=== PATIENT | male | born 1935 | race Caucasian/White ===

== ENCOUNTER → 2020-03-28 10:33 | Outpatient (BNVA) | payer MEDICARE, SELFPAY | PROVIDERS: PCP Internal Medicine; Visit Provider Orthopaedic Surgery | DX: M65.341 Trigger finger, right ring finger (principal) | CPT/HCPCS: 20550; 99202; J1100 ==

== ENCOUNTER 2020-05-31 18:48 | Emergency (ER) | payer MEDICARE, SELFPAY ==
--- NOTE | ~2020-05-31 | XR_ITS ---
EXAMINATION: XR CHEST CLINICAL INFORMATION: Weakness COMPARISON: Chest x-ray 10/09/2019 TECHNIQUE: Frontal view of the chest was obtained. 11:20 PM FINDINGS: No significant abnormality is noted involving the heart, lungs, mediastinum, bony thorax or soft tissues. XR/XR chest 1V IMPRESSION: Unremarkable examination.
--- NOTE | ~2020-05-31 | XR_ITS ---
EXAMINATION: XR ABDOMEN KUB CLINICAL INDICATION: Weakness COMPARISON: CT scan abdomen pelvis 10/07/2019 TECHNIQUE: AP view of the abdomen. FINDINGS: Large volume of stool throughout the colon. The volume of stool has increased since the exam of 10/07/2019. No abnormally dilated bowel loop however. Nonobstructive bowel pattern. No radiopaque urinary calculus. Multilevel degenerative spondylosis of the spine. XR/XR KUB IMPRESSION: Large volume of stool throughout the colon.
--- NOTE | ~2020-05-31 | CT_ITS ---
EXAMINATION: CT HEAD WITHOUT CONTRAST CLINICAL INFORMATION: Insomnia. Hallucination. COMPARISON: CT head 10/09/2019 TECHNIQUE: Contiguous axial imaging was performed from the skull base to vertex without intravenous administration of contrast. Coronal and sagittal reformatted images are performed at the CT scanner. [This CT examination was performed using dose optimization techniques as appropriate, variously including the following: *Automated exposure control *Adjustment of mA and/or kV according to patient size (this includes techniques or standardized protocols for targeted exams where dose is matched to indication/reason for exam; i.e. extremities or head) *Use of iterative reconstruction technique] DLP: 690 mGy-cm. FINDINGS: There is no evidence of acute intracranial hemorrhage or territorial infarction. No abnormal mass-effect or midline shift is seen. Alatorre to white matter differentiation is well preserved. No extra-axial fluid collections are identified. There is atrophy with prominence of the ventricles and the sulci and hypodensity of the periventricular white matter due to chronic small vessel ischemic disease. There are vascular calcifications of the internal carotid arteries bilaterally. There is no osseous abnormality. The mastoid air cells and visualized portions of the paranasal sinuses are well-aerated. CT/CT head/brain wo con IMPRESSION: No acute intracranial pathology.
[2020-05-31 19:26] VITALS: BP 106/70; PULSE 81; RESP 16; TEMP 36.6; O2SAT 98; BMI 27.4
[2020-05-31 19:52] LABS: MANUAL DIFF FLAG NO
[2020-05-31 20:09] LABS: Glucose Urine UA 250 MG/DL (NEG); Leukocyte Esterase Urine NEG (NEG); Nitrite Urine NEG (NEG); PH 5.5 (5.0-8.0); Specific Gravity - Urine >= 1.030 (1.005-1.025); Urine Blood NEG (NEG); Urine Ketones 5 MG/DL (NEG); Urine Protein TRACE MG/DL (NEG-TRACE)
[2020-05-31 20:11] LABS: Appearance Urine HAZY; Color Urine AMBER
[2020-05-31 20:12] LABS: Basophils Percent Auto 0.3 % (0-2); Eosinophils Absolute Auto 0.1 X10*3/uL (0.0-0.4); Eosinophils Percent Auto 1.4 % (0-4); Hematocrit 44.2 % (42-52); Hemoglobin 14.6 g/dl (14.0-18.0); Imm Gran Abs Auto 0.02 X10*3/uL (0.00-0.03); Imm Gran Pct Auto 0.3 % (0.0-0.4); Lymphocytes Absolute Auto 1.3 X10*3/uL (1.2-4.9); Lymphocytes Percent Auto 19.7 % (20-40); Mean Corpuscular Hemoglobin 30.8 pg (27.0-33.0); Mean Corpuscular Volume 93.2 fL (80-98); Mean Platelet Volume 9.7 fL (9.4-12.4); Monocytes Absolute Auto 0.5 X10*3/uL (0.1-1.2); Monocytes Percent Auto 8.1 % (2-11); Neutrophils Absolute Auto 4.6 X10*3/uL (2.0-8.3); Neutrophils Percent Auto 70.2 % (45-73); Platelet Count 174 X10*3/uL (160-400); Red Blood Count 4.74 X10*6/uL (4.60-5.80); Red Cell Distribution Width 13.7 % (11.0-16.0); White Blood Count 6.5 X10*3/uL (4.8-10.8)
[2020-05-31 20:38] LABS: Alanine Aminotransferase 25 U/L (0-40); Albumin Level 4.2 g/dL (3.5-5.0); Alkaline Phosphatase 77 U/L (39-117); Anion Gap 15 (12-20); Aspartate Amino Transferase 32 U/L (5-37); Bilirubin Total 0.4 mg/dL (0.0-1.0); Blood Urea Nitrogen 28 mg/dL (9-16); Calcium 9.6 mg/dL (8.4-10.2); Carbon Dioxide 26 mmol/L (22-29); Chloride 104 mmol/L (96-108); Creatinine Clr Calc Pharmacy 34.4; Estimated Glomerular Filt Rate 51; Glucose Random 120 mg/dL (60-115); Potassium 4.2 mmol/L (3.3-5.1); Sodium 141 mmol/L (135-145); Total Protein 7.1 g/dL (6.5-8.0)
[2020-05-31 22:00] VITALS: PULSE 84; RESP 18; O2SAT 100
--- NOTE | 2020-05-31 23:01 | ED_ITS ---
HPI - General Adult General Chief complaint: General Medical Stated complaint: not sleeping Time Seen by Provider: 05/31/20 23:00 Source: patient and family Mode of arrival: ambulatory Limitations: altered mental status History of Present Illness HPI narrative: 85 yo male with hx of HTN, dementia comes in with behavior change for 3 days MD complaint: insomnia, hallucinations Onset (ago): day(s) (3) Radiation: non-radiation Severity: moderate Quality: other Pain Consistency: intermittent Relieving factors: none Exacerbating factors: none Associated symptoms: other (not sleeping, walking all night, turning stove on) Treatments prior to arrival: other (PCP unsure if it was UTI so prophylactically Rx macrobid) Related Data Home Medications Medication Instructions Recorded Confirmed acetaminophen 650 mg 650 mg PO Q8H 03/28/20 tablet,extended release amlodipine 5 mg tablet 5 mg PO DAILY 03/28/20 atorvastatin 20 mg tablet 20 mg PO BEDTIME 03/28/20 melatonin 10 mg capsule 10 mg PO BEDTIME PRN 03/28/20 meloxicam 7.5 mg tablet 7.5 mg PO DAILY 03/28/20 memantine 5 mg tablet 5 mg PO QAM 03/28/20 omeprazole 20 mg tablet,delayed 20 mg PO DAILY 03/28/20 release triamterene 37.5 1 cap PO DAILY 03/28/20 mg-hydrochlorothiazide 25 mg capsule Previous Rx's Medication Instructions Recorded docusate sodium [Colace] 100 mg PO BID #60 cap 05/31/20 sennosides [senna] 8.6 mg PO BEDTIME PRN #30 cap 05/31/20 Allergies Allergy/AdvReac Type Severity Reaction Status Date / Time No Known Allergies Allergy Verified 03/28/20 10:57 [No Known Allergies*] Review of Systems Review of Systems: ROS unable to be obtained due to altered mental status [facility] Past Medical History Attestation statement: The following information was validated with the patient. Medical History Alzheimer disease Arthritis High cholesterol Social History Social History Alcohol intake: never Smoking Status: Never smoker Advance Directives: No Advance Directives Information Provided: No Current occupational status: retired Current occupation: right handed Physical Exam Vital Signs: Vital Signs: Last Vital Signs Temp 98 F 05/31/20 19:26 Pulse 81 05/31/20 19:26 Resp 16 05/31/20 19:26 BP 106/70 05/31/20 19:26 Pulse Ox 98 05/31/20 19:26 Body Mass Index 27.4 Appearance: Alert. Confused. No acute distress. Eyes: Pupils equal, round and reactive to light. ENT: Pharynx normal. Neck: Normal inspection. Neck supple. CVS: Normal heart rate and rhythm. Pulses normal. Respiratory: No respiratory distress. Breath sounds normal. Abdomen: Soft and nontender. Skin: Skin warm and dry. Normal skin color. Normal skin turgor. Extremities: No lower extremity edema. No calf ttp Neuro: Confused. No motor deficit. No sensory deficit. Course Course Course Narrative: daughter aware of constipation does not want to wait any longer in ED wants to go home Medical Decision Making MDM Narrative Medical decision making narrative: 85 yo male with insomnia and hallucinations x 3 days - UA negative but on macrobid, labs ordered, CXR/KUB for infection has had a bout of constipation in past triggering this behavior, Head CT for mass/ICH, PO ativan to see if this helps for sedation, daughter declines placement Lab Data Result diagrams: 05/31/20 19:41 05/31/20 19:41 Labs: Lab Results 05/31/20 05/31/20 05/31/20 Range/Units 19:40 19:41 19:41 WBC 6.5 (4.8-10.8) X10*3/uL RBC 4.74 (4.60-5.80) X10*6/uL Hgb 14.6 (14.0-18.0) g/dl Hct 44.2 (42-52) % MCV 93.2 (80-98) fL MCH 30.8 (27.0-33.0) pg MCHC 33.0 (31.0-36.0) g/dl RDW 13.7 (11.0-16.0) % Plt Count 174 (160-400) X10*3/uL MPV 9.7 (9.4-12.4) fL Immature Gran % (Auto) 0.3 (0.0-0.4) % Neut % (Auto) 70.2 (45-73) % Lymph % (Auto) 19.7 L (20-40) % [place] % (Auto) 8.1 (2-11) % Eos % (Auto) 1.4 (0-4) % Baso % (Auto) 0.3 (0-2) % Lymph # (Auto) 1.3 (1.2-4.9) X10*3/uL [place] # (Auto) 0.5 (0.1-1.2) X10*3/uL Eos # (Auto) 0.1 (0.0-0.4) X10*3/uL Baso # (Auto) 0.0 (0.0-0.2) X10*3/uL Abs Immat Gran (auto) 0.02 (0.00-0.03) X10*3/uL Absolute Neuts (auto) 4.6 (2.0-8.3) X10*3/uL Absolute Nucleated RBC 0.000 (0.0-0.012) X10*3/uL Nucleated RBC % (auto) 0.0 (0.0-0.2) /100WBC Sodium 141 (135-145) mmol/L Potassium 4.2 (3.3-5.1) mmol/L Chloride 104 (96-108) mmol/L Carbon Dioxide 26 (22-29) mmol/L Anion Gap 15 (12-20) BUN 28 H (9-16) mg/dL Creatinine 1.33 (0.5-1.4) mg/dL Estim Creat Clear Calc 34.4 Estimated GFR 51 Random Glucose 120 H (60-115) mg/dL Calcium 9.6 (8.4-10.2) mg/dL Total Bilirubin 0.4 (0.0-1.0) mg/dL AST 32 (5-37) U/L ALT 25 (0-40) U/L Alkaline Phosphatase 77 (39-117) U/L Total Protein 7.1 (6.5-8.0) g/dL Albumin 4.2 (3.5-5.0) g/dL Urine Color SANDRA Urine Appearance HAZY Urine pH 5.5 (5.0-8.0) Ur Specific [place] >= 1.030 H (1.005-1.025) Urine Protein TRACE (NEG-TRACE) MG/DL Urine Glucose (UA) 250 H (NEG) MG/DL Urine Ketones 5 (NEG) MG/DL Urine Blood NEG (NEG) Urine Nitrite NEG (NEG) Ur Leukocyte Esterase NEG (NEG) Discharge Plan Discharge Clinical Impression: Alzheimer disease Constipation Qualifiers: Constipation type: other constipation type Qualified Code(s): K59.09 - Other constipation Patient Disposition: Home, Self-Care Instructions: Constipation (ED) Additional Instructions: return to ED for any worsening symptoms or concerns TAKE 1/2 OF MAGNESIUM CITRATE REPEAT EVERY 4 HOURS NEEDED FOR BOWEL MOVEMENT Prescriptions: New senna 8.6 mg capsule 8.6 mg PO BEDTIME PRN (Reason: constipation) Qty: 30 RF: 0 docusate sodium [Colace] 100 mg capsule 100 mg PO BID Qty: 60 RF: 0 Referrals: Douglas Nguyễn MD [Primary Care Provider] - 2 days (IF NOT BETTER)
[2020-05-31] MEDS: LORazepam 1 MG TABLET PO (23:41)
[2020-05-31] MEDS: Magnesium Citrate 300 ML SOLUTION PO (23:57)
== END 2020-05-31 23:58 | disposition home or self-care (01) ==
PROVIDERS: Emergency Provider Emergency Medicine; PCP Internal Medicine
DX: G30.9 Alzheimer's disease, unspecified (principal); F02.81 Dementia in other diseases classified elsewhere, unspecified severity, with behavioral disturbance; Z91.83 Wandering in diseases classified elsewhere; R44.3 Hallucinations, unspecified; K59.09 Other constipation
CPT/HCPCS: 36415; 70450; 71045; 74018; 80053; 81003; 85025; 99284

== ENCOUNTER 2020-09-27 19:21 | Emergency (ER) | payer MEDICARE, SELFPAY ==
--- NOTE | ~2020-09-27 | CT_ITS ---
EXAMINATION: CT HEAD WITHOUT CONTRAST CLINICAL INFORMATION: Increased lethargy COMPARISON: Portions of a previous study 05/31/20 TECHNIQUE: Multidetector CT examination of the head is performed without contrast. This CT examination was performed using dose optimization techniques as appropriate, variously including the following: *Automated exposure control *Adjustment of mA and/or kV according to patient size (this includes techniques or standardized protocols for targeted exams where dose is matched to indication/reason for exam; i.e. extremities or head) *Use of iterative reconstruction technique DLP: 1204 mGy-cm FINDINGS: There is significant motion artifact. This limits the exam. There is no evidence of a recent intracranial hemorrhage or extra-axial collection. The midline structures are nondisplaced. The ventricles, cisterns, and sulci are within normal limits. There is no evidence of an intra-axial mass. There are no suspicious focal areas of abnormal brain attenuation. The paris-white interface is within normal limits. There is no evidence of acute territorial infarct. There is extensive nonspecific white matter disease possibly microangiopathy. The paranasal sinuses and mastoids are within normal limits. CT/CT head/brain wo con IMPRESSION: Limited study. 1. There is no evidence of a recent intracranial hemorrhage. 2. No acute infarct. 3. Extensive white matter disease possibly microangiopathy.
--- NOTE | ~2020-09-27 | XR_ITS ---
EXAMINATION: XR CHEST CLINICAL INFORMATION: Chest pain COMPARISON: 05/31/2020 TECHNIQUE: Frontal view of the chest was obtained. FINDINGS: Mild left basilar atelectasis. Remainder lung [place] are grossly clear. Comparable to previous. No obvious failure or effusion. XR/XR chest 1V IMPRESSION: Mild left basilar atelectasis.
[2020-09-27 19:25] VITALS: BP 135/93; BP 145/81; PULSE 85; RESP 16; TEMP 37.2; O2SAT 97; O2SAT 98; BMI 25.9
--- NOTE | 2020-09-27 19:48 | ECG_ITS ---
Test Reason : CHEST PAIN Blood Pressure : / mmHG Vent. Rate : 080 BPM Atrial Rate : 080 BPM P-R Int : 164 ms QRS Dur : 114 ms QT Int : 384 ms P-R-T Axes : 056 -32 083 degrees QTc Int : 442 ms Normal sinus rhythm with sinus arrhythmia Left axis deviation Abnormal ECG When compared with ECG of 09-OCT-2019 09:31, Premature ventricular complexes are no longer Present Referred By: Mariajose Sterling Electronically Signed By:ERNESTINE ESTRADA MD
[2020-09-27 20:35] LABS: MANUAL DIFF FLAG NO
[2020-09-27 20:36] LABS: Basophils Percent Auto 0.7 % (0-2); Eosinophils Absolute Auto 0.1 X10*3/uL (0.0-0.4); Eosinophils Percent Auto 2.4 % (0-4); Imm Gran Abs Auto 0.01 X10*3/uL (0.00-0.03); Imm Gran Pct Auto 0.2 % (0.0-0.4); Lymphocytes Percent Auto 24.3 % (20-40); Mean Corpuscular HGB Conc 33.3 g/dl (31.0-36.0); Mean Corpuscular Hemoglobin 30.8 pg (27.0-33.0); Mean Corpuscular Volume 92.4 fL (80-98); Monocytes Absolute Auto 0.5 X10*3/uL (0.1-1.2); Monocytes Percent Auto 12.1 % (2-11); Neutrophils Absolute Auto 2.6 X10*3/uL (2.0-8.3); Neutrophils Percent Auto 60.3 % (45-73); Platelet Count 150 X10*3/uL (160-400); Red Blood Count 4.22 X10*6/uL (4.60-5.80); Red Cell Distribution Width 13.8 % (11.0-16.0); White Blood Count 4.2 X10*3/uL (4.8-10.8)
[2020-09-27 20:42] LABS: INTERNATIONAL NORM RATIO 1.1 (0.9-1.1); Prothrombin Time 12.6 SEC (9.9-13.0)
--- NOTE | 2020-09-27 20:56 | ED.CHESTPAIN ---
HPI - Chest Pain General Chief Complaint: Chest Pain Stated Complaint: chest discomfort,acid reflux Time Seen by Provider: 09/27/20 19:48 Source: patient, family and EMS Mode of arrival: EMS History of Present Illness HPI narrative: 85-year-old male with a past medical history of Alzheimer's, arthritis, hyperlipidemia, BIBA from home for chest pain after eating/taking p.o. meds SPECIAL NEEDS NANNY. History obtained from daughter reports patient got little to no sleep last night, was up all night and then slept all day, increasing lethargy today. Denies fever, chills, cough, SOB, diarrhea/vomiting. Daughter denies fall/trauma or injury Related Data Home Medications Medication Instructions Recorded Confirmed acetaminophen 650 mg 650 mg PO Q8H 03/28/20 tablet,extended release (Tylenol Arthritis Pain) amlodipine 5 mg tablet 5 mg PO DAILY 03/28/20 atorvastatin 20 mg tablet (Lipitor) 20 mg PO BEDTIME 03/28/20 melatonin 10 mg capsule 10 mg PO BEDTIME PRN 03/28/20 meloxicam 7.5 mg tablet 7.5 mg PO DAILY 03/28/20 memantine 5 mg tablet 5 mg PO QAM 03/28/20 omeprazole 20 mg tablet,delayed 20 mg PO DAILY 03/28/20 release triamterene 37.5 1 cap PO DAILY 03/28/20 mg-hydrochlorothiazide 25 mg capsule Previous Rx's Medication Instructions Recorded docusate sodium 100 mg capsule 100 mg PO BID #60 cap 05/31/20 (Colace) sennosides 8.6 mg capsule (senna) 8.6 mg PO BEDTIME PRN #30 cap 05/31/20 Allergies Allergy/AdvReac Type Severity Reaction Status Date / Time No Known Allergies Allergy Verified 03/28/20 10:57 [No Known Allergies*] Review of Systems Review of Systems: Constitutional: No Fever, No Chills, +Fatigue, No Malaise Cardiovascular: + Chest Pain, No SOB, No Edema Respiratory: No Cough, No Dyspnea Gastrointestinal: No Nausea, No Vomiting, No Diarrhea, No Abdominal pain Genitourinary: No Dysuria, No Urinary Frequency, No Hematuria Musculoskeletal: No joint pain, No Joint Swelling Skin: No Skin Lesions, No rash Neuro: No Weakness History limited due to patient's baseline Alzheimer's Yes all other systems are reviewed and are negative PMFSH Past Medical History Attestation statement: The following information was validated with the patient. Medical History Alzheimer disease Arthritis High cholesterol Social History Social History Alcohol intake: never Advance Directives: No Advance Directives Information Provided: No Current occupational status: retired Current occupation: right handed Physical Exam Vital Signs: Vital Signs: Last Vital Signs Temp 97.7 F 09/27/20 22:21 Pulse 63 09/27/20 22:21 Resp 15 09/27/20 22:21 BP 117/67 09/27/20 22:21 Pulse Ox 95 09/27/20 22:21 Body Mass Index 25.9 Const: Other: Lethargic, easily arousable General: no acute distress Orientation/consciousness: oriented to person Limitations: other limitations (Baseline Alzheimer's) HENMT: Head: Yes normal to inspection and Yes atraumatic Ears: hearing grossly normal bilaterally General nose exam: Normal external nose present Face and sinus: Yes normal facial exam Eyes: General: appearance normal, both eyes and all related structures Pupils: Equal, round and reactive pupils present EOM: EOMs intact bilaterally Neck: Neck: Yes normal visual inspection and Yes no meningeal signs Resp: Effort & Inspection: normal respiratory effort Auscultation: clear to auscultation bilaterally and no wheezes Cardio: Rate: regular rate Heart sounds: S1 normal heart sound present and S2 normal heart sound present GI: Inspection: Yes normal to inspection Palpation (GI): Soft to palpation, nontender, no guarding and not rigid Skin: Rashes: no rashes Wounds: no wounds Neuro: General: oriented to person, tone normal, moves all extremities, no meningeal signs and no focal motor deficits Cranial nerves: Yes Equal, round and reactive pupils present Extrem: General: Yes normal to inspection Course Course Course Narrative: XR chest 1V IMPRESSION: Mild left basilar atelectasis. -no leukocytosis, H/H stable, initial troponin 38.8 (elevated in the past) > will obtain 3 hour repeat -2200--UA negative -COVID-19/influenza/RSV negative CT head/brain wo con IMPRESSION: Limited study. 1. There is no evidence of a recent intracranial hemorrhage. 2. No acute infarct. 3. Extensive white matter disease possibly microangiopathy. -0001--repeat troponin without 50% rise, IA unlikely >> results discussed with daughter at bedside including worrisome signs and symptoms and strict return precautions. She verbalized understanding feel safe for discharge home to follow-up with PCP MDM - Chest Pain MDM Narrative Medical decision making narrative: 85-year-old male with a past medical history of Alzheimer's, arthritis, hyperlipidemia, BIBA from home for chest pain after eating/taking p.o. meds SPECIAL NEEDS NANNY. History obtained from daughter reports patient got little to no sleep last night, was up all night and then slept all day, increasing lethargy today. On exam VSS, NAD, lethargic/easily arousable, no focal neuro deficits. Rule out ACS vs metabolic and infectious etiology vs lethargy secondary to decreased sleep per daughter. Lower concern for TIA/CVA Plan: EKG, labs, UA, CXR, head CT Medical Records Data Attestation: I reviewed the patient's medical records. Lab Data Attestation: I reviewed the patient's lab results. Result diagrams: 09/27/20 20:26 09/27/20 20:26 Labs: Lab Results 09/27/20 09/27/20 09/27/20 Range/Units 20:26 20:26 20:26 WBC 4.2 L (4.8-10.8) X10*3/uL RBC 4.22 L (4.60-5.80) X10*6/uL Hgb 13.0 L (14.0-18.0) g/dl Hct 39.0 L (42-52) % MCV 92.4 (80-98) fL MCH 30.8 (27.0-33.0) pg MCHC 33.3 (31.0-36.0) g/dl RDW 13.8 (11.0-16.0) % Plt Count 150 L (160-400) X10*3/uL MPV 9.0 L (9.4-12.4) fL Immature Gran % (Auto) 0.2 (0.0-0.4) % Neut % (Auto) 60.3 (45-73) % Lymph % (Auto) 24.3 (20-40) % [place] % (Auto) 12.1 H (2-11) % Eos % (Auto) 2.4 (0-4) % Baso % (Auto) 0.7 (0-2) % Lymph # (Auto) 1.0 L (1.2-4.9) X10*3/uL [place] # (Auto) 0.5 (0.1-1.2) X10*3/uL Eos # (Auto) 0.1 (0.0-0.4) X10*3/uL Baso # (Auto) 0.0 (0.0-0.2) X10*3/uL Abs Immat Gran (auto) 0.01 (0.00-0.03) X10*3/uL Absolute Neuts (auto) 2.6 (2.0-8.3) X10*3/uL Absolute Nucleated RBC 0.000 (0.0-0.012) X10*3/uL Nucleated RBC % (auto) 0.0 (0.0-0.2) /100WBC PT 12.6 (9.9-13.0) SEC INR 1.1 (0.9-1.1) Sodium 138 (135-145) mmol/L Potassium 3.9 (3.3-5.1) mmol/L Chloride 105 (96-108) mmol/L Carbon Dioxide 27 (22-29) mmol/L Anion Gap 10 L (12-20) BUN 14 (9-16) mg/dL Creatinine 0.85 (0.5-1.4) mg/dL Estim Creat Clear Calc 57.3 Estimated GFR > 60 Random Glucose 117 H (60-115) mg/dL Calcium 9.1 (8.4-10.2) mg/dL Magnesium 2.1 (1.6-2.6) mg/dL Total Bilirubin 0.5 (0.0-1.0) mg/dL Direct Bilirubin 0.2 (0.0-0.5) mg/dL AST 19 D (5-37) U/L ALT 18 (0-40) U/L Alkaline Phosphatase 64 (39-117) U/L Troponin I High Sens (<3.5-35.0) ng/L B-Natriuretic Peptide (<100) pg/mL Total Protein 6.0 L (6.5-8.0) g/dL Albumin 3.7 (3.5-5.0) g/dL Urine Color Urine Appearance Urine pH (5.0-8.0) Ur Specific [place] (1.005-1.025) Urine Protein (NEG-TRACE) MG/DL Urine Glucose (UA) (NEG) MG/DL Urine Ketones (NEG) MG/DL Urine Blood (NEG) Urine Nitrite (NEG) Ur Leukocyte Esterase (NEG) Coronavirus (PCR) (Negative) Influenza Type A (PCR) (Negative) Influenza Type B (PCR) (Negative) RSV RNA Qual (PCR) (Negative) 09/27/20 09/27/20 09/27/20 Range/Units 20:26 21:43 21:43 WBC (4.8-10.8) X10*3/uL RBC (4.60-5.80) X10*6/uL Hgb (14.0-18.0) g/dl Hct (42-52) % MCV (80-98) fL MCH (27.0-33.0) pg MCHC (31.0-36.0) g/dl RDW (11.0-16.0) % Plt Count (160-400) X10*3/uL MPV (9.4-12.4) fL Immature Gran % (Auto) (0.0-0.4) % Neut % (Auto) (45-73) % Lymph % (Auto) (20-40) % [place] % (Auto) (2-11) % Eos % (Auto) (0-4) % Baso % (Auto) (0-2) % Lymph # (Auto) (1.2-4.9) X10*3/uL [place] # (Auto) (0.1-1.2) X10*3/uL Eos # (Auto) (0.0-0.4) X10*3/uL Baso # (Auto) (0.0-0.2) X10*3/uL Abs Immat Gran (auto) (0.00-0.03) X10*3/uL Absolute Neuts (auto) (2.0-8.3) X10*3/uL Absolute Nucleated RBC (0.0-0.012) X10*3/uL Nucleated RBC % (auto) (0.0-0.2) /100WBC PT (9.9-13.0) SEC INR (0.9-1.1) Sodium (135-145) mmol/L Potassium (3.3-5.1) mmol/L Chloride (96-108) mmol/L Carbon Dioxide (22-29) mmol/L Anion Gap (12-20) BUN (9-16) mg/dL Creatinine (0.5-1.4) mg/dL Estim Creat Clear Calc Estimated GFR Random Glucose (60-115) mg/dL Calcium (8.4-10.2) mg/dL Magnesium (1.6-2.6) mg/dL Total Bilirubin (0.0-1.0) mg/dL Direct Bilirubin (0.0-0.5) mg/dL AST (5-37) U/L ALT (0-40) U/L Alkaline Phosphatase (39-117) U/L Troponin I High Sens 38.8 H* (<3.5-35.0) ng/L B-Natriuretic Peptide 50 (<100) pg/mL Total Protein (6.5-8.0) g/dL Albumin (3.5-5.0) g/dL Urine Color YELLOW Urine Appearance CLEAR Urine pH 7.5 (5.0-8.0) Ur Specific [place] 1.010 (1.005-1.025) Urine Protein NEG (NEG-TRACE) MG/DL Urine Glucose (UA) NEG (NEG) MG/DL Urine Ketones NEG (NEG) MG/DL Urine Blood NEG (NEG) Urine Nitrite NEG (NEG) Ur Leukocyte Esterase NEG (NEG) Coronavirus (PCR) NEGATIVE (Negative) Influenza Type A (PCR) NEGATIVE (Negative) Influenza Type B (PCR) NEGATIVE (Negative) RSV RNA Qual (PCR) NEGATIVE (Negative) 09/27/20 Range/Units 23:29 WBC (4.8-10.8) X10*3/uL RBC (4.60-5.80) X10*6/uL Hgb (14.0-18.0) g/dl Hct (42-52) % MCV (80-98) fL MCH (27.0-33.0) pg MCHC (31.0-36.0) g/dl RDW (11.0-16.0) % Plt Count (160-400) X10*3/uL MPV (9.4-12.4) fL Immature Gran % (Auto) (0.0-0.4) % Neut % (Auto) (45-73) % Lymph % (Auto) (20-40) % [place] % (Auto) (2-11) % Eos % (Auto) (0-4) % Baso % (Auto) (0-2) % Lymph # (Auto) (1.2-4.9) X10*3/uL [place] # (Auto) (0.1-1.2) X10*3/uL Eos # (Auto) (0.0-0.4) X10*3/uL Baso # (Auto) (0.0-0.2) X10*3/uL Abs Immat Gran (auto) (0.00-0.03) X10*3/uL Absolute Neuts (auto) (2.0-8.3) X10*3/uL Absolute Nucleated RBC (0.0-0.012) X10*3/uL Nucleated RBC % (auto) (0.0-0.2) /100WBC PT (9.9-13.0) SEC INR (0.9-1.1) Sodium (135-145) mmol/L Potassium (3.3-5.1) mmol/L Chloride (96-108) mmol/L Carbon Dioxide (22-29) mmol/L Anion Gap (12-20) BUN (9-16) mg/dL Creatinine (0.5-1.4) mg/dL Estim Creat Clear Calc Estimated GFR Random Glucose (60-115) mg/dL Calcium (8.4-10.2) mg/dL Magnesium (1.6-2.6) mg/dL Total Bilirubin (0.0-1.0) mg/dL Direct Bilirubin (0.0-0.5) mg/dL AST (5-37) U/L ALT (0-40) U/L Alkaline Phosphatase (39-117) U/L Troponin I High Sens 41.8 H* (<3.5-35.0) ng/L B-Natriuretic Peptide (<100) pg/mL Total Protein (6.5-8.0) g/dL Albumin (3.5-5.0) g/dL Urine Color Urine Appearance Urine pH (5.0-8.0) Ur Specific [place] (1.005-1.025) Urine Protein (NEG-TRACE) MG/DL Urine Glucose (UA) (NEG) MG/DL Urine Ketones (NEG) MG/DL Urine Blood (NEG) Urine Nitrite (NEG) Ur Leukocyte Esterase (NEG) Coronavirus (PCR) (Negative) Influenza Type A (PCR) (Negative) Influenza Type B (PCR) (Negative) RSV RNA Qual (PCR) (Negative) Discharge Plan Discharge Clinical Impression: Chest pain Patient Disposition: Home, Self-Care Instructions: Chest Pain (ED) Additional Instructions: Your blood work was reassuring today in the ED Your x-ray and head CT did not show any acute findings It is very important that he follow up with her primary care doctor Continue taking home prescribed medications If symptoms persist or worsen, constant worsening chest pain, shortness breath, fever, cough please return to the ED Prescriptions: No Action senna 8.6 mg capsule 8.6 mg PO BEDTIME PRN (Reason: constipation) Qty: 30 RF: 0 docusate sodium [Colace] 100 mg capsule 100 mg PO BID Qty: 60 RF: 0 Referrals: Catherine Bishop [Emergency Nurse] - 2 days
[2020-09-27 21:02] LABS: Alanine Aminotransferase 18 U/L (0-40); Albumin Level 3.7 g/dL (3.5-5.0); Alkaline Phosphatase 64 U/L (39-117); Anion Gap 10 (12-20); Aspartate Amino Transferase 19 U/L (5-37); Bilirubin Direct 0.2 mg/dL (0.0-0.5); Bilirubin Total 0.5 mg/dL (0.0-1.0); Blood Urea Nitrogen 14 mg/dL (9-16); Calcium 9.1 mg/dL (8.4-10.2); Carbon Dioxide 27 mmol/L (22-29); Chloride 105 mmol/L (96-108); Creatinine Clr Calc Pharmacy 57.3; Estimated Glomerular Filt Rate > 60; Glucose Random 117 mg/dL (60-115); Magnesium 2.1 mg/dL (1.6-2.6); Potassium 3.9 mmol/L (3.3-5.1); Sodium 138 mmol/L (135-145)
[2020-09-27 21:13] LABS: B Type Natriuretic Peptide 50 pg/mL (<100); Troponin-I High Sensitivity 38.8 ng/L (<3.5-35.0)
[2020-09-27 21:28] VITALS: BP 146/73; PULSE 74; RESP 15; TEMP 37.1; O2SAT 95
--- NOTE | 2020-09-27 21:29 | PC.NURSE ---
PATIENT WAS INCONTINENT URINE ,MARTHA CARE WAS DONE AND BEDDING WAS CHANGE BY THIS PCT .
[2020-09-27 21:57] LABS: Glucose Urine UA NEG (NEG); Leukocyte Esterase Urine NEG (NEG); Nitrite Urine NEG (NEG); PH 7.5 (5.0-8.0); Urine Blood NEG (NEG); Urine Ketones NEG (NEG); Urine Protein NEG (NEG-TRACE)
[2020-09-27 21:59] LABS: Appearance Urine CLEAR; Color Urine YELLOW
[2020-09-27 22:21] VITALS: BP 117/67; PULSE 63; RESP 15; TEMP 36.5; O2SAT 95
[2020-09-27 22:39] LABS: Influenza A PCR NEGATIVE (Negative); Influenza B PCR NEGATIVE (Negative); Resp Syncy Virus RNA Qual PCR NEGATIVE (Negative); SARS COV2 PCR INHOUSE NEGATIVE (Negative)
[2020-09-27 23:58] LABS: Troponin-I High Sensitivity 41.8 ng/L (<3.5-35.0)
== END 2020-09-28 00:38 | disposition home or self-care (01) ==
PROVIDERS: Physician Assistant; Emergency Provider Emergency Medicine
DX: R07.9 Chest pain, unspecified (principal); G30.9 Alzheimer's disease, unspecified; F02.80 Dementia in other diseases classified elsewhere, unspecified severity, without behavioral disturbance, psychotic disturbance, mood disturbance, and anxiety; Z20.822 Contact with and (suspected) exposure to COVID-19
CPT/HCPCS: 0241U; 36415; 70450; 71045; 80048; 80076; 81003; 83735; 83880; 84484; 85025; 85610; 93005; 99284

== ENCOUNTER 2021-03-25 19:25 | Emergency (ER) | payer MEDICARE, SELFPAY ==
--- NOTE | ~2021-03-25 | XR_ITS ---
EXAMINATION: XR CHEST CLINICAL INFORMATION: Shortness of breath. COMPARISON: 09/27/2020 TECHNIQUE: Frontal view of the chest was obtained. FINDINGS: Lung volumes are low. Bibasilar atelectasis. No consolidation, pneumothorax, or pleural effusion. Cardiac silhouette is within normal limits in size. Mild tortuosity the thoracic aorta. Calcified lymph nodes are present in the mediastinum. Bones are osteopenic. Degenerative spondylosis is present in the thoracic spine. XR/XR chest 1V IMPRESSION: Mild bibasilar atelectasis. No acute pulmonary findings.
--- NOTE | ~2021-03-25 | CT_ITS ---
EXAMINATION: CT HEAD WITHOUT CONTRAST CLINICAL INFORMATION: Altered mental status. COMPARISON: 09/27/2010 TECHNIQUE: Contiguous axial imaging was performed from the skull base to vertex without intravenous administration of contrast. This CT examination was performed using dose optimization techniques as appropriate, variously including the following: *Automated exposure control *Adjustment of mA and/or kV according to patient size (this includes techniques or standardized protocols for targeted exams where dose is matched to indication/reason for exam; i.e. extremities or head) *Use of iterative reconstruction technique DLP: 702 mGy-cm FINDINGS: There is no evidence of acute intracranial hemorrhage or territorial infarction. No abnormal mass effect or midline shift is seen. Alatorre to white matter differentiation is well preserved. No extra-axial fluid collections are identified. Mild enlargement of the ventricles, sulci, and extra-axial CSF spaces is indicative of parenchymal volume loss. Multiple areas of hypoattenuation in the subcortical and periventricular white matter are most consistent with chronic microangiopathic changes. Calcific atherosclerosis is present within the cavernous segments of the internal carotid arteries. The mastoid air cells and visualized portions of the paranasal sinuses are well aerated. Minimal pneumatization of the frontal bones. CT/CT head/brain wo con IMPRESSION: No acute intracranial pathology. Mild cerebral atrophy with moderate white matter microangiopathy.
[2021-03-25 19:31] VITALS: BP 159/78; PULSE 69; RESP 18; TEMP 36.6; O2SAT 99; BMI 22.8
--- NOTE | 2021-03-25 19:34 | ECG_ITS ---
Test Reason : WEAKNESS Blood Pressure : / mmHG Vent. Rate : 073 BPM Atrial Rate : 073 BPM P-R Int : 188 ms QRS Dur : 100 ms QT Int : 400 ms P-R-T Axes : 055 -36 066 degrees QTc Int : 440 ms Poor data quality, interpretation may be adversely affected Normal sinus rhythm Left axis deviation Minimal voltage criteria for LVH, may be normal variant ( Tab product ) Abnormal ECG When compared with ECG of 27-SEP-2020 19:34, No significant change was found Referred By: Ai Barrett Electronically Signed By:Trenton Berrios
[2021-03-25] MEDS: 0.9 % Sodium Chloride 500 ML 999 ML IV (20:19)
[2021-03-25 20:48] LABS: MANUAL DIFF FLAG NO
[2021-03-25 20:49] LABS: Basophils Percent Auto 0.4 % (0-2); Eosinophils Absolute Auto 0.1 X10*3/uL (0.0-0.4); Eosinophils Percent Auto 1.9 % (0-4); Hematocrit 42.7 % (42.0-52.0); Hemoglobin 14.3 g/dl (14.0-18.0); Imm Gran Abs Auto 0.02 X10*3/uL (0.00-0.03); Imm Gran Pct Auto 0.4 % (0.0-0.4); Lymphocytes Absolute Auto 1.3 X10*3/uL (1.2-4.9); Lymphocytes Percent Auto 24.1 % (20-40); Mean Corpuscular HGB Conc 33.5 g/dl (31.0-36.0); Mean Corpuscular Hemoglobin 31.2 pg (27.0-33.0); Mean Platelet Volume 9.7 fL (9.4-12.4); Monocytes Absolute Auto 0.5 X10*3/uL (0.1-1.2); Monocytes Percent Auto 8.9 % (2-11); Neutrophils Absolute Auto 3.5 x10*3/uL (2.0-8.3); Neutrophils Percent Auto 64.3 % (45-73); Platelet Count 149 X10*3/uL (160-400); Red Blood Count 4.59 X10*6/uL (4.60-5.80); Red Cell Distribution Width 12.9 % (11.0-16.0); White Blood Count 5.4 X10*3/uL (4.8-10.8)
[2021-03-25 20:52] VITALS: BP 136/87; PULSE 70; RESP 18; TEMP 36.4; O2SAT 97
--- NOTE | 2021-03-25 20:53 | PC.NURSE ---
Pt pulled out IV, confused, resistant to linen and clothing change. New IV placed, labs sent, IV fluids infusing. Straight cath performed w/ staff assist x 4. Urine sent. Daughter remains at bedside, encouraged to let staff know if pt attempts to pull IV again so that we can intervene prior to full removal
[2021-03-25 20:56] LABS: Appearance Urine CLEAR; Color Urine YELLOW; Glucose Urine UA NEG (NEG); Leukocyte Esterase Urine NEG (NEG); Nitrite Urine NEG (NEG); Specific Gravity - Urine 1.015 (1.005-1.025); UACC Culture Trigger NO; Urine Blood TRACE (NEG); Urine Ketones NEG (NEG); Urine Protein NEG (NEG-TRACE)
[2021-03-25 21:10] LABS: COVID-19 Test Negative (Negative)
[2021-03-25 21:11] LABS: Alanine Aminotransferase 10 U/L (0-40); Albumin Level 3.7 g/dL (3.5-5.0); Alkaline Phosphatase 69 U/L (39-117); Anion Gap 10 (12-20); Aspartate Amino Transferase 20 U/L (5-37); Bilirubin Direct 0.2 mg/dL (0.0-0.5); Bilirubin Total 0.6 mg/dL (0.0-1.0); Blood Urea Nitrogen 21 mg/dL (9-16); Calcium 9.4 mg/dL (8.4-10.2); Carbon Dioxide 29 mmol/L (22-29); Chloride 104 mmol/L (96-108); Creatinine Clr Calc Pharmacy 42.1; Estimated Glomerular Filt Rate > 60; Glucose Random 82 mg/dL (60-115); Magnesium 1.9 mg/dL (1.6-2.6); Potassium 4.4 mmol/L (3.3-5.1); Sodium 139 mmol/L (135-145); Total Protein 6.4 g/dL (6.5-8.0)
[2021-03-25 21:12] LABS: Amorphous Sediment Urine 3+ /LPF; Hyaline Casts Urine 0-2 /LPF; Mucus Urine TRACE /LPF; WBC Urine 0-2 /HPF (0-4)
--- NOTE | 2021-03-25 21:23 | ED_ITS ---
HPI - Weakness General Chief complaint: Weakness Stated complaint: INCREASED WEAKNESS PER EMS Time Seen by Provider: 03/25/21 19:34 History of Present Illness HPI Narrative: Patient is an 86-year-old male presents today with a history of dementia. Patient more lethargic than usual. More sleepy than usual. He is unable to give detailed history secondary to dementia. Baseline is oriented to self only. Per family this is about the same. He has been sleeping all day. That seems somewhat unusual for patient. No coughing or congestion or upper respiratory symptoms patient is immunized for COVID. No fever no chills no changes in medication no nausea no vomiting Related Data Home Medications Medication Instructions Recorded Confirmed acetaminophen 650 mg 650 mg PO Q8H 03/28/20 tablet,extended release (Tylenol Arthritis Pain) amlodipine 5 mg tablet 5 mg PO DAILY 03/28/20 atorvastatin 20 mg tablet (Lipitor) 20 mg PO BEDTIME 03/28/20 melatonin 10 mg capsule 10 mg PO BEDTIME PRN 03/28/20 meloxicam 7.5 mg tablet 7.5 mg PO DAILY 03/28/20 memantine 5 mg tablet 5 mg PO QAM 03/28/20 omeprazole 20 mg tablet,delayed 20 mg PO DAILY 03/28/20 release triamterene 37.5 1 cap PO DAILY 03/28/20 mg-hydrochlorothiazide 25 mg capsule Previous Rx's Medication Instructions Recorded docusate sodium 100 mg capsule 100 mg PO BID #60 cap 05/31/20 (Colace) sennosides 8.6 mg capsule (senna) 8.6 mg PO BEDTIME PRN #30 cap 05/31/20 Allergies Allergy/AdvReac Type Severity Reaction Status Date / Time No Known Allergies Allergy Verified 03/28/20 10:57 [No Known Allergies*] Review of Systems Verdana 4l Review of Systems: Verdana 4d Unable to obtain review Verdana 4d system secondary patient's condition Verdana 4d Yes Unobtainable due to mental condition [facility] Past Medical History Medical History Alzheimer disease Arthritis High cholesterol Social History Social History Alcohol intake: never Advance Directives: No Advance Directives Information Provided: No Current occupational status: retired Current occupation: right handed Physical Exam Verdana 4l Vital Signs: Verdana 4d Verdana 4d Vital Signs: Verdana 4d Verdana 4Bd Last Vital Signs Verdana 4d [employer]iter New 4d Mela New 4d Temp 97.6 F 03/25/21 20:52 Senior Recruiter New 4d Pulse 70 03/25/21 20:52 Senior Recruiter New 4d Resp 18 03/25/21 20:52 BP 136/87 03/25/21 20:52 Pulse Ox 97 03/25/21 20:52 BMI result Body Mass Index 22.8 Appearance: Alert. Oriented to self only. No acute distress. Eyes: Pupils equal, round and reactive to light. ENT: Pharynx normal. Neck: Normal inspection. Neck supple. No lymph nodes noted. No crepitus CVS: Normal heart rate and rhythm. Pulses normal. Normal S1 and S2 Respiratory: No respiratory distress. Breath sounds normal. No Wheezing. No rales Abdomen: Soft and nontender. No rigidity. No distention. good BS x4 Skin: Skin warm and dry. Normal skin color. Normal skin turgor. Extremities: No lower extremity edema. Neurovascular intact to all extremities. No Lacerations. No Rash Neuro: Oriented x1 No motor deficit. No sensory deficit. Moving all extermities. No slurred speech MDM - Weakness MDM Narrative Medical decision making narrative: Patient's white count is normal. Electrolytes showed an elevated BUN creatinine that is baseline. Patient's CT scan of the head was grossly negative. EKG markos wed a sinus pattern heart rate is 70 VA QRS QT within normal limits there is nonspecific T-wave flattening noted laterally. Patient in no distress. Will discharge patient home. Chest x-ray showed no acute infiltrate. Follow up on an outpatient basis. Medical Records Attestation: I reviewed the patient's medical records. Lab Data Attestation: I reviewed the patient's lab results. Result diagrams: 03/25/21 20:44 03/25/21 20:44 Labs: Lab Results 03/25/21 03/25/21 03/25/21 Range/Units 20:44 20:44 20:44 WBC 5.4 (4.8-10.8) X10*3/uL RBC 4.59 L (4.60-5.80) X10*6/uL Hgb 14.3 (14.0-18.0) g/dl Hct 42.7 (42.0-52.0) % MCV 93.0 (80.0-98.0) fL MCH 31.2 (27.0-33.0) pg MCHC 33.5 (31.0-36.0) g/dl RDW 12.9 (11.0-16.0) % Plt Count 149 L (160-400) X10*3/uL MPV 9.7 (9.4-12.4) fL Immature Gran % (Auto) 0.4 (0.0-0.4) % Neut % (Auto) 64.3 (45-73) % Lymph % (Auto) 24.1 (20-40) % Power % (Auto) 8.9 (2-11) % Eos % (Auto) 1.9 (0-4) % Baso % (Auto) 0.4 (0-2) % Lymph # (Auto) 1.3 (1.2-4.9) X10*3/uL Power # (Auto) 0.5 (0.1-1.2) X10*3/uL Eos # (Auto) 0.1 (0.0-0.4) X10*3/uL Baso # (Auto) 0.0 (0.0-0.2) X10*3/uL Abs Immat Gran (auto) 0.02 (0.00-0.03) X10*3/uL Absolute Neuts (auto) 3.5 (2.0-8.3) x10*3/uL Absolute Nucleated RBC 0.000 (0.0-0.012) X10*3/uL Nucleated RBC % (auto) 0.0 (0.0-0.2) /100WBC Sodium 139 (135-145) mmol/L Potassium 4.4 (3.3-5.1) mmol/L Chloride 104 (96-108) mmol/L Carbon Dioxide 29 (22-29) mmol/L Anion Gap 10 L (12-20) BUN 21 H (9-16) mg/dL Creatinine 0.93 (0.5-1.4) mg/dL Estim Creat Clear Calc 42.1 Estimated GFR > 60 Random Glucose 82 (60-115) mg/dL Calcium 9.4 (8.4-10.2) mg/dL Magnesium 1.9 (1.6-2.6) mg/dL Total Bilirubin 0.6 (0.0-1.0) mg/dL Direct Bilirubin 0.2 (0.0-0.5) mg/dL AST 20 (5-37) U/L ALT 10 (0-40) U/L Alkaline Phosphatase 69 (39-117) U/L Total Protein 6.4 L (6.5-8.0) g/dL Albumin 3.7 (3.5-5.0) g/dL Urine Color Urine Appearance Urine pH (5.0-8.0) Ur Specific [place] (1.005-1.025) Urine Protein (NEG-TRACE) MG/DL Urine Glucose (UA) (NEG) MG/DL Urine Ketones (NEG) MG/DL Urine Blood (NEG) Urine Nitrite (NEG) Ur Leukocyte Esterase (NEG) Urine RBC (0) /HPF Urine WBC (0-4) /HPF Ur Squamous Epith Cells /LPF Amorphous Sediment /LPF Urine Bacteria /LPF Hyaline Casts /LPF Urine Mucus /LPF COVID-19 (JEY) Negative (Negative) COVID-19 Clin Com See Note 03/25/21 Range/Units 20:47 WBC (4.8-10.8) X10*3/uL RBC (4.60-5.80) X10*6/uL Hgb (14.0-18.0) g/dl Hct (42.0-52.0) % MCV (80.0-98.0) fL MCH (27.0-33.0) pg MCHC (31.0-36.0) g/dl RDW (11.0-16.0) % Plt Count (160-400) X10*3/uL MPV (9.4-12.4) fL Immature Gran % (Auto) (0.0-0.4) % Neut % (Auto) (45-73) % Lymph % (Auto) (20-40) % Power % (Auto) (2-11) % Eos % (Auto) (0-4) % Baso % (Auto) (0-2) % Lymph # (Auto) (1.2-4.9) X10*3/uL Power # (Auto) (0.1-1.2) X10*3/uL Eos # (Auto) (0.0-0.4) X10*3/uL Baso # (Auto) (0.0-0.2) X10*3/uL Abs Immat Gran (auto) (0.00-0.03) X10*3/uL Absolute Neuts (auto) (2.0-8.3) x10*3/uL Absolute Nucleated RBC (0.0-0.012) X10*3/uL Nucleated RBC % (auto) (0.0-0.2) /100WBC Sodium (135-145) mmol/L Potassium (3.3-5.1) mmol/L Chloride (96-108) mmol/L Carbon Dioxide (22-29) mmol/L Anion Gap (12-20) BUN (9-16) mg/dL Creatinine (0.5-1.4) mg/dL Estim Creat Clear Calc Estimated GFR Random Glucose (60-115) mg/dL Calcium (8.4-10.2) mg/dL Magnesium (1.6-2.6) mg/dL Total Bilirubin (0.0-1.0) mg/dL Direct Bilirubin (0.0-0.5) mg/dL AST (5-37) U/L ALT (0-40) U/L Alkaline Phosphatase (39-117) U/L Total Protein (6.5-8.0) g/dL Albumin (3.5-5.0) g/dL Urine Color YELLOW Urine Appearance CLEAR Urine pH 7.0 (5.0-8.0) Ur Specific [place] 1.015 (1.005-1.025) Urine Protein NEG (NEG-TRACE) MG/DL Urine Glucose (UA) NEG (NEG) MG/DL Urine Ketones NEG (NEG) MG/DL Urine Blood TRACE (NEG) Urine Nitrite NEG (NEG) Ur Leukocyte Esterase NEG (NEG) Urine RBC 5-9 H (0) /HPF Urine WBC 0-2 (0-4) /HPF Ur Squamous Epith Cells NONE /LPF Amorphous Sediment 3+ /LPF Urine Bacteria NONE /LPF Hyaline Casts 0-2 /LPF Urine Mucus TRACE /LPF COVID-19 (JEY) (Negative) COVID-19 Clin Com Discharge Plan Discharge Clinical Impression: Weakness Patient Disposition: Home, Self-Care Instructions: Weakness (ED) Prescriptions: No Action senna 8.6 mg capsule 8.6 mg PO BEDTIME PRN (Reason: constipation) Qty: 30 0RF docusate sodium [Colace] 100 mg capsule 100 mg PO BID Qty: 60 0RF Referrals: Physician,Unknown J [Primary Care Provider] - 2 days
--- NOTE | 2021-03-25 22:12 | PC.NURSE ---
Previous documentation by this RN erroneous- pt not from SNF, lives at home. Daughter at bedside confirms she is able to transport pt upon dc
== END 2021-03-25 22:25 | disposition home or self-care (01) ==
PROVIDERS: Emergency Provider Emergency Medicine Emergency Medical Services
DX: R53.1 Weakness (principal); F03.90 Unspecified dementia, unspecified severity, without behavioral disturbance, psychotic disturbance, mood disturbance, and anxiety; Z20.822 Contact with and (suspected) exposure to COVID-19; Z79.899 Other long term (current) drug therapy
CPT/HCPCS: 36415; 51702; 70450; 71045; 80048; 80076; 81001; 83735; 85025; 87635; 93005; 99284

== ENCOUNTER 2021-04-08 16:12 | Inpatient (IN) | payer MEDICARE, SELFPAY ==
--- NOTE | ~2021-04-08 | XR_ITS ---
EXAMINATION: XR HIPS WITH AP PELVIS, BILATERAL CLINICAL INFORMATION: Fall with hip pain. COMPARISON: CT scan of the abdomen and pelvis September 2019. TECHNIQUE: AP of the pelvis and AP and lateral views of each hip. FINDINGS: Right Hip: Joint space normal. No fracture or bone lesion. Left Hip: Joint space normal. No fracture or bone lesion. Pelvis: Bones, joints and soft tissues in the pelvis normal. Multilevel spondylosis of the lumbosacral spine partially visualized. XR/XR hips FRANDY min 3V IMPRESSION: 1. No acute abnormality. 2. Incidental note made of spondylosis of the partially visualized lumbosacral spine.
--- NOTE | ~2021-04-08 | XR_ITS ---
EXAMINATION: XR CHEST CLINICAL INFORMATION: Weakness COMPARISON: 03/25/2021 TECHNIQUE: Frontal view of the chest was obtained. FINDINGS: Again seen is mild cardiomegaly without CHF. Lungs are better expanded than the prior study and there is been some improvement in bibasilar atelectasis with only some minimal multilevel abnormality remaining on the left. Degenerative changes are present in the spine. Calcified right paratracheal and subcarinal lymph nodes are present. There is an old healed left humeral fracture. XR/XR chest 1V IMPRESSION: No acute intrathoracic disease.
--- NOTE | ~2021-04-08 | MR_ITS ---
EXAMINATION: MR BRAIN WITHOUT CONTRAST CLINICAL INFORMATION: Disequilibrium. COMPARISON: CT head from 04/08/2021. TECHNIQUE: MRI of the brain was obtained using routine sequences without contrast. FINDINGS: Moderately motion degraded exam. No focal restricted diffusion is demonstrated to suggest acute or subacute cerebral ischemia. No evidence of acute or chronic hemorrhagic products on heme-sensitive imaging. Basal ganglia mineralization. Scattered periventricular, deep white matter, and brainstem T2 FLAIR hyperintensities consistent with moderate underlying microangiopathy. Proportional prominence of the ventricles and sulcal spaces without evidence of obstructive hydrocephalus. No abnormal mass effect. No midline shift. Normal appearance of the pituitary gland. Normal positioning of the cerebellar tonsils. Normal arterial and venous vascular flow voids are present. Normal, homogeneous marrow signal. Mild mucosal thickening of the paranasal sinuses. Moderate left-sided mastoid effusion. No signal abnormalities within the right-sided mastoid. Bilateral lens extractions. MR/MR head/brain wo con IMPRESSION: 1. No acute intracranial abnormalities. 2. Moderate underlying microangiopathy and generalized cerebral volume loss. 3. Left-sided mastoid effusion.
--- NOTE | ~2021-04-08 | CT_ITS ---
CT head/brain wo con CLINICAL INFORMATION: Reason for Exam Dizziness, weakness COMPARISON: No prior CT scan available for comparison. TECHNIQUE: Department standard protocol. This CT examination was performed using dose optimization techniques as appropriate, variously including the following: *Automated exposure control *Adjustment of mA and/or kV according to patient size (this includes techniques or standardized protocols for targeted exams where dose is matched to indication/reason for exam; i.e. extremities or head) *Use of iterative reconstruction technique DLP: 711 mGy-cm FINDINGS: CEREBRAL HEMISPHERES: There is no evidence of intra-axial or extra-axial mass, hemorrhage or acute infarct. 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 SUBDURAL SPACE: No bleed. BASAL GANGLIA AND PINEAL GLAND: Unremarkable VENTRICLES: Symmetric and normal in size. CEREBELLUM AND BRAINSTEM: No space-occupying mass, hemorrhage or acute infarct. CEREBELLOPONTINE ANGLES: No lesion found. ORBITS: No intraorbital mass. VESSELS: Unremarkable SKULL BASE: Unremarkable INCLUDED SINUSES AT SKULL BASE: Clear SKULL AND SKIN: No fracture or bone lesion found. 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 Normal CT scan does not rule out the possibility of hyperacute infarct in the first 12 hours. If patient symptoms persist may consider correlation with MRI, which is more sensitive for early acute infarct.
[2021-04-08 16:20] VITALS: BP 118/82; PULSE 68; O2SAT 98
[2021-04-08 16:22] VITALS: BP 127/68; PULSE 69; RESP 16; TEMP 36.6; O2SAT 99; BMI 18.0
--- NOTE | 2021-04-08 16:57 | ED.WEAKNESS ---
HPI - Weakness General Chief complaint: Weakness Stated complaint: weakness Time Seen by Provider: 04/08/21 16:57 Source: patient, family and EMS Mode of arrival: EMS Limitations: language barrier History of Present Illness MD Complaint: generalized weakness Location: generalized Related Data Home Medications Medication Instructions Recorded Confirmed acetaminophen 650 mg 650 mg PO Q8H 03/28/20 tablet,extended release (Tylenol Arthritis Pain) amlodipine 5 mg tablet 5 mg PO DAILY 03/28/20 atorvastatin 20 mg tablet (Lipitor) 20 mg PO BEDTIME 03/28/20 melatonin 10 mg capsule 10 mg PO BEDTIME PRN 03/28/20 meloxicam 7.5 mg tablet 7.5 mg PO DAILY 03/28/20 memantine 5 mg tablet 5 mg PO QAM 03/28/20 omeprazole 20 mg tablet,delayed 20 mg PO DAILY 03/28/20 release triamterene 37.5 1 cap PO DAILY 03/28/20 mg-hydrochlorothiazide 25 mg capsule Previous Rx's Medication Instructions Recorded docusate sodium 100 mg capsule 100 mg PO BID #60 cap 05/31/20 (Colace) sennosides 8.6 mg capsule (senna) 8.6 mg PO BEDTIME PRN #30 cap 05/31/20 Allergies Allergy/AdvReac Type Severity Reaction Status Date / Time No Known Allergies Allergy Verified 03/28/20 10:57 [No Known Allergies*] [facility] Past Medical History Attestation statement: The following information was validated with the patient. Source: old records reviewed Medical History Alzheimer disease Arthritis High cholesterol Social History Social History Alcohol intake: never Advance Directives: No Advance Directives Information Provided: No Current occupational status: retired Current occupation: right handed Physical Exam Vital Signs: Vital Signs: Last Vital Signs Temp 97.9 F 04/08/21 16: Pulse 69 04/08/21 16:22 Resp 16 04/08/21 16:22 BP 127/68 04/08/21 16:22 Pulse Ox 99 04/08/21 16:22 BMI result Body Mass Index 18.0 Course Course Course Narrative: 17:55 discussion with family regarding need for MRI, family also verbalized concerns about a fall that occurred at 14:30. Plan is to order hip x-ray. Patient is unable to stay still or follow directions based on his dementia, which is his baseline status according to his daughter. Will give trazodone rather than introducing him to omit new medication. Patient has never taken Ativan or any other sedatives or benzo diazepam in the past. Family agrees with this plan. MDM - Weakness Differential Diagnosis Differential diagnosis: Likely UTI, anemia, hypoglycemia, sepsis and dehydration Medical Records Attestation: I reviewed the patient's medical records. Lab Data Attestation: I reviewed the patient's lab results. Imaging Data ct head: Attestation: I personally reviewed and interpreted this imaging study as follows: Radiologist's impression: FINDINGS: ? CEREBRAL HEMISPHERES: There is no evidence of intra-axial or extra-axial mass, hemorrhage or acute infarct. 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 SUBDURAL SPACE: No bleed. BASAL GANGLIA AND PINEAL GLAND: Unremarkable VENTRICLES: Symmetric and normal in size. CEREBELLUM AND BRAINSTEM: No space-occupying mass, hemorrhage or acute infarct. CEREBELLOPONTINE ANGLES: No lesion found. ORBITS: No intraorbital mass. VESSELS: Unremarkable SKULL BASE: Unremarkable INCLUDED SINUSES AT SKULL BASE: Clear SKULL AND SKIN: No fracture or bone lesion found. 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 ? Normal CT scan does not rule out the possibility of hyperacute infarct in the first 12 hours. If patient symptoms persist may consider correlation with MRI, which is more sensitive for early acute infarct. Discharge Plan Discharge Prescriptions: No Action senna 8.6 mg capsule 8.6 mg PO BEDTIME PRN (Reason: constipation) Qty: 30 0RF docusate sodium [Colace] 100 mg capsule 100 mg PO BID Qty: 60 0RF
--- NOTE | 2021-04-08 16:58 | ED.WEAKNESS ---
HPI - Weakness General Chief complaint: Weakness Stated complaint: weakness Time Seen by Provider: 04/08/21 16:57 Source: patient Mode of arrival: EMS Limitations: no limitations History of Present Illness HPI Narrative: Patient 86 years old history of dementia comes in for increased weakness, incontinence of urine Related Data Home Medications Medication Instructions Recorded Confirmed acetaminophen 650 mg 650 mg PO Q8H 03/28/20 tablet,extended release (Tylenol Arthritis Pain) amlodipine 5 mg tablet 5 mg PO DAILY 03/28/20 atorvastatin 20 mg tablet (Lipitor) 20 mg PO BEDTIME 03/28/20 melatonin 10 mg capsule 10 mg PO BEDTIME PRN 03/28/20 meloxicam 7.5 mg tablet 7.5 mg PO DAILY 03/28/20 memantine 5 mg tablet 5 mg PO QAM 03/28/20 omeprazole 20 mg tablet,delayed 20 mg PO DAILY 03/28/20 release triamterene 37.5 1 cap PO DAILY 03/28/20 mg-hydrochlorothiazide 25 mg capsule Previous Rx's Medication Instructions Recorded docusate sodium 100 mg capsule 100 mg PO BID #60 cap 05/31/20 (Colace) sennosides 8.6 mg capsule (senna) 8.6 mg PO BEDTIME PRN #30 cap 05/31/20 Allergies Allergy/AdvReac Type Severity Reaction Status Date / Time No Known Allergies Allergy Verified 03/28/20 10:57 [No Known Allergies*] [facility] Past Medical History Medical History Alzheimer disease Arthritis High cholesterol Social History Social History Alcohol intake: never Advance Directives: No Advance Directives Information Provided: No Current occupational status: retired Current occupation: right handed Physical Exam Vital Signs: Vital Signs: Last Vital Signs Temp 97.9 F 04/08/21 16:22 Pulse 69 04/08/21 16:22 Resp 16 04/08/21 16:22 BP 127/68 04/08/21 16:22 Pulse Ox 99 04/08/21 16:22 BMI result Body Mass Index 18.0 Discharge Plan Discharge Prescriptions: No Action senna 8.6 mg capsule 8.6 mg PO BEDTIME PRN (Reason: constipation) Qty: 30 0RF docusate sodium [Colace] 100 mg capsule 100 mg PO BID Qty: 60 0RF
--- NOTE | 2021-04-08 16:59 | ECG_ITS ---
Test Reason : WEAKNESS Blood Pressure : / mmHG Vent. Rate : 070 BPM Atrial Rate : 070 BPM P-R Int : 182 ms QRS Dur : 100 ms QT Int : 384 ms P-R-T Axes : 000 -29 164 degrees QTc Int : 414 ms Artifact in tracing Normal sinus rhythm with sinus arrhythmia Minimal voltage criteria for LVH, may be normal variant ( R in aVL ) Lateral infarct , age undetermined Abnormal ECG When compared with ECG of 25-MAR-2021 20:35, Lateral infarct is now Present Referred By: Alcira Henao Electronically Signed By:DARELL CHENG
[2021-04-08 18:17] LABS: MANUAL DIFF FLAG NO
[2021-04-08 18:18] LABS: Basophils Percent Auto 0.4 % (0-2); Eosinophils Absolute Auto 0.1 X10*3/uL (0.0-0.4); Eosinophils Percent Auto 1.7 % (0-4); Hematocrit 40.4 % (42.0-52.0); Hemoglobin 13.3 g/dl (14.0-18.0); Imm Gran Abs Auto 0.02 X10*3/uL (0.00-0.03); Imm Gran Pct Auto 0.4 % (0.0-0.4); Lymphocytes Absolute Auto 1.1 X10*3/uL (1.2-4.9); Lymphocytes Percent Auto 20.7 % (20-40); Mean Corpuscular HGB Conc 32.9 g/dl (31.0-36.0); Mean Corpuscular Hemoglobin 31.1 pg (27.0-33.0); Mean Corpuscular Volume 94.6 fL (80.0-98.0); Mean Platelet Volume 9.1 fL (9.4-12.4); Monocytes Absolute Auto 0.5 X10*3/uL (0.1-1.2); Monocytes Percent Auto 10.3 % (2-11); Neutrophils Absolute Auto 3.5 x10*3/uL (2.0-8.3); Neutrophils Percent Auto 66.5 % (45-73); Platelet Count 169 X10*3/uL (160-400); Red Blood Count 4.27 X10*6/uL (4.60-5.80); Red Cell Distribution Width 13.4 % (11.0-16.0); White Blood Count 5.3 X10*3/uL (4.8-10.8)
[2021-04-08 18:27] LABS: Glucose, Whole Blood 72 mg/dL (60-115)
[2021-04-08 18:27] LABS: Partial Thromboplastin Time 30.8 SEC (24.1-38.0)
[2021-04-08 18:34] LABS: COVID-19 Test Negative (Negative)
[2021-04-08 18:37] LABS: Alanine Aminotransferase 12 U/L (0-40); Albumin Level 3.7 g/dL (3.5-5.0); Alkaline Phosphatase 67 U/L (39-117); Anion Gap 8 (12-20); Aspartate Amino Transferase 17 U/L (5-37); Bilirubin Direct 0.2 mg/dL (0.0-0.5); Bilirubin Total 0.4 mg/dL (0.0-1.0); Blood Urea Nitrogen 30 mg/dL (9-16); Calcium 9.7 mg/dL (8.4-10.2); Carbon Dioxide 31 mmol/L (22-29); Chloride 103 mmol/L (96-108); Creatinine Clr Calc Pharmacy 41.1; Estimated Glomerular Filt Rate > 60; Glucose Random 83 mg/dL (60-115); Lipase 20 U/L (8-78); Potassium 4.4 mmol/L (3.3-5.1); Sodium 138 mmol/L (135-145); Total Protein 6.3 g/dL (6.5-8.0)
[2021-04-08 18:42] LABS: Troponin-I High Sensitivity 25.5 ng/L (<3.5-35.0)
[2021-04-08] MEDS: traZODone HCL 100 MG TABLET PO (19:38)
[2021-04-08 20:00] VITALS: BP 129/68; PULSE 82; RESP 16; O2SAT 96
--- NOTE | 2021-04-08 20:59 | ED_ITS ---
HPI - Weakness General Chief complaint: Weakness Stated complaint: weakness Time Seen by Provider: 04/08/21 16:57 Source: patient Mode of arrival: EMS Limitations: no limitations History of Present Illness HPI Narrative: 86-year-old male presents via EMS for weakness, dizziness, and poor ambulation. MD Complaint: generalized weakness and difficulty walking Onset (ago): day(s) (1) Duration: constant Location: generalized Severity: moderate Related Data Home Medications Medication Instructions Recorded Confirmed acetaminophen 650 mg 650 mg PO Q8H 03/28/20 04/08/21 tablet,extended release (Tylenol Arthritis Pain) amlodipine 5 mg tablet 2.5 mg PO DAILY 03/28/20 04/08/21 atorvastatin 20 mg tablet (Lipitor) 20 mg PO BEDTIME 03/28/20 04/08/21 melatonin 10 mg capsule 10 mg PO BEDTIME PRN 03/28/20 04/08/21 memantine 5 mg tablet 10 mg PO QAM 03/28/20 04/08/21 omeprazole 20 mg tablet,delayed 20 mg PO DAILY 03/28/20 04/08/21 release triamterene 37.5 1 cap PO DAILY 03/28/20 04/08/21 mg-hydrochlorothiazide 25 mg capsule aspirin 325 mg tablet,delayed 1 tab PO DAILY 04/08/21 04/08/21 release Previous Rx's Medication Instructions Recorded docusate sodium 100 mg capsule 100 mg PO BID #60 cap 05/31/20 (Colace) sennosides 8.6 mg capsule (senna) 8.6 mg PO BEDTIME PRN #30 cap 05/31/20 Allergies Allergy/AdvReac Type Severity Reaction Status Date / Time No Known Allergies Allergy Verified 03/28/20 10:57 [No Known Allergies*] Review of Systems Review of Systems: Yes Unobtainable due to mental status PMFSH Past Medical History Attestation statement: The following information was validated with the patient. Source: old records reviewed Medical History Alzheimer disease Arthritis High cholesterol Social History Social History Alcohol intake: never Advance Directives: No Advance Directives Information Provided: No Current occupational status: retired Current occupation: right handed Physical Exam Vital Signs: Vital Signs: Last Vital Signs Temp 97.9 F 04/08/21 16:22 Pulse 82 04/08/21 20:00 Resp 16 04/08/21 20:00 BP 129/68 04/08/21 20:00 Pulse Ox 96 04/08/21 20:00 BMI result Body Mass Index 18.0 Appearance: Alert. Responsive. Tremors per baseline. No acute distress. Eyes: Pupils equal, round and reactive to light. Sclera nonicteric. ENT: Pharynx normal. Neck: Normal inspection. Neck supple. CVS: Normal heart rate and rhythm. Pulses normal. Respiratory: No respiratory distress. Breath sounds normal. Abdomen: Soft and nontender. Skin: Skin warm and dry. Normal skin color. Normal skin turgor. Extremities: No lower extremity edema. Moves all extremities. Neuro: No motor deficit. No sensory deficit. Course Course Course Narrative: 86-year-old male presents via EMS for weakness, dizziness, and poor ambulation. Discussion with family, daughter states that she noticed off balance gait at around 10:30. Patient did fall at 14:30 on his right hip. Patient is not able to answer any questions, unable to make his needs known secondary to dementia. Unable to accurately evaluate using NIH stroke scale or evaluate cranial nerves as patient is unable to follow commands. Will rule out CVA, ACS and infection. CT scan of head shows deep white matter and periventricular hypoattenuation nonspecific 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 As we are unable to adequately evaluate for stroke, patient will require MRI. Chest x-ray is negative, hip x-rays are negative. Discussion with hospitalist regarding plan of care to admit for weakness, and need for MRI to rule out question of infarct. seismic interpreter utilized for all correspondence. Consultations Consultation #1: cathy Time: 22:10 [facility] - Weakness Differential Diagnosis Differential diagnosis: Likely UTI, anemia, hypoglycemia, rhabdomyolysis, sepsis and dehydration Medical Records Attestation: I reviewed the patient's medical records. Lab Data Attestation: I reviewed the patient's lab results. Result diagrams: 04/08/21 18:12 04/08/21 18:12 Labs: Lab Results 04/08/21 04/08/21 04/08/21 Range/Units 18:12 18:12 18:12 WBC 5.3 (4.8-10.8) X10*3/uL RBC 4.27 L (4.60-5.80) X10*6/uL Hgb 13.3 L (14.0-18.0) g/dl Hct 40.4 L (42.0-52.0) % MCV 94.6 (80.0-98.0) fL MCH 31.1 (27.0-33.0) pg MCHC 32.9 (31.0-36.0) g/dl RDW 13.4 (11.0-16.0) % Plt Count 169 (160-400) X10*3/uL MPV 9.1 L (9.4-12.4) fL Immature Gran % (Auto) 0.4 (0.0-0.4) % Neut % (Auto) 66.5 (45-73) % Lymph % (Auto) 20.7 (20-40) % [place] % (Auto) 10.3 (2-11) % Eos % (Auto) 1.7 (0-4) % Baso % (Auto) 0.4 (0-2) % Lymph # (Auto) 1.1 L (1.2-4.9) X10*3/uL [place] # (Auto) 0.5 (0.1-1.2) X10*3/uL Eos # (Auto) 0.1 (0.0-0.4) X10*3/uL Baso # (Auto) 0.0 (0.0-0.2) X10*3/uL Abs Immat Gran (auto) 0.02 (0.00-0.03) X10*3/uL Absolute Neuts (auto) 3.5 (2.0-8.3) x10*3/uL Absolute Nucleated RBC 0.000 (0.0-0.012) X10*3/uL Nucleated RBC % (auto) 0.0 (0.0-0.2) /100WBC APTT 30.8 (24.1-38.0) SEC Sodium 138 (135-145) mmol/L Potassium 4.4 (3.3-5.1) mmol/L Chloride 103 (96-108) mmol/L Carbon Dioxide 31 H (22-29) mmol/L Anion Gap 8 L (12-20) BUN 30 H (9-16) mg/dL Creatinine 1.04 (0.5-1.4) mg/dL Estim Creat Clear Calc 41.1 Estimated GFR > 60 POC Glucose (60-115) mg/dL Random Glucose 83 (60-115) mg/dL Calcium 9.7 (8.4-10.2) mg/dL Total Bilirubin 0.4 (0.0-1.0) mg/dL Direct Bilirubin 0.2 (0.0-0.5) mg/dL AST 17 (5-37) U/L ALT 12 (0-40) U/L Alkaline Phosphatase 67 (39-117) U/L Troponin I High Sens (<3.5-35.0) ng/L Total Protein 6.3 L (6.5-8.0) g/dL Albumin 3.7 (3.5-5.0) g/dL Lipase 20 (8-78) U/L COVID-19 (JEY) (Negative) COVID-19 Clin Com 04/08/21 04/08/21 04/08/21 Range/Units 18:12 18:12 18:23 WBC (4.8-10.8) X10*3/uL RBC (4.60-5.80) X10*6/uL Hgb (14.0-18.0) g/dl Hct (42.0-52.0) % MCV (80.0-98.0) fL MCH (27.0-33.0) pg MCHC (31.0-36.0) g/dl RDW (11.0-16.0) % Plt Count (160-400) X10*3/uL MPV (9.4-12.4) fL Immature Gran % (Auto) (0.0-0.4) % Neut % (Auto) (45-73) % Lymph % (Auto) (20-40) % [place] % (Auto) (2-11) % Eos % (Auto) (0-4) % Baso % (Auto) (0-2) % Lymph # (Auto) (1.2-4.9) X10*3/uL [place] # (Auto) (0.1-1.2) X10*3/uL Eos # (Auto) (0.0-0.4) X10*3/uL Baso # (Auto) (0.0-0.2) X10*3/uL Abs Immat Gran (auto) (0.00-0.03) X10*3/uL Absolute Neuts (auto) (2.0-8.3) x10*3/uL Absolute Nucleated RBC (0.0-0.012) X10*3/uL Nucleated RBC % (auto) (0.0-0.2) /100WBC APTT (24.1-38.0) SEC Sodium (135-145) mmol/L Potassium (3.3-5.1) mmol/L Chloride (96-108) mmol/L Carbon Dioxide (22-29) mmol/L Anion Gap (12-20) BUN (9-16) mg/dL Creatinine (0.5-1.4) mg/dL Estim Creat Clear Calc Estimated GFR POC Glucose 72 (60-115) mg/dL Random Glucose (60-115) mg/dL Calcium (8.4-10.2) mg/dL Total Bilirubin (0.0-1.0) mg/dL Direct Bilirubin (0.0-0.5) mg/dL AST (5-37) U/L ALT (0-40) U/L Alkaline Phosphatase (39-117) U/L Troponin I High Sens 25.5 (<3.5-35.0) ng/L Total Protein (6.5-8.0) g/dL Albumin (3.5-5.0) g/dL Lipase (8-78) U/L COVID-19 (JEY) Negative (Negative) COVID-19 Clin Com See Note Imaging Data CT head: Attestation: I personally reviewed and interpreted this imaging study as follows: Radiologist's impression: FINDINGS: ? CEREBRAL HEMISPHERES: There is no evidence of intra-axial or extra-axial mass, hemorrhage or acute infarct. 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 SUBDURAL SPACE: No bleed. BASAL GANGLIA AND PINEAL GLAND: Unremarkable VENTRICLES: Symmetric and normal in size. CEREBELLUM AND BRAINSTEM: No space-occupying mass, hemorrhage or acute infarct. CEREBELLOPONTINE ANGLES: No lesion found. ORBITS: No intraorbital mass. VESSELS: Unremarkable SKULL BASE: Unremarkable INCLUDED SINUSES AT SKULL BASE: Clear SKULL AND SKIN: No fracture or bone lesion found. 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 ? Normal CT scan does not rule out the possibility of hyperacute infarct in the first 12 hours. If patient symptoms persist may consider correlation with MRI, which is more sensitive for early acute infarct. Chest x-ray: Attestation: I personally reviewed and interpreted this imaging study as follows: Radiologist's impression: EXAMINATION: XR CHEST CLINICAL INFORMATION: Weakness COMPARISON: 03/25/2021 TECHNIQUE: Frontal view of the chest was obtained. FINDINGS: Again seen is mild cardiomegaly without CHF. Lungs are better expanded than the prior study and there is been some improvement in bibasilar atelectasis with only some minimal multilevel abnormality remaining on the left. Degenerative changes are present in the spine. Calcified right paratracheal and subcarinal lymph nodes are present. There is an old healed left humeral fracture. XR/XR chest 1V IMPRESSION: No acute intrathoracic disease. ? Hip x-ray: Attestation: I personally reviewed and interpreted this imaging study as follows: Radiologist's impression: EXAMINATION: XR HIPS WITH AP PELVIS, BILATERAL CLINICAL INFORMATION: Fall with hip pain. COMPARISON: CT scan of the abdomen and pelvis September 2019. TECHNIQUE: AP of the pelvis and AP and lateral views of each hip. FINDINGS: Right Hip: Joint space normal. No fracture or bone lesion. Left Hip: Joint space normal. No fracture or bone lesion. Pelvis: Bones, joints and soft tissues in the pelvis normal. Multilevel spondylosis of the lumbosacral spine partially visualized. XR/XR hips FRANDY min 3V IMPRESSION: 1. No acute abnormality. ? 2. Incidental note made of spondylosis of the partially visualized lumbosacral spine. ECG Data Attestation: I personally reviewed and interpreted this ECG as follows: ECG interpretation date: 04/08/21 ECG interpretation time: 17:57 Prior ECG tracings: available for review Interpretation: Vent. rate 70 BPM MI interval 182 ms QRS duration 100 ms QT/QTc 384/414 ms P-R-T axes 0 -29 164 Normal sinus rhythm with sinus arrhythmia Minimal voltage criteria for LVH, may be normal variant ( R in aVL ) Lateral infarct , age undetermined Abnormal ECG When compared with ECG of 25-MAR-2021 20:35, Lateral infarct is now Present Critical Care Time Critical Care Time Critical Care Time: Yes Total Critical Care Time: 45 Attestation: I have personally provided critical care time exclusive of time spent on separately billable procedures. Time includes review of laboratory data, radiology results, discussion with consultants, and monitoring for potential decompensation. Interventions were performed as documented. Discharge Plan Discharge Clinical Impression: Weakness Patient Disposition: Admitted As Inpatient
[2021-04-08 23:11] VITALS: PULSE 88; RESP 20; O2SAT 95
--- NOTE | 2021-04-08 23:14 | P.HPHOSP_ITS ---
History of Present Illness Date of Service: 04/08/21 Chief Complaint: SOB 86-year-old male with a past medical history of hypertension, hyperlipidemia, dementia, lives with a daughter; presented to the hospital today with a chief complaint of fall. Patient is baseline less verbal and does not make comprehendible talk at baseline as per the patient's daughter. Today his mental status status baseline as per the daughter. Patient is currently alert awake and following simple commands. Patient's daughter reports that he was doing fine until yesterday and today he was noted to be unsteady and subsequently had a fall and fell on his hip; denies any head strike or loss of consciousness. Patient also mentioned that patient not able to mention if he has any pain or not. Denies patient having any nausea vomiting diarrhea. Denies any urinary complaints. Denies patient appears to be in pain or distress at home. Review of all other systems is limited. ER course: Per ER team patient's CT head showed no acute findings; hip x-ray showed no acute fractures; patient was able to move the legs. Thorough neurologic exam is limited as patient was not following commands; admitted to the hospital given concerns for uncertain history and question need for MRI/observation. Also reported that last well-known time was 10:30am. Admitted for further management PMFSH Medical History Alzheimer disease Arthritis High cholesterol Pertinent family history: Reviewed Social History Alcohol intake: never Advance Directives: No Advance Directives Information Provided: No Current occupational status: retired Current occupation: right handed Meds Allergies Allergy/AdvReac Type Severity Reaction Status Date / Time No Known Allergies Allergy Verified 03/28/20 10:57 [No Known Allergies*] Active Medications: Current Medications Amlodipine Besylate (Amlodipine Besylate 2.5 Mg Tablet) 2.5 mg PO DAILY [facility]; Protocol Aspirin (Aspirin Enteric Coated 325 Mg Tablet.) 325 mg PO DAILY ABBY Atorvastatin Calcium (Atorvastatin Calcium 20 Mg Tablet) 20 mg PO BEDTIME ABBY Docusate Sodium (Docusate Sodium 100 Mg Capsule) 100 mg PO BID ABBY Memantine (Memantine Hcl 10 Mg Tablet) 10 mg PO QAM ABBY Non-Formulary Medication (Melatonin) 10 mg PO BEDTIME PRN PRN Reason: Sleep Non-Formulary Medication (Sennosides [Senna]) 8.6 mg PO BEDTIME PRN PRN Reason: constipation Omeprazole (Omeprazole 20 Mg Capsule.Dr) 20 mg PO DAILY ABBY Triamterene/Hydrochlorothiazide (Triamterene/Hctz 37.5/25 Tablet) 1 tab PO DAILY ABBY; Protocol Home Medications Medication Instructions Recorded Confirmed Last Taken Type acetaminophen 650 mg 650 mg PO Q8H 03/28/20 04/08/21 Unknown History tablet,extended release (Tylenol Arthritis Pain) amlodipine 5 mg tablet 2.5 mg PO DAILY 03/28/20 04/08/21 Unknown History atorvastatin 20 mg tablet (Lipitor) 20 mg PO BEDTIME 03/28/20 04/08/21 Unknown History melatonin 10 mg capsule 10 mg PO BEDTIME PRN 03/28/20 04/08/21 Unknown History memantine 5 mg tablet 10 mg PO QAM 03/28/20 04/08/21 Unknown History omeprazole 20 mg tablet,delayed 20 mg PO DAILY 03/28/20 04/08/21 Unknown History release triamterene 37.5 1 cap PO DAILY 03/28/20 04/08/21 Unknown History mg-hydrochlorothiazide 25 mg capsule aspirin 325 mg tablet,delayed 1 tab PO DAILY 04/08/21 04/08/21 Unknown History release Physical Exam Vital Signs and Narrative: Vital Signs: Last Vital Signs Temp 97.9 F 04/08/21 16:22 Pulse 82 04/08/21 20:00 Resp 16 04/08/21 20:00 BP 129/68 04/08/21 20:00 Pulse Ox 96 04/08/21 20:00 BMI result Body Mass Index 18.0 Gen: Appears be in no acute distress HEENT: NCAT, Moist mucosa. Pulmonary: Vesicular breath sounds, fair air entry CVS: Normal S1-S2 Abdomen: BS+, Soft, Nontender Extremities: Warm well perfused Neuro: Alert and awake. Strength is equal bilaterally. Unable to assess his gait or cerebellar signs as patient not following commands. Results Labs CBC and Chem 7: 04/08/21 18:12 04/08/21 18:12 Labs: Laboratory Results - last 24 hr 04/08/21 04/08/21 04/08/21 18:12 18:12 18:12 MCV 94.6 MCH 31.1 MCHC 32.9 RDW 13.4 Plt Count 169 MPV 9.1 L Immature Gran % (Auto) 0.4 Neut % (Auto) 66.5 Lymph % (Auto) 20.7 [place] % (Auto) 10.3 Eos % (Auto) 1.7 Baso % (Auto) 0.4 Lymph # (Auto) 1.[address] [place] # (Auto) 0.5 Eos # (Auto) 0.1 Baso # (Auto) 0.0 Abs Immat Gran (auto) 0.02 Absolute Neuts (auto) 3.5 Absolute Nucleated RBC 0.000 Nucleated RBC % (auto) 0.0 APTT 30.8 Anion Gap 8 L Estim Creat Clear Calc 41.1 Estimated GFR > 60 POC Glucose Random Glucose 83 Calcium 9.7 Total Bilirubin 0.4 Direct Bilirubin 0.2 AST 17 ALT 12 Alkaline Phosphatase 67 Total Protein 6.3 L Albumin 3.7 Lipase 20 COVID-19 (JEY) COVID-19 Clin Com 04/08/21 04/08/21 18:12 18:23 MCV MCH MCHC RDW Plt Count MPV Immature Gran % (Auto) Neut % (Auto) Lymph % (Auto) [place] % (Auto) Eos % (Auto) Baso % (Auto) Lymph # (Auto) [place] # (Auto) Eos # (Auto) Baso # (Auto) Abs Immat Gran (auto) Absolute Neuts (auto) Absolute Nucleated RBC Nucleated RBC % (auto) APTT Anion Gap Estim Creat Clear Calc Estimated GFR POC Glucose 72 Random Glucose Calcium Total Bilirubin Direct Bilirubin AST ALT Alkaline Phosphatase Total Protein Albumin Lipase COVID-19 (JEY) Negative COVID-19 Clin Com See Note Imaging Radiologist's Impressions: Impressions Chest X-Ray 04/08/21 17:18 IMPRESSION: No acute intrathoracic disease. 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 Normal CT scan does not rule out the possibility of hyperacute infarct in the first 12 hours. If patient symptoms persist may consider correlation with MRI, which is more sensitive for early acute infarct. Hip X-Ray 04/08/21 18:49 IMPRESSION: 1. No acute abnormality. 2. Incidental note made of spondylosis of the partially visualized lumbosacral spine. Assessment and Plan (1) Weakness: Status: Acute Plan 86-year-old male with a past medical history of hypertension, hyperlipidemia, dementia presented to the hospital with a chief complaint of fall Fall: Mechanical nature. Denies any head strike or loss of conscious. Reports falling on the hip; hip x-ray showed no acute findings. CT head showed chronic microvascular changes. Unsteady gait: Daughter reported the patient was unsteady today. Exam is limited as the patient was not able to follow commands. But able to lift the legs off the bed and has good strength. Unable to assess for cerebral all signs. CT head showed microvascular changes. Fall precautions PT/OT Neurology consult History of hypertension: Continue home medications amlodipine. Hold home triamterene/hydrochlorothiazide for now. History of dementia: Continue home amantadine History of hyperlipidemia: Continue home statin DVT prophylaxis: SCD boots Code status: Full code. Confirmed with the patient's daughter at bedside Quality Stroke Does the patient have a stroke diagnosis?: No VTE Prior VTE?: No VTE Risk Level:: Medical - moderate - high VTE Device Contraindication: Treatment Not Indicated VTE Drug Contraindication: N/A - Med Ordered
[2021-04-08] MEDS: traZODone HCL 100 MG TABLET 150 MG PO (23:22)
[2021-04-09] VITALS (7 sets, daily range): BP systolic 100–141; BP diastolic 63–97; PULSE 66–91; RESP 12–21; TEMP 35.6–36.9; O2SAT 95–99
--- NOTE | 2021-04-09 00:19 | PC.NURSE ---
FAMILY LEAVING BEDSIDE, STATING TO CALL PATIENTS OTHER DAUGHTER IF NEEDED, SHAI SOTO. NUMBER IS [phone]
[2021-04-09 07:10] LABS: Glucose, Whole Blood 81 mg/dL (60-115)
--- NOTE | 2021-04-09 08:18 | PHA.MEDREC ---
Pharmacy Consult ? Medication Reconciliation Pharmacy has completed the medication reconciliation. RN completed med rec, tried calling pts daughter, phone number not in service, pt has been filling trazodone 300 mg qhs consistently, and took 250 mg last night, added to med rec. Debra GrantD
[2021-04-09 08:45] LABS: MANUAL DIFF FLAG NO
[2021-04-09 08:50] LABS: Basophils Percent Auto 0.7 % (0-2); Eosinophils Absolute Auto 0.1 X10*3/uL (0.0-0.4); Eosinophils Percent Auto 2.6 % (0-4); Hematocrit 41.3 % (42.0-52.0); Hemoglobin 13.7 g/dl (14.0-18.0); Imm Gran Abs Auto 0.02 X10*3/uL (0.00-0.03); Imm Gran Pct Auto 0.4 % (0.0-0.4); Lymphocytes Absolute Auto 1.3 X10*3/uL (1.2-4.9); Lymphocytes Percent Auto 23.7 % (20-40); Mean Corpuscular HGB Conc 33.2 g/dl (31.0-36.0); Mean Corpuscular Hemoglobin 30.9 pg (27.0-33.0); Mean Platelet Volume 9.5 fL (9.4-12.4); Monocytes Absolute Auto 0.5 X10*3/uL (0.1-1.2); Neutrophils Absolute Auto 3.4 x10*3/uL (2.0-8.3); Neutrophils Percent Auto 62.6 % (45-73); Platelet Count 169 X10*3/uL (160-400); Red Blood Count 4.44 X10*6/uL (4.60-5.80); Red Cell Distribution Width 13.2 % (11.0-16.0); White Blood Count 5.4 X10*3/uL (4.8-10.8)
[2021-04-09 09:15] LABS: Cholesterol 156 mg/dL; HDL Cholesterol 68 mg/dL; LDL Cholesterol Calculated 78 mg/dl; Triglycerides 51 mg/dL
--- NOTE | 2021-04-09 09:32 | PC.NURSE ---
JULIAN FROM PT HERE TO SEE PT W/LACE CUTTER @ THIS TIME
[2021-04-09 09:57] LABS: Appearance Urine CLEAR; Color Urine YELLOW; Glucose Urine UA NEG (NEG); Leukocyte Esterase Urine NEG (NEG); Nitrite Urine NEG (NEG); Specific Gravity - Urine 1.015 (1.005-1.025); UACC Culture Trigger NO; Urine Blood TRACE (NEG); Urine Ketones NEG (NEG); Urine Protein NEG (NEG-TRACE)
[2021-04-09 10:13] LABS: Amphetamine Screen Urine Not Detected (Not Detect); Barbiturates, Urine Not Detected (Not Detect); Benzodiazepines Screen Urine Not Detected (Not Detect); Cannabinoid Screen Urine Not Detected (Not Detect); Cocaine Screen Urine Not Detected (Not Detect); Fentanyl, urine POSITIVE (Not Detect); Opiate Screen Urine Not Detected (Not Detect); Phencyclidine Screen Urine Not Detected (Not Detect)
[2021-04-09 10:22] LABS: Amorphous Sediment Urine 2+ /LPF; RBC Urine 0-2 /HPF (0); WBC Urine 0 /HPF (0-4)
--- NOTE | 2021-04-09 10:28 | MHC.SL.SWA ---
Speech Pathologist Impression: Risk of Aspiration Risk of Aspiration Due to: Neurological Condition Reduced Cognition Dysphasia Diet Status: Upgrade Liquid Consistency and Strategies for Safe Swallow: Liquid Intake Recommendation: Thin Liquid Intake Strategies: Small Sips No Straws Solid Food Consistency: Dietary Recommendations: Chopped/Advanced (NDD3) Additional Modifications to Solid Foods: Recommend CHOPPED/ADVANCED (NDD3) solids for ease of mastication and THIN liquids (no straws), pills WHOLE in LIQUID or PUREE per tolerance. Recommend 1:1 assistance with meals given baseline dementia, and aspiration precautions. MANAGER DIESEL to f/u 1x time to ensure tolerance. MANAGER DIESEL updated care team (RN, RD, MD) via [employer] message. Oral Medication Intake: Whole with Liquid Compensatory Strategies and Precautions to be Taken for Safe Swallow: Sitting Upright (90 deg) No Straw Small Bites and Sips Alternate Liquids/Solids Rate of Ingestion Change Oral Check Supervision While Eating and Drinking for Safe Swallow: Total Assistance Swallowing Recommended Treatments: Compens. Strategy Educat. Recommendation for Speech: Inpatient Speech Therapy Comment: 1 f/u Building Attendant Clinican/Clinical Fellow: No Supervisory Statement: I have reviewed and agree with the student/clinical fellow's documentation: N/A Speech Language Pathologist: Zuly Brothers M.A., [facility]-MANAGER DIESEL
[2021-04-09] MEDS: Docusate Sodium 100 MG CAPSULE PO ×2 (10:48→20:09)
[2021-04-09] MEDS: Memantine HCl 10 MG TABLET PO (10:48)
[2021-04-09] MEDS: amLODIPine Besylate 2.5 MG TABLET PO (10:48)
[2021-04-09] MEDS: Aspirin Enteric Coated 325 MG TABLET.DR PO (10:48)
[2021-04-09] MEDS: Heparin Sodium,Porcine 5,000 UNIT/ML VIAL 5000 UNIT SUBCUT ×2 (10:48→23:45)
[2021-04-09] MEDS: Omeprazole 20 MG CAPSULE.DR PO (10:49)
[2021-04-09 12:16] LABS: Glucose, Whole Blood 111 mg/dL (60-115)
--- NOTE | 2021-04-09 15:10 | MHC.CM.PN ---
THIS CHALK MACHINE OPERATOR AND LIMITED RADIOLOGY TECHNICIAN MET WITH PATIENT TO DISCUSS IMM AND ASSESSMENT. PATIENT UNABLE TO ANSWER LIMITED RADIOLOGY TECHNICIAN QUESTIONS. WHEN ASKED WHO HE LIVES WITH, HE DOES SAY KRISTI BUT WHEN ASKED WHERE HE IS, PATIENT SHRUGS HIS SHOULDERS TO SAY I DON'T KNOW WHEN ASKED IF PATIENT HAS A CANE OR WALKER, HIS RESPONSE IS INCOHERENT TO THIS CHALK MACHINE OPERATOR AND TO MOTORCYCLE MECHANIC APPRENTICE SERVICES. PATIENT THEN COVERED HIS HEAD WITH HIS SHEET AND STOPPED TALKING OR MAKING SOUNDS IMM 04/09 LEFT BEDSIDE AND CASE MANAGEMENT TO RE-ATTEMPT. IT IS UNCLEAR IF PATIENT HAS ANY SERVICES, IS COVID-19 VACCINATED, OR IF HE HAS A HCP DOCUMENTATION. CALL TO DAUGHTER KRISTI @ [phone]. NO ANSWER OR ABILITY TO LEAVE A MESSAGE SHE MAY BE ON THE PHONE
--- NOTE | 2021-04-09 15:42 | PC.NURSE ---
pt daughter (1st) kirsty - [phone], (2nd) daughter's debby - [phone].
--- NOTE | 2021-04-09 15:44 | P.CNNE_ITS ---
History of Present Illness Data of Consult Service Date: 04/09/21 Primary Care Provider: Unknown Physician HPI Reason for consult: Encephalopathy 86 years old man who probably has underlying dementia was brought to hospital after a fall. Circumstances was on clear. There was no obvious focal weakness after the fall or seizure. There was no obvious physical injury. He was unable to provide any meaningful history Review of Systems Review of Systems: Could not be done with him PMF Past Medical History Medical History Alzheimer disease Arthritis High cholesterol Social History Social History Alcohol intake: never Advance Directives: No Advance Directives Information Provided: No service: No Current occupational status: retired Current occupation: right handed Meds Allergies Allergy/AdvReac Type Severity Reaction Status Date / Time No Known Allergies Allergy Verified 03/28/20 10:57 [No Known Allergies*] Active Medications: Current Medications Amlodipine Besylate (Amlodipine Besylate 2.5 Mg Tablet) 2.5 mg PO DAILY [facility]; Protocol Last Admin: 04/09/21 10:48 Dose: 2.5 mg Documented by: Aspirin (Aspirin Enteric Coated 325 Mg Tablet.) 325 mg PO DAILY [facility] Last Admin: 04/09/21 10:48 Dose: 325 mg Documented by: Atorvastatin Calcium (Atorvastatin Calcium 20 Mg Tablet) 20 mg PO BEDTIME [facility] Docusate Sodium (Docusate Sodium 100 Mg Capsule) 100 mg PO BID [facility] Last Admin: 04/09/21 10:48 Dose: 100 mg Documented by: Heparin Sodium (Porcine) (Heparin Sodium,Porcine 5,000 Unit/Ml Vial) 5,000 unit SUBCUT Q12H [facility] Last Admin: 04/09/21 10:48 Dose: 5,000 unit Documented by: Melatonin (Melatonin 3 Mg Tablet) 9 mg PO BEDTIME PRN PRN Reason: Sleep Memantine (Memantine Hcl 10 Mg Tablet) 10 mg PO DAILY [facility] Last Admin: 04/09/21 10:48 Dose: 10 mg Documented by: Omeprazole (Omeprazole 20 Mg Capsule.) 20 mg PO DAILY [facility] Last Admin: 04/09/21 10:49 Dose: 20 mg Documented by: Senna (Sennosides 8.6 Mg Tablet) 8.6 mg PO BEDTIME PRN PRN Reason: Constipation Sodium Chloride (0.9 % Sodium Chloride Flush 3 Ml Syringe) 3 ml IVFLUSH QSHIFT [facility] Last Admin: 04/09/21 09:19 Dose: Not Given Documented by: Triamterene/Hydrochlorothiazide (Triamterene/Hctz 37.5/25 Tablet) 1 tab PO DAILY [facility]; Protocol Home Medications Medication Instructions Recorded Confirmed Last Taken Type acetaminophen 650 mg 650 mg PO Q8H 03/28/20 04/08/21 Unknown History tablet,extended release (Tylenol Arthritis Pain) amlodipine 5 mg tablet 2.5 mg PO DAILY 03/28/20 04/08/21 Unknown History atorvastatin 20 mg tablet (Lipitor) 20 mg PO BEDTIME 03/28/20 04/08/21 Unknown History melatonin 10 mg capsule 10 mg PO BEDTIME PRN 03/28/20 04/08/21 Unknown History memantine 5 mg tablet 10 mg PO QAM 03/28/20 04/08/21 Unknown History omeprazole 20 mg tablet,delayed 20 mg PO DAILY 03/28/20 04/08/21 Unknown History release triamterene 37.5 1 cap PO DAILY 03/28/20 04/08/21 Unknown History mg-hydrochlorothiazide 25 mg capsule aspirin 325 mg tablet,delayed 1 tab PO DAILY 04/08/21 04/08/21 Unknown History release trazodone 150 mg tablet 2 tab PO BEDTIME 04/09/21 04/09/21 Unknown History Physical Exam Vital Signs: Vital Signs: Last Vital Signs Temp 98.2 F 04/09/21 15:25 Pulse 79 04/09/21 15:25 Resp 16 04/09/21 15:25 BP 100/70 04/09/21 15:25 Pulse Ox 97 04/09/21 15:25 BMI result Body Mass Index 18.0 Neuro: Other: he was drowsy but sleeping. I was able to wake him up. He seemed to follow simple commands but not all of them. There was no sign of distress. There was no obvious focal arm or leg weakness. Face was symmetrical. Plantars were flexors. Exam was limited. Results Labs CBC & Chem 7: 04/09/21 08:18 04/08/21 18:12 Labs: Short CBC 04/08/21 04/09/21 Range/Units 18:12 08:18 WBC 5.3 5.4 (4.8-10.8) X10*3/uL Hgb 13.3 L 13.7 L (14.0-18.0) g/dl Hct 40.4 L 41.3 L (42.0-52.0) % Plt Count 169 169 (160-400) X10*3/uL BMP 04/08/21 18:12 Sodium 138 Potassium 4.4 Chloride 103 Carbon Dioxide 31 H BUN 30 H Creatinine 1.04 Calcium 9.7 Liver Function 04/08/21 Range/Units 18:12 Total Bilirubin 0.4 (0.0-1.0) mg/dL Direct Bilirubin 0.2 (0.0-0.5) mg/dL AST 17 (5-37) U/L ALT 12 (0-40) U/L Alkaline Phosphatase 67 (39-117) U/L Albumin 3.7 (3.5-5.0) g/dL Urine 04/09/21 Range/Units 09:38 Urine Color YELLOW Urine Appearance CLEAR Urine pH 7.0 (5.0-8.0) Ur Specific [place] 1.015 (1.005-1.025) Urine Protein NEG (NEG-TRACE) MG/DL Urine Glucose (UA) NEG (NEG) MG/DL His noncontrast MRI of brain did not reveal any acute abnormality. Mild diffuse cerebral atrophy and moderately severe chronic ischemic changes were noted. 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 He was brought to hospital after a fall. Circumstances around the falls were unclear. At this time there is no evidence of any new stroke or physical injury. This could be a mechanical fall. He was also at risk for seizure disorder but overall history was not consistent with it. Maybe an outpatient EEG can be arranged rule out seizure disorder. Procedures Date of Service Date of Service: 04/09/21
--- NOTE | 2021-04-09 15:52 | HO.PM.IMPN ---
Subjective Subjective Date of Service: 04/09/21 Interval History: No acute events overnight. Patient confused daughter present Review of Systems Unable to obtain Physical Exam Vital Signs: Vital Signs: Last Vital Signs Temp 98.2 F 04/09/21 15:25 Pulse 79 04/09/21 15:25 Resp 16 04/09/21 15:25 BP 100/70 04/09/21 15:25 Pulse Ox 97 04/09/21 15:25 BMI result Body Mass Index 18.0 Const: Other: Awake; moving all extremities with equal power Resp: Other: Clear to auscultation bilaterally no rales rhonchi wheezes Cardio: Other: No S4; positive S1-S2; no S3 murmurs or gallops GI: Other: Soft nontender nondistended positive bowel sounds Neuro: Other: Confused; moves all extremities with equal power Extrem: Other: No edema Objective Data Active Medications Amlodipine Besylate (Amlodipine Besylate 2.5 Mg Tablet) 2.5 mg PO DAILY [facility]; Protocol Last Admin: 04/09/21 10:48 Dose: 2.5 mg Documented by: DAVID Aspirin (Aspirin Enteric Coated 325 Mg Tablet.) 325 mg PO DAILY [facility] Last Admin: 04/09/21 10:48 Dose: 325 mg Documented by: DAVID Atorvastatin Calcium (Atorvastatin Calcium 20 Mg Tablet) 20 mg PO BEDTIME [facility] Docusate Sodium (Docusate Sodium 100 Mg Capsule) 100 mg PO BID [facility] Last Admin: 04/09/21 10:48 Dose: 100 mg Documented by: DAVID Heparin Sodium (Porcine) (Heparin Sodium,Porcine 5,000 Unit/Ml Vial) 5,000 unit SUBCUT Q12H [facility] Last Admin: 04/09/21 10:48 Dose: 5,000 unit Documented by: DAVID Melatonin (Melatonin 3 Mg Tablet) 9 mg PO BEDTIME PRN PRN Reason: Sleep Memantine (Memantine Hcl 10 Mg Tablet) 10 mg PO DAILY [facility] Last Admin: 04/09/21 10:48 Dose: 10 mg Documented by: DAVID Omeprazole (Omeprazole 20 Mg Capsule.) 20 mg PO DAILY [facility] Last Admin: 04/09/21 10:49 Dose: 20 mg Documented by: DAVID Senna (Sennosides 8.6 Mg Tablet) 8.6 mg PO BEDTIME PRN PRN Reason: Constipation Sodium Chloride (0.9 % Sodium Chloride Flush 3 Ml Syringe) 3 ml IVFLUSH QSHIFT [facility] Last Admin: 04/09/21 09:19 Dose: Not Given Documented by: DAVID Non-Admin Reason: no iv Triamterene/Hydrochlorothiazide (Triamterene/Hctz 37.5/25 Tablet) 1 tab PO DAILY [facility]; Protocol Labs CBC & Chem 7: 04/09/21 08:18 04/08/21 18:12 Labs: Laboratory Results - last 24 hr 04/08/21 04/08/21 04/08/21 18:12 18:12 18:12 MCV 94.6 MCH 31.1 MCHC 32.9 RDW 13.4 Plt Count 169 MPV 9.1 L Immature Gran % (Auto) 0.4 Neut % (Auto) 66.5 Lymph % (Auto) 20.7 [place] % (Auto) 10.3 Eos % (Auto) 1.7 Baso % (Auto) 0.4 Lymph # (Auto) 1.1 L [place] # (Auto) 0.5 Eos # (Auto) 0.1 Baso # (Auto) 0.0 Abs Immat Gran (auto) 0.02 Absolute Neuts (auto) 3.5 Absolute Nucleated RBC 0.000 Nucleated RBC % (auto) 0.0 APTT 30.8 Anion Gap 8 L Estim Creat Clear Calc 41.1 Estimated GFR > 60 POC Glucose Random Glucose 83 Calcium 9.7 Total Bilirubin 0.4 Direct Bilirubin 0.2 AST 17 ALT 12 Alkaline Phosphatase 67 Total Protein 6.3 L Albumin 3.7 Triglycerides Cholesterol LDL Cholesterol, Calc HDL Cholesterol Lipase 20 Urine Color Urine Appearance Urine pH Ur Specific [place] Urine Protein Urine Glucose (UA) Urine Ketones Urine Blood Urine Nitrite Ur Leukocyte Esterase Urine RBC Urine WBC Ur Squamous Epith Cells Amorphous Sediment Urine Bacteria Urine Opiates Screen Urine Fentanyl Screen Ur Barbiturates Screen Ur Phencyclidine Scrn Ur Amphetamines Screen U Benzodiazepines Scrn Urine Cocaine Screen U Marijuana (THC) Screen COVID-19 (JEY) COVID-19 Clin Com 04/08/21 04/08/21 04/09/21 18:12 18:23 07:06 MCV MCH MCHC RDW Plt Count MPV Immature Gran % (Auto) Neut % (Auto) Lymph % (Auto) [place] % (Auto) Eos % (Auto) Baso % (Auto) Lymph # (Auto) [place] # (Auto) Eos # (Auto) Baso # (Auto) Abs Immat Gran (auto) Absolute Neuts (auto) Absolute Nucleated RBC Nucleated RBC % (auto) APTT Anion Gap Estim Creat Clear Calc Estimated GFR POC Glucose 72 81 Random Glucose Calcium Total Bilirubin Direct Bilirubin AST ALT Alkaline Phosphatase Total Protein Albumin Triglycerides Cholesterol LDL Cholesterol, Calc HDL Cholesterol Lipase Urine Color Urine Appearance Urine pH Ur Specific [place] Urine Protein Urine Glucose (UA) Urine Ketones Urine Blood Urine Nitrite Ur Leukocyte Esterase Urine RBC Urine WBC Ur Squamous Epith Cells Amorphous Sediment Urine Bacteria Urine Opiates Screen Urine Fentanyl Screen Ur Barbiturates Screen Ur Phencyclidine Scrn Ur Amphetamines Screen U Benzodiazepines Scrn Urine Cocaine Screen U Marijuana (THC) Screen COVID-19 (JEY) Negative [employer] See Note 04/09/21 04/09/21 04/09/21 08:18 08:18 09:38 MCV 93.0 MCH 30.9 MCHC 33.2 RDW 13.2 Plt Count 169 MPV 9.5 Immature Gran % (Auto) 0.4 Neut % (Auto) 62.6 Lymph % (Auto) 23.7 [place] % (Auto) 10.0 Eos % (Auto) 2.6 Baso % (Auto) 0.7 Lymph # (Auto) 1.3 [place] # (Auto) 0.5 Eos # (Auto) 0.1 Baso # (Auto) 0.0 Abs Immat Gran (auto) 0.02 Absolute Neuts (auto) 3.4 Absolute Nucleated RBC 0.000 Nucleated RBC % (auto) 0.0 APTT Anion Gap Estim Creat Clear Calc Estimated GFR POC Glucose Random Glucose Calcium Total Bilirubin Direct Bilirubin AST ALT Alkaline Phosphatase Total Protein Albumin Triglycerides 51 Cholesterol 156 LDL Cholesterol, Calc 78 HDL Cholesterol 68 Lipase Urine Color YELLOW Urine Appearance CLEAR Urine pH 7.0 Ur Specific [place] 1.015 Urine Protein NEG Urine Glucose (UA) NEG Urine Ketones NEG Urine Blood TRACE Urine Nitrite NEG Ur Leukocyte Esterase NEG Urine RBC 0-2 Urine WBC 0 Ur Squamous Epith Cells NONE Amorphous Sediment 2+ Urine Bacteria NONE Urine Opiates Screen Urine Fentanyl Screen Ur Barbiturates Screen Ur Phencyclidine Scrn Ur Amphetamines Screen U Benzodiazepines Scrn Urine Cocaine Screen U Marijuana (THC) Screen COVID-19 (JEY) [employer] 04/09/21 04/09/21 09:38 12:09 MCV MCH MCHC RDW Plt Count MPV Immature Gran % (Auto) Neut % (Auto) Lymph % (Auto) [place] % (Auto) Eos % (Auto) Baso % (Auto) Lymph # (Auto) [place] # (Auto) Eos # (Auto) Baso # (Auto) Abs Immat Gran (auto) Absolute Neuts (auto) Absolute Nucleated RBC Nucleated RBC % (auto) APTT Anion Gap Estim Creat Clear Calc Estimated GFR POC Glucose 111 Random Glucose Calcium Total Bilirubin Direct Bilirubin AST ALT Alkaline Phosphatase Total Protein Albumin Triglycerides Cholesterol LDL Cholesterol, Calc HDL Cholesterol Lipase Urine Color Urine Appearance Urine pH Ur Specific [place] Urine Protein Urine Glucose (UA) Urine Ketones Urine Blood Urine Nitrite Ur Leukocyte Esterase Urine RBC Urine WBC Ur Squamous Epith Cells Amorphous Sediment Urine Bacteria Urine Opiates Screen Not Detected Urine Fentanyl Screen POSITIVE H Ur Barbiturates Screen Not Detected Ur Phencyclidine Scrn Not Detected Ur Amphetamines Screen Not Detected U Benzodiazepines Scrn Not Detected Urine Cocaine Screen Not Detected U Marijuana (THC) Screen Not Detected COVID-19 (JEY) COVID-19 Clin Com Assessment and Plan (1) Ataxia: Status: Acute (2) Hypertension: Status: Acute (3) Dementia: Status: Acute Plan 86-year-old male with a past medical history of hypertension, hyperlipidemia, dementia presented to the hospital with a chief complaint of fall 1.Ataxia -per Neurology, MRI and CT failed to demonstrate acute stroke -refused PT eval x2 remains unsteady on feet; retry in a.m. 2.Hypertension - aceeptable control on outpatient therapies -adjust as indicated -follow renal/divalents 3.Dementia -continue amantadine 4.Hyperlipidemia -continue statin DVT prophylaxis: SCD boots Code status: Full code. Confirmed with the patient's daughter at bedside Quality Stroke Does the patient have a stroke diagnosis?: No VTE Prior VTE?: No VTE Risk Level:: Medical - moderate - high VTE Device Contraindication: Treatment Not Indicated VTE Drug Contraindication: N/A - Med Ordered
[2021-04-09] MEDS: Atorvastatin Calcium 20 MG TABLET PO (20:09)
[2021-04-09] MEDS: Melatonin 3 MG TABLET 9 MG PO (20:09)
[2021-04-09] MEDS: 0.9 % Sodium Chloride Flush 3 ML SYRINGE IVFLUSH (20:10)
[2021-04-10 03:29] VITALS: BP 146/78; PULSE 61; RESP 16; TEMP 36.3; O2SAT 96
[2021-04-10 07:13] VITALS: BP 136/66; PULSE 75; RESP 20; TEMP 36.7; O2SAT 96
[2021-04-10] MEDS: Aspirin Enteric Coated 325 MG TABLET.DR PO (08:23)
[2021-04-10] MEDS: amLODIPine Besylate 2.5 MG TABLET PO (08:23)
[2021-04-10] MEDS: 0.9 % Sodium Chloride Flush 3 ML SYRINGE IVFLUSH (08:23)
[2021-04-10] MEDS: Memantine HCl 10 MG TABLET PO (08:24)
[2021-04-10] MEDS: Omeprazole 20 MG CAPSULE.DR PO (08:24)
[2021-04-10] MEDS: Docusate Sodium 100 MG CAPSULE PO (08:29)
--- NOTE | 2021-04-10 09:26 | MHC.CM.PN ---
met with pt and jahairater ,blayne explains that pt has 26 daytinme apparatus engineering technologist hrs and 14 nightime pt is vax x 3 and will be transported home by family when dcd dc plan home with resumpton of apparatus engineering technologist pt lives with blayne
--- NOTE | 2021-04-10 09:38 | MHC.CM.PN ---
pt dcd home mwhere he lives with his no additional servceis ordered by md family to transport home
--- NOTE | 2021-04-10 09:43 | PM.DS ---
DS: Providers Provider Date of Service: 04/10/21 Date of admission: 04/08/21 23:11 Date of discharge: 04/10/21 Primary care physician: Unknown Physician Consults: 04/08/21 23:13 Consult to Neurology Routine Consulting Provider: Reddy Pérez Reason for consultation: unsteady gait DS: Diagnosis Discharge Diagnosis (1) Ataxia: Status: Acute (2) Hypertension: Status: Acute (3) Dementia: Status: Acute DS: Summary Hospital Course Hospital Course: 86-year-old male with a past medical history of hypertension, hyperlipidemia, dementia, lives with a daughter; presented to the hospital today with a chief complaint of fall.? Patient is baseline less verbal and does not make comprehendible talk at baseline as per the patient's daughter.? Today his mental status status baseline as per the daughter.? Patient is currently alert awake and following simple commands.? Patient's daughter reports that he was doing fine until yesterday and today he was noted to be unsteady and subsequently had a fall and fell on his hip; denies any head strike or loss of consciousness. Hospital course: [place] [facility] [place] workup including head CT followed up by MRI failed to document any acute pathology that would be responsible for the patient's unsteadiness. He was seen in consultation by Neurology who recommended possibly an outpatient EEG but had nothing else to add. The morning of the discharge, daughter is present patient up in the chair; daughter states he is back to baseline and wishes to take him home. He ambulated with daughters cuing without issue. At this time, he will be discharged home to resume previous routine. No changes and med regimen Time Spent with Patient Time attestation: Total time spent providing and/or coordinating discharge services: Discharge coordination time: Greater than 30 minutes Quality: Stroke Does the patient have a stroke diagnosis?: No Physical Exam Vital Signs: Vital Signs: Last Vital Signs Temp 98.0 F 04/10/21 07:13 Pulse 75 04/10/21 07:13 Resp 20 04/10/21 07:13 BP 136/66 04/10/21 07:13 Pulse Ox 96 04/10/21 07:13 BMI result Body Mass Index 18.0 DS: Data Data Completed and Pending Labs on day of discharge: Laboratory Results - last 24 hr 04/09/21 04/09/2104/09/22 09:38 09:38 12:09 POC Glucose 111 Urine Color YELLOW Urine Appearance CLEAR Urine pH 7.0 Ur Specific [place] 1.015 Urine Protein NEG Urine Glucose (UA) NEG Urine Ketones NEG Urine Blood TRACE Urine Nitrite NEG Ur Leukocyte Esterase NEG Urine RBC 0-2 Urine WBC 0 Ur Squamous Epith Cells NONE Amorphous Sediment 2+ Urine Bacteria NONE Urine Opiates Screen Not Detected Urine Fentanyl Screen POSITIVE H Ur Barbiturates Screen Not Detected Ur Phencyclidine Scrn Not Detected Ur Amphetamines Screen Not Detected U Benzodiazepines Scrn Not Detected Urine Cocaine Screen Not Detected U Marijuana (THC) Screen Not Detected Discharge Plan Discharge Patient Disposition: Home Health Service Discharge Diagnosis: Transient Ataxia Referrals: Physician,Unknown J [Primary Care Provider] - 1 Week Discharge Medications: Continued senna 8.6 mg capsule 8.6 mg PO BEDTIME PRN (Reason: constipation) Qty: 30 0RF docusate sodium [Colace] 100 mg capsule 100 mg PO BID Qty: 60 0RF aspirin 325 mg tablet,delayed release (DR/EC) 1 tab PO DAILY 0RF trazodone 150 mg tablet 2 tab PO BEDTIME 0RF memantine 5 mg tablet 10 mg PO QAM 0RF acetaminophen [Tylenol Arthritis Pain] 650 mg tablet extended release 650 mg PO Q8H 0RF omeprazole 20 mg tablet,delayed release (DR/EC) 20 mg PO DAILY 0RF amlodipine 5 mg tablet 2.5 mg PO DAILY 0RF atorvastatin [Lipitor] 20 mg tablet 20 mg PO BEDTIME 0RF triamterene-hydrochlorothiazid 37.5-25 mg capsule 1 cap PO DAILY 0RF melatonin 10 mg capsule 10 mg PO BEDTIME PRN (Reason: Sleep) 0RF Discharge Orders: Discharge Order (Routine); Ordered 04/10/21 Ordered By: Michael Thayer Diet: advance to usual diet Activity on Discharge: As tolerated Stand Alone Forms: Patient Portal Discharge page Care Plan Goals: Maintain highest level of function. Resume all home medication eyes Health Concerns: Follow-up with PCP as scheduled last Plan of Treatment: Resume previous home care plan Assessment: As per discharge summary
== END 2021-04-10 10:34 | disposition home health service (06) | DRG 93 ==
LOC: HO.ED 23:08 → HO.EDOVER 04-09 06:02 → HO.IMC 04-09 14:57
PROVIDERS: Nurse Practitioner Family; Admitting Provider Hospitalist; Emergency Provider Internal Medicine; Visit Provider Hospitalist
DX: R27.0 Ataxia, unspecified (principal); I10 Essential (primary) hypertension; G30.9 Alzheimer's disease, unspecified; F02.80 Dementia in other diseases classified elsewhere, unspecified severity, without behavioral disturbance, psychotic disturbance, mood disturbance, and anxiety; E78.5 Hyperlipidemia, unspecified; Z20.822 Contact with and (suspected) exposure to COVID-19; Z79.82 Long term (current) use of aspirin; Z79.899 Other long term (current) drug therapy
CPT/HCPCS: 36415; 70450; 70551; 71045; 73522; 80048; 80061; 80076; 80307; 81001; 81003; 82947; 83690; 84484; 85025; 85730; 87635; 92610; 93005; 97162; 97166; 99285; 99291

== ENCOUNTER 2021-08-19 14:53 | Emergency (ER) | payer MEDICARE, SELFPAY ==
[2021-08-19] VITALS (10 sets, daily range): BP systolic 120–131; BP diastolic 70–88; PULSE 65–80; RESP 12–17; O2SAT 98; BMI 24.4
--- NOTE | ~2021-08-19 | XR_ITS ---
EXAMINATION: XR CHEST CLINICAL INFORMATION: Weakness, rule out pneumonia. COMPARISON: 04/08/2019 chest radiograph. TECHNIQUE: Frontal view of the chest was obtained. FINDINGS: Low lung volumes limit evaluation. The lungs are clear. The heart is unremarkable. Coarsely calcified nodules overlie the mediastinum. The visualized osseous structures are intact. XR/XR chest 1V IMPRESSION: 1. No acute cardiopulmonary process.
--- NOTE | ~2021-08-19 | CT_ITS ---
EXAMINATION: CT HEAD WITHOUT CONTRAST CLINICAL INFORMATION: Fall with head injury. Rule out bleed or fracture. COMPARISON: Head CT 05/06/2021 TECHNIQUE: Imaging was performed from the skull base to vertex without intravenous administration of contrast. This CT examination was performed using dose optimization techniques as appropriate, variously including the following: *Automated exposure control *Adjustment of mA and/or kV according to patient size (this includes techniques or standardized protocols for targeted exams where dose is matched to indication/reason for exam; i.e. extremities or head) *Use of iterative reconstruction technique Total exam dose length product: 761 mGy-cm FINDINGS: Exam quality is degraded significantly by patient motion artifact during the acquisition. No gross intracranial hemorrhage or mass. No evidence of midline shift or herniation. No territorial encephalomalacia visualized. Mild cerebral volume loss and patchy supratentorial white matter hypoattenuation likely sequela of chronic small vessel ischemia. No gross calvarial fracture. Visualized mastoid air cells and paranasal sinuses are normally aerated. CT/CT head/brain wo con IMPRESSION: 1. Significantly limited exam due to motion artifact. No obvious/gross large intracranial hemorrhage or obvious calvarial fracture.
--- NOTE | 2021-08-19 15:42 | ECG_ITS ---
Test Reason : DIZZINESS Blood Pressure : / mmHG Vent. Rate : 091 BPM Atrial Rate : 091 BPM P-R Int : 176 ms QRS Dur : 100 ms QT Int : 384 ms P-R-T Axes : 017 -56 079 degrees QTc Int : 472 ms Poor data quality, interpretation may be adversely affected Sinus rhythm with Premature supraventricular complexes Left axis deviation Minimal voltage criteria for LVH, may be normal variant ( [place] product ) Abnormal ECG When compared with ECG of 08-APR-2021 17:57, Significant changes have occurred Referred By: Abrahan Ortega Electronically Signed By:
--- NOTE | 2021-08-19 15:43 | PC.NURSE ---
pt drowsy and disoriented, at baseline per daughter, hx dementia. vss. per EMS and family, pt experienced unwitnessed fall today while standing up out of chair, felt dizzy - hit back of head on stove. hx of similar recently - pt recommended to d/c htn medication per pcp. no new orders at this time.
--- NOTE | 2021-08-19 16:39 | ED.FALL ---
HPI - Fall General Chief Complaint: Fall Stated Complaint: fall/weakness Time Seen by Provider: 08/19/21 15:05 Source: family ( daughter, Irena reach by phone at ( [phone]) Mode of arrival: EMS Limitations: altered mental status ( Alzheimer's dementia) History of Present Illness HPI Narrative: 86-year-old male who was brought to the emergency department for evaluation of a fall at home. The patient is Nigerien-speaking only but he has dementia and does not answer questions asked in Nigerien by our woodworking machinist. I was able to talk to the patient's daughter Irena by phone. The daughter does speak Nigerien and [place] in the weight control lecturer was used to get information. 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 The patient stood up, got dizzy, fell backwards and struck his head on a fan. He did not lose consciousness. Given the fall and head injury the family was concerned and called an ambulance and had the patient brought to the emergency department for evaluation. According to the sister, the patient has dementia at and is not comprehensible at times. the patient had a similar fall on 08/10/2021. On 08/14/2019 to had an assistive dizziness, 08/13/2021 he had an episode of dizziness and was given IV fluid by the paramedics and the patient refused transport. He was seen by his PCP on , 08/16/2021 and was found to have a low blood pressure therefore his blood pressure medications were stopped. His PCP also started him on salt tablets 3 times a day for possible orthostatic hypotension. The patient took his 1st dose today. MD complaint: fall Onset (ago): minute(s) (30 Prior to arrival) Fall from: other ( stood up from a chair and fell backwards) Fall witnessed: yes, by family Place fall occurred: home Loss of consciousness: none Symptoms prior to fall: lightheadedness and dizziness Location of injury: head Related Data Home Medications Medication Instructions Recorded Confirmed acetaminophen 650 mg 650 mg PO Q8H 03/28/20 04/08/21 tablet,extended release (Tylenol Arthritis Pain) amlodipine 5 mg tablet 2.5 mg PO DAILY 03/28/20 04/08/21 atorvastatin 20 mg tablet (Lipitor) 20 mg PO BEDTIME 03/28/20 04/08/21 melatonin 10 mg capsule 10 mg PO BEDTIME PRN Sleep 03/28/20 04/08/21 memantine 5 mg tablet 10 mg PO QAM 03/28/20 04/08/21 omeprazole 20 mg tablet,delayed 20 mg PO DAILY 03/28/20 04/08/21 release triamterene 37.5 1 cap PO DAILY 03/28/20 04/08/21 mg-hydrochlorothiazide 25 mg capsule aspirin 325 mg tablet,delayed 1 tab PO DAILY 04/08/21 04/08/21 release trazodone 150 mg tablet 2 tab PO BEDTIME 04/09/21 04/09/21 Previous Rx's Medication Instructions Recorded docusate sodium 100 mg capsule 100 mg PO BID #60 caps 05/31/20 (Colace) sennosides 8.6 mg capsule (senna) 8.6 mg PO BEDTIME PRN constipation 05/31/20 #30 caps Allergies Allergy/AdvReac Type Severity Reaction Status Date / Time No Known Allergies Allergy Verified 08/19/21 15:11 [No Known Allergies*] Review of Systems Review of Systems: Yes all other systems are reviewed and are negative REPLACED BY [facility] Past Medical History Medical History (Updated 08/19/21 @ 17:31 by Abrahan Ortega MD) Alzheimer disease Arthritis GERD (gastroesophageal reflux disease) High cholesterol Osteoarthritis Social History Social History Household Members: Family Housing: House Do you presently have visiting nurse or other home services: No (unknown) Unable to assess alcohol history related to: Unable to respond Alcohol intake: never Patient Tobacco Use Status: Never used Tobacco e-Cigarette/Vaping Use: Never Used Use of substances other than those prescribed or required for medical reasons: No Advance Directives: No Advance Directives Information Provided: Yes service: No Current occupational status: retired Current occupation: right handed Physical Exam Vital Signs: Vital Signs: Last Vital Signs Pulse 72 08/19/21 17:12 Resp 12 08/19/21 17:12 BP 122/88 08/19/21 17:12 Pulse Ox 98 08/19/21 15:37 O2 Del Method 08/19/21 15:37 BMI result Body Mass Index 24.4 Const: Other: elderly male patient, sitting up right in the bed, does not answer questions appropriately that her asked in Nigerien, the woodworking machinist states that he is mumbling words but they do not make sense HEENT: Head: Yes normal to inspection, Yes normocephalic and Yes atraumatic Ears: external ears normal General nose exam: Normal external nose present Face and sinus: Yes normal facial exam Mouth: Normal oral and palatal mucosa present Throat: Yes posterior oropharynx normal Eyes: General: appearance normal, both eyes and all related structures Neck: Neck: Yes normal visual inspection, Yes no lymphadenopathy, Yes trachea midline and Yes supple Chest: Chest palpation & inspection: normal inspection of the chest and normal palpation of entire chest wall Resp: Effort & Inspection: normal respiratory effort and able to speak in complete sentences Auscultation: clear to auscultation bilaterally Cardio: Rate: regular rate Rhythm: regular rhythm Heart sounds: S1 normal heart sound present, S2 normal heart sound present and no murmurs GI: Inspection: Yes normal to inspection Palpation (GI): Soft to palpation, nontender and no guarding Auscultation: normal bowel sounds : General: Yes no CVA tenderness Back/Spine/Pelvis: Back: no CVA tenderness Skin: General skin exam: no rashes or lesions noted Neuro: Other: patient is awake and alert, he has dementia and is not answer questions appropriately, he moves all extremities symmetrically Extrem: General: Yes normal to inspection Psych: Appearance: grossly normal Course Course Course Narrative: 86-year-old male who presents emergency department for evaluation of head injury from a fall. This is the patient's 2nd fall in 2 weeks. The patient has been experiencing dizziness especially with position change, he was found to be hypotensive by his PCP who stopped his blood pressure medications and started him on salt tablets 3 times a day for possible orthostatic hypotension. On presentation the patient's mental status is consistent with his dementia. Vital signs were unremarkable. Examination revealed a nonfocal neurologic exam. Given his head injury and his fall, I did order a CT scan of the head, chest x-ray one view, chest x-ray one view, CBC, comprehensive metabolic panel, drug screen, lipase, troponin, COVID-19, CK, alcohol, PT /INR, PTT and urinalysis. 165: Given the patient's dementia he has not been able to cooperate with lab draw or with the CT scan. I did discuss this with the patient's daughter older who is at the patient's bedside and we both agree that it was important to complete the medical workup given his fall and his age. Therefore the patient was medicated with Haldol 5 mg IM, Ativan 1 mg IM and Benadryl 25 mg IM. At the end of my shift, the patient's evaluation is pending, patient's care was turned over to my colleague, Dr. Yang. Discharge Plan Discharge Clinical Impression: Fall, Head injury, Alzheimer's dementia Patient Disposition: Still a Patient Prescriptions: No Action senna 8.6 mg capsule 8.6 mg PO BEDTIME PRN (Reason: constipation) Qty: 30 0RF docusate sodium [Colace] 100 mg capsule 100 mg PO BID Qty: 60 0RF aspirin 325 mg tablet,delayed release (DR/EC) 1 tab PO DAILY trazodone 150 mg tablet 2 tab PO BEDTIME memantine 5 mg tablet 10 mg PO QAM acetaminophen [Tylenol Arthritis Pain] 650 mg tablet extended release 650 mg PO Q8H omeprazole 20 mg tablet,delayed release (DR/EC) 20 mg PO DAILY amlodipine 5 mg tablet 2.5 mg PO DAILY atorvastatin [Lipitor] 20 mg tablet 20 mg PO BEDTIME triamterene-hydrochlorothiazid 37.5-25 mg capsule 1 cap PO DAILY melatonin 10 mg capsule 10 mg PO BEDTIME PRN (Reason: Sleep)
[2021-08-19] MEDS: Haloperidol Lactate 5 MG/ML VIAL IM (17:10)
[2021-08-19] MEDS: diphenhydrAMINE HCL 50 MG/ML VIAL 25 MG IM (17:11)
[2021-08-19] MEDS: LORazepam 2 MG/ML VIAL 1 MG IM (17:11)
--- NOTE | 2021-08-19 17:18 | PC.NURSE ---
pt disoriented, uncooperative for lab work/CT. medicated per provide order.
[2021-08-19] MEDS: 0.9 % Sodium Chloride 1,000 ML 999 ML IV (18:41)
[2021-08-19 18:42] LABS: MANUAL DIFF FLAG NO
[2021-08-19 18:44] LABS: Basophils Percent Auto 0.4 % (0-2); Eosinophils Absolute Auto 0.1 X10*3/uL (0.0-0.4); Eosinophils Percent Auto 1.1 % (0-4); Hematocrit 47.4 % (42.0-52.0); Hemoglobin 15.8 g/dl (14.0-18.0); Imm Gran Abs Auto 0.01 X10*3/uL (0.00-0.03); Imm Gran Pct Auto 0.2 % (0.0-0.4); Lymphocytes Percent Auto 18.7 % (20-40); Mean Corpuscular HGB Conc 33.3 g/dl (31.0-36.0); Mean Corpuscular Volume 92.9 fL (80.0-98.0); Mean Platelet Volume 9.7 fL (9.4-12.4); Monocytes Absolute Auto 0.4 X10*3/uL (0.1-1.2); Monocytes Percent Auto 7.7 % (2-11); Neutrophils Absolute Auto 3.9 x10*3/uL (2.0-8.3); Neutrophils Percent Auto 71.9 % (45-73); Platelet Count 153 X10*3/uL (160-400); Red Cell Distribution Width 12.8 % (11.0-16.0); White Blood Count 5.4 X10*3/uL (4.8-10.8)
[2021-08-19 18:49] LABS: INTERNATIONAL NORM RATIO 1.1 (0.9-1.1); Prothrombin Time 12.5 SEC (10.0-13.1)
[2021-08-19 18:52] LABS: Partial Thromboplastin Time 31.4 SEC (24.1-38.0)
[2021-08-19 19:11] LABS: COVID-19 Test Negative (Negative); IDNOW Serial# 16C4AD1C
[2021-08-19 20:28] LABS: Alanine Aminotransferase 15 U/L (0-40); Albumin Level 3.9 g/dL (3.5-5.0); Alkaline Phosphatase 88 U/L (39-117); Anion Gap 14 (12-20); Aspartate Amino Transferase 20 U/L (5-37); Bilirubin Total 0.5 mg/dL (0.0-1.0); Blood Urea Nitrogen 19 mg/dL (9-16); Calcium 9.1 mg/dL (8.4-10.2); Carbon Dioxide 25 mmol/L (22-29); Chloride 105 mmol/L (96-108); Creatinine Clr Calc Pharmacy 41.7; Estimated Glomerular Filt Rate > 60; Ethanol < 10 mg/dL; Glucose Random 69 mg/dL (60-115); Lipase 13 U/L (8-78); Potassium 4.1 mmol/L (3.3-5.1); Sodium 140 mmol/L (135-145); Total Protein 6.5 g/dL (6.5-8.0)
== END 2021-08-19 22:06 | disposition home or self-care (01) ==
PROVIDERS: Emergency Provider Emergency Medicine Emergency Medical Services
DX: S09.90XA Unspecified injury of head, initial encounter (principal); G30.9 Alzheimer's disease, unspecified; F02.80 Dementia in other diseases classified elsewhere, unspecified severity, without behavioral disturbance, psychotic disturbance, mood disturbance, and anxiety; W01.0XXA Fall on same level from slipping, tripping and stumbling without subsequent striking against object, initial encounter; Y93.9 Activity, unspecified; Y92.9 Unspecified place or not applicable; Y99.9 Unspecified external cause status; Z20.822 Contact with and (suspected) exposure to COVID-19; Z79.899 Other long term (current) drug therapy
CPT/HCPCS: 70450; 71045; 80053; 82077; 82550; 83690; 84484; 85025; 85610; 85730; 87635; 93005; 96360; 96372; 99285; J1200; J2060

== ENCOUNTER 2021-11-07 18:18 | Inpatient (IN) | payer OTHER, SELFPAY ==
--- NOTE | ~2021-11-07 | XR_ITS ---
EXAMINATION: XR CHEST CLINICAL INFORMATION: MRI screening. COMPARISON: Chest radiograph dated from 08/19/2021. TECHNIQUE: Frontal view of the chest was obtained. FINDINGS: Stable cardiomegaly. Blunting of the left costophrenic angle is likely related with a prominent epicardial fat pad. No focal airspace opacity. No pleural effusion or pneumothorax. No acute osseous abnormalities. Redemonstration of a very tiny 2 mm radiopacity in the mid to left upper abdomen, likely related with a calcification. No radiopaque metallic foreign bodies. XR/XR chest 1V IMPRESSION: No acute cardiopulmonary findings. Redemonstration of cardiomegaly. No unexpected radiopaque metallic foreign bodies.
--- NOTE | ~2021-11-07 | CT_ITS ---
EXAMINATION: CT head/brain wo IV con CLINICAL INFORMATION: Reason for Exam AMS COMPARISON: CT head without contrast 08/19/2021 TECHNIQUE: Contiguous axial imaging was performed from the skull base to vertex without intravenous contrast. Sagittal and coronal reformatted images were obtained. This CT examination was performed using dose optimization techniques as appropriate, variously including the following: * Automated exposure control * Adjustment of mA and/or kV according to patient size (this includes techniques or standardized protocols for targeted exams where dose is matched to indication/reason for exam; i.e. extremities or head) Use of iterative reconstruction technique DLP: 219 mGy-cm FINDINGS: Significantly motion degraded examination which particularly limits evaluation of the brain near the vertex and skull base. No gross intracranial hemorrhage, mass effect, or midline shift. No extra-axial collection is identified. Ventricular caliber appears stable. There is evidence of moderate chronic microangiopathic white matter hypodensity. No evidence of acute territorial edematous infarction. CT/CT head/brain wo IV con IMPRESSION: Within the limitations of significant motion degradation, there is no acute intracranial abnormality
--- NOTE | ~2021-11-07 | XR_ITS ---
EXAMINATION: XR ABDOMEN KUB CLINICAL INDICATION: MRI screening. COMPARISON: Abdominal radiograph 05/31/2020. TECHNIQUE: AP view of the abdomen. FINDINGS: There is a small 2 mm radiopacity projecting over the mid to left upper abdomen, likely related with a calcification. No metallic foreign bodies. Nonobstructive bowel gas pattern. No significant colonic stool burden. No acute osseous or soft tissue abnormalities. Partially imaged cardiomegaly. XR/XR KUB IMPRESSION: Very small 2 mm calcification projecting over the mid to left upper abdomen, indeterminate. No radiopaque metallic foreign bodies. Nonobstructive bowel gas pattern. Cardiomegaly.
--- NOTE | ~2021-11-07 | CT_ITS ---
EXAMINATION: CT ORBIT WITHOUT CONTRAST CLINICAL INFORMATION: MRI screening for foreign body. COMPARISON: Head CT performed earlier the same date TECHNIQUE: Axial images were obtained through the orbits without the administration of intravenous contrast. Coronal and sagittal reformatted images were generated. This CT examination was performed using dose optimization techniques as appropriate, variously including the following: *Automated exposure control *Adjustment of mA and/or kV according to patient size (this includes techniques or standardized protocols for targeted exams where dose is matched to indication/reason for exam; i.e. extremities or head) *Use of iterative reconstruction technique DLP: 78 mGy-cm FINDINGS: Status post bilateral lens extractions. Globes and retro-orbital structures are intact. No retro-orbital mass. No metallic foreign body identified. Generalized cerebral atrophy noted incidentally-limited assessment. Imaged portions of the paranasal sinuses and mastoid air cells normally aerated. CT/CT orbit BI wo IV con IMPRESSION: 1. No evidence of metallic intraorbital foreign body.
[2021-11-07 18:23] VITALS: BP 142/75; PULSE 81; O2SAT 100; BMI 32.8
[2021-11-07 18:29] VITALS: BP 141/80; PULSE 98; RESP 18; TEMP 36.8; O2SAT 95
--- NOTE | 2021-11-07 18:54 | ECG_ITS ---
Test Reason : AMS Blood Pressure : / mmHG Vent. Rate : 091 BPM Atrial Rate : 091 BPM P-R Int : 180 ms QRS Dur : 088 ms QT Int : 354 ms P-R-T Axes : 017 -43 079 degrees QTc Int : 435 ms Sinus rhythm with Premature atrial complexes in a pattern of bigeminy Left axis deviation Minimal voltage criteria for LVH, may be normal variant ( R in aVL ) Septal infarct , age undetermined Abnormal ECG When compared with ECG of 19-AUG-2021 20:09, Premature atrial complexes are now Present Septal infarct is now Present Referred By: Loren De Leon Electronically Signed By:LINO DOMINGUEZ
--- NOTE | 2021-11-07 19:15 | ED_ITS ---
HPI - Altered Mental Status General Chief Complaint: Altered Mental Status Stated Complaint: AMS FROM HOME LKWT 10AM Time Seen by Provider: 11/07/21 18:49 Source: EMS Mode of arrival: EMS Limitations: other (Alzheimer's dementia) History of Present Illness HPI narrative: Patient comes to the emergency room via EMS. EMS was not sure why the family called 911 to bring in the patient. Patient has history of dementia, is mostly nonverbal, occasionally says a few words. Patient is unable to give any significant history. Per EMS, they were under the impression that the 911 call was because the patient had stroke-like symptoms. The family reported that the last time that the patient was well seen was approximately 9 hours ago. When they were asked what is different between now and before 10:00, they were unable to come up with any differences. I was able to get in touch with the patient's healthcare proxy, Irena Gonzalez, seems that the patient since this morning had a bit left-sided eyelid droop, has been clenching his left fist, not eating as well as he should. Related Data Home Medications Medication Instructions Recorded Confirmed atorvastatin 20 mg tablet (Lipitor) 20 mg PO BEDTIME 03/28/20 11/07/21 omeprazole 20 mg tablet,delayed 20 mg PO DAILY 03/28/20 11/07/21 release aspirin 325 mg tablet,delayed 1 tab PO DAILY 04/08/21 11/07/21 release trazodone 150 mg tablet 1 tab PO BEDTIME 04/09/21 11/07/21 cholecalciferol (vitamin D3) 25 1 tab DAILY 11/07/21 11/07/21 mcg (1,000 unit) tablet docusate sodium 50 mg/5 mL oral 10 ml PO BEDTIME PRN Constipation 11/07/21 11/07/21 liquid (Docu) melatonin 5 mg tablet 2 tab PO BEDTIME insomnia 11/07/21 11/07/21 memantine 10 mg tablet 1 tab PO BEDTIME 11/07/21 11/07/21 ropinirole 0.5 mg tablet 1 tab PO BEDTIME 11/07/21 11/07/21 Allergies Allergy/AdvReac Type Severity Reaction Status Date / Time No Known Allergies Allergy Verified 08/19/21 15:11 [No Known Allergies*] FORMERLY [facility], [facility] Past Medical History Medical History (Updated 09/22/22 @ 01:17 by Loren De Leon MD) Alzheimer disease Arthritis GERD (gastroesophageal reflux disease) High cholesterol Osteoarthritis Social History Social History Household Members: Family Housing: House Do you presently have visiting nurse or other home services: No (unknown) Unable to assess alcohol history related to: Unable to respond Alcohol intake: never Patient Tobacco Use Status: Never used Tobacco e-Cigarette/Vaping Use: Never Used Use of substances other than those prescribed or required for medical reasons: No Advance Directives: No Advance Directives Information Provided: No service: No Current occupational status: retired Current occupation: right handed Physical Exam ED Vital Signs: Vital Signs - 24 hr 11/07/21 18:29 11/07/21 19:54 11/07/21 22:11 Temperature 98.2 F 98.8 F Pulse Rate 98 82 100 Respiratory Rate 18 18 18 Blood Pressure 141/80 H 128/94 H 160/74 H Pulse Oximetry 95 98 94 Oxygen Delivery Method Room Air Room Air 11/08/21 00:09 Temperature Pulse Rate 89 Respiratory Rate 21 H Blood Pressure 151/101 H Pulse Oximetry 95 Oxygen Delivery Method Room Air BMI result Body Mass Index 32.8 Course Course Course Narrative: I spoke with the patient's healthcare proxy. Patient is to combative to allows to get blood, urine or head CT. Patient healthcare proxy gives permission to give IM medication to be able to the above-mentioned. Patient received 1 dose of 5 mg IM Haldol and 50 mg of Benadryl. Patient remained calm for blood work and urine. 22:20, patient's urine is positive for a urinary tract infection, patient will be given IV ceftriaxone. And 1 L of normal saline. Patient's blood pressure in the 160s, lactic acid within normal limits, sepsis not suspected Patient was not sedated enough for head CT. Patient receiving additional 2.5 mg of IM Haldol 23:58, patient keeps moving quite a bit, unable to get a CT scan. Patient now receiving 10 mg IM of Geodon We were able to do the CT scan. It does not seem that patient has acute intracranial abnormality, however there was significant motion and artifact. Brain bleed is not suspected. I discussed the patient with Dr. Jones, patient will be admitted for UTI encephalopathy MDM - Altered Mental Status Lab Data Result diagrams: 11/07/21 21:22 11/07/21 21:21 Labs: Lab Results 11/07/21 11/07/21 11/07/21 Range/Units 21:21 21:21 21:22 WBC 19.5 H (4.8-10.8) X10*3/uL RBC 4.47 L (4.60-5.80) X10*6/uL Hgb 13.8 L (14.0-18.0) g/dl Hct 41.6 L (42.0-52.0) % MCV 93.1 (80.0-98.0) fL MCH 30.9 (27.0-33.0) pg MCHC 33.2 (31.0-36.0) g/dl RDW 13.7 (11.0-16.0) % Plt Count 148 L (160-400) X10*3/uL MPV 9.6 (9.4-12.4) fL Immature Gran % (Auto) 0.9 H (0.0-0.4) % Neut % (Auto) 81.7 H (45-73) % Lymph % (Auto) 9.2 L (20-40) % [place] % (Auto) 7.9 (2-11) % Eos % (Auto) 0.1 (0-4) % Baso % (Auto) 0.2 (0-2) % Lymph # (Auto) 1.8 (1.2-4.9) X10*3/uL [place] # (Auto) 1.6 H (0.1-1.2) X10*3/uL Eos # (Auto) 0.0 (0.0-0.4) X10*3/uL Baso # (Auto) 0.0 (0.0-0.2) X10*3/uL Abs Immat Gran (auto) 0.17 H (0.00-0.03) X10*3/uL Absolute Neuts (auto) 15.9 H (2.0-8.3) x10*3/uL Absolute Nucleated RBC 0.000 (0.0-0.012) X10*3/uL Nucleated RBC % (auto) 0.0 (0.0-0.2) /100WBC Smear Tech's Comments VERIFIED PT (10.0-13.1) SEC INR (0.9-1.1) Sodium 139 (135-145) mmol/L Potassium 3.9 (3.3-5.1) mmol/L Chloride 103 (96-108) mmol/L Carbon Dioxide 24 (22-29) mmol/L Anion Gap 16 (12-20) BUN 22 H (9-16) mg/dL Creatinine 0.90 (0.5-1.4) mg/dL Estim Creat Clear Calc 56.4 Estimated GFR > 60 Random Glucose 86 (60-115) mg/dL Lactic Acid 1.6 (0.5-2.0) mmol/L Calcium 9.0 (8.4-10.2) mg/dL Magnesium 1.8 (1.6-2.6) mg/dL Total Bilirubin 1.0 (0.0-1.0) mg/dL Direct Bilirubin 0.4 (0.0-0.5) mg/dL AST 20 (5-37) U/L ALT 11 (0-40) U/L Alkaline Phosphatase 85 (39-117) U/L Troponin I High Sens (<3.5-35.0) ng/L Total Protein 6.6 (6.5-8.0) g/dL Albumin 3.8 (3.5-5.0) g/dL Lipase 5 L (8-78) U/L Urine Color Urine Appearance Urine pH (5.0-9.0) Ur Specific [place] (1.005-1.025) Urine Protein (Neg-Trace) mg/dL Urine Glucose (UA) (Negative) mg/dL Urine Ketones (Negative) mg/dL Urine Blood (Negative) Urine Nitrite (Negative) Ur Leukocyte Esterase (Negative) Urine RBC (0-2) /HPF Urine WBC (0-5) /HPF Ur Squamous Epith Cells (0-2) /HPF Urine Bacteria (None Seen) Hyaline Casts (0-2) /LPF COVID-19 (JEY) (Negative) COVID-19 Clin Com 11/07/21 11/07/21 11/07/21 Range/Units 21:22 21: 21: WBC (4.8-10.8) X10*3/uL RBC (4.60-5.80) X10*6/uL Hgb (14.0-18.0) g/dl Hct (42.0-52.0) % MCV (80.0-98.0) fL MCH (27.0-33.0) pg MCHC (31.0-36.0) g/dl RDW (11.0-16.0) % Plt Count (160-400) X10*3/uL MPV (9.4-12.4) fL Immature Gran % (Auto) (0.0-0.4) % Neut % (Auto) (45-73) % Lymph % (Auto) (20-40) % [place] % (Auto) (2-11) % Eos % (Auto) (0-4) % Baso % (Auto) (0-2) % Lymph # (Auto) (1.2-4.9) X10*3/uL [place] # (Auto) (0.1-1.2) X10*3/uL Eos # (Auto) (0.0-0.4) X10*3/uL Baso # (Auto) (0.0-0.2) X10*3/uL Abs Immat Gran (auto) (0.00-0.03) X10*3/uL Absolute Neuts (auto) (2.0-8.3) x10*3/uL Absolute Nucleated RBC (0.0-0.012) X10*3/uL Nucleated RBC % (auto) (0.0-0.2) /100WBC Smear Tech's Comments PT 16.9 H (10.0-13.1) SEC INR 1.5 H (0.9-1.1) Sodium (135-145) mmol/L Potassium (3.3-5.1) mmol/L Chloride (96-108) mmol/L Carbon Dioxide (22-29) mmol/L Anion Gap (12-20) BUN (9-16) mg/dL Creatinine (0.5-1.4) mg/dL Estim Creat Clear Calc Estimated GFR Random Glucose (60-115) mg/dL Lactic Acid (0.5-2.0) mmol/L Calcium (8.4-10.2) mg/dL Magnesium (1.6-2.6) mg/dL Total Bilirubin (0.0-1.0) mg/dL Direct Bilirubin (0.0-0.5) mg/dL AST (5-37) U/L ALT (0-40) U/L Alkaline Phosphatase (39-117) U/L Troponin I High Sens 67.1 H (<3.5-35.0) ng/L Total Protein (6.5-8.0) g/dL Albumin (3.5-5.0) g/dL Lipase (8-78) U/L Urine Color Urine Appearance Urine pH (5.0-9.0) Ur Specific [place] (1.005-1.025) Urine Protein (Neg-Trace) mg/dL Urine Glucose (UA) (Negative) mg/dL Urine Ketones (Negative) mg/dL Urine Blood (Negative) Urine Nitrite (Negative) Ur Leukocyte Esterase (Negative) Urine RBC (0-2) /HPF Urine WBC (0-5) /HPF Ur Squamous Epith Cells (0-2) /HPF Urine Bacteria (None Seen) Hyaline Casts (0-2) /LPF COVID-19 (JEY) Negative (Negative) COVID-19 Clin Com See Note 11/07/21 Range/Units 21:32 WBC (4.8-10.8) X10*3/uL RBC (4.60-5.80) X10*6/uL Hgb (14.0-18.0) g/dl Hct (42.0-52.0) % MCV (80.0-98.0) fL MCH (27.0-33.0) pg MCHC (31.0-36.0) g/dl RDW (11.0-16.0) % Plt Count (160-400) X10*3/uL MPV (9.4-12.4) fL Immature Gran % (Auto) (0.0-0.4) % Neut % (Auto) (45-73) % Lymph % (Auto) (20-40) % [place] % (Auto) (2-11) % Eos % (Auto) (0-4) % Baso % (Auto) (0-2) % Lymph # (Auto) (1.2-4.9) X10*3/uL [place] # (Auto) (0.1-1.2) X10*3/uL Eos # (Auto) (0.0-0.4) X10*3/uL Baso # (Auto) (0.0-0.2) X10*3/uL Abs Immat Gran (auto) (0.00-0.03) X10*3/uL Absolute Neuts (auto) (2.0-8.3) x10*3/uL Absolute Nucleated RBC (0.0-0.012) X10*3/uL Nucleated RBC % (auto) (0.0-0.2) /100WBC Smear Tech's Comments PT (10.0-13.1) SEC INR (0.9-1.1) Sodium (135-145) mmol/L Potassium (3.3-5.1) mmol/L Chloride (96-108) mmol/L Carbon Dioxide (22-29) mmol/L Anion Gap (12-20) BUN (9-16) mg/dL Creatinine (0.5-1.4) mg/dL Estim Creat Clear Calc Estimated GFR Random Glucose (60-115) mg/dL Lactic Acid (0.5-2.0) mmol/L Calcium (8.4-10.2) mg/dL Magnesium (1.6-2.6) mg/dL Total Bilirubin (0.0-1.0) mg/dL Direct Bilirubin (0.0-0.5) mg/dL AST (5-37) U/L ALT (0-40) U/L Alkaline Phosphatase (39-117) U/L Troponin I High Sens (<3.5-35.0) ng/L Total Protein (6.5-8.0) g/dL Albumin (3.5-5.0) g/dL Lipase (8-78) U/L Urine Color [place] A Urine Appearance Clear Urine pH 6.0 (5.0-9.0) Ur Specific [place] 1.025 (1.005-1.025) Urine Protein 100 (2+) H (Neg-Trace) mg/dL Urine Glucose (UA) Negative (Negative) mg/dL Urine Ketones Negative (Negative) mg/dL Urine Blood Large (3+) H (Negative) Urine Nitrite Negative (Negative) Ur Leukocyte Esterase Moderate (2+) H (Negative) Urine RBC >20 H (0-2) /HPF Urine WBC >50 H (0-5) /HPF Ur Squamous Epith Cells 0-2 (0-2) /HPF Urine Bacteria None Seen (None Seen) Hyaline Casts 0-2 (0-2) /LPF COVID-19 (JEY) (Negative) COVID-19 Clin Com Imaging Data CT scan - head: Radiologist's impression: FINDINGS: Significantly motion degraded examination which particularly limits evaluation of the brain near the vertex and skull base. No gross intracranial hemorrhage, mass effect, or midline shift. No extra-axial collection is identified. Ventricular caliber appears stable. There is evidence of moderate chronic microangiopathic white matter hypodensity. No evidence of acute territorial edematous infarction. ? CT/CT head/brain wo IV con IMPRESSION: ? Within the limitations of significant motion degradation, there is no acute intracranial abnormality Critical Care Time Critical Care Time Critical Care Time: Yes Total Critical Care Time: 60 Attestation: I have personally provided critical care time. Time includes review of lab data, radiology results, discussion with consultants, and monitoring for potential decompensation. Intervention performed as documented. Discharge Plan Discharge Clinical Impression: Acute UTI, Encephalitis Patient Disposition: Admitted As Inpatient Prescriptions: No Action aspirin 325 mg tablet,delayed release (DR/EC) 1 tab PO DAILY trazodone 150 mg tablet 1 tab PO BEDTIME docusate sodium [Docu] 50 mg/5 mL liquid 10 ml PO BEDTIME PRN (Reason: Constipation) ropinirole 0.5 mg tablet 1 tab PO BEDTIME memantine 10 mg tablet 1 tab PO BEDTIME cholecalciferol (vitamin D3) 25 mcg (1,000 unit) tablet 1 tab DAILY melatonin 5 mg tablet 2 tab PO BEDTIME omeprazole 20 mg tablet,delayed release (DR/EC) 20 mg PO DAILY atorvastatin [Lipitor] 20 mg tablet 20 mg PO BEDTIME
[2021-11-07 19:54] VITALS: BP 128/94; PULSE 82; RESP 18; O2SAT 98
[2021-11-07] MEDS: diphenhydrAMINE HCL 50 MG/ML VIAL IM (20:17)
[2021-11-07] MEDS: Haloperidol Lactate 5 MG/ML VIAL IM (20:17)
--- NOTE | 2021-11-07 21:19 | PHA.MEDREC ---
Pharmacy Consult ? Medication Reconciliation Pharmacy has completed the medication reconciliation.
[2021-11-07 21:29] LABS: Basophils Percent Auto 0.2 % (0-2); Eosinophils Percent Auto 0.1 % (0-4); Hematocrit 41.6 % (42.0-52.0); Hemoglobin 13.8 g/dl (14.0-18.0); Imm Gran Abs Auto 0.17 X10*3/uL (0.00-0.03); Imm Gran Pct Auto 0.9 % (0.0-0.4); Lymphocytes Absolute Auto 1.8 X10*3/uL (1.2-4.9); Lymphocytes Percent Auto 9.2 % (20-40); MANUAL DIFF FLAG SCAN; Mean Corpuscular HGB Conc 33.2 g/dl (31.0-36.0); Mean Corpuscular Hemoglobin 30.9 pg (27.0-33.0); Mean Corpuscular Volume 93.1 fL (80.0-98.0); Mean Platelet Volume 9.6 fL (9.4-12.4); Monocytes Absolute Auto 1.6 X10*3/uL (0.1-1.2); Monocytes Percent Auto 7.9 % (2-11); Neutrophils Absolute Auto 15.9 x10*3/uL (2.0-8.3); Neutrophils Percent Auto 81.7 % (45-73); Platelet Count 148 X10*3/uL (160-400); Red Blood Count 4.47 X10*6/uL (4.60-5.80); Red Cell Distribution Width 13.7 % (11.0-16.0); SCAN SMEAR FLAG 1; White Blood Count 19.5 X10*3/uL (4.8-10.8)
[2021-11-07 21:36] LABS: INTERNATIONAL NORM RATIO 1.5 (0.9-1.1); Prothrombin Time 16.9 SEC (10.0-13.1)
[2021-11-07 21:54] LABS: COVID-19 Test Negative (Negative); IDNOW Serial# 55D5AD1C
[2021-11-07 21:55] LABS: Lactic Acid 1.6 mmol/L (0.5-2.0)
[2021-11-07 21:57] LABS: Appearance Urine Clear; Color Urine Orange; Glucose Urine UA Negative (Negative); Leukocyte Esterase Urine Moderate (2+) (Negative); Nitrite Urine Negative (Negative); Specific Gravity - Urine 1.025 (1.005-1.025); UMIC TRIGGER UACC YES; Urine Blood Large (3+) (Negative); Urine Ketones Negative (Negative); Urine Protein 100 (2+) mg/dL (Neg-Trace)
[2021-11-07 21:58] LABS: Bacteria Urine None Seen (None Seen); Hyaline Casts Urine 0-2 /LPF (0-2); RBC Urine >20 /HPF (0-2); Squamous Epithelial Cell Urine 0-2 /HPF (0-2); UACC Culture Trigger YES; WBC Urine >50 /HPF (0-5)
[2021-11-07 22:01] LABS: SLIDE REVIEW VERIFIED
[2021-11-07 22:01] LABS: Alanine Aminotransferase 11 U/L (0-40); Albumin Level 3.8 g/dL (3.5-5.0); Alkaline Phosphatase 85 U/L (39-117); Anion Gap 16 (12-20); Aspartate Amino Transferase 20 U/L (5-37); Bilirubin Direct 0.4 mg/dL (0.0-0.5); Blood Urea Nitrogen 22 mg/dL (9-16); Carbon Dioxide 24 mmol/L (22-29); Chloride 103 mmol/L (96-108); Creatinine Clr Calc Pharmacy 56.4; Estimated Glomerular Filt Rate > 60; Glucose Random 86 mg/dL (60-115); Lipase 5 U/L (8-78); Magnesium 1.8 mg/dL (1.6-2.6); Potassium 3.9 mmol/L (3.3-5.1); Sodium 139 mmol/L (135-145); Total Protein 6.6 g/dL (6.5-8.0)
[2021-11-07 22:07] LABS: Troponin-I High Sensitivity 67.1 ng/L (<3.5-35.0)
[2021-11-07 22:11] VITALS: BP 160/74; PULSE 100; RESP 18; TEMP 37.1; O2SAT 94
[2021-11-07] MEDS: cefTRIAXone sodium 1 GM in 0.9 % Sodium Chloride 50 ML IV (22:54)
[2021-11-07] MEDS: Haloperidol Lactate 5 MG/ML VIAL 2.5 MG IM (22:54)
[2021-11-08 00:09] VITALS: BP 151/101; PULSE 89; RESP 21; O2SAT 95
[2021-11-08] MEDS: Ziprasidone Mesylate 20 MG VIAL 10 MG IM (00:11)
[2021-11-08] MEDS: Acetaminophen Supp 650 MG SUPP.RECT PR (00:12)
[2021-11-08] MEDS: 0.9 % Sodium Chloride 1,000 ML 999 ML IVCONT (00:13)
[2021-11-08 01:25] VITALS: BP 111/77; PULSE 79; RESP 20
--- NOTE | 2021-11-08 01:25 | PM.IMHP ---
History of Present Illness Date of Service: 11/08/21 Chief Complaint: decreased PO intake This is an 86-year-old male with past medical history of very advanced Alzheimer's dementia, GERD, HLD, presents to the hospital with complaints decreased oral intake by his family and concern for changes to his mentation the where sob by family to be a stroke. His daughter reported that she noted a left-sided eyelid droop, and clenching of his left fist. Patient unable to give much history and he is almost nonverbal at baseline. On arrival to the ED patient hemodynamically stable with no significant abnormal vitals Labs are significant for WBC count 19.5, hemoglobin of 13.8, hematocrit 41.6, UA that is positive for leukocyte Estrace and WBC, head CT negative patient started on IV antibiotics of a admitted Review of Systems Review of Systems: Yes all other systems are reviewed and are negative [facility] Medical History Alzheimer disease Arthritis GERD (gastroesophageal reflux disease) High cholesterol Osteoarthritis Pertinent family history: Unable to obtain Social History Household Members: Family Housing: House Do you presently have visiting nurse or other home services: No (unknown) Unable to assess alcohol history related to: Unable to respond Alcohol intake: never Patient Tobacco Use Status: Never used Tobacco e-Cigarette/Vaping Use: Never Used Use of substances other than those prescribed or required for medical reasons: No Advance Directives: No Advance Directives Information Provided: No service: No Current occupational status: retired Current occupation: right handed Meds Allergies Allergy/AdvReac Type Severity Reaction Status Date / Time No Known Allergies Allergy Verified 08/19/21 15:11 [No Known Allergies*] Active Medications: Current Medications Acetaminophen (Acetaminophen 325 Mg Tablet) 650 mg PO Q6H PRN PRN Reason: Pain, Mild (Pain Scale 1-3) Docusate Sodium (Docusate Sodium 100 Mg Capsule) 100 mg PO DAILY PRN PRN Reason: Constipation Heparin Sodium (Porcine) (Heparin Sodium,Porcine 5,000 Unit/Ml Vial) 5,000 unit SUBCUT Q12H ABBY Ceftriaxone Sodium 1 gm/ (Sodium Chloride) 50 mls @ 100 mls/hr IV Q24H ABBY Lactated Ringer's (Lr) 1,000 mls @ 100 mls/hr IVCONT .Q10H ABBY Ondansetron HCl (Ondansetron Hcl 4 Mg/2 Ml Vial) 4 mg IVPUSH Q8H PRN PRN Reason: Nausea and Vomiting Pharmacy Consult (Consult Rx Perform Med Rec) 1 each MISCELLANE ONCE PRN PRN Reason: Consult order Sodium Chloride (0.9 % Sodium Chloride Flush 3 Ml Syringe) 3 ml IVFLUSH QSHIFT [facility] Home Medications Medication Instructions Recorded Confirmed Last Taken Type atorvastatin 20 mg tablet (Lipitor) 20 mg PO BEDTIME 03/28/20 11/07/21 Unknown History omeprazole 20 mg tablet,delayed 20 mg PO DAILY 03/28/20 11/07/21 Unknown History release aspirin 325 mg tablet,delayed 1 tab PO DAILY 04/08/21 11/07/21 Unknown History release trazodone 150 mg tablet 1 tab PO BEDTIME 04/09/21 11/07/21 Unknown History cholecalciferol (vitamin D3) 25 1 tab DAILY 11/07/21 11/07/21 Unknown History mcg (1,000 unit) tablet docusate sodium 50 mg/5 mL oral 10 ml PO BEDTIME PRN Constipation 11/07/21 11/07/21 Unknown History liquid (Docu) melatonin 5 mg tablet 2 tab PO BEDTIME insomnia 11/07/21 11/07/21 Unknown History memantine 10 mg tablet 1 tab PO BEDTIME 11/07/21 11/07/21 Unknown History ropinirole 0.5 mg tablet 1 tab PO BEDTIME 11/07/21 11/07/21 Unknown History Physical Exam Vital Signs and Narrative: Vital Signs: Last Vital Signs Temp 98.8 F 11/07/21 22:11 Pulse 89 11/08/21 00:09 Resp 21 H 11/08/21 00:09 BP 151/101 H 11/08/21 00:09 Pulse Ox 95 11/08/21 00:09 O2 Del Method 11/08/21 00:09 BMI result Body Mass Index 32.8 Const: Other: pt non-verbal, does not communicate at this point General: cooperative and no acute distress Eyes: General: appearance normal, both eyes and all related structures Resp: Effort & Inspection: normal respiratory effort Cardio: Rate: regular rate Rhythm: regular rhythm GI: Palpation (GI): Soft to palpation Auscultation: normal bowel sounds Skin: General skin exam: no rashes or lesions noted Extrem: General: Yes normal to inspection and Yes no pedal edema Results Labs CBC and Chem 7: 11/07/21 21:22 11/07/21 21:21 Labs: Laboratory Results - last 24 hr 11/07/21 11/07/21 11/07/21 21:21 21:21 21:22 MCV 93.1 MCH 30.9 MCHC 33.2 RDW 13.7 Plt Count 148 L MPV 9.6 Immature Gran % (Auto) 0.9 H Neut % (Auto) 81.7 H Lymph % (Auto) 9.2 L [place] % (Auto) 7.9 Eos % (Auto) 0.1 Baso % (Auto) 0.2 Lymph # (Auto) 1.8 [place] # (Auto) 1.6 H Eos # (Auto) 0.0 Baso # (Auto) 0.0 Abs Immat Gran (auto) 0.17 H Absolute Neuts (auto) 15.9 H Absolute Nucleated RBC 0.000 Nucleated RBC % (auto) 0.0 Smear Tech's Comments VERIFIED PT INR Anion Gap 16 Estim Creat Clear Calc 56.4 Estimated GFR > 60 Random Glucose 86 Lactic Acid 1.6 Calcium 9.0 Magnesium 1.8 Total Bilirubin 1.0 Direct Bilirubin 0.4 AST 20 ALT 11 Alkaline Phosphatase 85 Total Protein 6.6 Albumin 3.8 Lipase 5 L Urine Color Urine Appearance Urine pH Ur Specific [place] Urine Protein Urine Glucose (UA) Urine Ketones Urine Blood Urine Nitrite Ur Leukocyte Esterase Urine RBC Urine WBC Ur Squamous Epith Cells Urine Bacteria Hyaline Casts COVID-19 (JEY) COVID-19 Clin Com 11/07/21 11/07/21 11/07/21 21:22 21:22 21:32 MCV MCH MCHC RDW Plt Count MPV Immature Gran % (Auto) Neut % (Auto) Lymph % (Auto) [place] % (Auto) Eos % (Auto) Baso % (Auto) Lymph # (Auto) [place] # (Auto) Eos # (Auto) Baso # (Auto) Abs Immat Gran (auto) Absolute Neuts (auto) Absolute Nucleated RBC Nucleated RBC % (auto) Smear Tech's Comments PT 16.9 H INR 1.5 H Anion Gap Estim Creat Clear Calc Estimated GFR Random Glucose Lactic Acid Calcium Magnesium Total Bilirubin Direct Bilirubin AST ALT Alkaline Phosphatase Total Protein Albumin Lipase Urine Color [place] A Urine Appearance Clear Urine pH 6.0 Ur Specific [place] 1.025 Urine Protein 100 (2+) H Urine Glucose (UA) Negative Urine Ketones Negative Urine Blood Large (3+) H Urine Nitrite Negative Ur Leukocyte Esterase Moderate (2+) H Urine RBC >20 H Urine WBC >50 H Ur Squamous Epith Cells 0-2 Urine Bacteria None Seen Hyaline Casts 0-2 COVID-19 (JEY) Negative COVID-19 Clin Com See Note Imaging Radiologist's Impressions: Impressions Head CT 11/08/21 00:53 IMPRESSION: Within the limitations of significant motion degradation, there is no acute intracranial abnormality Assessment and Plan (1) Encephalopathy: Status: Acute (2) UTI (urinary tract infection): Qualifiers: Hematuria presence: without hematuria Urinary tract infection type: acute cystitis Qualified Code(s): N30.00 - Acute cystitis without hematuria Status: Acute Plan 86-year-old male with past medical history of advanced Alzheimer's dementia brought into the hospital with increased confusion and decreased oral intake found to have acute UTI # encephalopathy - family report decreased oral intake and [place] being changes to his baseline - found to have UTI - will treat UTI - follow mentation - head CT negative # acute UTI - UA positive, likely the cause of his mental changes - will treat with IV antibiotics - follow cultures # Advanced dementia - continue memantine, trazodone # GERD - continue omeprazole will continue his home medications S are no contraindications to any of his home meds DVT prophylaxis: heparin subQ Pt will require a minimum 2 night hospital stay for IV antibiotics Quality Stroke Does the patient have a stroke diagnosis?: No VTE Prior VTE?: No VTE Risk Level:: Medical - moderate - high VTE Device Contraindication: Treatment Not Indicated VTE Drug Contraindication: N/A - Med Ordered
[2021-11-08] MEDS: Lactated Ringers 1,000 ML 100 ML IVCONT ×2 (03:36→14:14)
--- NOTE | 2021-11-08 03:38 | PC.NURSE ---
message sent to hospitalist regarding 0130 ceftriaxone order as pt received the medication earlier this evening. ABX to be held until clarification received from hospitalist
[2021-11-08 07:10] LABS: Basophils Absolute Auto 0.1 X10*3/uL (0.0-0.2); Basophils Percent Auto 0.4 % (0-2); Eosinophils Percent Auto 0.3 % (0-4); Hematocrit 41.9 % (42.0-52.0); Hemoglobin 13.9 g/dl (14.0-18.0); Imm Gran Abs Auto 0.13 X10*3/uL (0.00-0.03); Imm Gran Pct Auto 0.8 % (0.0-0.4); Lymphocytes Absolute Auto 1.5 X10*3/uL (1.2-4.9); Lymphocytes Percent Auto 9.8 % (20-40); MANUAL DIFF FLAG SCAN; Mean Corpuscular HGB Conc 33.2 g/dl (31.0-36.0); Mean Corpuscular Hemoglobin 31.2 pg (27.0-33.0); Mean Corpuscular Volume 93.9 fL (80.0-98.0); Mean Platelet Volume 10.2 fL (9.4-12.4); Monocytes Absolute Auto 1.2 X10*3/uL (0.1-1.2); Monocytes Percent Auto 7.3 % (2-11); Neutrophils Absolute Auto 12.8 x10*3/uL (2.0-8.3); Neutrophils Percent Auto 81.4 % (45-73); PLT CLUMP 1; Red Blood Count 4.46 X10*6/uL (4.60-5.80); Red Cell Distribution Width 13.7 % (11.0-16.0); SCAN SMEAR FLAG 1
[2021-11-08 07:12] LABS: White Blood Count 15.7 X10*3/uL (4.8-10.8)
[2021-11-08 07:14] VITALS: BP 137/95; PULSE 81; RESP 16; O2SAT 98
[2021-11-08 07:36] LABS: Anion Gap 15 (12-20); Blood Urea Nitrogen 19 mg/dL (9-16); Calcium 8.6 mg/dL (8.4-10.2); Carbon Dioxide 24 mmol/L (22-29); Chloride 107 mmol/L (96-108); Creatinine Clr Calc Pharmacy 61.1; Estimated Glomerular Filt Rate > 60; Glucose Random 73 mg/dL (60-115); Potassium 4.2 mmol/L (3.3-5.1); Sodium 142 mmol/L (135-145)
[2021-11-08 08:23] LABS: Platelet Count 134 X10*3/uL (160-400); SLIDE REVIEW VERIFIED
[2021-11-08] MEDS: 0.9 % Sodium Chloride Flush 3 ML SYRINGE IVFLUSH ×2 (09:58→16:44)
[2021-11-08] MEDS: Omeprazole 20 MG CAPSULE.DR PO (09:58)
[2021-11-08] MEDS: Heparin Sodium,Porcine 5,000 UNIT/ML VIAL 5000 UNIT SUBCUT ×2 (09:58→19:52)
[2021-11-08] MEDS: Aspirin Enteric Coated 325 MG TABLET.DR PO (09:58)
[2021-11-08 10:55] VITALS: BP 137/84; PULSE 80; RESP 12; TEMP 36.1; O2SAT 99
--- NOTE | 2021-11-08 11:48 | MHC.CM.PN ---
Attempted to meet with patient in regards to discharge planning. Patient has a history of advanced dementia and is sleeping. Met with patient's daughter, Irena at bedside. Patient lives with his , ambulates independently and a [employer] through [facility]. PCP verified as Dr Nguyễn. Copy of HCP obtained from [facility]. Patient received 3 Moderna vaccines. IMM explained and signed. Irena feels patient will be able to safely return home with family when medically stable. Family will transport patient. Continue to monitor for d/c needs.
--- NOTE | 2021-11-08 14:20 | PC.NURSE ---
Assumed care of patient at this time
--- NOTE | 2021-11-08 15:45 | HO.PM.IMPN ---
Subjective Subjective Date of Service: 11/08/21 Interval History: Toxic metabolic encephalopathy,uti Physical Exam Vital Signs: Vital Signs: Last Vital Signs Temp 97.0 F 11/08/21 10:55 Pulse 80 11/08/21 10:55 Resp 12 11/08/21 10:55 BP 137/84 11/08/21 10:55 Pulse Ox 99 11/08/21 10:55 O2 Del Method 11/08/21 10:55 BMI result Body Mass Index 32.8 Objective Data Active Medications Acetaminophen (Acetaminophen 325 Mg Tablet) 650 mg PO Q6H PRN PRN Reason: Pain, Mild (Pain Scale 1-3) Aspirin (Aspirin Enteric Coated 325 Mg Tablet.) 325 mg PO DAILY [facility] Last Admin: 11/08/21 09:58 Dose: 325 mg Documented By: BARRIE Atorvastatin Calcium (Atorvastatin Calcium 20 Mg Tablet) 20 mg PO BEDTIME [facility] Docusate Sodium (Docusate Sodium 100 Mg Capsule) 100 mg PO DAILY PRN PRN Reason: Constipation Heparin Sodium (Porcine) (Heparin Sodium,Porcine 5,000 Unit/Ml Vial) 5,000 unit SUBCUT Q12H [facility] Last Admin: 11/08/21 09:58 Dose: 5,000 unit Documented By: BARRIE Ceftriaxone Sodium 1 gm/ (Sodium Chloride) 50 mls @ 100 mls/hr IV Q24H [facility] Last Admin: 11/08/21 05:29 Dose: Not Given Documented By: HILDA Non-Admin Reason: Physician Held Med Comments: due to previous admin; medication q24 hours Lactated Ringer's (Lr) 1,000 mls @ 100 mls/hr IVCONT .Q10H [facility] Last Admin: 11/08/21 14:14 Dose: 100 mls/hr Documented By: ERICA Melatonin (Melatonin 3 Mg Tablet) 9 mg PO BEDTIME [facility] Memantine (Memantine Hcl 10 Mg Tablet) 10 mg PO BEDTIME [facility] Omeprazole (Omeprazole 20 Mg Capsule.) 20 mg PO DAILY@0630 [facility] Last Admin: 11/08/21 09:58 Dose: 20 mg Documented By: BARRIE Ondansetron HCl (Ondansetron Hcl 4 Mg/2 Ml Vial) 4 mg IVPUSH Q8H PRN PRN Reason: Nausea and Vomiting Pharmacy Consult (Consult Rx Perform Med Rec) 1 each MISCELLANE ONCE PRN PRN Reason: Consult order Ropinirole HCl (Ropinirole Hcl 0.5 Mg Tablet) 0.5 mg PO BEDTIME [facility] Sodium Chloride (0.9 % Sodium Chloride Flush 3 Ml Syringe) 3 ml IVFLUSH QSHIFT [facility] Last Admin: 11/08/21 09:58 Dose: 3 ml Documented By: BARRIE Trazodone HCl (Trazodone Hcl 50 Mg Tablet) 150 mg PO BEDTIME [facility] Labs CBC & Chem 7: 11/08/21 06:02 11/08/21 06:02 Labs: Laboratory Results - last 24 hr 11/07/21 11/07/21 11/07/21 21:21 21:21 21:22 MCV 93.1 MCH 30.9 MCHC 33.2 RDW 13.7 Plt Count 148 L MPV 9.6 Immature Gran % (Auto) 0.9 H Neut % (Auto) 81.7 H Lymph % (Auto) 9.2 L [place] % (Auto) 7.9 Eos % (Auto) 0.1 Baso % (Auto) 0.2 Lymph # (Auto) 1.8 [place] # (Auto) 1.6 H Eos # (Auto) 0.0 Baso # (Auto) 0.0 Abs Immat Gran (auto) 0.17 H Absolute Neuts (auto) 15.9 H Absolute Nucleated RBC 0.000 Nucleated RBC % (auto) 0.0 Smear Tech's Comments VERIFIED PT INR Anion Gap 16 Estim Creat Clear Calc 56.4 Estimated GFR > 60 Random Glucose 86 Lactic Acid 1.6 Calcium 9.0 Magnesium 1.8 Total Bilirubin 1.0 Direct Bilirubin 0.4 AST 20 ALT 11 Alkaline Phosphatase 85 Total Protein 6.6 Albumin 3.8 Lipase 5 L Urine Color Urine Appearance Urine pH Ur Specific [place] Urine Protein Urine Glucose (UA) Urine Ketones Urine Blood Urine Nitrite Ur Leukocyte Esterase Urine RBC Urine WBC Ur Squamous Epith Cells Urine Bacteria Hyaline Casts COVID-19 (JEY) COVID-19 Clin Com 11/07/21 11/07/21 11/07/21 21:22 21:22 21:32 MCV MCH MCHC RDW Plt Count MPV Immature Gran % (Auto) Neut % (Auto) Lymph % (Auto) [place] % (Auto) Eos % (Auto) Baso % (Auto) Lymph # (Auto) [place] # (Auto) Eos # (Auto) Baso # (Auto) Abs Immat Gran (auto) Absolute Neuts (auto) Absolute Nucleated RBC Nucleated RBC % (auto) Smear Tech's Comments PT 16.9 H INR 1.5 H Anion Gap Estim Creat Clear Calc Estimated GFR Random Glucose Lactic Acid Calcium Magnesium Total Bilirubin Direct Bilirubin AST ALT Alkaline Phosphatase Total Protein Albumin Lipase Urine Color [place] A Urine Appearance Clear Urine pH 6.0 Ur Specific [place] 1.025 Urine Protein 100 (2+) H Urine Glucose (UA) Negative Urine Ketones Negative Urine Blood Large (3+) H Urine Nitrite Negative Ur Leukocyte Esterase Moderate (2+) H Urine RBC >20 H Urine WBC >50 H Ur Squamous Epith Cells 0-2 Urine Bacteria None Seen Hyaline Casts 0-2 COVID-19 (JEY) Negative COVID-19 Clin Com See Note 11/08/21 11/08/21 06:02 06:02 MCV 93.9 MCH 31.2 MCHC 33.2 RDW 13.7 Plt Count 134 L MPV 10.2 Immature Gran % (Auto) 0.8 H Neut % (Auto) 81.4 H Lymph % (Auto) 9.8 L [place] % (Auto) 7.3 Eos % (Auto) 0.3 Baso % (Auto) 0.4 Lymph # (Auto) 1.5 [place] # (Auto) 1.2 Eos # (Auto) 0.0 Baso # (Auto) 0.1 Abs Immat Gran (auto) 0.13 H Absolute Neuts (auto) 12.8 H Absolute Nucleated RBC 0.000 Nucleated RBC % (auto) 0.0 Smear Tech's Comments VERIFIED PT INR Anion Gap 15 Estim Creat Clear Calc 61.1 Estimated GFR > 60 Random Glucose 73 Lactic Acid Calcium 8.6 Magnesium Total Bilirubin Direct Bilirubin AST ALT Alkaline Phosphatase Total Protein Albumin Lipase Urine Color Urine Appearance Urine pH Ur Specific [place] Urine Protein Urine Glucose (UA) Urine Ketones Urine Blood Urine Nitrite Ur Leukocyte Esterase Urine RBC Urine WBC Ur Squamous Epith Cells Urine Bacteria Hyaline Casts COVID-19 (JEY) COVID-19 Clin Com Microbiology Microbiology Results: Microbiology 11/07/21 21:59 Urine Culture - Preliminary Urine clean catch - Clean Catch Midstream Culture too young to evaluate. Quality Stroke Does the patient have a stroke diagnosis?: No VTE Prior VTE?: No VTE Risk Level:: Medical - moderate - high VTE Device Contraindication: Treatment Not Indicated VTE Drug Contraindication: N/A - Med Ordered
--- NOTE | 2021-11-08 15:51 | PM.EVENT ---
Event Note Date of Service: 11/08/21 Event Note: Patient seen and examined earlier [facility] hospitalist teams morning. Patient seen examined again. awake ,but seems near nonverbal Physical exam: Unchanged from today morning. Assessment and plan coordinated in H&P note. Possible toxic metabolic encephalopathy: Possible Secondary to UTI. ct ehad neg,will add mri tocomplete workup Continue IV antibiotics.
[2021-11-08 16:43] VITALS: BP 168/96; PULSE 108; RESP 18; TEMP 36.7; O2SAT 94
[2021-11-08] MEDS: traZODone HCL 50 MG TABLET 150 MG PO (19:49)
[2021-11-08] MEDS: Atorvastatin Calcium 20 MG TABLET PO (19:49)
[2021-11-08] MEDS: Melatonin 3 MG TABLET 9 MG PO (19:49)
[2021-11-08] MEDS: Memantine HCl 10 MG TABLET PO (19:50)
[2021-11-08] MEDS: rOPINIRole HCL 0.5 MG TABLET PO (19:50)
[2021-11-08 23:54] VITALS: BP 151/86; PULSE 97; RESP 18; TEMP 37.4; O2SAT 99
[2021-11-09] MEDS: cefTRIAXone sodium 1 GM in 0.9 % Sodium Chloride 50 ML IV (01:17)
[2021-11-09 03:23] VITALS: BP 138/96; PULSE 78; RESP 18; TEMP 36.8; O2SAT 98
[2021-11-09] MEDS: Omeprazole 20 MG CAPSULE.DR PO (06:35)
--- NOTE | 2021-11-09 07:00 | CA_ITS ---
Transthoracic Echocardiogram Patient (Last, First, Middle): Mayur Gonzalez, Gender: Male Date of : 1935 Age: 86 Procedure Date: 11/09/2021 Procedure Type: Transthoracic Echocardiogram Location: ER Height: 160.02 cm Weight: 83.46 kg BSA: 1.87 m2 Heart Rate: bpm BP: 149 / 90 mmHg Assistant Sales Center Manager: TO Referring MD: Kelly Morrison MD Symptoms: elevated tropnins Study Quality: Adequate ECG Rhythm: Sinus Conclusions: - The left ventricular systolic function is mildly decreased. The calculated ejection fraction is 47% by biplane method. - No obvious valvular pathology seen on this study. Findings Left Ventricle Normal left ventricular cavity size. There is mildly increased left ventricular wall thickness. The left ventricular systolic function is mildly decreased. The calculated ejection fraction is 47% by biplane method. There is mild global hypokinesis. Diastolic function is normal for age. Right Ventricle Normal right ventricular cavity size and systolic function. Aortic Valve There is a normal trileaflet aortic valve. There is no aortic valve stenosis. There is trace (trivial) aortic valve regurgitation. Mitral Valve The mitral valve appears normal. There is mild mitral annular calcification. There is trace mitral valve regurgitation. There is no mitral valve stenosis. Pulmonic Valve There is trace to mild pulmonic valve regurgitation. Tricuspid Valve Normal tricuspid valve structure. There is mild tricuspid valve regurgitation. There is no evidence of pulmonary hypertension. Great Vessels The asc aorta is normal in size. Venous The inferior vena cava is normal in size and collapses greater than 50% with inspiration. Pericardium/Pleural There is a trivial pericardial effusion. Prior Study Comparison Changes noted compared to prior study dated: 07/09/2017. LVEF marginally lower. Recommendations, Care & Conclusions No obvious valvular pathology seen on this study. Measurements 2D Linear Measurements IVSd: 1.10 0.6-0.9/0.6-1.0 cm LVIDd: 4.71 3.9-5.3/4.2-5.9 cm LVIDd Index: 2.52 2.4-3.2/2.2-3.1 cm/m2 LVIDs: 3.07 2.0-3.6 cm LVPWd: 1.13 0.7-1.1 cm LA Diam: 3.50 2.7-3.8/3.0-4.0 cm LAIDs Index: 1.87 1.5-2.3 cm/m2 LV Mass: 238.96 67-162/88-224 g LV Mass Index: 127.79 43-95/49-115 g/m2 LVOT Diam: 2.00 3.0+(-)1.3 cm 2D Systolic Function EF 4C: 46.20 >55% EF 2C: 48.10 >55% EF BiP: 47.40 >55% Mitral Valve MV Pk E: 0.43 MV PK A: 0.86 MV Decel Time: 254.00 E/A: 0.50 E'Lateral: 4.46 E'Medial: 3.48 E/E' Med: 12.30 E/E' Lat: 9.60 PHT: 74.00 MVA PHT: 2.97 Decel [place]: 1.69 Aortic Valve AoV Pk Shashi: 1.31 AoV Mn Shashi: 0.90 AoV VTI: 0.25 AoV Pk Grad: 7.00 Aov Mn Grad: 4.00 YENI Cont.VTI: 2.10 LVOT LVOT Pk Shashi: 0.92 LVOT Mn Shashi: 0.58 LVOT VTI: 0.17 LVOT Pk Grad: 3.00 LVOT Mn Grad: 2.00 LVOT Diam: 2.00 LVOT Area: 3.14 Diastolic Function MV Pk E: 0.43 MV Pk A: 0.86 E/A: 0.50 E'Medial: 3.48 E/E' Med: 12.30 E' Laterial: 4.46 E/E' Lat: 9.60 Right Ventricle TAPSE (mm): 29.30 TVS' Shashi: 15.60 Tricuspid Valve TR Pk Shashi: 2.67 TR Pk Grad: 29.00 RA Press: 3.00 RVSP: 32.00 Great Vessels Aorta Sinus of Valsalva: 3.36 2.0-3.[address] [place]: 2.54 1.7-3.4 cm Ao Asc: 3.80 2.1-3.4 cm Updated in Other Vendor System with Status of Final Abdiel Haines MD electronically signed on 11/09/2021 1:00:28 PM with status of Final
--- NOTE | 2021-11-09 07:00 | PC.NURSE ---
Assumed care of patient at this time. Patient a/ox1, resting quietly in bed, incontinence care provided, and repositioned [id number] to preserve skin integrity so long as patient will allow. [place] cath in place. IVF in place.
[2021-11-09] MEDS: Lactated Ringers 1,000 ML 100 ML IVCONT ×2 (07:07→20:24)
[2021-11-09 07:57] VITALS: BP 148/90; PULSE 92; RESP 16; TEMP 36.7; O2SAT 97
[2021-11-09] MEDS: Aspirin Enteric Coated 325 MG TABLET.DR PO (08:31)
[2021-11-09] MEDS: 0.9 % Sodium Chloride Flush 3 ML SYRINGE IVFLUSH ×2 (08:31→20:24)
[2021-11-09] MEDS: Heparin Sodium,Porcine 5,000 UNIT/ML VIAL 5000 UNIT SUBCUT ×2 (08:31→20:23)
--- NOTE | 2021-11-09 10:34 | PC.NURSE ---
Assumed care of patient at this time. Patient resting quietly in bed, reposition [id number] so long as patient allows, A/OX1. [place] cath in place. Incontinence care provided. IVF in place.
--- NOTE | 2021-11-09 10:37 | PC.NURSE ---
Echo at bedside, patient compliant.
[2021-11-09 14:27] VITALS: BP 148/90; PULSE 92; O2SAT 97
--- NOTE | 2021-11-09 16:35 | HO.PM.IMPN ---
Subjective Subjective Date of Service: 11/09/21 Interval History: toxic metabolic encephalopathy,uti Review of Systems mental status seems improivng denies any abd or chest pain or sob Physical Exam Vital Signs: Vital Signs: Last Vital Signs Temp 98.0 F 11/09/21 07:57 Pulse 92 11/09/21 14:27 Resp 16 11/09/21 07:57 BP 148/90 H 11/09/21 14:27 Pulse Ox 97 11/09/21 14:27 O2 Del Method 11/09/21 07:57 BMI result Body Mass Index 32.8 Appearance: Awake,alertx1-2.? not in distress.? cvs: rrr, [id number] . res: clear to auscultation ,no rhonchii or wheezing abd: no rebound or guarding ,nt, bs present. ext pulses present , no cyanosis . neuro: axo3 , moves upper ext, wiggle toes. Objective Data Active Medications Acetaminophen (Acetaminophen 325 Mg Tablet) 650 mg PO Q6H PRN PRN Reason: Pain, Mild (Pain Scale 1-3) Aspirin (Aspirin Enteric Coated 325 Mg Tablet.) 325 mg PO DAILY [facility] Last Admin: 11/09/21 08:31 Dose: 325 mg Documented By: ERICA Atorvastatin Calcium (Atorvastatin Calcium 20 Mg Tablet) 20 mg PO BEDTIME [facility] Last Admin: 11/08/21 19:49 Dose: 20 mg Documented By: KYLIE Docusate Sodium (Docusate Sodium 100 Mg Capsule) 100 mg PO DAILY PRN PRN Reason: Constipation Heparin Sodium (Porcine) (Heparin Sodium,Porcine 5,000 Unit/Ml Vial) 5,000 unit SUBCUT Q12H [facility] Last Admin: 11/09/21 08:31 Dose: 5,000 unit Documented By: ERICA Ceftriaxone Sodium 1 gm/ (Sodium Chloride) 50 mls @ 100 mls/hr IV Q24H [facility] Last Infusion: 11/09/21 01:49 Dose: 0 mls/hr Documented By: KYLIE Lactated Ringer's (Lr) 1,000 mls @ 100 mls/hr IVCONT .Q10H [facility] Last Admin: 11/09/21 07:07 Dose: 100 mls/hr Documented By: KYLIE Melatonin (Melatonin 3 Mg Tablet) 9 mg PO BEDTIME [facility] Last Admin: 11/08/21 19:49 Dose: 9 mg Documented By: KYLIE Memantine (Memantine Hcl 10 Mg Tablet) 10 mg PO BEDTIME [facility] Last Admin: 11/08/21 19:50 Dose: 10 mg Documented By: KYLIE Omeprazole (Omeprazole 20 Mg Capsule.) 20 mg PO DAILY@0630 [facility] Last Admin: 11/09/21 06:35 Dose: 20 mg Documented By: KYLIE Ondansetron HCl (Ondansetron Hcl 4 Mg/2 Ml Vial) 4 mg IVPUSH Q8H PRN PRN Reason: Nausea and Vomiting Pharmacy Consult (Consult Rx Perform Med Rec) 1 each MISCELLANE ONCE PRN PRN Reason: Consult order Ropinirole HCl (Ropinirole Hcl 0.5 Mg Tablet) 0.5 mg PO BEDTIME [facility] Last Admin: 11/08/21 19:50 Dose: 0.5 mg Documented By: KYLIE Sodium Chloride (0.9 % Sodium Chloride Flush 3 Ml Syringe) 3 ml IVFLUSH QSHIFT [facility] Last Admin: 11/09/21 08:31 Dose: 3 ml Documented By: ERICA Trazodone HCl (Trazodone Hcl 50 Mg Tablet) 150 mg PO BEDTIME [facility] Last Admin: 11/08/21 19:49 Dose: 150 mg Documented By: KYLIE Labs CBC & Chem 7: 11/08/21 06:02 11/08/21 06:02 Microbiology Microbiology Results: Microbiology 11/07/21 21:59 Urine Culture - Final Urine clean catch - Clean Catch Midstream 11/07/21 21:20 Blood Culture - Preliminary Blood - Venous No growth after 24 hours. 11/07/21 21:21 Blood Culture - Preliminary Blood - Venous No growth after 24 hours. Assessment and Plan (1) UTI (urinary tract infection): Status: Acute (2) Encephalopathy: Status: Acute Plan 86-year-old male with past medical history of advanced Alzheimer's dementia brought into the hospital with increased confusion and decreased oral intake found to have acute UTI #toxi metabolic encephalopathy-? family report? decreased oral intake and? Soma being changes to his baseline -? found to have UTI,continue iv antibiotics - ? head CT ,cxr neg,blood cultures pending checked with the family at bedside -patient's mental status improving, willdefer mri for now until clinical status chnages PT eval #? acute UTI -? UA positive, likely the cause of his mental changes -? will treat with IV antibiotics -? follow cultures # ? Advanced dementia -? continue memantine, trazodone #? GERD ?- continue omeprazole inpatient needs:toxic metabolic encephalopathy sec to [place]. Quality Stroke Does the patient have a stroke diagnosis?: No VTE Prior VTE?: No VTE Risk Level:: Medical - moderate - high VTE Device Contraindication: Treatment Not Indicated VTE Drug Contraindication: N/A - Med Ordered
--- NOTE | 2021-11-09 17:09 | PC.NURSE ---
Report given to SILVANO Hadley at this time.
[2021-11-09 18:33] VITALS: BP 179/97; PULSE 80; RESP 19; TEMP 37.3; O2SAT 98
[2021-11-09 19:00] VITALS: BP 160/88
[2021-11-09] MEDS: Melatonin 3 MG TABLET 9 MG PO (20:23)
[2021-11-09] MEDS: traZODone HCL 50 MG TABLET 150 MG PO (20:23)
[2021-11-09] MEDS: rOPINIRole HCL 0.5 MG TABLET PO (20:23)
[2021-11-09] MEDS: Memantine HCl 10 MG TABLET PO (20:23)
[2021-11-09] MEDS: Atorvastatin Calcium 20 MG TABLET PO (20:23)
[2021-11-09] MEDS: Acetaminophen 325 MG TABLET 650 MG PO (20:23)
[2021-11-09 23:27] VITALS: BP 174/96; PULSE 72; RESP 17; TEMP 36.6; O2SAT 97
[2021-11-10] MEDS: cefTRIAXone sodium 1 GM in 0.9 % Sodium Chloride 50 ML IV (02:48)
[2021-11-10 04:00] VITALS: BP 126/93; PULSE 65; RESP 17; TEMP 36.2; O2SAT 98
[2021-11-10 07:03] VITALS: BP 190/90; PULSE 78; RESP 16; TEMP 36.6; O2SAT 96
[2021-11-10] MEDS: Aspirin Enteric Coated 325 MG TABLET.DR PO (08:32)
[2021-11-10] MEDS: Heparin Sodium,Porcine 5,000 UNIT/ML VIAL 5000 UNIT SUBCUT ×2 (08:32→20:45)
[2021-11-10] MEDS: 0.9 % Sodium Chloride Flush 3 ML SYRINGE IVFLUSH ×3 (08:41→20:46)
--- NOTE | 2021-11-10 10:50 | P.PNIM_ITS ---
Subjective Subjective Date of Service: 11/10/21 Interval History: toxic metabolic encephalopathy,uti Review of Systems somewhat drowsy in the morning -improving maritza afternoon no overnight events denies any abd or chest pain or sob Physical Exam Vital Signs: Vital Signs: Last Vital Signs Temp 98 F 11/10/21 07:03 Pulse 78 11/10/21 07:03 Resp 16 11/10/21 07:03 BP 190/90 H 11/10/21 07:03 Pulse Ox 96 11/10/21 07:03 O2 Del Method 11/10/21 07:03 BMI result Body Mass Index 32.8 Appearance: Awake.? not in distress.? cvs: rrr, [id number] . res: clear to auscultation ,no rhonchii or wheezing abd: no rebound or guarding ,nt, bs present. ext pulses present , no cyanosis . neuro: axo3 , moves upper ext, wiggle toes. Objective Data Active Medications Acetaminophen (Acetaminophen 325 Mg Tablet) 650 mg PO Q6H PRN PRN Reason: Pain, Mild (Pain Scale 1-3) Last Admin: 11/09/21 20:23 Dose: 650 mg Documented By: JANINE Aspirin (Aspirin Enteric Coated 325 Mg Tablet.) 325 mg PO DAILY [facility] Last Admin: 11/10/21 08:32 Dose: 325 mg Documented By: JANE Atorvastatin Calcium (Atorvastatin Calcium 20 Mg Tablet) 20 mg PO BEDTIME [facility] Last Admin: 11/09/21 20:23 Dose: 20 mg Documented By: JANINE Docusate Sodium (Docusate Sodium 100 Mg Capsule) 100 mg PO DAILY PRN PRN Reason: Constipation Heparin Sodium (Porcine) (Heparin Sodium,Porcine 5,000 Unit/Ml Vial) 5,000 unit SUBCUT Q12H [facility] Last Admin: 11/10/21 08:32 Dose: 5,000 unit Documented By: JANE Ceftriaxone Sodium 1 gm/ (Sodium Chloride) 50 mls @ 100 mls/hr IV Q24H [facility] Last Infusion: 11/10/21 05:04 Dose: 0 mls/hr Documented By: JANINE Melatonin (Melatonin 3 Mg Tablet) 9 mg PO BEDTIME [facility] Last Admin: 11/09/21 20:23 Dose: 9 mg Documented By: JANINE Memantine (Memantine Hcl 10 Mg Tablet) 10 mg PO BEDTIME [facility] Last Admin: 11/09/21 20:23 Dose: 10 mg Documented By: JANINE Omeprazole (Omeprazole 20 Mg Capsule.) 20 mg PO DAILY@0630 [facility] Last Admin: 11/10/21 06:40 Dose: Not Given Documented By: JANINE Non-Admin Reason: Patient Refused Ondansetron HCl (Ondansetron Hcl 4 Mg/2 Ml Vial) 4 mg IVPUSH Q8H PRN PRN Reason: Nausea and Vomiting Pharmacy Consult (Consult Rx Perform Med Rec) 1 each MISCELLANE ONCE PRN PRN Reason: Consult order Ropinirole HCl (Ropinirole Hcl 0.5 Mg Tablet) 0.5 mg PO BEDTIME [facility] Last Admin: 11/09/21 20:23 Dose: 0.5 mg Documented By: JANINE Sodium Chloride (0.9 % Sodium Chloride Flush 3 Ml Syringe) 3 ml IVFLUSH QSHIFT [facility] Last Admin: 11/10/21 08:41 Dose: 3 ml Documented By: JANE Trazodone HCl (Trazodone Hcl 50 Mg Tablet) 150 mg PO BEDTIME [facility] Last Admin: 11/09/21 20:23 Dose: 150 mg Documented By: JANINE Labs CBC & Chem 7: 11/11/21 07:59 11/11/21 07:59 Microbiology Microbiology Results: Microbiology 11/07/21 21:20 Blood Culture - Preliminary Blood - Venous No growth after 48 hours. 11/07/21 21:21 Blood Culture - Preliminary Blood - Venous No growth after 48 hours. 11/07/21 21:59 Urine Culture - Final Urine clean catch - Clean Catch Midstream Assessment and Plan (1) Cardiomyopathy: Status: Acute (2) Elevated troponin: Status: Acute (3) UTI (urinary tract infection): Status: Acute (4) Encephalopathy: Status: Acute Plan 86-year-old male with past medical history of advanced Alzheimer's dementia brought into the hospital with increased confusion and decreased oral intake found to have acute UTI #toxi metabolic? encephalopathy-? family report? decreased oral intake and? Soma being changes to his baseline -? found to have UTI,continue iv antibiotics - ? head CT ,cxr neg,blood cultures pending awake ,seems drowsy in am but improving in the afternoon PT eval #? acute UTI -? UA positive, likely the cause of his mental changes -? will treat with IV antibiotics -? follow cultures # ? Advanced dementia -? continue memantine, trazodone #? GERD ?- continue omeprazole mild elevation trops ,echo noted : no chest pain d/w daughter -considering adavanced dementia -less likely would get benefit from cardiac workup- not decided yet for further workup . inpatient needs:toxic metabolic? encephalopathy sec to [place]. Quality Stroke Does the patient have a stroke diagnosis?: No VTE Prior VTE?: No VTE Risk Level:: Medical - moderate - high VTE Device Contraindication: Treatment Not Indicated VTE Drug Contraindication: N/A - Med Ordered
[2021-11-10 11:06] VITALS: BP 152/90; PULSE 82; RESP 16; TEMP 36.6; O2SAT 96
[2021-11-10 15:52] VITALS: BP 140/94; PULSE 61; RESP 18; TEMP 36.1; O2SAT 97
[2021-11-10 20:00] VITALS: BP 175/99; PULSE 75; RESP 20; TEMP 36.9; O2SAT 99
[2021-11-10] MEDS: Melatonin 3 MG TABLET 9 MG PO (20:10)
[2021-11-10] MEDS: Memantine HCl 10 MG TABLET PO (20:10)
[2021-11-10] MEDS: Atorvastatin Calcium 20 MG TABLET PO (20:10)
[2021-11-10] MEDS: rOPINIRole HCL 0.5 MG TABLET PO (20:10)
[2021-11-10 23:46] VITALS: BP 167/92; PULSE 84; RESP 18; TEMP 36.7; O2SAT 99
[2021-11-11] MEDS: cefTRIAXone sodium 1 GM in 0.9 % Sodium Chloride 50 ML IV (01:14)
[2021-11-11] MEDS: hydrOXYzine HCL 50 MG/ML VIAL 25 MG IM (01:15)
[2021-11-11 04:00] VITALS: BP 180/88; PULSE 75; RESP 16; TEMP 36; O2SAT 98
[2021-11-11 07:09] VITALS: BP 170/90; PULSE 88; RESP 19; TEMP 36.9; O2SAT 96
[2021-11-11 08:14] LABS: Hematocrit 45.3 % (42.0-52.0); Hemoglobin 14.8 g/dl (14.0-18.0); Mean Corpuscular HGB Conc 32.7 g/dl (31.0-36.0); Mean Corpuscular Hemoglobin 30.5 pg (27.0-33.0); Mean Corpuscular Volume 93.4 fL (80.0-98.0); Mean Platelet Volume 9.5 fL (9.4-12.4); Platelet Count 148 X10*3/uL (160-400); Red Blood Count 4.85 X10*6/uL (4.60-5.80); Red Cell Distribution Width 13.4 % (11.0-16.0); White Blood Count 5.7 X10*3/uL (4.8-10.8)
[2021-11-11] MEDS: 0.9 % Sodium Chloride Flush 3 ML SYRINGE IVFLUSH ×3 (08:18→19:57)
[2021-11-11] MEDS: Aspirin Enteric Coated 325 MG TABLET.DR PO (08:18)
[2021-11-11] MEDS: Heparin Sodium,Porcine 5,000 UNIT/ML VIAL 5000 UNIT SUBCUT ×2 (08:19→19:47)
[2021-11-11 08:44] LABS: Anion Gap 17 (12-20); Blood Urea Nitrogen 15 mg/dL (9-16); Calcium 9.3 mg/dL (8.4-10.2); Carbon Dioxide 24 mmol/L (22-29); Chloride 102 mmol/L (96-108); Creatinine Clr Calc Pharmacy 58.3; Estimated Glomerular Filt Rate > 60; Glucose Random 85 mg/dL (60-115); Potassium 3.8 mmol/L (3.3-5.1); Sodium 139 mmol/L (135-145)
--- NOTE | 2021-11-11 10:11 | P.CONCA_ITS ---
History of Present Illness History of Present Illness Date of Service: 11/11/21 Chief complaint: Encephalopathy, UTI Narrative: This is a cardiology consultation regarding abnormal echocardiogram and elevated troponins. Patient has advanced Alzheimer's dementia and is completely nonverba l. He cannot comprehend anything according to daughter Yeni at the bedside. Hence discussed with her about the patient. Patient was brought to the hospital by the family because of decreased oral intake and concern for changes in mentation. There was apparently left-sided eyelid droop and clenching of left fist, per documented H&P. In this context, it seems that elevated troponins were detected. He also had an echocardiogram that showed mildly diminished LVEF. Hence we have been asked to see him. Patient himself cannot give any history at all. Daughter Yeni states that patient has never had any cardiac issues in the past like coronary disease, myocardial infarction or cardiomyopathy or in fact any other cardiac issues of any type. Also, in the past he had never complained of chest pain or any cardiac symptoms whatsoever. Review of Systems Review of Systems: Unable to obtain review of systems due to dementia. Neurologic: Reports confusion Psychiatric: Psychiatric: Reports confusion [facility] Past Medical History Medical History Alzheimer disease Arthritis GERD (gastroesophageal reflux disease) High cholesterol Osteoarthritis Family History Family History (Updated 11/11/21 @ 10:14 by Abdiel Haines MD) Father Pacemaker Social History Social History Household Members: Significant Other Housing: Apartment Do you presently have visiting nurse or other home services: No Unable to assess alcohol history related to: Unable to respond Alcohol intake: never Patient Tobacco Use Status: Never used Tobacco e-Cigarette/Vaping Use: Never Used Advance Directives Date on File: 11/08/21 service: No Current occupational status: retired Current occupation: right handed Meds Allergies Allergy/AdvReac Type Severity Reaction Status Date / Time No Known Allergies Allergy Verified 08/19/21 15:11 [No Known Allergies*] Active Medications: Current Medications Acetaminophen (Acetaminophen 325 Mg Tablet) 650 mg PO Q6H PRN PRN Reason: Pain, Mild (Pain Scale 1-3) Last Admin: 11/09/21 20:23 Dose: 650 mg Aspirin (Aspirin Enteric Coated 325 Mg Tablet.) 325 mg PO DAILY [facility] Last Admin: 11/11/21 08:18 Dose: 325 mg Atorvastatin Calcium (Atorvastatin Calcium 20 Mg Tablet) 20 mg PO BEDTIME [facility] Last Admin: 11/10/21 20:10 Dose: 20 mg Docusate Sodium (Docusate Sodium 100 Mg Capsule) 100 mg PO DAILY PRN PRN Reason: Constipation Heparin Sodium (Porcine) (Heparin Sodium,Porcine 5,000 Unit/Ml Vial) 5,000 unit SUBCUT Q12H [facility] Last Admin: 11/11/21 08:19 Dose: 5,000 unit Ceftriaxone Sodium 1 gm/ (Sodium Chloride) 50 mls @ 100 mls/hr IV Q24H [facility] Last Infusion: 11/11/21 01:56 Dose: Infused Melatonin (Melatonin 3 Mg Tablet) 9 mg PO BEDTIME [facility] Last Admin: 11/10/21 20:10 Dose: 9 mg Memantine (Memantine Hcl 10 Mg Tablet) 10 mg PO BEDTIME [facility] Last Admin: 11/10/21 20:10 Dose: 10 mg Omeprazole (Omeprazole 20 Mg Capsule.) 20 mg PO DAILY@0630 [facility] Last Admin: 11/11/21 06:03 Dose: Not Given Ondansetron HCl (Ondansetron Hcl 4 Mg/2 Ml Vial) 4 mg IVPUSH Q8H PRN PRN Reason: Nausea and Vomiting Pharmacy Consult (Consult Rx Perform Med Rec) 1 each MISCELLANE ONCE PRN PRN Reason: Consult order Ropinirole HCl (Ropinirole Hcl 0.5 Mg Tablet) 0.5 mg PO BEDTIME [facility] Last Admin: 11/10/21 20:10 Dose: 0.5 mg Sodium Chloride (0.9 % Sodium Chloride Flush 3 Ml Syringe) [facility] Admin: 11/11/21 08:18 Dose: 3 ml Trazodone HCl (Trazodone Hcl 50 Mg Tablet) 150 mg PO BEDTIME [facility] Last Admin: 11/09/21 20:23 Dose: 150 mg Home Medications Medication Instructions Recorded Confirmed Last Taken Type atorvastatin 20 mg tablet (Lipitor) 20 mg PO BEDTIME 03/28/20 11/07/21 Unknown History omeprazole 20 mg tablet,delayed 20 mg PO DAILY 03/28/20 11/07/21 Unknown History release aspirin 325 mg tablet,delayed 1 tab PO DAILY 04/08/21 11/07/21 Unknown History release trazodone 150 mg tablet 1 tab PO BEDTIME 04/09/21 11/07/21 Unknown History cholecalciferol (vitamin D3) 25 1 tab DAILY 11/07/21 11/07/21 Unknown History mcg (1,000 unit) tablet docusate sodium 50 mg/5 mL oral 10 ml PO BEDTIME PRN Constipation 11/07/21 11/07/21 Unknown History liquid (Docu) melatonin 5 mg tablet 2 tab PO BEDTIME insomnia 11/07/21 11/07/21 Unknown Histor y memantine 10 mg tablet 1 tab PO BEDTIME 11/07/21 11/07/21 Unknown History ropinirole 0.5 mg tablet 1 tab PO BEDTIME 11/07/21 11/07/21 Unknown History Physical Exam Vital Signs: Vital Signs: Last Vital Signs Temp 98.5 F 11/11/21 07:09 Pulse 88 11/11/21 07:09 Resp 19 11/11/21 07:09 BP 170/90 H 11/11/21 07:09 Pulse Ox 96 11/11/21 07:09 O2 Del Method 11/11/21 07:09 BMI result Body Mass Index 32.8 Const: General: comfortable, no acute distress and confusion Orientation/consciousness: confusion HEENT: Other: Unremarkable Head: Yes normal to inspection Neck: Neck: Yes normal visual inspection Chest: Chest palpation & inspection: normal inspection of the chest Resp: Auscultation: clear to auscultation bilaterally Cardio: Other: Difficult to examine as the patient was constantly moving as well as moaning Palpation: normal PMI Heart sounds: S1 normal heart sound present, S2 normal heart sound present, no gallops, no murmurs and no rubs GI: Palpation (GI): Soft to palpation Back/Spine/Pelvis: Other: unremarkable Skin: General skin exam: no rashes or lesions noted Neuro: General: confusion Extrem: General: Yes normal to inspection Psych: Mental Status: mental status grossly abnormal Objective Labs and Meds Result diagrams: 11/11/21 07:59 11/11/21 07:59 Lab results: Laboratory Results - last 24 hr 11/11/21 11/11/21 07:59 07:59 WBC 5.7 RBC 4.85 Hgb 14.8 Hct 45.3 MCV 93.4 MCH 30.5 MCHC 32.7 RDW 13.4 Plt Count 148 L MPV 9.5 Absolute Nucleated RBC 0.000 Nucleated RBC % (auto) 0.0 Sodium 139 Potassium 3.8 Chloride 102 Carbon Dioxide 24 Anion Gap 17 BUN 15 Creatinine 0.87 Estim Creat Clear Calc 58.3 Estimated GFR > 60 Random Glucose 85 Calcium 9.3 D ECG Interpretation: EKG with sinus rhythm at 91/Min; premature atrial contractions; minimal voltage criteria for LVH; cannot exclude old septal infarct. Septal infarct finding appears new but could also be from lead placement. Assessment and Plan (1) Elevated troponin: Status: Acute (2) Cardiomyopathy: Status: Acute (3) Hypertension: Status: Acute Plan Borderline troponin elevation at 67. It was also elevated in August. Going back till 2019, it has been elevated at different times. Echocardiogram with LVEF of 47%. Mild global hypokinesis. Otherwise unremarkable. Myocardial perfusion imaging study from 2018 shows normal perfusion. Overall, it is a she could have underlying coronary disease. However, because of advanced dementia and being nonverbal, not a suitable candidate for ischemic evaluation. Explained this in great detail with patient's daughter September. She understands. Also as he has no symptoms workup will not make him feel any better and will not improve his quality of life. Explained about this as well. Blood pressures seem to be on the higher side. Currently 170/90 mm Hg. The could also confer cardiomyopathy and elevated troponins. Hence, that should be appropriately treated. Consider adding carvedilol. If additional medication necessary, then amlodipine or BARTOLO inhibitors. He is already on aspirin and statins. Plan was discussed with Yeni, daughter in great detail and she understands and agrees. Procedures Date of Service Date of Service: 11/11/21
[2021-11-11 11:46] VITALS: BP 133/77; PULSE 72; RESP 18; TEMP 36.4; O2SAT 98
--- NOTE | 2021-11-11 13:03 | HO.PM.IMPN ---
Subjective Subjective Date of Service: 11/11/21 Interval History: toxic metabolic encephalopathy,uti Review of Systems more awake , no fevers or no new events more conversative Physical Exam Vital Signs: Vital Signs: Last Vital Signs Temp 97.6 F 11/11/21 11:46 Pulse 72 11/11/21 11:46 Resp 18 11/11/21 11:46 BP 133/77 11/11/21 11:46 Pulse Ox 98 11/11/21 11:46 O2 Del Method 11/11/21 11:46 BMI result Body Mass Index 32.8 ? Appearance: Awake,knows name /daytime .? cvs: rrr, [id number] . res: clear to auscultation ,no rhonchii or wheezing abd: no rebound or guarding ,nt, bs present. ext pulses present , no cyanosis . neuro: axo3 , moves upper ext, wiggle toes. Objective Data Active Medications Acetaminophen (Acetaminophen 325 Mg Tablet) 650 mg PO Q6H PRN PRN Reason: Pain, Mild (Pain Scale 1-3) Last Admin: 11/09/21 20:23 Dose: 650 mg Documented By: JANINE Aspirin (Aspirin Enteric Coated 325 Mg Tablet.) 325 mg PO DAILY [facility] Last Admin: 11/11/21 08:18 Dose: 325 mg Documented By: JANE Atorvastatin Calcium (Atorvastatin Calcium 20 Mg Tablet) 20 mg PO BEDTIME [facility] Last Admin: 11/10/21 20:10 Dose: 20 mg Documented By: JANINE Docusate Sodium (Docusate Sodium 100 Mg Capsule) 100 mg PO DAILY PRN PRN Reason: Constipation Heparin Sodium (Porcine) (Heparin Sodium,Porcine 5,000 Unit/Ml Vial) 5,000 unit SUBCUT Q12H [facility] Last Admin: 11/11/21 08:19 Dose: 5,000 unit Documented By: JANE Ceftriaxone Sodium 1 gm/ (Sodium Chloride) 50 mls @ 100 mls/hr IV Q24H [facility] Last Infusion: 11/11/21 01:56 Dose: 0 mls/hr Documented By: JANINE Melatonin (Melatonin 3 Mg Tablet) 9 mg PO BEDTIME [facility] Last Admin: 11/10/21 20:10 Dose: 9 mg Documented By: JANINE Memantine (Memantine Hcl 10 Mg Tablet) 10 mg PO BEDTIME [facility] Last Admin: 11/10/21 20:10 Dose: 10 mg Documented By: JANINE Omeprazole (Omeprazole 20 Mg Capsule.) 20 mg PO DAILY@0630 [facility] Last Admin: 11/11/21 06:03 Dose: Not Given Documented By: JANINE Non-Admin Reason: Patient Refused Ondansetron HCl (Ondansetron Hcl 4 Mg/2 Ml Vial) 4 mg IVPUSH Q8H PRN PRN Reason: Nausea and Vomiting Pharmacy Consult (Consult Rx Perform Med Rec) 1 each MISCELLANE ONCE PRN PRN Reason: Consult order Ropinirole HCl (Ropinirole Hcl 0.5 Mg Tablet) 0.5 mg PO BEDTIME [facility] Last Admin: 11/10/21 20:10 Dose: 0.5 mg Documented By: JANINE Sodium Chloride (0.9 % Sodium Chloride Flush 3 Ml Syringe) 3 ml IVFLUSH QSHIFT [facility] Last Admin: 11/11/21 08:18 Dose: 3 ml Documented By: JANE Trazodone HCl (Trazodone Hcl 50 Mg Tablet) 150 mg PO BEDTIME [facility] Last Admin: 11/09/21 20:23 Dose: 150 mg Documented By: JANINE Labs CBC & Chem 7: 11/11/21 07:59 11/11/21 07:59 Labs: Laboratory Results - last 24 hr 11/11/21 11/11/21 07:59 07:59 MCV 93.4 MCH 30.5 MCHC 32.7 RDW 13.4 Plt Count 148 L MPV 9.5 Absolute Nucleated RBC 0.000 Nucleated RBC % (auto) 0.0 Anion Gap 17 Estim Creat Clear Calc 58.3 Estimated GFR > 60 Random Glucose 85 Calcium 9.3 D Assessment and Plan (1) Cardiomyopathy: Status: Acute (2) Elevated troponin: Status: Acute (3) UTI (urinary tract infection): Status: Acute (4) Encephalopathy: Status: Acute Plan 86-year-old male with past medical history of advanced Alzheimer's dementia brought into the hospital with increased confusion and decreased oral intake found to have acute UTI #toxi metabolic? encephalopathy-? family report? decreased oral intake and? Soma being changes to his baseline -? found to have UTI,continue iv antibiotics - ? head CT ,cxr neg,blood cultures pending awake ,seems drowsy in am but improving in the afternoon PT eval #? acute UTI -? UA positive, likely the cause of his mental changes -? will treat with IV antibiotics -? follow cultures # ? Advanced dementia -? continue memantine, trazodone #? GERD ?- continue omeprazole mild elevation trops ,echo noted : no chest pain,possible cardiomyopathy d/w daughter -considering adavanced dementia -less likely would get benefit from cardiac workup/cardio eval appreciated . elevated blood pressure -added coreg inpatient needs:toxic metabolic? encephalopathy sec to [place]. Quality Stroke Does the patient have a stroke diagnosis?: No VTE Prior VTE?: No VTE Risk Level:: Medical - moderate - high VTE Device Contraindication: Treatment Not Indicated VTE Drug Contraindication: N/A - Med Ordered
[2021-11-11] MEDS: carvediloL 3.125 MG TABLET PO ×2 (13:53→19:46)
[2021-11-11 15:42] VITALS: BP 165/84; PULSE 79; RESP 18; O2SAT 98
[2021-11-11 18:58] VITALS: BP 126/80; PULSE 85; RESP 18; TEMP 36.3; O2SAT 98
[2021-11-11] MEDS: rOPINIRole HCL 0.5 MG TABLET PO (19:46)
[2021-11-11] MEDS: Atorvastatin Calcium 20 MG TABLET PO (19:46)
[2021-11-11] MEDS: Melatonin 3 MG TABLET 9 MG PO (19:46)
[2021-11-11] MEDS: Memantine HCl 10 MG TABLET PO (19:46)
[2021-11-11 23:47] VITALS: BP 124/81; PULSE 86; RESP 18; TEMP 36.4; O2SAT 95
[2021-11-12] MEDS: cefTRIAXone sodium 1 GM in 0.9 % Sodium Chloride 50 ML IV (01:39)
[2021-11-12] MEDS: Omeprazole 20 MG CAPSULE.DR PO (05:46)
[2021-11-12 07:27] VITALS: BP 185/101; PULSE 68; RESP 18; TEMP 36.1; O2SAT 93
[2021-11-12] MEDS: carvediloL 3.125 MG TABLET 6.25 MG PO (09:12)
[2021-11-12] MEDS: 0.9 % Sodium Chloride Flush 3 ML SYRINGE IVFLUSH (09:13)
[2021-11-12] MEDS: Heparin Sodium,Porcine 5,000 UNIT/ML VIAL 5000 UNIT SUBCUT ×2 (09:13→21:12)
[2021-11-12] MEDS: Aspirin Enteric Coated 325 MG TABLET.DR PO (09:13)
[2021-11-12 12:00] VITALS: BP 117/78; PULSE 80; RESP 18; TEMP 36.5; O2SAT 100
--- NOTE | 2021-11-12 12:16 | P.PNIM_ITS ---
Subjective Subjective Date of Service: 11/12/21 Interval History: toxic metabolic encephalopathy,uti Review of Systems more awake ,slightly improvin mental status campbell no fevers or no new events more conversative Physical Exam Vital Signs: Vital Signs: Last Vital Signs Temp 97.7 F 11/12/21 12:00 Pulse 80 11/12/21 12:00 Resp 18 11/12/21 12:00 BP 117/78 11/12/21 12:00 Pulse Ox 100 11/12/21 12:00 O2 Del Method 11/12/21 12:00 BMI result Body Mass Index 32.8 Appearance: Awake,knows name /daytime .? cvs: rrr, [id number] . res: clear to auscultation ,no rhonchii or wheezing abd: no rebound or guarding ,nt, bs present. ext pulses present , no cyanosis . neuro: moves upper ext, wiggle toes. Objective Data Active Medications Acetaminophen (Acetaminophen 325 Mg Tablet) 650 mg PO Q6H PRN PRN Reason: Pain, Mild (Pain Scale 1-3) Last Admin: 11/09/21 20:23 Dose: 650 mg Documented By: JANINE Aspirin (Aspirin Enteric Coated 325 Mg Tablet.) 325 mg PO DAILY [facility] Last Admin: 11/12/21 09:13 Dose: 325 mg Documented By: ESTRELLA Atorvastatin Calcium (Atorvastatin Calcium 20 Mg Tablet) 20 mg PO BEDTIME [facility] Last Admin: 11/11/21 19:46 Dose: 20 mg Documented By: ANUPAM Carvedilol (Carvedilol 3.125 Mg Tablet) 6.25 mg PO BID [facility]; Protocol Last Admin: 11/12/21 09:12 Dose: 6.25 mg Documented By: ESTRELLA Docusate Sodium (Docusate Sodium 100 Mg Capsule) 100 mg PO DAILY PRN PRN Reason: Constipation Heparin Sodium (Porcine) (Heparin Sodium,Porcine 5,000 Unit/Ml Vial) 5,000 unit SUBCUT Q12H [facility] Last Admin: 11/12/21 09:13 Dose: 5,000 unit Documented By: ESTRELLA Ceftriaxone Sodium 1 gm/ (Sodium Chloride) 50 mls @ 100 mls/hr IV Q24H [facility] Last Infusion: 11/12/21 02:29 Dose: 100 mls/hr Documented By: JEFFY Melatonin (Melatonin 3 Mg Tablet) 9 mg PO BEDTIME [facility] Last Admin: 11/11/21 19:46 Dose: 9 mg Documented By: ANUPAM Memantine (Memantine Hcl 10 Mg Tablet) 10 mg PO BEDTIME [facility] Last Admin: 11/11/21 19:46 Dose: 10 mg Documented By: ANUPAM Comments: pt is awake and confused will med. now if possible Omeprazole (Omeprazole 20 Mg Capsule.) 20 mg PO DAILY@0630 [facility] Last Admin: 11/12/21 05:46 Dose: 20 mg Documented By: ANUPAM Ondansetron HCl (Ondansetron Hcl 4 Mg/2 Ml Vial) 4 mg IVPUSH Q8H PRN PRN Reason: Nausea and Vomiting Pharmacy Consult (Consult Rx Perform Med Rec) 1 each MISCELLANE ONCE PRN PRN Reason: Consult order Ropinirole HCl (Ropinirole Hcl 0.5 Mg Tablet) 0.5 mg PO BEDTIME [facility] Last Admin: 11/11/21 19:46 Dose: 0.5 mg Documented By: ANUPAM Sodium Chloride (0.9 % Sodium Chloride Flush 3 Ml Syringe) 3 ml IVFLUSH QSHIFT [facility] Last Admin: 11/12/21 09:13 Dose: 3 ml Documented By: ESTRELLA Trazodone HCl (Trazodone Hcl 50 Mg Tablet) 150 mg PO BEDTIME [facility] Last Admin: 11/09/21 20:23 Dose: 150 mg Documented By: JANINE Labs CBC & Chem 7: 11/11/21 07:59 11/11/21 07:59 Assessment and Plan (1) Acute UTI: Status: Acute (2) Toxic metabolic encephalopathy: Status: Acute Plan 86-year-old male with past medical history of advanced Alzheimer's dementia brought into the hospital with increased confusion and decreased oral intake found to have acute UTI #toxi metabolic? encephalopathy-? family report? decreased oral intake and? Soma being changes to his baseline -? found to have UTI,continue iv antibiotics - ? head CT ,cxr neg,blood cultures pending awake ,more conversative PT eval-?ltc #? acute UTI -? UA positive, likely the cause of his mental changes -? will treat with IV antibiotics -? follow cultures # ? Advanced dementia -? continue memantine, trazodone #? GERD ?- continue omeprazole mild elevation trops ,echo noted : no chest pain,possible cardiomyopathy d/w daughter -considering adavanced dementia -less likely would get benefit from cardiac workup/cardio eval appreciated . elevated blood pressure? -added coreg inpatient needs:toxic metabolic? encephalopathy sec to [place]. Quality Stroke Does the patient have a stroke diagnosis?: No VTE Prior VTE?: No VTE Risk Level:: Medical - moderate - high VTE Device Contraindication: Treatment Not Indicated VTE Drug Contraindication: N/A - Med Ordered
--- NOTE | 2021-11-12 14:04 | MHC.CM.PN ---
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
[2021-11-12 15:59] VITALS: BP 159/101; PULSE 93; RESP 19; TEMP 36.9; O2SAT 97
[2021-11-12 20:00] VITALS: BP 152/100; PULSE 87; RESP 18; TEMP 36.6; O2SAT 98
[2021-11-12] MEDS: Atorvastatin Calcium 20 MG TABLET PO (21:11)
[2021-11-12] MEDS: carvediloL 3.125 MG TABLET PO (21:11)
[2021-11-12] MEDS: rOPINIRole HCL 0.5 MG TABLET PO (21:11)
[2021-11-12] MEDS: Memantine HCl 10 MG TABLET PO (21:11)
[2021-11-12] MEDS: Melatonin 3 MG TABLET 9 MG PO (21:11)
[2021-11-13] VITALS (8 sets, daily range): BP systolic 93–170; BP diastolic 64–101; PULSE 60–112; RESP 16–19; TEMP 36–36.4; O2SAT 96–98
[2021-11-13] MEDS: 0.9 % Sodium Chloride Flush 3 ML SYRINGE IVFLUSH ×3 (00:58→15:52)
[2021-11-13] MEDS: cefTRIAXone sodium 1 GM in 0.9 % Sodium Chloride 50 ML IV (00:59)
[2021-11-13] MEDS: Acetaminophen 325 MG TABLET 650 MG PO ×2 (01:22→21:28)
[2021-11-13] MEDS: Omeprazole 20 MG CAPSULE.DR PO (05:49)
[2021-11-13] MEDS: Heparin Sodium,Porcine 5,000 UNIT/ML VIAL 5000 UNIT SUBCUT ×2 (08:52→21:30)
[2021-11-13] MEDS: Aspirin Enteric Coated 325 MG TABLET.DR PO (08:52)
[2021-11-13] MEDS: carvediloL 3.125 MG TABLET PO ×2 (08:52→21:29)
--- NOTE | 2021-11-13 14:52 | HO.PM.IMPN ---
Subjective Subjective Date of Service: 11/13/21 Review of Systems Follow-up encephalopathy, UTI History of dementia, difficult to assess Sitting on the edge of the bed, has a sitter and camera Physical Exam Vital Signs: Vital Signs: Last Vital Signs Temp 97.4 F 11/13/21 11:23 Pulse 60 11/13/21 11:23 Resp 18 11/13/21 11:23 BP 142/80 H 11/13/21 11:23 Pulse Ox 98 11/13/21 11:23 O2 Del Method 11/13/21 11:23 BMI result Body Mass Index 32.8 Appearing in no acute distress lung sounds are clear to auscultation heart regular rate rhythm, clear S1, S2 positive bowel sounds, abdomen is soft, nontender neuro patient is alert x3, no focal deficits Objective Data Active Medications Acetaminophen (Acetaminophen 325 Mg Tablet) 650 mg PO Q6H PRN PRN Reason: Pain, Mild (Pain Scale 1-3) Last Admin: 11/13/21 01:22 Dose: 650 mg Documented By: WHIT Aspirin (Aspirin Enteric Coated 325 Mg Tablet.) 325 mg PO DAILY [facility] Last Admin: 11/13/21 08:52 Dose: 325 mg Documented By: ESTRELLA Atorvastatin Calcium (Atorvastatin Calcium 20 Mg Tablet) 20 mg PO BEDTIME [facility] Last Admin: 11/12/21 21:11 Dose: 20 mg Documented By: WHIT Carvedilol (Carvedilol 3.125 Mg Tablet) 3.125 mg PO BID [facility]; Protocol Last Admin: 11/13/21 08:52 Dose: 3.125 mg Documented By: ESTRELLA Docusate Sodium (Docusate Sodium 100 Mg Capsule) 100 mg PO DAILY PRN PRN Reason: Constipation Heparin Sodium (Porcine) (Heparin Sodium,Porcine 5,000 Unit/Ml Vial) 5,000 unit SUBCUT Q12H [facility] Last Admin: 11/13/21 08:52 Dose: 5,000 unit Documented By: ESTRELLA Ceftriaxone Sodium 1 gm/ (Sodium Chloride) 50 mls @ 100 mls/hr IV Q24H [facility] Last Infusion: 11/13/21 01:33 Dose: 0 mls/hr Documented By: WHIT Melatonin (Melatonin 3 Mg Tablet) 9 mg PO BEDTIME [facility] Last Admin: 11/12/21 21:11 Dose: 9 mg Documented By: WHIT Memantine (Memantine Hcl 10 Mg Tablet) 10 mg PO BEDTIME [facility] Last Admin: 11/12/21 21:11 Dose: 10 mg Documented By: WHIT Omeprazole (Omeprazole 20 Mg Capsule.) 20 mg PO DAILY@0630 [facility] Last Admin: 11/13/21 05:49 Dose: 20 mg Documented By: WHIT Ondansetron HCl (Ondansetron Hcl 4 Mg/2 Ml Vial) 4 mg IVPUSH Q8H PRN PRN Reason: Nausea and Vomiting Pharmacy Consult (Consult Rx Perform Med Rec) 1 each MISCELLANE ONCE PRN PRN Reason: Consult order Ropinirole HCl (Ropinirole Hcl 0.5 Mg Tablet) 0.5 mg PO BEDTIME [facility] Last Admin: 11/12/21 21:11 Dose: 0.5 mg Documented By: WHIT Sodium Chloride (0.9 % Sodium Chloride Flush 3 Ml Syringe) 3 ml IVFLUSH QSHIFT [facility] Last Admin: 11/13/21 08:52 Dose: 3 ml Documented By: ESTRELLA Trazodone HCl (Trazodone Hcl 50 Mg Tablet) 150 mg PO BEDTIME [facility] Last Admin: 11/09/21 20:23 Dose: 150 mg Documented By: JANINE Labs CBC & Chem 7: 11/11/21 07:59 11/11/21 07:59 Microbiology Microbiology Results: Microbiology 11/07/21 21:20 Blood Culture - Final Blood - Venous No growth after 5 days. 11/07/21 21:21 Blood Culture - Final Blood - Venous No growth after 5 days. Assessment and Plan (1) Acute UTI: Status: Acute (2) Toxic metabolic encephalopathy: Status: Acute Plan 86-year-old male with past medical history of advanced Alzheimer's dementia brought into the hospital with increased confusion and decreased oral intake found to have acute UTI Toxic metabolic encephalopathy secondary to urinary tract infection Negative head CT Negative urine/blood cultures Treated with IV Rocephin History of advanced dementia Continue memantine and trazodone GERD Continue PPI DVT prophylaxis with heparin Attending Dr. Zaragoza Full code Disposition lives at home with family and 24 hour care plan for discharge tomorrow Continue hospitalization for treatment of acute toxic metabolic encephalopathy secondary to UTI Quality Stroke Does the patient have a stroke diagnosis?: No VTE Prior VTE?: No VTE Risk Level:: Medical - moderate - high VTE Device Contraindication: Treatment Not Indicated VTE Drug Contraindication: N/A - Med Ordered
[2021-11-13] MEDS: Atorvastatin Calcium 20 MG TABLET PO (21:27)
[2021-11-13] MEDS: Memantine HCl 10 MG TABLET PO (21:27)
[2021-11-13] MEDS: rOPINIRole HCL 0.5 MG TABLET PO (21:28)
[2021-11-13] MEDS: Melatonin 3 MG TABLET 9 MG PO (21:28)
[2021-11-14] MEDS: 0.9 % Sodium Chloride Flush 3 ML SYRINGE IVFLUSH (00:32)
--- NOTE | 2021-11-14 03:31 | PC.NURSE ---
0130; Patient pulled out iv. Currently has no iv access, unable to place another iv at this time, pt uncooperative. Hospitalist notified.
[2021-11-14] MEDS: Aspirin Enteric Coated 325 MG TABLET.DR PO (07:26)
[2021-11-14] MEDS: carvediloL 3.125 MG TABLET PO (07:26)
[2021-11-14] MEDS: Omeprazole 20 MG CAPSULE.DR PO (07:26)
[2021-11-14] MEDS: Acetaminophen 325 MG TABLET 650 MG PO (07:26)
[2021-11-14] MEDS: Heparin Sodium,Porcine 5,000 UNIT/ML VIAL 5000 UNIT SUBCUT (07:27)
--- NOTE | 2021-11-14 09:55 | P.DS_ITS ---
DS: Providers Provider Date of Service: 11/14/21 Date of admission: 11/08/21 01:19 Primary care physician: Douglas Nguyễn MD Consults: 11/10/21 07:29 Consult to Cardiology Routine Consulting Provider: [facility] Cardiovascular Services Reason for consultation: elevated trops /abnormal echo Has provider been notified: No 11/12/21 15:07 Consult to Psychiatry Routine Consulting Provider: Psych Covering Reason for consultation: dementsia with behavioural disturbances Has provider been notified: No Attending physician on discharge: Silverio Zaragoza Discharging clinician: Ada Galeano DS: Diagnosis Discharge Diagnosis (1) Acute UTI: Status: Acute (2) Toxic metabolic encephalopathy: Status: Acute DS: Summary Hospital Course Hospital Course: History and physical as per admitting provider This is an 86-year-old male with past medical history of very advanced Alzheimer's dementia, GERD, HLD, presents to the hospital with complaints decreased oral intake by his family and concern for changes to his mentation the where sob by family to be a stroke.? His daughter reported that she noted a left-sided eyelid droop, and clenching of his left fist.? Patient unable to give much history and he is almost nonverbal at baseline. On arrival to the ED patient hemodynamically stable with no significant abnormal vitals Labs are significant for WBC count 19.5, hemoglobin of 13.8, hematocrit 41.6, UA that is positive for leukocyte Estrace and WBC, head CT negative patient started on IV antibiotics of a admitted Toxic metabolic encephalopathy secondary to urinary tract infection. Seems back to baseline Negative head CT Negative urine/blood cultures Treated with IV Rocephin, 7 days total, completed treatment History of advanced dementia Continue memantine and trazodone GERD Continue PPI Advanced cardiomyopathy and hypertension Started on carvedilol seen evaluated by Cardiology and due to advanced dementia and mostly being nonverbal it was found the patient is not a suitable candidate for ischemic evaluation, this was discussed with the family at length by the floor specialist Time Spent with Patient Time attestation: Total time spent providing and/or coordinating discharge services: Discharge coordination time: Greater than 30 minutes Quality: Safe Use of Opioids Does Pt have an Active Cancer Diagnosis on the Problem List?: No Quality: Stroke Does the patient have a stroke diagnosis?: No Physical Exam Vital Signs: Vital Signs: Last Vital Signs Temp 97.4 F 11/13/21 19:31 Pulse 84 11/13/21 21:25 Resp 17 11/13/21 19:31 BP 158/88 H 11/13/21 21:25 Pulse Ox 96 11/13/21 19:31 O2 Del Method 11/13/21 19:31 BMI result Body Mass Index 32.8 Appearing in no acute distress head is normocephalic atraumatic eyes pupils are PERRLA sclera is anicteric mouth throat mucous membranes are intact and moist neck is supple no lymphadenopathy, no JVD noted lung sounds are clear to auscultation heart regular rate rhythm, clear S1, S2 positive bowel sounds, abdomen is soft, nontender neuro patient baseline confusion dementia Discharge Plan Discharge Anticipated Discharge Date/Time: 11/14/21 09:52 Patient Disposition: Home Health Service Discharge Diagnosis: Toxic metabolic encephalopathy secondary to UTI Referrals: Douglas Nguyễn MD [Primary Care Provider] - 1 Week Discharge Medications: New carvedilol 3.125 mg Tablet 3.125 mg PO BID Qty: 60 0RF Protocol: Hold for SBP/HR < HOLD for SBP < : 90 HOLD for HR < : 60 Continued aspirin 325 mg tablet,delayed release (DR/EC) 1 tab PO DAILY trazodone 150 mg tablet 1 tab PO BEDTIME docusate sodium [Docu] 50 mg/5 mL liquid 10 ml PO BEDTIME PRN (Reason: Constipation) ropinirole 0.5 mg tablet 1 tab PO BEDTIME memantine 10 mg tablet 1 tab PO BEDTIME cholecalciferol (vitamin D3) 25 mcg (1,000 unit) tablet 1 tab DAILY melatonin 5 mg tablet 2 tab PO BEDTIME omeprazole 20 mg tablet,delayed release (DR/EC) 20 mg PO DAILY atorvastatin [Lipitor] 20 mg tablet 20 mg PO BEDTIME Discharge Orders: Discharge Order (Routine); Ordered 11/14/21 Ordered By: Ada Galeano Diet: Advance to usual diet Activity on Discharge: As tolerated Stand Alone Forms: Patient Portal Discharge page Care Plan Goals: No further episodes of encephalopathy Health Concerns: Toxic metabolic encephalopathy secondary to UTI Plan of Treatment: Follow-up with primary care provider as needed You have been treated for urinary tract infection and have completed the treatment Assessment: See discharge summary
--- NOTE | 2021-11-14 11:21 | MHC.CM.PN ---
HOME TODAY WITH RESUMPTION OF SERVICES. DAUGHTER ARRIVED TO TRANSPORT. RENAN OF [facility] ([phone]) AWARE IMM 11/03 IN MEDICAL RECORDS BIN
== END 2021-11-14 11:00 | disposition home health service (06) | DRG 689 ==
LOC: HO.ED 11-08 01:17 → HO.EDOVER 11-08 01:25 → HO.S3 11-09 15:00
PROVIDERS: Internal Medicine; Admitting Provider Internal Medicine; Emergency Provider Emergency Medicine; PCP Internal Medicine; Visit Provider Nurse Practitioner Acute Care
DX: N39.0 Urinary tract infection, site not specified (principal); G92.8 Other toxic encephalopathy; I42.9 Cardiomyopathy, unspecified; G30.9 Alzheimer's disease, unspecified; F02.80 Dementia in other diseases classified elsewhere, unspecified severity, without behavioral disturbance, psychotic disturbance, mood disturbance, and anxiety; M19.90 Unspecified osteoarthritis, unspecified site; E78.00 Pure hypercholesterolemia, unspecified; K21.9 Gastro-esophageal reflux disease without esophagitis; Z20.822 Contact with and (suspected) exposure to COVID-19; Z79.82 Long term (current) use of aspirin; Z79.899 Other long term (current) drug therapy; E78.5 Hyperlipidemia, unspecified
CPT/HCPCS: 36415; 70450; 70480; 71045; 74018; 80048; 80076; 81001; 83605; 83690; 83735; 84484; 85025; 85027; 85610; 87040; 87086; 87635; 93005; 93306; 96361; 96365; 96372; 97162; 99285; J0696; J1200; J3486

== ENCOUNTER 2022-01-09 12:45 | Emergency (ER) | payer OTHER, SELFPAY ==
[2022-01-09 12:50] VITALS: BP 110/70; PULSE 70
[2022-01-09 12:51] VITALS: BP 152/91; PULSE 69; RESP 18; TEMP 36.1; O2SAT 100; BMI 22.6
--- NOTE | 2022-01-09 12:51 | ED_ITS ---
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 Patient has a history of dementia and petite mal seizure. By the time EMS got there the pa tient was awake. The patient is nonverbal, the last time this happened he had a UTI MD complaint: decreased responsiveness Onset (ago): minute(s) Timing confirmed by: caregiver Severity: mild Consistency of symptoms: unknown Context: history of similar presentation Related Data Home Medications Medication Instructions Recorded Confirmed atorvastatin 20 mg tablet (Lipitor) 20 mg PO BEDTIME 03/28/20 11/07/21 omeprazole 20 mg tablet,delayed 20 mg PO DAILY 03/28/20 11/07/21 release aspirin 325 mg tablet,delayed 1 tab PO DAILY 04/08/21 11/07/21 release trazodone 150 mg tablet 1 tab PO BEDTIME 04/09/21 11/07/21 cholecalciferol (vitamin D3) 25 1 tab DAILY 11/07/21 11/07/21 mcg (1,000 unit) tablet docusate sodium 50 mg/5 mL oral 10 ml PO BEDTIME PRN Constipation 11/07/21 11/07/21 liquid (Docu) melatonin 5 mg tablet 2 tab PO BEDTIME insomnia 11/07/21 11/07/21 memantine 10 mg tablet 1 tab PO BEDTIME 11/07/21 11/07/21 ropinirole 0.5 mg tablet 1 tab PO BEDTIME 11/07/21 11/07/21 Previous Rx's Medication Instructions Recorded carvedilol 3.125 mg tablet 3.125 mg PO BID #60 tabs 11/14/21 Allergies Allergy/AdvReac Type Severity Reaction Status Date / Time No Known Allergies Allergy Verified 08/19/21 15:11 [No Known Allergies*] Review of Systems Review of Systems: Yes Unobtainable due to mental status PMFSH Past Medical History Medical History Alzheimer disease Arthritis Cardiomyopathy Encephalitis GERD (gastroesophageal reflux disease) High cholesterol Hypertension Osteoarthritis Family History Family History Father Pacemaker Social History Social History Household Members: Significant Other Housing: Apartment Do you presently have visiting nurse or other home services: No Unable to assess alcohol history related to: Unable to respond Alcohol intake: never Patient Tobacco Use Status: Never used Tobacco e-Cigarette/Vaping Use: Never Used Advance Directives: Yes Advance Directives on File: Yes Advance Directives Date on File: 11/08/21 service: No Current occupational status: retired Current occupation: right handed Physical Exam ED Vital Signs: Vital Signs - 24 hr 01/09/22 12:51 01/09/22 14:58 01/09/22 15:31 Temperature 97 F Pulse Rate 69 74 75 Respiratory Rate 18 20 12 Blood Pressure 152/91 H 136/99 H 124/92 H Pulse Oximetry 100 95 Oxygen Delivery Method Room Air Room Air BMI result Body Mass Index 22.6 Const General: healthy appearing Nutritional Appearance: average body habitus Limitations: altered mental status HENMT Head: Yes normal to inspection Ears: external ears normal General nose exam: Normal external nose present Mouth: Normal oral and palatal mucosa present and oropharynx normal Throat: Yes posterior oropharynx normal Eyes General: appearance normal, both eyes and all related structures Neck Neck: Yes normal visual inspection Chest Chest palpation & inspection: normal inspection of the chest Resp Auscultation: clear to auscultation bilaterally Cardio Jugular venous distension: no JVD Rate: regular rate Rhythm: regular rhythm Heart sounds: S1 normal heart sound present and S2 normal heart sound present GI Inspection: Yes normal to inspection Palpation (GI): Soft to palpation, nontender and No hepatosplenomegaly present Auscultation: normal bowel sounds General: Yes no CVA tenderness Back/Spine/Pelvis Back: no CVA tenderness Skin General skin exam: no rashes or lesions noted Neuro Cranial nerves: Yes CN's II-XII intact bilaterally Motor exam (neuro): 5/5 motor strength present throughout Extrem General: Yes normal to inspection Psych Appearance: grossly normal Course Reevaluation(s) Reevaluation #1: Patient with an episode of unresponsiveness with a history of petite mal activity in the past. no evidence of infection, no cardiac arrythmia, will dc home Time: 16:24 MDM - Altered Mental Status Lab Data Result diagrams: 01/09/22 14:05 01/09/22 14:46 Labs: Lab Results 01/09/22 01/09/22 01/09/22 Range/Units 14:05 14:46 15:35 WBC 7.1 (4.8-10.8) X10*3/uL RBC 5.34 (4.60-5.80) X10*6/uL Hgb 16.4 (14.0-18.0) g/dl Hct 49.4 (42.0-52.0) % MCV 92.5 (80.0-98.0) fL MCH 30.7 (27.0-33.0) pg MCHC 33.2 (31.0-36.0) g/dl RDW 12.8 (11.0-16.0) % Plt Count 159 L (160-400) X10*3/uL MPV 9.6 (9.4-12.4) fL Immature Gran % (Auto) 0.3 (0.0-0.4) % Neut % (Auto) 77.1 H (45-73) % Lymph % (Auto) 14.4 L (20-40) % [place] % (Auto) 6.5 (2-11) % Eos % (Auto) 1.1 (0-4) % Baso % (Auto) 0.6 (0-2) % Lymph # (Auto) 1.0 L (1.2-4.9) X10*3/uL [place] # (Auto) 0.5 (0.1-1.2) X10*3/uL Eos # (Auto) 0.1 (0.0-0.4) X10*3/uL Baso # (Auto) 0.0 (0.0-0.2) X10*3/uL Abs Immat Gran (auto) 0.02 (0.00-0.03) X10*3/uL Absolute Neuts (auto) 5.5 (2.0-8.3) x10*3/uL Absolute Nucleated RBC 0.000 (0.0-0.012) X10*3/uL Nucleated RBC % (auto) 0.0 (0.0-0.2) /100WBC Sodium 141 (135-145) mmol/L Potassium 5.1 D (3.3-5.1) mmol/L Chloride 104 (96-108) mmol/L Carbon Dioxide 27 (22-29) mmol/L Anion Gap 15 (12-20) BUN 23 H D (9-16) mg/dL Creatinine 1.16 (0.5-1.4) mg/dL Estim Creat Clear Calc 38.2 Estimated GFR 60 Random Glucose 130 H D (60-115) mg/dL Calcium 10.2 D (8.4-10.2) mg/dL Urine Color RED Urine Appearance Cloudy Urine pH 6.5 (5.0-9.0) Ur Specific Godwin 1.025 (1.005-1.025) Urine Protein 100 (2+) H (Neg-Trace) mg/dL Urine Glucose (UA) Negative (Negative) mg/dL Urine Ketones Negative (Negative) mg/dL Urine Blood Large (3+) H (Negative) Urine Nitrite Negative (Negative) Ur Leukocyte Esterase Negative (Negative) Urine RBC >20 H (0-2) /HPF Urine WBC 0-5 (0-5) /HPF Ur Squamous Epith Cells 0-2 (0-2) /HPF Urine Bacteria None Seen (None Seen) Hyaline Casts 0-2 (0-2) /LPF ECG Data ECG #1: Attestation: I personally reviewed and interpreted this ECG as follows: Interpretation: sinus 60, no st or twave changes Discharge Plan Discharge Clinical Impression: Episode of unresponsiveness Patient Disposition: Home, Self-Care Instructions: Syncope (ED) Prescriptions: No Action aspirin 325 mg tablet,delayed release (DR/EC) 1 tab PO DAILY trazodone 150 mg tablet 1 tab PO BEDTIME docusate sodium [Docu] 50 mg/5 mL liquid 10 ml PO BEDTIME PRN (Reason: Constipation) ropinirole 0.5 mg tablet 1 tab PO BEDTIME memantine 10 mg tablet 1 tab PO BEDTIME cholecalciferol (vitamin D3) 25 mcg (1,000 unit) tablet 1 tab DAILY melatonin 5 mg tablet 2 tab PO BEDTIME carvedilol 3.125 mg Tablet 3.125 mg PO BID Qty: 60 0RF Protocol: Hold for SBP/HR < HOLD for SBP < : 90 HOLD for HR < : 60 omeprazole 20 mg tablet,delayed release (DR/EC) 20 mg PO DAILY atorvastatin [Lipitor] 20 mg tablet 20 mg PO BEDTIME Referrals: Beauzile,Thevenin C, MD [Primary Care Provider] - 1 week Interventions: ED Discharge Assessment Last Done: 01/09/22 17:25 Discharge Date/Time: 01/09/22 17:26
--- NOTE | 2022-01-09 12:56 | ECG_ITS ---
Test Reason : UNRESPONSIVE Blood Pressure : / mmHG Vent. Rate : 061 BPM Atrial Rate : 061 BPM P-R Int : 192 ms QRS Dur : 090 ms QT Int : 400 ms P-R-T Axes : 026 -59 037 degrees QTc Int : 402 ms Normal sinus rhythm Nonspecific T wave abnormality Left anterior fascicular block Abnormal ECG When compared with ECG of 07-NOV-2021 20:40, Premature atrial complexes are no longer Present Vent. rate has decreased BY 30 BPM Criteria for Septal infarct are no longer Present Nonspecific T wave abnormality now evident in Inferior leads Referred By: Darin Bernard Electronically Signed By:SHERYL MARTIN MD
--- OUTSIDE RECORDS SUMMARY | 2022-01-09 13:14 | XMS_ITS | Continuity of Care Document ---
:1935 Author Organization [facility] Address Unavailable , Care Team Providers Name Role Phone Douglas Nguyễn MD Primary Care Phys[id number] Date(s): 04/11/21 - 05/11/21 [facility] Medications amLODIPine 5 mg oral tablet 5 mg, 1, tablet, By Mouth, Daily, Refills 0, Maintenance, 01/06/20 9:27:00 EST, Partial fill upon patient request Start Date: 01/06/20 Status: Orderedaspirin 325 mg oral tablet 325 mg, 1, tablet, By Mouth, Every 4 hours, Refills 0, Maintenance, 01/06/20 9:27:00 EST, Partial fill upon patient request Start Date: 01/06/20 Status: Orderedhydrochlorothiazide-triamterene 25 mg-37.5 mg oral capsule 1 capsule, By Mouth, Daily, 0 Refills, Maintenance, 01/06/20 9:28:00 EST, Partial fill upon patient request Start Date: 01/06/20 Status: Orderedmelatonin 5 mg oral tablet 1 tablet = 5 mg, By Mouth, Daily at bedtime, PRN for insomnia, # 60 tablet, 0 Refills, Maintenance, 08/11/20 7:58:00 EDT, Tablet, Partial fill upon patient request if the prescription is for a scheduleII opioid drug. Start Date: 08/11/20 Status: Orderedmemantine 10 mg oral tablet 1 tablet = 10 mg, By Mouth, 2 times a day, 0 Refills, Maintenance, 01/06/20 9:27:00 EST, Partial fill upon patient request Start Date: 01/06/20 Status: OrderedNamenda 10 mg oral tablet 1 tablet = 10 mg, By Mouth, Daily, future refills may be obtained from pcp, # 30 tablet, 5 Refills, Maintenance, 03/24/20 11:39:00 EST, Tablet, [facility], future refills may be obtained from pcp Start Date: 03/24/20 Stop Date: 09/20/20 Status: Orderednitrofurantoin macrocrystals 100 mg oral capsule 1 capsule = 100 mg, By Mouth, 4 times a day, 0 Refills, Maintenance, 08/11/20 7:59:00 EDT, Partial fill upon patient request if the prescription is for a schedule II opioid drug. Start Date: 08/11/20 Status: Orderedomeprazole 20 mg oral enteric coated capsule 1 capsule = 20 mg, By Mouth, Daily, 0 Refills, Maintenance, 01/06/20 9:27:00 EST, Partial fill upon patient request Start Date: 01/06/20 Status: OrderedSenna 8.6 mg oral tablet 1 or 2 tablets, By Mouth, Daily at bedtime, PRN, # 60 tablet, Refills 0, Maintenance, Constipation, 08/11/20 7:58:00 EDT, Tablet, Partial fill upon patient request if the prescription is for a scheduleII opioid drug. Start Date: 08/11/20 Status: OrderedtraZODone 150 mg oral tablet 1 tablet = 150 mg, By Mouth, 2 times a day, 0 Refills, Maintenance, 08/11/20 7:58:00 EDT, Partial fill upon patient request if the prescription is for a schedule II opioid drug. Start Date: 08/11/20 Status: Ordered
--- OUTSIDE RECORDS SUMMARY | 2022-01-09 13:14 | XMS_ITS | Continuity of Care Document ---
:1935 Author Organization [facility] Address [address] [facility], 3rd Floor, [address] [place] [id number]- Care Team Providers Name Role Phone Douglas Nguyễn MD Primary [id number] Date(s): 03/24/20 - 04/23/20 [facility] [address] [facility], 3rd Floor, [address] [place] [id number] Medications amLODIPine 5 mg oral tablet 5 [...] upon patient request Start Date: 01/06/20 Status: Orderedmemantine 10 mg oral tablet 1 tablet = 10 mg, By Mouth, 2 times a day, 0 Refills, Maintenance, 01/06/20 9:27:00 EST, Partial fill upon patient request Start Date: 01/06/20 Status: OrderedNamenda 10 mg oral tablet 1 tablet = 10 mg, By Mouth, Daily, future refills may be obtained from pcp, # 30 tablet, 5 Refills, Maintenance, 03/24/20 11:39:00 EST, Tablet, [facility], future refills may be obtained from pcp Start Date: 03/24/20 Stop Date: 09/20/20 Status: Orderedomeprazole 20 mg oral enteric coated capsule 1 capsule = 20 mg, By Mouth, Daily, 0 Refills, Maintenance, 01/06/20 9:27:00 EST, Partial fill upon patient request Start Date: 01/06/20 Status: Ordered
--- OUTSIDE RECORDS SUMMARY | 2022-01-09 13:14 | XMS_ITS | Continuity of Care Document ---
:1935 Author Organization [facility] Address [address] [facility], 3rd Floor, [address] [place] [phone]- Care Team Providers Name Role Phone Douglas Nguyễn MD Primary Care Physician Encounter [facility] [place] Date(s): 04/27/20 - 05/27/20 [facility] [address] [facility], 3rd [facility], [address] [place] [id number] Medications amLODIPine 5 mg oral tablet 5 [...] 5 Refills, Maintenance, 03/24/20 11:39:00 EST, Tablet, [facility], future refills may be obtained from pcp Start Date: 03/24/20 Stop Date: 09/20/20 Status: Orderedomeprazole 20 mg oral enteric coated capsule 1 capsule = 20 mg, By Mouth, Daily, 0 Refills, Maintenance, 01/06/20 9:27:00 EST, Partial fill upon patient request Start Date: 01/06/20 Status: Ordered
--- OUTSIDE RECORDS SUMMARY | 2022-01-09 13:14 | XMS_ITS | Continuity of Care Document ---
:1935 Author Organization [facility] Address [address] [facility], 3rd Floor, [address] [place] [address]- Care Team Providers Name Role Phone Douglas Nguyễn MD Primary Care Phys[id number] Date(s): 01/06/20 - 02/05/20 [facility] [address], [address], [address] [place] [id number] Attending Physician: Chuy Davey Admitting Physician: Chuy Davey Referring Physician: Chuy Davey Medications amLODIPine 5 mg oral tablet 5 [...] upon patient request Start Date: 01/06/20 Status: Orderedomeprazole 20 mg oral enteric coated capsule 1 capsule = 20 mg, By Mouth, Daily, 0 Refills, Maintenance, 01/06/20 9:27:00 EST, Partial fill upon patient request Start Date: 01/06/20 Status: Ordered
--- OUTSIDE RECORDS SUMMARY | 2022-01-09 13:14 | XMS_ITS | Continuity of Care Document ---
:1935 Author Organization [facility] Address Unavailable , Care Team Providers Name Role Phone Douglas Nguyễn MD Primary [id number] Date(s): 08/08/21 - 09/16/21 [facility] Attending Physician: Rosie Conde NP Admitting Physician: Rosie Conde NP Medications amLODIPine 5 mg oral tablet 5 [...] 5 Refills, Maintenance, 03/24/20 11:39:00 EST, Tablet, [facility], future refills may be obtained from [...]
--- OUTSIDE RECORDS SUMMARY | 2022-01-09 13:14 | XMS_ITS | Continuity of Care Document ---
:1935 Author Organization [facility] Address [address] [place] [address]- Care Team Providers Name Role Phone Douglas Nguyễn MD Primary Care Phys[id number] Date(s): 10/11/20 - 11/10/20 [facility] [address] [place] [phone]- Medications amLODIPine 5 mg oral tablet 5 [...] 5 Refills, Maintenance, 03/24/20 11:39:00 EST, Tablet, [facility], future refills may be obtained from [...]
--- OUTSIDE RECORDS SUMMARY | 2022-01-09 13:14 | XMS_ITS | Continuity of Care Document ---
:1935 Author Organization [facility] Address Unavailable , Care Team Providers Name Role Phone Douglas Nguyễn MD Primary Care Phys[id number] Date(s): 04/11/21 - 05/11/21 [facility] Medications amLODIPine 5 mg oral [...] 5 Refills, Maintenance, 03/24/20 11:39:00 EST, Tablet, [facility], future refills may be obtained [...]
--- OUTSIDE RECORDS SUMMARY | 2022-01-09 13:14 | XMS_ITS | Continuity of Care Document ---
:1935 Author Organization [facility] Address Unavailable , Care Team Providers Name Role Phone Douglas Nguyễn MD Primary Care Physician En[place] [facility] [place] Date(s): 08/17/21 - 09/16/21 [facility] Attending Physician: Chuy Davey Admitting Physician: Chuy [...] 5 Refills, Maintenance, 03/24/20 11:39:00 EST, Tablet, [facility], future refills may be obtained from [...]
--- OUTSIDE RECORDS SUMMARY | 2022-01-09 13:14 | XMS_ITS | Continuity of Care Document ---
:1935 Author Organization [facility] Address Unavailable , Care Team Providers Name Role Phone Douglas Nguyễn MD Primary Care Physician Encounter [facility] Date(s): 06/08/21 - 07/08/21 [facility] Attending Physician: Chuy Davey Admitting Physician: [...] 5 Refills, Maintenance, 03/24/20 11:39:00 EST, Tablet, [facility], future refills may be [...]
--- OUTSIDE RECORDS SUMMARY | 2022-01-09 13:14 | XMS_ITS | Continuity of Care Document ---
:1935 Author Organization [facility] Address [address] [facility], 3rd Floor, [address] [place] [id number]- Care Team Providers Name Role Phone Douglas Nguyễn MD Primary Care Physician Encounter [facility] [place] Date(s): 08/11/20 - 09/10/20 [facility] [address] [facility], 3rd [facility], [address] [place] [id number] Attending Physician: Chuy Davey Admitting Physician: Chuy [...]
--- OUTSIDE RECORDS SUMMARY | 2022-01-09 13:14 | XMS_ITS | Continuity of Care Document ---
:1935 Author Organization [facility] Address [address] [facility], 3rd Floor, [address] [place] [address]- Care Team Providers Name Role Phone Douglas Nguyễn MD Primary Care Physician [id number] Date(s): 05/19/20 - 06/18/20 [facility] [address] [facility], 3rd Floor, [address] [place] [id number] Medications amLODIPine 5 mg oral tablet [...]
--- OUTSIDE RECORDS SUMMARY | 2022-01-09 13:14 | XMS_ITS | Continuity of Care Document ---
:1935 Author Organization [facility] Address Unavailable , Care Team Providers Name Role Phone Douglas Nguyễn MD [id number]11[facility] - 07[facility]08/21 [facility] Attending Physician: Kota Farah MD Admitting Physician: Kota Farah MD Medications amLODIPine 5 mg oral tablet 5 [...] 5 Refills, Maintenance, 03/24/20 11:39:00 EST, Tablet, [facility], future refills may be obtained [...]
[2022-01-09 14:08] LABS: MANUAL DIFF FLAG NO
[2022-01-09 14:10] LABS: Basophils Percent Auto 0.6 % (0-2); Eosinophils Absolute Auto 0.1 X10*3/uL (0.0-0.4); Eosinophils Percent Auto 1.1 % (0-4); Hematocrit 49.4 % (42.0-52.0); Hemoglobin 16.4 g/dl (14.0-18.0); Imm Gran Abs Auto 0.02 X10*3/uL (0.00-0.03); Imm Gran Pct Auto 0.3 % (0.0-0.4); Lymphocytes Percent Auto 14.4 % (20-40); Mean Corpuscular HGB Conc 33.2 g/dl (31.0-36.0); Mean Corpuscular Hemoglobin 30.7 pg (27.0-33.0); Mean Corpuscular Volume 92.5 fL (80.0-98.0); Mean Platelet Volume 9.6 fL (9.4-12.4); Monocytes Absolute Auto 0.5 X10*3/uL (0.1-1.2); Monocytes Percent Auto 6.5 % (2-11); Neutrophils Absolute Auto 5.5 x10*3/uL (2.0-8.3); Neutrophils Percent Auto 77.1 % (45-73); Platelet Count 159 X10*3/uL (160-400); Red Blood Count 5.34 X10*6/uL (4.60-5.80); Red Cell Distribution Width 12.8 % (11.0-16.0); White Blood Count 7.1 X10*3/uL (4.8-10.8)
--- NOTE | 2022-01-09 14:12 | PC.NURSE ---
difficulty getting bloodwork as the pt was not cooperative , aware and recommended more people to hold him instead of meds, spoke w family and they agreed with this tactic, pt held and bloodwork obtained, unable to get urine via straight cath, unable to get past the prostate, there was blood in the catheter when removed, informed
--- NOTE | 2022-01-09 14:55 | PC.NURSE ---
condom cath placed and thus far is tolerating well and not pulling at it etc, blood drawn again as it hemolized,
[2022-01-09 14:58] VITALS: BP 136/99; PULSE 74; RESP 20
[2022-01-09 15:06] LABS: Anion Gap 15 (12-20); Blood Urea Nitrogen 23 mg/dL (9-16); Calcium 10.2 mg/dL (8.4-10.2); Carbon Dioxide 27 mmol/L (22-29); Chloride 104 mmol/L (96-108); Creatinine Clr Calc Pharmacy 38.2; Estimated Glomerular Filt Rate 60; Glucose Random 130 mg/dL (60-115); Potassium 5.1 mmol/L (3.3-5.1); Sodium 141 mmol/L (135-145)
[2022-01-09 15:31] VITALS: BP 124/92; PULSE 75; RESP 12; O2SAT 95
[2022-01-09 15:54] LABS: Appearance Urine Cloudy; Color Urine RED; Glucose Urine UA Negative (Negative); Leukocyte Esterase Urine Negative (Negative); Nitrite Urine Negative (Negative); PH 6.5 (5.0-9.0); Specific Gravity - Urine 1.025 (1.005-1.025); UMIC TRIGGER UACC YES; Urine Blood Large (3+) (Negative); Urine Ketones Negative (Negative); Urine Protein 100 (2+) mg/dL (Neg-Trace)
[2022-01-09 15:58] LABS: Bacteria Urine None Seen (None Seen); Hyaline Casts Urine 0-2 /LPF (0-2); RBC Urine >20 /HPF (0-2); Squamous Epithelial Cell Urine 0-2 /HPF (0-2); WBC Urine 0-5 /HPF (0-5)
== END 2022-01-09 17:26 | disposition home or self-care (01) ==
PROVIDERS: Emergency Provider Emergency Medicine; PCP Internal Medicine
DX: R40.4 Transient alteration of awareness (principal); F03.90 Unspecified dementia, unspecified severity, without behavioral disturbance, psychotic disturbance, mood disturbance, and anxiety; Z79.899 Other long term (current) drug therapy
CPT/HCPCS: 36415; 80048; 81001; 85025; 93005; 99283; 99284

== ENCOUNTER 2022-03-06 19:04 | Observation (INO) | payer OTHER, SELFPAY ==
--- NOTE | ~2022-03-06 | CT_ITS ---
EXAMINATION: CT HEAD WITHOUT CONTRAST CLINICAL INFORMATION: AMS. COMPARISON: None TECHNIQUE: Contiguous axial imaging was performed from the skull base to vertex without intravenous administration of contrast. This CT examination was performed using dose optimization techniques as appropriate, variously including the following: *Automated exposure control *Adjustment of mA and/or kV according to patient size (this includes techniques or standardized protocols for targeted exams where dose is matched to indication/reason for exam; i.e. extremities or head) *Use of iterative reconstruction technique DLP: 788 mGy-cm FINDINGS: There is no acute intra-axial, extra-axial bleed, masses or midline shift. There is no acute infarction evolution. There is no edema. There is diffuse periventricular hypodensity in both cerebral hemispheres without mass effect. The lateral ventricles are symmetrical in size and configuration without enlargement. Bone windows reveal no calvarial abnormality. There is no scalp soft tissue abnormality. Bilateral paranasal sinuses and mastoid air cells are well-aerated. CT/CT head/brain wo IV con IMPRESSION: No acute intracranial process seen. Age-related volume loss with chronic small vessel ischemic changes in both cerebral hemispheres.
--- NOTE | ~2022-03-06 | CT_ITS ---
EXAMINATION: CT ANGIOGRAM HEAD CT ANGIOGRAM NECK CLINICAL INFORMATION: Reason for Exam L mouth drooping, AMS COMPARISON: Earlier same day noncontrast head CT TECHNIQUE: Initial noncontrast field scout imaging of the head and neck was performed. Comparison is made with noncontrast head CT from earlier today. Test bolus sequences followed by intravenous administration 70 mL of Omnipaque 350. Helical imaging was performed in the axial plane from the aortic arch to the skull vertex. Delayed postcontrast imaging of the head was also performed. The data was processed at the soil technologist's workstation for generation of MIP sequences. Angled MIPs and volume rendered reformatted images were also generated at an offline 3D workstation. Stenoses are assessed in accordance with NASCET criteria unless otherwise indicated. DLP: 684 mGy-cm This CT examination was performed using dose optimization techniques as appropriate, variously including the following: *Automated exposure control. *Adjustment of mA and/or kV according to patient size (this includes techniques or standardized protocols for targeted exams where dose is matched to indication/reason for exam; i.e. extremities or head). *Use of iterative reconstruction technique. FINDINGS: CT Head: There is no evidence of acute intracranial hemorrhage or edematous territorial infarction. Scattered hypoattenuation in the periventricular and deep white matter are consistent with moderate microangiopathy. Alatorre-white matter differentiation is preserved. Proportional prominence of the ventricles and sulcal spaces. No evidence for obstructive hydrocephalus. No abnormal mass effect or midline shift. No extra-axial fluid collections. No pathologic intra-axial enhancement or regional oligemia. No acute soft tissue or osseous abnormalities. The mastoid air cells and paranasal sinuses are clear. CT Neck: The thyroid gland and remaining cervical soft tissues are within normal limits. Moderate multilevel degenerative changes of the cervical spine. CT Upper Chest: The visualized lung apices and upper mediastinum are within normal limits. Calcified mediastinal and right hilar lymph nodes likely reflect sequela of prior granulomatous infection. There are several small calcified granulomas in the right lung. Neck CTA: Aortic Arch: Normal contour and caliber. Classic 3 vessel branching pattern of the aortic arch. Great Vessel Origins: No significant stenosis of the branch origins. Right Common Carotid Artery: No focal stenosis or occlusion. Cervical Right Internal Carotid Artery: Normal opacification without focal stenosis or occlusion. Left Common Carotid Artery: No focal stenosis or occlusion. Cervical Left Internal Carotid Artery: Normal opacification without focal stenosis or occlusion. Cervical Right Vertebral Artery: No focal stenosis or occlusion. Cervical Left Vertebral Artery: No focal stenosis or occlusion. Brain CTA: Intracranial Internal Carotid Arteries: Calcific atherosclerotic disease of the intracranial internal carotid arteries without occlusion or flow-limiting stenosis. Right Anterior Cerebral Artery: Normal A1 segment. Normal opacification of the distal PILAR segments. Left Anterior Cerebral Artery: Normal A1 segment. Normal opacification of the distal PILAR segments. Anterior Communicating Artery: Normal. Right Middle Cerebral Artery: Normal M1 segment of the MCA without focal stenosis or occlusion. Normal arborization of the distal segments. Left Middle Cerebral Artery: Normal M1 segment of the MCA without focal stenosis or occlusion. Normal arborization of the distal segments. Right Vertebral Artery: Normal V4 segment. Left Vertebral Artery: Normal V4 segment. Basilar Artery: Normal without focal stenosis or occlusion. Normal appearance of the proximal superior cerebellar arteries. Right Posterior Cerebral Artery: Normal P1 segment. Normal opacification of the distal POWDER COATER segments. Left Posterior Cerebral Artery: Normal P1 segment. Normal opacification of the distal POWDER COATER segments. Normal opacification of the superior sagittal, straight, transverse, and sigmoid sinuses. CT/CT angio head neck IMPRESSION: No arterial high grade stenosis or large vessel occlusion in the head or neck.
[2022-03-06 19:07] VITALS: BP 116/77; PULSE 64; O2SAT 95
--- NOTE | 2022-03-06 19:14 | ECG_ITS ---
Test Reason : STROKE Blood Pressure : / mmHG Vent. Rate : 062 BPM Atrial Rate : 062 BPM P-R Int : 182 ms QRS Dur : 100 ms QT Int : 428 ms P-R-T Axes : 036 -47 033 degrees QTc Int : 434 ms Normal sinus rhythm Left anterior fascicular block Moderate voltage criteria for LVH, may be normal variant ( R in aVL , Tab product ) NST Abnormal ECG When compared with ECG of 09-JAN-2022 13:37, No significant change was found Referred By: Loren De Leon Electronically Signed By:ERNESTINE ESTRADA MD
--- NOTE | 2022-03-06 19:16 | ED_ITS ---
HPI - General Adult General Chief complaint: Stroke Stated complaint: Overdose, AMS per EMS Time Seen by Provider: 03/06/22 19:10 Source: EMS Mode of arrival: EMS Limitations: altered mental status and other History of Present Illness HPI narrative: Patient comes to the emergency room via EMS. EMS reports that there was a language barrier between EMS and the patient's family. Patient has history of Alzheimer's and is unable to give any history. According to EMS, the crew was called to the house for altered mental status. EMS reports that they were unable to get any history, they do not know what the patient's baseline mental status is, they do not know if patient is on any narcotics or blood thinners. EMS reports that patient had pinpoint pupils, they gave him Narcan. Patient initially was somnolent and drooling, after Narcan patient woke up but still remains with altered mental status. But again, they do not know what the patient's baseline is. They were unable to get any history from the family. Patient unable to give any history. I called the patient's family, I was able to talk to 1 of the patient's daughters, they states that patient is usually ambulatory, is able to talk but usually he does not make any sense because of the dementia. However, today he is more lethargic than usual. I discussed the medical records with the patient's daughter who is the healthcare take her, seems that patient has history of [place] seizures and they were supposed to follow-up with neurology. Patient's family states that they were not aware of this. Related Data Home Medications Medication Instructions Recorded Confirmed atorvastatin 20 mg tablet (Lipitor) 20 mg PO BEDTIME 03/28/20 11/07/21 omeprazole 20 mg tablet,delayed 20 mg PO DAILY 03/28/20 11/07/21 release aspirin 325 mg tablet,delayed 1 tab PO DAILY 04/08/21 11/07/21 release trazodone 150 mg tablet 1 tab PO BEDTIME 04/09/21 11/07/21 cholecalciferol (vitamin D3) 25 1 tab DAILY 11/07/21 11/07/21 mcg (1,000 unit) tablet docusate sodium 50 mg/5 mL oral 10 ml PO BEDTIME PRN Constipation 11/07/21 11/07/21 liquid (Docu) melatonin 5 mg tablet 2 tab PO BEDTIME insomnia 11/07/21 11/07/21 memantine 10 mg tablet 1 tab PO BEDTIME 11/07/21 11/07/21 ropinirole 0.5 mg tablet 1 tab PO BEDTIME 11/07/21 11/07/21 Previous Rx's Medication Instructions Recorded carvedilol 3.125 mg tablet 3.125 mg PO BID #60 tabs 11/14/21 Allergies Allergy/AdvReac Type Severity Reaction Status Date / Time No Known Allergies Allergy Verified 08/19/21 15:11 [No Known Allergies*] Review of Systems Review of Systems: Yes Unobtainable due to mental condition [facility] Past Medical History Medical History Alzheimer disease Arthritis Cardiomyopathy Encephalitis GERD (gastroesophageal reflux disease) High cholesterol Hypertension Osteoarthritis Family History Family History Father Pacemaker Social History Social History Household Members: Significant Other Housing: Apartment Do you presently have visiting nurse or other home services: No Unable to assess alcohol history related to: Unable to respond Alcohol intake: never Patient Tobacco Use Status: Never used Tobacco e-Cigarette/Vaping Use: Never Used Advance Directives: Yes Advance Directives on File: Yes Advance Directives Date on File: 11/08/21 service: No Current occupational status: retired Current occupation: right handed Physical Exam ED Vital Signs: Vital Signs - 24 hr 03/06/22 19:28 03/06/22 19:50 03/06/22 20:23 Temperature 98.4 F 97.4 F Pulse Rate 66 60 60 Respiratory Rate 12 16 16 Blood Pressure 148/85 H 148/85 H 125/69 Pulse Oximetry 98 98 97 Oxygen Delivery Method Room Air Room Air Room Air 03/07/22 00:00 Temperature 97.9 F Pulse Rate 62 Respiratory Rate 15 Blood Pressure 143/97 H Pulse Oximetry 97 Oxygen Delivery Method Room Air BMI result Body Mass Index 21.4 Const Other: Appearance: Alert. Wakes up to his name, nonverbal Eyes: Pupils equal, round and reactive to light. ENT: Pharynx normal. Neck: Normal inspection. Neck supple. No lymph nodes noted. No crepitus CVS: Normal heart rate and rhythm. Pulses normal. Normal S1 and S2 Respiratory: No respiratory distress. Breath sounds normal. No Wheezing. No rales Abdomen: Soft and nontender. No rigidity. No distention. Skin: Skin warm and dry. Normal skin color. Normal skin turgor. Extremities: No lower extremity edema. No Lacerations. No Rash Neuro: Unable to participate in cranial nerve assessment Psych: calm, cooperative, normal affect Course Course Course Narrative: -will obtain CT scans and blood work. Medications Administered Discontinued Medications Generic Name Dose Route Start Last Admin Trade Name Freradha PRN Reason Stop Dose Admin Sodium Chloride 1,000 mls @ 999 mls/hr 03/06/22 19:14 03/06/22 19:47 Ns IVCONT 03/06/22 20:14 999 mls/hr .Q1H1M ONE Administration Iohexol 100 ml 03/06/22 21:49 03/06/22 21:49 Iohexol 350 Mg/Ml 100 Ml Infus..Btl IV 03/06/22 21:50 70 ml ONCE ONE Administration Medical Decision Making Medical Decision Making [facility] Narrative: -patient's white blood cell count within normal limits, urine is negative for UTI, patient does have blood in the urine from being straight cath. -head CT and CTA negative for any acute pathology -patient occasionally wakes up, then goes back to sleep, patient is nonverbal, not in distress -vitals stable. -unclear why patient is more lethargic than usual. -troponin x2 negative, no EKG changes -EMS reported that patient may have had some facial drooping by the time they picked him up but not present when they arrived emergency room. It is possible the patient may have had a TIA versus seizure and patient is postictal? -I discussed the patient Dr. Martin, patient being admitted Differential Diagnosis Differential Diagnoses: The differential diagnosis associated with the presentation includes (UTI, seizure, CVA, TIA) Admission/Observation Consideration of admission/observation: Escalation of care including admission/observation considered Consult Healthcare Provider Management of the patient was discussed with: Hospitalist Lab Data [facility] Lab Attestation statement: I reviewed the patient's lab results. 03/06/22 19:20 03/06/22 19:20 Labs: Lab Results 03/06/22 03/06/22 03/06/22 Range/Units 19:16 19:20 19:20 WBC 5.0 (4.8-10.8) X10*3/uL RBC 4.79 (4.60-5.80) X10*6/uL Hgb 14.6 (14.0-18.0) g/dl Hct 43.9 (42.0-52.0) % MCV 91.6 (80.0-98.0) fL MCH 30.5 (27.0-33.0) pg MCHC 33.3 (31.0-36.0) g/dl RDW 13.6 (11.0-16.0) % Plt Count 166 (160-400) X10*3/uL MPV 10.2 (9.4-12.4) fL Immature Gran % (Auto) 0.2 (0.0-0.4) % Neut % (Auto) 65.2 (45-73) % Lymph % (Auto) 25.1 (20-40) % Bradley % (Auto) 7.9 (2-11) % Eos % (Auto) 1.2 (0-4) % Baso % (Auto) 0.4 (0-2) % Lymph # (Auto) 1.2 (1.2-4.9) X10*3/uL Bradley # (Auto) 0.4 (0.1-1.2) X10*3/uL Eos # (Auto) 0.1 (0.0-0.4) X10*3/uL Baso # (Auto) 0.0 (0.0-0.2) X10*3/uL Abs Immat Gran (auto) 0.01 (0.00-0.03) X10*3/uL Absolute Neuts (auto) 3.2 (2.0-8.3) x10*3/uL Absolute Nucleated RBC 0.000 (0.0-0.012) X10*3/uL Nucleated RBC % (auto) 0.0 (0.0-0.2) /100WBC PT (10.0-13.1) SEC INR (0.9-1.1) VBG pH (7.32-7.43) VBG pCO2 mmHg VBG pO2 mmHg VBG HCO3 (22-26) mmol/L VBG O2 Saturation % VBG Base Excess mmol/L Sodium 137 (135-145) mmol/L Potassium 4.2 (3.3-5.1) mmol/L Chloride 102 (96-108) mmol/L Carbon Dioxide 25 (22-29) mmol/L Anion Gap 14 (12-20) BUN 25 H (9-16) mg/dL Creatinine 1.37 (0.5-1.4) mg/dL Estim Creat Clear Calc 32.3 Estimated GFR 49 POC Glucose 116 H (60-115) mg/dL Random Glucose 152 H (60-115) mg/dL Lactic Acid (0.5-2.0) mmol/L Calcium 9.6 (8.4-10.2) mg/dL Magnesium 1.7 (1.6-2.6) mg/dL Total Bilirubin 0.6 (0.0-1.0) mg/dL Direct Bilirubin 0.2 (0.0-0.5) mg/dL AST 20 (5-37) U/L ALT 10 (0-40) U/L Alkaline Phosphatase 89 (39-117) U/L Ammonia (13-55) umol/L Troponin I High Sens (<3.5-35.0) ng/L Total Protein 6.6 (6.5-8.0) g/dL Albumin 3.8 (3.5-5.0) g/dL Urine Color Urine Appearance Urine pH (5.0-9.0) Ur Specific Sears (1.005-1.025) Urine Protein (Neg-Trace) mg/dL Urine Glucose (UA) (Negative) mg/dL Urine Ketones (Negative) mg/dL Urine Blood (Negative) Urine Nitrite (Negative) Ur Leukocyte Esterase (Negative) Urine RBC (0-2) /HPF Urine WBC (0-5) /HPF Ur Squamous Epith Cells (0-2) /HPF Urine Bacteria (None Seen) Hyaline Casts (0-2) /LPF Urine Opiates Screen (Not Detect) Urine Fentanyl Screen (Not Detect) Ur Barbiturates Screen (Not Detect) Ur Phencyclidine Scrn (Not Detect) Ur Amphetamines Screen (Not Detect) U Benzodiazepines Scrn (Not Detect) Urine Cocaine Screen (Not Detect) U Marijuana (THC) Screen (Not Detect) Ethyl Alcohol mg/dL COVID-19 (JEY) (Negative) COVID-19 Clin Com 03/06/22 03/06/2223 Range/Units 19:20 19:20 19:20 WBC (4.8-10.8) X10*3/uL RBC (4.60-5.80) X10*6/uL Hgb (14.0-18.0) g/dl Hct (42.0-52.0) % MCV (80.0-98.0) fL MCH (27.0-33.0) pg MCHC (31.0-36.0) g/dl RDW (11.0-16.0) % Plt Count (160-400) X10*3/uL MPV (9.4-12.4) fL Immature Gran % (Auto) (0.0-0.4) % Neut % (Auto) (45-73) % Lymph % (Auto) (20-40) % Bradley % (Auto) (2-11) % Eos % (Auto) (0-4) % Baso % (Auto) (0-2) % Lymph # (Auto) (1.2-4.9) X10*3/uL Bradley # (Auto) (0.1-1.2) X10*3/uL Eos # (Auto) (0.0-0.4) X10*3/uL Baso # (Auto) (0.0-0.2) X10*3/uL Abs Immat Gran (auto) (0.00-0.03) X10*3/uL Absolute Neuts (auto) (2.0-8.3) x10*3/uL Absolute Nucleated RBC (0.0-0.012) X10*3/uL Nucleated RBC % (auto) (0.0-0.2) /100WBC PT 13.9 H (10.0-13.1) SEC INR 1.2 H (0.9-1.1) VBG pH (7.32-7.43) VBG pCO2 mmHg VBG pO2 mmHg VBG HCO3 (22-26) mmol/L VBG O2 Saturation % VBG Base Excess mmol/L Sodium (135-145) mmol/L Potassium (3.3-5.1) mmol/L Chloride (96-108) mmol/L Carbon Dioxide (22-29) mmol/L Anion Gap (12-20) BUN (9-16) mg/dL Creatinine (0.5-1.4) mg/dL Estim Creat Clear Calc Estimated GFR POC Glucose (60-115) mg/dL Random Glucose (60-115) mg/dL Lactic Acid (0.5-2.0) mmol/L Calcium (8.4-10.2) mg/dL Magnesium (1.6-2.6) mg/dL Total Bilirubin (0.0-1.0) mg/dL Direct Bilirubin (0.0-0.5) mg/dL AST (5-37) U/L ALT (0-40) U/L Alkaline Phosphatase (39-117) U/L Ammonia 24 (13-55) umol/L Troponin I High Sens 44.0 H (<3.5-35.0) ng/L Total Protein (6.5-8.0) g/dL Albumin (3.5-5.0) g/dL Urine Color Urine Appearance Urine pH (5.0-9.0) Ur Specific Sears (1.005-1.025) Urine Protein (Neg-Trace) mg/dL Urine Glucose (UA) (Negative) mg/dL Urine Ketones (Negative) mg/dL Urine Blood (Negative) Urine Nitrite (Negative) Ur Leukocyte Esterase (Negative) Urine RBC (0-2) /HPF Urine WBC (0-5) /HPF Ur Squamous Epith Cells (0-2) /HPF Urine Bacteria (None Seen) Hyaline Casts (0-2) /LPF Urine Opiates Screen (Not Detect) Urine Fentanyl Screen (Not Detect) Ur Barbiturates Screen (Not Detect) Ur Phencyclidine Scrn (Not Detect) Ur Amphetamines Screen (Not Detect) U Benzodiazepines Scrn (Not Detect) Urine Cocaine Screen (Not Detect) U Marijuana (THC) Screen (Not Detect) Ethyl Alcohol mg/dL COVID-19 (JEY) (Negative) COVID-19 Clin Com 03/06/22 03/06/22 03/06/22 Range/Units 19:20 19:20 20:16 WBC (4.8-10.8) X10*3/uL RBC (4.60-5.80) X10*6/uL Hgb (14.0-18.0) g/dl Hct (42.0-52.0) % MCV (80.0-98.0) fL MCH (27.0-33.0) pg MCHC (31.0-36.0) g/dl RDW (11.0-16.0) % Plt Count (160-400) X10*3/uL MPV (9.4-12.4) fL Immature Gran % (Auto) (0.0-0.4) % Neut % (Auto) (45-73) % Lymph % (Auto) (20-40) % Bradley % (Auto) (2-11) % Eos % (Auto) (0-4) % Baso % (Auto) (0-2) % Lymph # (Auto) (1.2-4.9) X10*3/uL Bradley # (Auto) (0.1-1.2) X10*3/uL Eos # (Auto) (0.0-0.4) X10*3/uL Baso # (Auto) (0.0-0.2) X10*3/uL Abs Immat Gran (auto) (0.00-0.03) X10*3/uL Absolute Neuts (auto) (2.0-8.3) x10*3/uL Absolute Nucleated RBC (0.0-0.012) X10*3/uL Nucleated RBC % (auto) (0.0-0.2) /100WBC PT (10.0-13.1) SEC INR (0.9-1.1) VBG pH (7.32-7.43) VBG pCO2 mmHg VBG pO2 mmHg VBG HCO3 (22-26) mmol/L VBG O2 Saturation % VBG Base Excess mmol/L Sodium (135-145) mmol/L Potassium (3.3-5.1) mmol/L Chloride (96-108) mmol/L Carbon Dioxide (22-29) mmol/L Anion Gap (12-20) BUN (9-16) mg/dL Creatinine (0.5-1.4) mg/dL Estim Creat Clear Calc Estimated GFR POC Glucose (60-115) mg/dL Random Glucose (60-115) mg/dL Lactic Acid 1.8 (0.5-2.0) mmol/L Calcium (8.4-10.2) mg/dL Magnesium (1.6-2.6) mg/dL Total Bilirubin (0.0-1.0) mg/dL Direct Bilirubin (0.0-0.5) mg/dL AST (5-37) U/L ALT (0-40) U/L Alkaline Phosphatase (39-117) U/L Ammonia (13-55) umol/L Troponin I High Sens (<3.5-35.0) ng/L Total Protein (6.5-8.0) g/dL Albumin (3.5-5.0) g/dL Urine Color Urine Appearance Urine pH (5.0-9.0) Ur Specific Sears (1.005-1.025) Urine Protein (Neg-Trace) mg/dL Urine Glucose (UA) (Negative) mg/dL Urine Ketones (Negative) mg/dL Urine Blood (Negative) Urine Nitrite (Negative) Ur Leukocyte Esterase (Negative) Urine RBC (0-2) /HPF Urine WBC (0-5) /HPF Ur Squamous Epith Cells (0-2) /HPF Urine Bacteria (None Seen) Hyaline Casts (0-2) /LPF Urine Opiates Screen (Not Detect) Urine Fentanyl Screen (Not Detect) Ur Barbiturates Screen (Not Detect) Ur Phencyclidine Scrn (Not Detect) Ur Amphetamines Screen (Not Detect) U Benzodiazepines Scrn (Not Detect) Urine Cocaine Screen (Not Detect) U Marijuana (THC) Screen (Not Detect) Ethyl Alcohol < 10 mg/dL COVID-19 (JEY) Negative (Negative) COVID-19 Clin Com See Note 03/06/22 03/06/22 03/06/22 Range/Units 20:36 22:43 22:43 WBC (4.8-10.8) X10*3/uL RBC (4.60-5.80) X10*6/uL Hgb (14.0-18.0) g/dl Hct (42.0-52.0) % MCV (80.0-98.0) fL MCH (27.0-33.0) pg MCHC (31.0-36.0) g/dl RDW (11.0-16.0) % Plt Count (160-400) X10*3/uL MPV (9.4-12.4) fL Immature Gran % (Auto) (0.0-0.4) % Neut % (Auto) (45-73) % Lymph % (Auto) (20-40) % Bradley % (Auto) (2-11) % Eos % (Auto) (0-4) % Baso % (Auto) (0-2) % Lymph # (Auto) (1.2-4.9) X10*3/uL Bradley # (Auto) (0.1-1.2) X10*3/uL Eos # (Auto) (0.0-0.4) X10*3/uL Baso # (Auto) (0.0-0.2) X10*3/uL Abs Immat Gran (auto) (0.00-0.03) X10*3/uL Absolute Neuts (auto) (2.0-8.3) x10*3/uL Absolute Nucleated RBC (0.0-0.012) X10*3/uL Nucleated RBC % (auto) (0.0-0.2) /100WBC PT (10.0-13.1) SEC INR (0.9-1.1) VBG pH 7.38 (7.32-7.43) VBG pCO2 50 mmHg VBG pO2 52 mmHg VBG HCO3 29 H (22-26) mmol/L VBG O2 Saturation 82.0 % VBG Base Excess 3.7 mmol/L Sodium (135-145) mmol/L Potassium (3.3-5.1) mmol/L Chloride (96-108) mmol/L Carbon Dioxide (22-29) mmol/L Anion Gap (12-20) BUN (9-16) mg/dL Creatinine (0.5-1.4) mg/dL Estim Creat Clear Calc Estimated GFR POC Glucose (60-115) mg/dL Random Glucose (60-115) mg/dL Lactic Acid (0.5-2.0) mmol/L Calcium (8.4-10.2) mg/dL Magnesium (1.6-2.6) mg/dL Total Bilirubin (0.0-1.0) mg/dL Direct Bilirubin (0.0-0.5) mg/dL AST (5-37) U/L ALT (0-40) U/L Alkaline Phosphatase (39-117) U/L Ammonia (13-55) umol/L Troponin I High Sens (<3.5-35.0) ng/L Total Protein (6.5-8.0) g/dL Albumin (3.5-5.0) g/dL Urine Color Yellow Urine Appearance Clear Urine pH 6.5 (5.0-9.0) Ur Specific Sears 1.020 (1.005-1.025) Urine Protein Negative (Neg-Trace) mg/dL Urine Glucose (UA) Negative (Negative) mg/dL Urine Ketones Negative (Negative) mg/dL Urine Blood Moderate (2+) H (Negative) Urine Nitrite Negative (Negative) Ur Leukocyte Esterase Negative (Negative) Urine RBC >20 H (0-2) /HPF Urine WBC 0-5 (0-5) /HPF Ur Squamous Epith Cells 0-2 (0-2) /HPF Urine Bacteria None Seen (None Seen) Hyaline Casts 0-2 (0-2) /LPF Urine Opiates Screen Not Detected (Not Detect) Urine Fentanyl Screen Not Detected (Not Detect) Ur Barbiturates Screen Not Detected (Not Detect) Ur Phencyclidine Scrn Not Detected (Not Detect) Ur Amphetamines Screen Not Detected (Not Detect) U Benzodiazepines Scrn Not Detected (Not Detect) Urine Cocaine Screen Not Detected (Not Detect) U Marijuana (THC) Screen Not Detected (Not Detect) Ethyl Alcohol mg/dL COVID-19 (JEY) (Negative) COVID-19 Clin Com 03/07/22 Range/Units 00:20 WBC (4.8-10.8) X10*3/uL RBC (4.60-5.80) X10*6/uL Hgb (14.0-18.0) g/dl Hct (42.0-52.0) % MCV (80.0-98.0) fL MCH (27.0-33.0) pg MCHC (31.0-36.0) g/dl RDW (11.0-16.0) % Plt Count (160-400) X10*3/uL MPV (9.4-12.4) fL Immature Gran % (Auto) (0.0-0.4) % Neut % (Auto) (45-73) % Lymph % (Auto) (20-40) % Bradley % (Auto) (2-11) % Eos % (Auto) (0-4) % Baso % (Auto) (0-2) % Lymph # (Auto) (1.2-4.9) X10*3/uL Bradley # (Auto) (0.1-1.2) X10*3/uL Eos # (Auto) (0.0-0.4) X10*3/uL Baso # (Auto) (0.0-0.2) X10*3/uL Abs Immat Gran (auto) (0.00-0.03) X10*3/uL Absolute Neuts (auto) (2.0-8.3) x10*3/uL Absolute Nucleated RBC (0.0-0.012) X10*3/uL Nucleated RBC % (auto) (0.0-0.2) /100WBC PT (10.0-13.1) SEC INR (0.9-1.1) VBG pH (7.32-7.43) VBG pCO2 mmHg VBG pO2 mmHg VBG HCO3 (22-26) mmol/L VBG O2 Saturation % VBG Base Excess mmol/L Sodium (135-145) mmol/L Potassium (3.3-5.1) mmol/L Chloride (96-108) mmol/L Carbon Dioxide (22-29) mmol/L Anion Gap (12-20) BUN (9-16) mg/dL Creatinine (0.5-1.4) mg/dL Estim Creat Clear Calc Estimated GFR POC Glucose (60-115) mg/dL Random Glucose (60-115) mg/dL Lactic Acid (0.5-2.0) mmol/L Calcium (8.4-10.2) mg/dL Magnesium (1.6-2.6) mg/dL Total Bilirubin (0.0-1.0) mg/dL Direct Bilirubin (0.0-0.5) mg/dL AST (5-37) U/L ALT (0-40) U/L Alkaline Phosphatase (39-117) U/L Ammonia (13-55) umol/L Troponin I High Sens 45.0 H (<3.5-35.0) ng/L Total Protein (6.5-8.0) g/dL Albumin (3.5-5.0) g/dL Urine Color Urine Appearance Urine pH (5.0-9.0) Ur Specific Sears (1.005-1.025) Urine Protein (Neg-Trace) mg/dL Urine Glucose (UA) (Negative) mg/dL Urine Ketones (Negative) mg/dL Urine Blood (Negative) Urine Nitrite (Negative) Ur Leukocyte Esterase (Negative) Urine RBC (0-2) /HPF Urine WBC (0-5) /HPF Ur Squamous Epith Cells (0-2) /HPF Urine Bacteria (None Seen) Hyaline Casts (0-2) /LPF Urine Opiates Screen (Not Detect) Urine Fentanyl Screen (Not Detect) Ur Barbiturates Screen (Not Detect) Ur Phencyclidine Scrn (Not Detect) Ur Amphetamines Screen (Not Detect) U Benzodiazepines Scrn (Not Detect) Urine Cocaine Screen (Not Detect) U Marijuana (THC) Screen (Not Detect) Ethyl Alcohol mg/dL COVID-19 (JEY) (Negative) COVID-19 Clin Com Independent Interpretation I performed an independent interpretation of an: CT Scan Interpretation: My interpretation: No acute intracranial bleed Radiology Impression Discussion of test interpretation with radiology: I have reviewed the radiologist's reading. Radiologist Impression: FINDINGS: CT Head: There is no evidence of acute intracranial hemorrhage or edematous territorial infarction. Scattered hypoattenuation in the periventricular and deep white matter are consistent with moderate microangiopathy. Alatorre-white matter differentiation is preserved. Proportional prominence of the ventricles and sulcal spaces. No evidence for obstructive hydrocephalus. No abnormal mass effect or midline shift. No extra-axial fluid collections. No pathologic intra-axial enhancement or regional oligemia. No acute soft tissue or osseous abnormalities. The mastoid air cells and paranasal sinuses are clear. CT Neck: The thyroid gland and remaining cervical soft tissues are within normal limits. Moderate multilevel degenerative changes of the cervical spine. CT Upper Chest: The visualized lung apices and upper mediastinum are within normal limits. Calcified mediastinal and right hilar lymph nodes likely reflect sequela of prior granulomatous infection. There are several small calcified granulomas in the right lung. Neck CTA: Aortic Arch: Normal contour and caliber. Classic 3 vessel branching pattern of the aortic arch. Great Vessel Origins: No significant stenosis of the branch origins. Right Common Carotid Artery: No focal stenosis or occlusion. Cervical Right Internal Carotid Artery: Normal opacification without focal stenosis or occlusion. Left Common Carotid Artery: No focal stenosis or occlusion. Cervical Left Internal Carotid Artery: Normal opacification without focal stenosis or occlusion. Cervical Right Vertebral Artery: No focal stenosis or occlusion. Cervical Left Vertebral Artery: No focal stenosis or occlusion. Brain CTA: Intracranial Internal Carotid Arteries: Calcific atherosclerotic disease of the intracranial internal carotid arteries without occlusion or flow-limiting stenosis. Right Anterior Cerebral Artery: Normal A1 segment. Normal opacification of the distal PILAR segments. Left Anterior Cerebral Artery: Normal A1 segment. Normal opacification of the distal PILAR segments. Anterior Communicating Artery: Normal. Right Middle Cerebral Artery: Normal M1 segment of the MCA without focal stenosis or occlusion. Normal arborization of the distal segments. Left Middle Cerebral Artery: Normal M1 segment of the MCA without focal stenosis or occlusion. Normal arborization of the distal segments. Right Vertebral Artery: Normal V4 segment. Left Vertebral Artery: Normal V4 segment. Basilar Artery: Normal without focal stenosis or occlusion. Normal appearance of the proximal superior cerebellar arteries. Right Posterior Cerebral Artery: Normal P1 segment. Normal opacification of the distal IC DESIGN[employer] STAND[employer] CELLS segments. Left Posterior Cerebral Artery: Normal P1 segment. Normal opacification of the distal IC DESIGNER STANDARD CELLS segments. Normal opacification of the superior sagittal, straight, transverse, and sigmoid sinuses. CT/CT angio head neck IMPRESSION: ? No arterial high grade stenosis or large vessel occlusion in the head or neck.? External Record Review External record reviewed: Office record (I reviewed Dr. Manish Zaman neurology notes from 04/09/2021, he recommended an outpatient EEG to rule out seizure disorder) Critical Care Time Critical Care Time Critical Care Time: Yes Total Critical Care Time: 60 Attestation: I have personally provided critical care time. Time includes review of lab data, radiology results, discussion with consultants, and monitoring for potential decompensation. Intervention performed as documented. Discharge Plan Discharge Clinical Impression: Encephalopathy, Dementia Patient Disposition: Admitted As Inpatient Prescriptions: No Action aspirin 325 mg tablet,delayed release (DR/EC) 1 tab PO DAILY trazodone 150 mg tablet 1 tab PO BEDTIME docusate sodium [Docu] 50 mg/5 mL liquid 10 ml PO BEDTIME PRN (Reason: Constipation) ropinirole 0.5 mg tablet 1 tab PO BEDTIME memantine 10 mg tablet 1 tab PO BEDTIME cholecalciferol (vitamin D3) 25 mcg (1,000 unit) tablet 1 tab DAILY melatonin 5 mg tablet 2 tab PO BEDTIME carvedilol 3.125 mg Tablet 3.125 mg PO BID Qty: 60 0RF Protocol: Hold for SBP/HR < HOLD for SBP < : 90 HOLD for HR < : 60 omeprazole 20 mg tablet,delayed release (DR/EC) 20 mg PO DAILY atorvastatin [Lipitor] 20 mg tablet 20 mg PO BEDTIME
[2022-03-06 19:26] LABS: Basophils Percent Auto 0.4 % (0-2); Eosinophils Absolute Auto 0.1 X10*3/uL (0.0-0.4); Eosinophils Percent Auto 1.2 % (0-4); Hematocrit 43.9 % (42.0-52.0); Hemoglobin 14.6 g/dl (14.0-18.0); Imm Gran Abs Auto 0.01 X10*3/uL (0.00-0.03); Imm Gran Pct Auto 0.2 % (0.0-0.4); Lymphocytes Absolute Auto 1.2 X10*3/uL (1.2-4.9); Lymphocytes Percent Auto 25.1 % (20-40); MANUAL DIFF FLAG NO; Mean Corpuscular HGB Conc 33.3 g/dl (31.0-36.0); Mean Corpuscular Hemoglobin 30.5 pg (27.0-33.0); Mean Corpuscular Volume 91.6 fL (80.0-98.0); Mean Platelet Volume 10.2 fL (9.4-12.4); Monocytes Absolute Auto 0.4 X10*3/uL (0.1-1.2); Monocytes Percent Auto 7.9 % (2-11); Neutrophils Absolute Auto 3.2 x10*3/uL (2.0-8.3); Neutrophils Percent Auto 65.2 % (45-73); Platelet Count 166 X10*3/uL (160-400); Red Blood Count 4.79 X10*6/uL (4.60-5.80); Red Cell Distribution Width 13.6 % (11.0-16.0)
[2022-03-06 19:28] VITALS: BP 148/85; PULSE 66; RESP 12; O2SAT 98; BMI 21.4
[2022-03-06 19:28] LABS: Glucose, Whole Blood 116 mg/dL (60-115)
[2022-03-06 19:33] LABS: INTERNATIONAL NORM RATIO 1.2 (0.9-1.1); Prothrombin Time 13.9 SEC (10.0-13.1)
[2022-03-06 19:34] LABS: Ammonia 24 umol/L (13-55)
[2022-03-06 19:38] LABS: COVID-19 Test Negative (Negative); IDNOW Serial# 16C4AD1C
--- NOTE | 2022-03-06 19:39 | PC.NURSE ---
pt arrived at ED non verbal, per EMS pt found unresponsive in recliner by family, pt responsive to sternal rub, given 5mg IN narcan, hx alzheimers, htn. EMS stated left-sided facial droop on arrival, drooling. query stroke/seizure? labs drawn, 20G IV placed R hand, pt to CT scan. pt hypertensive, other vitals WNL.
--- OUTSIDE RECORDS SUMMARY | 2022-03-06 19:39 | XMS_ITS ---
:1935 Author Name Douglas Nguyễn Care Team Providers Name Role Phone Douglas Nguyễn Unavailable Unavailable PROBLEMS Type Condition ICD9-CM Code [id number] Code Onset Condition SNO MED Code Dates Status Problem Parkinson G20 Active 42043487 disease Problem Alzheimer's G30.9 Active 36820152 disease, unspecified ALLERGIES No Known Allergies ENCOUNTERS Encounter Location Date [facility], [place] [address] [facility] [address] [facility] 301 Sep, Tinea malinda uium B35.1 ; [place], [place] Pain in right to e(s) [address] M79.674 ; Pain i n left toe(s) M79.675 ; Ingrowing nail L 60.0 ; Skin disease L98 .9 ; Parkinson diseas e G20 and Alzheimer's disease, unspeci fied G30.9 IMMUNIZATIONS No Known Immunizations SOCIAL HISTORY Qualifiers Date Former Smoker REASON FOR REFERRAL FUNCTIONAL STATUS PLAN OF CARE VITAL SIGNS Height 5ft 2in in 2021-10-05 Weight 130 lbs 2021-10-05 BMI 23.77 kg/m2 2021-10-05 MEDICATIONS Medication Instructions Dosage Frequency Start End Duration Statu s Date Date Aspirin 325 MG Orally Once a 1 tablet 24h 30 day(s) Active day rOPINIRole HCl Orally Once a 1 tablet 1 24h 30 day(s ) Active 0.25 MG day to 3 hours before bedtime traZODone HCl Active Atorvastatin Orally Once a 1 tablet 24h 30 day(s) Ac tive Calcium 20 MG day Memantine HCl 10 Orally Twice a 1 tablet 12h 30 day( s) Active MG day Omeprazole 10 MG Orally Once a 1 capsule 24h 30 day( s) Active day 30 minutes before morning meal Melatonin 5 MG Orally Once a 1 tablet in 24h 30 day( s) Active day the evening Vitamin D3 25 Orally Once a 1 tablet 24h 30 day(s) A ctive MCG (1000 UT) day PROCEDURES Procedure Date Ordered Result Body Site Avulsion Plate Oct 05, 2021 DEBRIDE NAIL, 6 OR MORE Oct 05, 2021 DEBRIDE NAIL, 6 OR MORE Feb 01, 2022 RESULTS No Results REASON FOR VISIT Insurance Providers [facility] Member Patient Patient Patient Patient Patient Subscriber Subscriber Subscriber Group Insurance Plan Plan Plan Plan ID Relationship Address Phone Name Date of ID Name Date of No Type Insurance Insurance Insurance Coverage to Subscriber Address Phone Name Dates [employer] [facility] [phone] [employer]al self Mayur 19 [id number] th Care Claims [address] [place] [address] [facility] [address] MEDICAL (GENERAL) HISTORY Type Description Date Medical History Alzheimers disease Medical History Arthritis Medical History Back,Hip,and Knee pain Medical History Parkinsons disease Surgical History No Surgical history information Hospitalization History dizzy 08/2021
[2022-03-06 19:40] LABS: Ethanol < 10 mg/dL
[2022-03-06 19:41] LABS: Alanine Aminotransferase 10 U/L (0-40); Albumin Level 3.8 g/dL (3.5-5.0); Alkaline Phosphatase 89 U/L (39-117); Anion Gap 14 (12-20); Aspartate Amino Transferase 20 U/L (5-37); Bilirubin Direct 0.2 mg/dL (0.0-0.5); Bilirubin Total 0.6 mg/dL (0.0-1.0); Blood Urea Nitrogen 25 mg/dL (9-16); Calcium 9.6 mg/dL (8.4-10.2); Carbon Dioxide 25 mmol/L (22-29); Chloride 102 mmol/L (96-108); Creatinine Clr Calc Pharmacy 32.3; Estimated Glomerular Filt Rate 49; Glucose Random 152 mg/dL (60-115); Magnesium 1.7 mg/dL (1.6-2.6); Potassium 4.2 mmol/L (3.3-5.1); Sodium 137 mmol/L (135-145); Total Protein 6.6 g/dL (6.5-8.0)
[2022-03-06] MEDS: 0.9 % Sodium Chloride 1,000 ML 999 ML IVCONT (19:47)
[2022-03-06 19:50] VITALS: BP 148/85; PULSE 60; RESP 16; TEMP 36.9; O2SAT 98
--- NOTE | 2022-03-06 19:54 | PC.NURSE ---
Assessment: Pt's V/ S are stable, pt is asleep, pt has IVF running as order. IV 20g was inserted on his right wrist. Pt Neuro [id number]: no new facial droopiness, bilaterally strength upper/lower extremities. Pt is urinary and bowel incontinence. PT has hx of stroke, Alzheimer. pt's family were not aware of when the symptoms started. Pt is on the continuos featheredger and reducer machine and it shows, a second degree block. Pt also has hx of seizures and he has a seizure precautions.
[2022-03-06 20:23] VITALS: BP 125/69; PULSE 60; RESP 16; TEMP 36.3; O2SAT 97
--- NOTE | 2022-03-06 20:23 | MHC.EDTECH ---
this pct assumed care of patient at 1945 ,patient vitals sign taken ekg and blood , culture and lactic acid drawn and send to lab ,patient was change into hospital attire ,patient was incontinent of urine ,care given linen change ,patient was hooked up to film splicer ,seizure pads in place ,call hall within reach ,patient is resting quietly .
[2022-03-06 20:43] LABS: Venous Blood Gas Refer to POC result
[2022-03-06 20:43] LABS: VBG Base Excess 3.7 mmol/L; VBG HCO3 29 mmol/L (22-26); VBG pCO2 50 mmHg; VBG pH 7.38 (7.32-7.43); VBG pO2 52 mmHg
[2022-03-06 20:52] LABS: Lactic Acid 1.8 mmol/L (0.5-2.0)
[2022-03-06] MEDS: iohexoL 350 MG/ML 100 ML INFUS..BTL IV (21:49)
[2022-03-06 22:52] LABS: Appearance Urine Clear; Color Urine Yellow; Glucose Urine UA Negative (Negative); Leukocyte Esterase Urine Negative (Negative); Nitrite Urine Negative (Negative); PH 6.5 (5.0-9.0); UMIC TRIGGER UACC YES; Urine Blood Moderate (2+) (Negative); Urine Ketones Negative (Negative); Urine Protein Negative (Neg-Trace)
[2022-03-06 22:58] LABS: Bacteria Urine None Seen (None Seen); Hyaline Casts Urine 0-2 /LPF (0-2); RBC Urine >20 /HPF (0-2); Squamous Epithelial Cell Urine 0-2 /HPF (0-2); WBC Urine 0-5 /HPF (0-5)
[2022-03-06 23:14] LABS: Amphetamine Screen Urine Not Detected (Not Detect); Barbiturates, Urine Not Detected (Not Detect); Benzodiazepines Screen Urine Not Detected (Not Detect); Cannabinoid Screen Urine Not Detected (Not Detect); Cocaine Screen Urine Not Detected (Not Detect); Fentanyl, urine Not Detected (Not Detect); Opiate Screen Urine Not Detected (Not Detect); Phencyclidine Screen Urine Not Detected (Not Detect)
--- NOTE | 2022-03-06 23:54 | ECG_ITS ---
Test Reason : HIGH TROP Blood Pressure : / mmHG Vent. Rate : 062 BPM Atrial Rate : 062 BPM P-R Int : 192 ms QRS Dur : 096 ms QT Int : 420 ms P-R-T Axes : 016 -47 -04 degrees QTc Int : 426 ms Normal sinus rhythm Left anterior fascicular block Moderate voltage criteria for LVH, may be normal variant ( R in aVL , [place] product ) Nonspecific T wave abnormality Abnormal ECG When compared with ECG of 06-MAR-2022 19:38, Nonspecific T wave abnormality no longer evident in Inferior leads Referred By: Loren De Leon Electronically Signed By:ERNESTINE ESTRADA MD
[2022-03-07] VITALS: BP 143/97; PULSE 62; RESP 15; TEMP 36.6; O2SAT 97
--- NOTE | 2022-03-07 | MHC.EDTECH ---
this pct assumed care of pt at 2300 ,patient repeated ekg and repeated trop done ,vitals sign taken ,patient daughter at bed side ,patient is asleep and is dry ,call hall within reach .
[2022-03-07 01:11] VITALS: BP 147/85; PULSE 56; RESP 16; TEMP 36.9; O2SAT 97
--- OUTSIDE RECORDS SUMMARY | 2022-03-07 01:18 | XMS_ITS ---
:1935 Author Name Douglas Nguyễn Care Team Providers Name Role Phone Douglas Nguyễn Unavailable Unavailable PROBLEMS Type Condition ICD9-CM Code KZW26-[id number] Code Onset Condition SNO MED Code Dates Status Problem Parkinson G20 Active 41691014 disease Problem Alzheimer's G30.9 Active 77888017 disease, unspecified ALLERGIES No Known Allergies ENCOUNTERS [facility]counter [facility], [place] [address] [facility] [address] [facility] 301 Sep, Tinea malinda uium B35.1 ; [place], [place] Pain in right to e(s) [address] M79.674 ; Pain i n left toe(s) [...] No Results REASON FOR VISIT Insurance Providers [facility] Member Patient Patient Patient Patient Patient Subscriber Subscriber Subscriber Group Insurance Plan Plan Plan Plan ID Relationship Address Phone Name Date of ID Name Date of No Type Insurance Insurance Insurance Coverage to Subscriber Address Phone Name Dates [employer] [facility] [phone] Common[employer]al self Mayur 19 [id number] th Care Claims [address] [address] [facility] [address] MEDICAL (GENERAL) HISTORY Type Description Date Medical History Alzheimers disease Medical History Arthritis Medical History Back,Hip,and Knee pain Medical History Parkinsons disease Surgical History No Surgical history information Hospitalization History dizzy 08/2021
--- OUTSIDE RECORDS SUMMARY | 2022-03-07 01:18 | XMS_ITS | Continuity of Care Document ---
:1935 Author Organization [facility] Address [address] [place] [id number]- Care Team Providers Name Role Phone Douglas Nguyễn MD Primary Care Physician Encounter [facility] Date(s): 09/05/21 - 09/05/[address] [address]- Encounter Diagnosis Syncope (Final) - 09/05/21 Alzheimer disease (Final) - 09/05/21 Discharge Disposition: A-D/C Home Attending Physician: Nicole Mccabe MD Admitting Physician: Nicole Mccabe MD Referring Physician: Not on Staff, Referring MD Results Radiology Reports Exam Date Time Procedure Performing Provider Status 09/05/21 12:30 PM Chest Portable Francie Davila ([facility] ed) Notes:(Chest Portable) Reason For Exam: Shortness of BreathRESULT: Chest Portable Chest Portable INDICATION: Syncope COMPARISON: None. FINDINGS: LINES AND TUBES: None. LUNGS AND PLEURA: Clear lungs. Normal pulmonary vascularity. No pleural effusion. No pneumothorax. HEART, MEDIASTINUM AND MARIAJOSE: Heart is normal in size. Normal upper mediastinal and hilar contour. BONES AND SOFT TISSUES: No acute abnormality. IMPRESSION: No acute abnormality. WSN: [id number] Ordering Physician: Nicole Mccabe Dictated By: Chris Boyce MD Dictated Date/Time: 09/05/21 12:48 p Reviewed By: Chris Boyce MD Signed By: Chris Boyce MD Signed Date/Time: 09/05/21 12:48 pm Transcribed By: ANGELICA Transcribed Date/Time: 09/05/21 12:48 pm Vital Signs Most recent to oldest 1 2 3 [Reference Range]: Oxygen Saturation [94-100 %] 99 % 96 % 100 % (09/05/21 2:12 PM) (09/05/21 12:33 PM) (09/05/21 11 :03 AM) Pulse Rate [55-90 bpm] 70 bpm 64 bpm 78 bpm (09/05/21 2:16 PM) (09/05/21 12:33 PM) (09/05/21 11 :03 AM) Blood Pressure [90-138/55-84 154/81 mm Hg 156/101 mm Hg 144 /100 mm Hg mm Hg] *H* *H* *H* (09/05/21 2:12 PM) (09/05/21 12:33 PM) (09/05/21 11 :03 AM) Respiratory Rate [16-30 18 br/min 14 br/min 16 br/mi n br/min] (09/05/21 2:12 PM) *L* (09/05/21 11:03 AM) (09/05/21 12:33 PM) Temperature [96.8-100.4 98.3 DegF 97 DegF DegF] (09/05/21 2:12 PM) (09/05/21 11:03 AM) Mode of Delivery (Oxygen) Room air Room air Room a ir (09/05/21 12:33 PM) (09/05/21 11:03 AM) (09/05/21 1 0:50 AM) Blood pressure sites Arm, left Arm, left Arm, left (09/05/21 2:12 PM) (09/05/21 12:33 PM) (09/05/21 11 :03 AM) Temperature Route Axillary Axillary (09/05/21 2:12 PM) (09/05/21 11:03 AM)
[2022-03-07] MEDS: Enoxaparin Sodium 40 MG/0.4 ML SYRINGE SUBCUT (01:34)
--- NOTE | 2022-03-07 02:41 | P.HPHOSP_ITS ---
History of Present Illness Date of Service: 03/07/22 Chief Complaint: Altered mentation, drooling This is a 87 year old male with pertinent history of Alzheimer's dementia, mixed hyperlipidemia, gastroesophageal reflux disease, essential hypertension who was brought to the emergency department by EMS for concerns of altered mentation/facial droop/drooling from face. Patient unable to provide any history and is only withdrawing to painful stimulus at the time of my evaluation. As per EMS, patient had pinpoint pupils and was somnolent upon their arrival. He was also drooling and he woke up after Narcan. Unknown patient's baseline mental status. As per 1 of the daughters, patient is usually talking although he does not make any sense due to dementia. He was sent as he was more lethargic/somnolent and drooling from the face. Patient may have a history of possible seizures and was supposed to follow up with Neurology as an outpatient. Unable to obtain review of systems Review of Systems Review of Systems: Yes Unobtainable due to mental condition and Unobtainable due to mental status [facility] Medical History Alzheimer disease Arthritis Cardiomyopathy Encephalitis GERD (gastroesophageal reflux disease) High cholesterol Hypertension Osteoarthritis Family History Father Pacemaker Social History Household Members: Significant Other Housing: Apartment Do you presently have visiting nurse or other home services: No Unable to assess alcohol history related to: Unable to respond Alcohol intake: never Patient Tobacco Use Status: Never used Tobacco e-Cigarette/Vaping Use: Never Used Advance Directives: Yes Advance Directives on File: Yes Advance Directives Date on File: 11/08/21 service: No Current occupational status: retired Current occupation: right handed Meds Allergies Allergy/AdvReac Type Severity Reaction Status Date / Time No Known Allergies Allergy Verified 08/19/21 15:11 [No Known Allergies*] Active Medications: Current Medications Acetaminophen (Acetaminophen 325 Mg Tablet) 650 mg PO Q6H PRN PRN Reason: Pain, Mild (Pain Scale 1-3) Enoxaparin Sodium (Enoxaparin Sodium 40 Mg/0.4 Ml Syringe) 40 mg SUBCUT Q24H [facility] Last Admin: 03/07/22 01:34 Dose: 40 mg Melatonin (Melatonin 3 Mg Tablet) 6 mg PO BEDTIME PRN PRN Reason: Insomnia Ondansetron HCl (Ondansetron Hcl 4 Mg/2 Ml Vial) 4 mg IVPUSH Q8H PRN PRN Reason: Nausea and Vomiting Sodium Chloride (0.9 % Sodium Chloride Flush 3 Ml Syringe) 3 ml IVFLUSH QSHIFT [facility] Home Medications Medication Instructions Recorded Confirmed Last Taken Type atorvastatin 20 mg tablet (Lipitor) 20 mg PO BEDTIME 03/28/20 11/07/21 Unknown History omeprazole 20 mg tablet,delayed 20 mg PO DAILY 03/28/20 11/07/21 Unknown History release aspirin 325 mg tablet,delayed 1 tab PO DAILY 04/08/21 11/07/21 Unknown History release trazodone 150 mg tablet 1 tab PO BEDTIME 04/09/21 11/07/21 Unknown History cholecalciferol (vitamin D3) 25 1 tab DAILY 11/07/21 11/07/21 Unknown History mcg (1,000 unit) tablet docusate sodium 50 mg/5 mL oral 10 ml PO BEDTIME PRN Constipation 11/07/21 11/07/21 Unknown History liquid (Docu) melatonin 5 mg tablet 2 tab PO BEDTIME insomnia 11/07/21 11/07/21 Unknown Hi story memantine 10 mg tablet 1 tab PO BEDTIME 11/07/21 11/07/21 Unknown History ropinirole 0.5 mg tablet 1 tab PO BEDTIME 11/07/21 11/07/21 Unknown History Physical Exam Vital Signs and Narrative: Vital Signs: Last Vital Signs Temp 98.4 F 03/07/22 01:11 Pulse 56 03/07/22 01:11 Resp 16 03/07/22 01:11 BP 147/85 H 03/07/22 01:11 Pulse Ox 97 03/07/22 01:11 O2 Del Method 03/07/22 01:11 BMI result Body Mass Index 21.4 Elderly male lying in bed in no distress Neck supple, no JVD Regular rate and rhythm, S1-S2 heard Regular breath sounds bilaterally, no wheezing or crackles appreciated Abdomen soft nontender, no guarding, no rigidity Patient is somnolent and only withdrawing to painful stimulus Psych: Somnolent No pedal edema Results Labs 03/06/22 19:20 03/06/22 19:20 Labs: Laboratory Results - last 24 hr 03/06/22 03/06/22 03/06/22 19:16 19:20 19:20 MCV 91.6 MCH 30.5 MCHC 33.3 RDW 13.6 Plt Count 166 MPV 10.2 Immature Gran % (Auto) 0.2 Neut % (Auto) 65.2 Lymph % (Auto) 25.1 [place] % (Auto) 7.9 Eos % (Auto) 1.2 Baso % (Auto) 0.4 Lymph # (Auto) 1.2 [place] # (Auto) 0.4 Eos # (Auto) 0.1 Baso # (Auto) 0.0 Abs Immat Gran (auto) 0.01 Absolute Neuts (auto) 3.2 Absolute Nucleated RBC 0.000 Nucleated RBC % (auto) 0.0 PT INR VBG pH VBG pCO2 VBG pO2 VBG HCO3 VBG O2 Saturation VBG Base Excess Anion Gap 14 Estim Creat Clear Calc 32.3 Estimated GFR 49 POC Glucose 116 H Random Glucose 152 H Lactic Acid Calcium 9.6 Magnesium 1.7 Total Bilirubin 0.6 Direct Bilirubin 0.2 AST 20 ALT 10 Alkaline Phosphatase 89 Ammonia Troponin I High Sens Total Protein 6.6 Albumin 3.8 Urine Color Urine Appearance Urine pH Ur Specific [place] Urine Protein Urine Glucose (UA) Urine Ketones Urine Blood Urine Nitrite Ur Leukocyte Esterase Urine RBC Urine WBC Ur Squamous Epith Cells Urine Bacteria Hyaline Casts Urine Opiates Screen Urine Fentanyl Screen Ur Barbiturates Screen Ur Phencyclidine Scrn Ur Amphetamines Screen U Benzodiazepines Scrn Urine Cocaine Screen U Marijuana (THC) Screen Ethyl Alcohol COVID-19 ([facility]) COVID-19 Clin Com 03/06/22 03/06/22 03/06/22 19:20 19:20 19:20 MCV MCH MCHC RDW Plt Count MPV Immature Gran % (Auto) Neut % (Auto) Lymph % (Auto) [place] % (Auto) Eos % (Auto) Baso % (Auto) Lymph # (Auto) [place] # (Auto) Eos # (Auto) Baso # (Auto) Abs Immat Gran (auto) Absolute Neuts (auto) Absolute Nucleated RBC Nucleated RBC % (auto) PT 13.9 H INR 1.2 H VBG pH VBG pCO2 VBG pO2 VBG HCO3 VBG O2 Saturation VBG Base Excess Anion Gap Estim Creat Clear Calc Estimated GFR POC Glucose Random Glucose Lactic Acid Calcium Magnesium Total Bilirubin Direct Bilirubin AST ALT Alkaline Phosphatase Ammonia 24 Troponin I High Sens 44.0 H Total Protein Albumin Urine Color Urine Appearance Urine pH Ur Specific [place] Urine Protein Urine Glucose (UA) Urine Ketones Urine Blood Urine Nitrite Ur Leukocyte Esterase Urine RBC Urine WBC Ur Squamous Epith Cells Urine Bacteria Hyaline Casts Urine Opiates Screen Urine Fentanyl Screen Ur Barbiturates Screen Ur Phencyclidine Scrn Ur Amphetamines Screen U Benzodiazepines Scrn Urine Cocaine Screen U Marijuana (THC) Screen Ethyl Alcohol COVID-19 ([facility]) COVID-19 Clin Com 03/06/22 03/06/22 03/06/22 19:20 19:20 20:16 MCV MCH MCHC RDW Plt Count MPV Immature Gran % (Auto) Neut % (Auto) Lymph % (Auto) [place] % (Auto) Eos % (Auto) Baso % (Auto) Lymph # (Auto) [place] # (Auto) Eos # (Auto) Baso # (Auto) Abs Immat Gran (auto) Absolute Neuts (auto) Absolute Nucleated RBC Nucleated RBC % (auto) PT INR VBG pH VBG pCO2 VBG pO2 VBG HCO3 VBG O2 Saturation VBG Base Excess Anion Gap Estim Creat Clear Calc Estimated GFR POC Glucose Random Glucose Lactic Acid 1.8 Calcium Magnesium Total Bilirubin Direct Bilirubin AST ALT Alkaline Phosphatase Ammonia Troponin I High Sens Total Protein Albumin Urine Color Urine Appearance Urine pH Ur Specific [place] Urine Protein Urine Glucose (UA) Urine Ketones Urine Blood Urine Nitrite Ur Leukocyte Esterase Urine RBC Urine WBC Ur Squamous Epith Cells Urine Bacteria Hyaline Casts Urine Opiates Screen Urine Fentanyl Screen Ur Barbiturates Screen Ur Phencyclidine Scrn Ur Amphetamines Screen U Benzodiazepines Scrn Urine Cocaine Screen U Marijuana (THC) Screen Ethyl Alcohol < 10 COVID-19 ([facility]) Negative COVID-19 Clin Com See Note 03/06/22 03/06/22 03/06/22 20:36 22:43 22:43 MCV MCH MCHC RDW Plt Count MPV Immature Gran % (Auto) Neut % (Auto) Lymph % (Auto) [place] % (Auto) Eos % (Auto) Baso % (Auto) Lymph # (Auto) [place] # (Auto) Eos # (Auto) Baso # (Auto) Abs Immat Gran (auto) Absolute Neuts (auto) Absolute Nucleated RBC Nucleated RBC % (auto) PT INR VBG pH 7.38 VBG pCO2 50 VBG pO2 52 VBG HCO3 29 H VBG O2 Saturation 82.0 VBG Base Excess 3.7 Anion Gap Estim Creat Clear Calc Estimated GFR POC Glucose Random Glucose Lactic Acid Calcium Magnesium Total Bilirubin Direct Bilirubin AST ALT Alkaline Phosphatase Ammonia Troponin I High Sens Total Protein Albumin Urine Color Yellow Urine Appearance Clear Urine pH 6.5 Ur Specific [place] 1.020 Urine Protein Negative Urine Glucose (UA) Negative Urine Ketones Negative Urine Blood Moderate (2+) H Urine Nitrite Negative Ur Leukocyte Esterase Negative Urine RBC >20 H Urine WBC 0-5 Ur Squamous Epith Cells 0-2 Urine Bacteria None Seen Hyaline Casts 0-2 Urine Opiates Screen Not Detected Urine Fentanyl Screen Not Detected Ur Barbiturates Screen Not Detected Ur Phencyclidine Scrn Not Detected Ur Amphetamines Screen Not Detected U Benzodiazepines Scrn Not Detected Urine Cocaine Screen Not Detected U Marijuana (THC) Screen Not Detected Ethyl Alcohol COVID-19 ([facility]) COVID-19 [facility] Com 03/07/22 00:20 MCV MCH MCHC RDW Plt Count MPV Immature Gran % (Auto) Neut % (Auto) Lymph % (Auto) [place] % (Auto) Eos % (Auto) Baso % (Auto) Lymph # (Auto) [place] # (Auto) Eos # (Auto) Baso # (Auto) Abs Immat Gran (auto) Absolute Neuts (auto) Absolute Nucleated RBC Nucleated RBC % (auto) PT INR VBG pH VBG pCO2 VBG pO2 VBG HCO3 VBG O2 Saturation VBG Base Excess Anion Gap Estim Creat Clear Calc Estimated GFR POC Glucose Random Glucose Lactic Acid Calcium Magnesium Total Bilirubin Direct Bilirubin AST ALT Alkaline Phosphatase Ammonia Troponin I High Sens 45.0 H Total Protein Albumin Urine Color Urine Appearance Urine pH Ur Specific [place] Urine Protein Urine Glucose (UA) Urine Ketones Urine Blood Urine Nitrite Ur Leukocyte Esterase Urine RBC Urine WBC Ur Squamous Epith Cells Urine Bacteria Hyaline Casts Urine Opiates Screen Urine Fentanyl Screen Ur Barbiturates Screen Ur Phencyclidine Scrn Ur Amphetamines Screen U Benzodiazepines Scrn Urine Cocaine Screen U Marijuana (THC) Screen Ethyl Alcohol COVID-19 ([facility]) COVID-19 Clin Com Imaging Radiologist's Impressions: Impressions Head CT 03/06/22 19:34 IMPRESSION: No acute intracranial process seen. Age-related volume loss with chronic small vessel ischemic changes in both cerebral hemispheres. Head/Neck CTA 03/06/22 21:50 IMPRESSION: No arterial high grade stenosis or large vessel occlusion in the head or neck. Assessment and Plan (1) Encephalopathy: Status: Acute (2) Dementia: Status: Acute Plan This is a 87 year old male with pertinent history of Alzheimer's dementia, mixed hyperlipidemia, gastroesophageal reflux disease, essential hypertension who was brought to the emergency department by EMS for concerns of altered mentation/facial droop/drooling from face. #. Acute encephalopathy: Unclear etiology and unclear baseline mentation. Questionable history of facial droop/drooling from the face. Differentials include seizure versus stroke. Consulting Neurology for assistance. Obtain EEG and MRI of the head #. Advanced Alzheimer's dementia: On memantine. Maintain sleep-wake cycle #. Mood disorder: Continue home mood stabilizers #. Gastroesophageal reflux disease: On PPI #. Elevated troponin: Likely due to increased demand and less likely ACS. Med rec pending DVT prophylaxis: Lovenox 40 mg daily Full Code. Readdress code status with family in a.m. NPO until mentation improves Time Spent With Patient Time: Total time managing care of this patient today ____ minutes. Quality Stroke Does the patient have a stroke diagnosis?: No VTE Prior VTE?: No VTE Risk Level:: Medical - moderate - high VTE Device Contraindication: Treatment Not Indicated VTE Drug Contraindication: N/A - Med Ordered
[2022-03-07 03:32] VITALS: BMI 21.8
[2022-03-07 04:00] VITALS: BP 167/89; PULSE 67; RESP 16; TEMP 36.2; O2SAT 98
[2022-03-07 06:50] LABS: MANUAL DIFF FLAG NO
[2022-03-07 06:56] LABS: Basophils Percent Auto 0.6 % (0-2); Eosinophils Absolute Auto 0.1 X10*3/uL (0.0-0.4); Eosinophils Percent Auto 1.8 % (0-4); Hematocrit 43.6 % (42.0-52.0); Hemoglobin 14.6 g/dl (14.0-18.0); Imm Gran Abs Auto 0.01 X10*3/uL (0.00-0.03); Imm Gran Pct Auto 0.2 % (0.0-0.4); Lymphocytes Absolute Auto 1.7 X10*3/uL (1.2-4.9); Lymphocytes Percent Auto 34.2 % (20-40); Mean Corpuscular HGB Conc 33.5 g/dl (31.0-36.0); Mean Corpuscular Hemoglobin 30.7 pg (27.0-33.0); Mean Corpuscular Volume 91.8 fL (80.0-98.0); Mean Platelet Volume 10.3 fL (9.4-12.4); Monocytes Absolute Auto 0.6 X10*3/uL (0.1-1.2); Monocytes Percent Auto 11.1 % (2-11); Neutrophils Absolute Auto 2.6 x10*3/uL (2.0-8.3); Neutrophils Percent Auto 52.1 % (45-73); Platelet Count 167 X10*3/uL (160-400); Red Blood Count 4.75 X10*6/uL (4.60-5.80); Red Cell Distribution Width 13.5 % (11.0-16.0)
[2022-03-07 07:17] LABS: Anion Gap 14 (12-20); Blood Urea Nitrogen 20 mg/dL (9-16); Calcium 9.4 mg/dL (8.4-10.2); Carbon Dioxide 23 mmol/L (22-29); Chloride 106 mmol/L (96-108); Creatinine Clr Calc Pharmacy 50.2; Estimated Glomerular Filt Rate > 60; Glucose Random 85 mg/dL (60-115); Potassium 3.9 mmol/L (3.3-5.1); Sodium 139 mmol/L (135-145)
[2022-03-07 08:00] VITALS: BP 160/90; PULSE 87; RESP 20; TEMP 36.8; O2SAT 94
[2022-03-07 11:41] VITALS: BP 183/94; PULSE 86; RESP 20; TEMP 37.1; O2SAT 94
--- NOTE | 2022-03-07 12:47 | PHA.MEDREC ---
Pharmacy Consult ? Medication Reconciliation Pharmacy has completed the medication reconciliation. Patient speaks swedish and has altered mental status + dementia. Attempted to reach daughter as she is health care provider but was not able to get a call back after leaving voice mail. Completed medication reconciliation using claim history for this patiient.
--- NOTE | 2022-03-07 12:49 | MHC.CM.PN ---
Patient is here with Alzheimer's Dementia and Encephalopathy; CM spoke with Daughter/HCP/Irena @ [phone] and addressed MORE with her (original to be mailed to Irena and a copy has been placed on the chart). 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 Patient receives [address] hours/week and a VNA approved by [facility] and the goal is home/resume said services (Irena would not allow a SNF search to be started). CM has initiated and will follow for dc planning. Patient has received Moderna/Covid vax x3 and his PCP is Dr. Douglas Nguyễn.
--- NOTE | 2022-03-07 14:45 | PM.NEUROCN ---
History of Present Illness Data of Consult Service Date: 03/07/22 Primary Care Provider: Douglas Nguyễn MD [facility] Reason for consult: Encephalopathy 87 years old man with underlying diagnosis of dementia was brought to hospital with change in mental status or unresponsiveness. This was the 2nd time this has happened. We wanted to have an EEG but he was uncooperative and not able to stand still or stay still. Even MRI could not be done. He had CT scan of brain done that did not reveal any acute abnormality. He could not provide any meaningful history. Review of Systems Review of Systems: Could not be done with him [facility] Past Medical History Medical History Alzheimer disease Arthritis Cardiomyopathy Encephalitis GERD (gastroesophageal reflux disease) High cholesterol Hypertension Osteoarthritis Family History Family History Father Pacemaker Social History Social History Household Members: Unknown / Unable to assess Housing: Apartment Do you presently have visiting nurse or other home services: No Unable to assess alcohol history related to: Unable to respond and Unknown Alcohol intake: never Patient Tobacco Use Status: Never used Tobacco e-Cigarette/Vaping Use: Never Used Use of substances other than those prescribed or required for medical reasons: Unknown Currently Displaying Signs/Symptoms of Drug Intoxication Withdrawal: No Any prior treatment program specific to substance use: No Advance Directives: Yes Advance Directives on File: Yes Advance Directives Date on File: 11/08/21 Do you have thoughts of harming others: None Do you have a plan to hurt others: No Plan Recently lost weight without trying: Unsure How much weight loss: Unsure Poor oral hygiene: No service: No Current occupational status: retired Current occupation: right handed Meds Allergies Allergy/AdvReac Type Severity Reaction Status Date / Time No Known Allergies Allergy Verified 08/19/21 15:11 [No Known Allergies*] Active Medications: Current Medications Acetaminophen (Acetaminophen 325 Mg Tablet) 650 mg PO Q6H PRN PRN Reason: Pain, Mild (Pain Scale 1-3) Enoxaparin Sodium (Enoxaparin Sodium 40 Mg/0.4 Ml Syringe) 40 mg SUBCUT Q24H [facility] Last Admin: 03/07/22 01:34 Dose: 40 mg Melatonin (Melatonin 3 Mg Tablet) 6 mg PO BEDTIME PRN PRN Reason: Insomnia Ondansetron HCl (Ondansetron Hcl 4 Mg/2 Ml Vial) 4 mg IVPUSH Q8H PRN PRN Reason: Nausea and Vomiting Pharmacy Consult (Consult Rx Perform Med Rec) 1 each MISCELLANE ONCE PRN PRN Reason: Consult order Sodium Chloride (0.9 % Sodium Chloride Flush 3 Ml Syringe) 3 ml IVFLUSH [facility] Last Admin: 03/07/22 09:54 Dose: Not Given Home Medications Medication Instructions Recorded Confirmed Last Taken Type omeprazole 20 mg tablet,delayed 20 mg PO DAILY@0630 03/28/20 03/07/22 Unknown History release aspirin 325 mg tablet,delayed 325 mg PO DAILY 04/08/21 03/07/22 Unknown History release cholecalciferol (vitamin D3) 25 1 tab PO DAILY 11/07/21 03/07/22 Unknown History mcg (1,000 unit) tablet melatonin 5 mg tablet 10 mg PO BEDTIME insomnia 11/07/21 03/07/22 Unknown History ropinirole 0.5 mg tablet 0.5 mg PO BEDTIME 11/07/21 03/07/22 Unknown History quetiapine 25 mg tablet 25 mg PO BID 03/07/22 03/07/22 Unknown History trazodone 150 mg tablet 225 mg PO BEDTIME 03/07/22 03/07/22 Unknown History Physical Exam Vital Signs: Vital Signs: Last Vital Signs Temp 98.7 F 03/07/22 11:41 Pulse 86 03/07/22 11:41 Resp 20 03/07/22 11:41 BP 183/94 H 03/07/22 11:41 Pulse Ox 94 03/07/22 11:41 O2 Del Method 03/07/22 11:41 BMI result Body Mass Index 21.8 Neuro: Other: Alert and awake playing with his hands scratching his left hand with right. It was not clear if he was following any commands but he made eye contact and was saying something that he could not make sense of. There was no obvious facial weakness or arm or hand weakness. Plantars were flat. Results Labs 03/07/22 06:04 03/07/22 06:04 Labs: Short CBC 01/18/23 01/19/23 Range/Units 19:20 06:04 WBC 5.0 5.0 (4.8-10.8) X10*3/uL Hgb 14.6 14.6 (14.0-18.0) g/dl Hct 43.9 43.6 (42.0-52.0) % Plt Count 166 167 (160-400) X10*3/uL BMP 03/06/22 03/07/22 19:20 06:04 Sodium 137 139 Potassium 4.2 3.9 Chloride 102 106 Carbon Dioxide 25 23 BUN 25 H 20 H Creatinine 1.37 0.90 Calcium 9.6 9.4 Liver Function 03/06/22 Range/Units 19:20 Total Bilirubin 0.6 (0.0-1.0) mg/dL Direct Bilirubin 0.2 (0.0-0.5) mg/dL AST 20 (5-37) U/L ALT 10 (0-40) U/L Alkaline Phosphatase 89 (39-117) U/L Albumin 3.8 (3.5-5.0) g/dL Urine 03/06/22 Range/Units 22:43 Urine Color Yellow Urine Appearance Clear Urine pH 6.5 (5.0-9.0) Ur Specific [place] 1.020 (1.005-1.025) Urine Protein Negative (Neg-Trace) mg/dL Urine Glucose (UA) Negative (Negative) mg/dL Head CT revealed moderately severe diffuse cerebral atrophy and moderate to severe chronic microvascular ischemic changes. CTA did not reveal any vascular lesion. Assessment and Plan (1) Encephalopathy: Status: Acute 87 years old man with multifactorial dementia from degenerative disease and cerebral microvascular disease presented with change in mental status. This was his 2nd admission. No obvious metabolic abnormality was noted. MRI and EEG could not be done. My recommendation is this time is to tentatively treat him with levetiracetam 250 mg twice a day as he was at high risk for seizure disorder. Time Spent With Patient Time: Total time managing care of this patient today ____ minutes. Procedures Date of Service Date of Service: 03/07/22
[2022-03-07 14:55] VITALS: BP 178/109; PULSE 91; RESP 16; TEMP 36.9; O2SAT 97
--- NOTE | 2022-03-07 15:07 | PM.DS ---
DS: Providers Provider Date of Service: 03/07/22 Date of admission: 03/07/22 01:11 Primary care physician: Douglas Nguyễn MD Consults: 03/07/22 02:48 Consult to Neurology Routine Consulting Provider: [facility] Reason for consultation: encephalopathy DS: Diagnosis Discharge Diagnosis (1) Encephalopathy: Status: Acute DS: Summary Hospital Course Hospital Course: Date of Service: 03/07/22 Chief Complaint: Altered mentation, drooling This is a 87 year old male with pertinent history of Alzheimer's dementia, mixed hyperlipidemia, gastroesophageal reflux disease, essential hypertension who was brought to the emergency department by EMS for concerns of altered mentation/facial droop/drooling from face.? Patient unable to provide any history and is only withdrawing to painful stimulus at the time of my evaluation.? As per EMS, patient had pinpoint pupils and was somnolent upon their arrival.? He was also drooling and he woke up after Narcan.? Unknown patient's baseline mental status.? As per 1 of the daughters, patient is usually talking although he does not make any sense due to dementia.? He was sent as he was more lethargic/somnolent and drooling from the face.? Patient may have a history of possible seizures and was supposed to follow up with Neurology as an outpatient.? Unable to obtain review of systems. Hospital course 87-year-old with history of Alzheimer's dementia, hyperlipidemia, GERD was brought in to [facility] since he was noted to be lethargic, weak was not getting out of bed, therefore daughter called EMS in the emergency room patient was noted to be somnolent only withdrew to painful stimuli, CT head and CTA head and neck showed no acute stroke and no arterial high-grade stenosis or large vessel occlusion in the head or neck, no electrolyte abnormalities were noted, UA was unremarkable, normal CBC and electrolytes, patient was admitted to [facility] an EEG and MRI study was ordered but however patient was unable to stay still therefore both studies were not done however patient became more awake alert case discussed with patient's daughter Irena Mcmullen for visited him in the hospital and feels patient is at his baseline and wishes him to be discharged home, patient seen by Dr. Pérez from Neurology he recommend Keppra 250 mg twice daily for possible seizures, therefore will discharge patient home on Keppra. Time Spent with Patient Time attestation: Total time managing care of this patient today ____ minutes. Discharge coordination time: Greater than 30 minutes Quality: Safe Use of Opioids Does Pt have an Active Cancer Diagnosis on the Problem List?: No Quality: Stroke Does the patient have a stroke diagnosis?: No Physical Exam Vital Signs: Vital Signs: Last Vital Signs Temp 98.5 F 03/07/22 14:55 Pulse 91 03/07/22 14:55 Resp 16 03/07/22 14:55 BP 178/109 H 03/07/22 14:55 Pulse Ox 97 03/07/22 14:55 O2 Del Method 03/07/22 14:55 BMI result Body Mass Index 21.8 Const: Other: General awake aler t in no distress.? cvs: Regular rat e rhythm res: angelica r to auscultation ,no rhonchii or wh eezing abd: no arslan ound or guarding , nontender bowel s ounds audible ext pulses present , n o cyanosis . neuro : Moving all 4 ex tremities speech c lear , face symmet rical. DS: Data Data Completed and Pending Labs on day of discharge: Laboratory Results - last 24 hr 03/06/22 03/06/22 03/06/22 19:16 19:20 19:20 WBC 5.0 RBC 4.79 Hgb 14.6 Hct 43.9 MCV 91.6 MCH 30.5 MCHC 33.3 RDW 13.6 Plt Count 166 MPV 10.2 Immature Gran % (Auto) 0.2 Neut % (Auto) 65.2 Lymph % (Auto) 25.1 [place] % (Auto) 7.9 Eos % (Auto) 1.2 Baso % (Auto) 0.4 Lymph # (Auto) 1.2 [place] # (Auto) 0.4 Eos # (Auto) 0.1 Baso # (Auto) 0.0 Abs Immat Gran (auto) 0.01 Absolute Neuts (auto) 3.2 Absolute Nucleated RBC 0.000 Nucleated RBC % (auto) 0.0 PT INR VBG pH VBG pCO2 VBG pO2 VBG HCO3 VBG O2 Saturation VBG Base Excess Sodium 137 Potassium 4.2 Chloride 102 Carbon Dioxide 25 Anion Gap 14 BUN 25 H Creatinine 1.37 Estim Creat Clear Calc 32.3 Estimated GFR 49 POC Glucose 116 H Random Glucose 152 H Lactic Acid Calcium 9.6 Magnesium 1.7 Total Bilirubin 0.6 Direct Bilirubin 0.2 AST 20 ALT 10 Alkaline Phosphatase 89 Ammonia Troponin I High Sens Total Protein 6.6 Albumin 3.8 Urine Color Urine Appearance Urine pH Ur Specific [place] Urine Protein Urine Glucose (UA) Urine Ketones Urine Blood Urine Nitrite Ur Leukocyte Esterase Urine RBC Urine WBC Ur Squamous Epith Cells Urine Bacteria Hyaline Casts Urine Opiates Screen Urine Fentanyl Screen Ur Barbiturates Screen Ur Phencyclidine Scrn Ur Amphetamines Screen U Benzodiazepines Scrn Urine Cocaine Screen U Marijuana (THC) Screen Ethyl Alcohol COVID-19 (JEY) COVID-19 [place] 03/06/22 03/06/22 03/06/22 19:20 19:20 19:20 WBC RBC Hgb Hct MCV MCH MCHC RDW Plt Count MPV Immature Gran % (Auto) Neut % (Auto) Lymph % (Auto) [place] % (Auto) Eos % (Auto) Baso % (Auto) Lymph # (Auto) [place] # (Auto) Eos # (Auto) Baso # (Auto) Abs Immat Gran (auto) Absolute Neuts (auto) Absolute Nucleated RBC Nucleated RBC % (auto) PT 13.9 H INR 1.2 H VBG pH VBG pCO2 VBG pO2 VBG HCO3 VBG O2 Saturation VBG Base Excess Sodium Potassium Chloride Carbon Dioxide Anion Gap BUN Creatinine Estim Creat Clear Calc Estimated GFR POC Glucose Random Glucose Lactic Acid Calcium Magnesium Total Bilirubin Direct Bilirubin AST ALT Alkaline Phosphatase Ammonia 24 Troponin I High Sens 44.0 H Total Protein Albumin Urine Color Urine Appearance Urine pH Ur Specific [place] Urine Protein Urine Glucose (UA) Urine Ketones Urine Blood Urine Nitrite Ur Leukocyte Esterase Urine RBC Urine WBC Ur Squamous Epith Cells Urine Bacteria Hyaline Casts Urine Opiates Screen Urine Fentanyl Screen Ur Barbiturates Screen Ur Phencyclidine Scrn Ur Amphetamines Screen U Benzodiazepines Scrn Urine Cocaine Screen U Marijuana (THC) Screen Ethyl Alcohol COVID-19 (JEY) COVID-19 [place] 03/06/22 03/06/22 03/06/22 19:20 19:20 20:16 WBC RBC Hgb Hct MCV MCH MCHC RDW Plt Count MPV Immature Gran % (Auto) Neut % (Auto) Lymph % (Auto) [place] % (Auto) Eos % (Auto) Baso % (Auto) Lymph # (Auto) [place] # (Auto) Eos # (Auto) Baso # (Auto) Abs Immat Gran (auto) Absolute Neuts (auto) Absolute Nucleated RBC Nucleated RBC % (auto) PT INR VBG pH VBG pCO2 VBG pO2 VBG HCO3 VBG O2 Saturation VBG Base Excess Sodium Potassium Chloride Carbon Dioxide Anion Gap BUN Creatinine Estim Creat Clear Calc Estimated GFR POC Glucose Random Glucose Lactic Acid 1.8 Calcium Magnesium Total Bilirubin Direct Bilirubin AST ALT Alkaline Phosphatase Ammonia Troponin I High Sens Total Protein Albumin Urine Color Urine Appearance Urine pH Ur Specific [place] Urine Protein Urine Glucose (UA) Urine Ketones Urine Blood Urine Nitrite Ur Leukocyte Esterase Urine RBC Urine WBC Ur Squamous Epith Cells Urine Bacteria Hyaline Casts Urine Opiates Screen Urine Fentanyl Screen Ur Barbiturates Screen Ur Phencyclidine Scrn Ur Amphetamines Screen U Benzodiazepines Scrn Urine Cocaine Screen U Marijuana (THC) Screen Ethyl Alcohol < 10 COVID-19 (JEY) Negative COVID-19 Clin Com See Note 03/06/22 03/06/22 03/06/22 20:36 22:43 22:43 WBC RBC Hgb Hct MCV MCH MCHC RDW Plt Count MPV Immature Gran % (Auto) Neut % (Auto) Lymph % (Auto) [place] % (Auto) Eos % (Auto) Baso % (Auto) Lymph # (Auto) [place] # (Auto) Eos # (Auto) Baso # (Auto) Abs Immat Gran (auto) Absolute Neuts (auto) Absolute Nucleated RBC Nucleated RBC % (auto) PT INR VBG pH 7.38 VBG pCO2 50 VBG pO2 52 VBG HCO3 29 H VBG O2 Saturation 82.0 VBG Base Excess 3.7 Sodium Potassium Chloride Carbon Dioxide Anion Gap BUN Creatinine Estim Creat Clear Calc Estimated GFR POC Glucose Random Glucose Lactic Acid Calcium Magnesium Total Bilirubin Direct Bilirubin AST ALT Alkaline Phosphatase Ammonia Troponin I High Sens Total Protein Albumin Urine Color Yellow Urine Appearance Clear Urine pH 6.5 Ur Specific [place] 1.020 Urine Protein Negative Urine Glucose (UA) Negative Urine Ketones Negative Urine Blood Moderate (2+) H Urine Nitrite Negative Ur Leukocyte Esterase Negative Urine RBC >20 H Urine WBC 0-5 Ur Squamous Epith Cells 0-2 Urine Bacteria None Seen Hyaline Casts 0-2 Urine Opiates Screen Not Detected Urine Fentanyl Screen Not Detected Ur Barbiturates Screen Not Detected Ur Phencyclidine Scrn Not Detected Ur Amphetamines Screen Not Detected U Benzodiazepines Scrn Not Detected Urine Cocaine Screen Not Detected U Marijuana (THC) Screen Not Detected Ethyl Alcohol COVID-19 (JEY) COVID-19 Clin Com 03/07/22 03/07/22 03/07/22 00:20 06:04 06:04 WBC 5.0 RBC 4.75 Hgb 14.6 Hct 43.6 MCV 91.8 MCH 30.7 MCHC 33.5 RDW 13.5 Plt Count 167 MPV 10.3 Immature Gran % (Auto) 0.2 Neut % (Auto) 52.1 Lymph % (Auto) 34.2 [place] % (Auto) 11.1 H Eos % (Auto) 1.8 Baso % (Auto) 0.6 Lymph # (Auto) 1.7 [place] # (Auto) 0.6 Eos # (Auto) 0.1 Baso # (Auto) 0.0 Abs Immat Gran (auto) 0.01 Absolute Neuts (auto) 2.6 Absolute Nucleated RBC 0.000 Nucleated RBC % (auto) 0.0 PT INR VBG pH VBG pCO2 VBG pO2 VBG HCO3 VBG O2 Saturation VBG Base Excess Sodium 139 Potassium 3.9 Chloride 106 Carbon Dioxide 23 Anion Gap 14 BUN 20 H Creatinine 0.90 Estim Creat Clear Calc 50.2 Estimated GFR > 60 POC Glucose Random Glucose 85 Lactic Acid Calcium 9.4 Magnesium Total Bilirubin Direct Bilirubin AST ALT Alkaline Phosphatase Ammonia Troponin I High Sens 45.0 H Total Protein Albumin Urine Color Urine Appearance Urine pH Ur Specific [place] Urine Protein Urine Glucose (UA) Urine Ketones Urine Blood Urine Nitrite Ur Leukocyte Esterase Urine RBC Urine WBC Ur Squamous Epith Cells Urine Bacteria Hyaline Casts Urine Opiates Screen Urine Fentanyl Screen Ur Barbiturates Screen Ur Phencyclidine Scrn Ur Amphetamines Screen U Benzodiazepines Scrn Urine Cocaine Screen U Marijuana (THC) Screen Ethyl Alcohol COVID-19 (JEY) COVID-19 Clin Com Discharge Plan Discharge Patient Disposition: Home, Self-Care Referrals: Douglas Nguyễn MD [Primary Care Provider] - 1 Week Discharge Medications: New levetiracetam [Keppra] 250 mg tablet 250 mg PO BID Qty: 60 0RF Continued aspirin 325 mg tablet,delayed release (DR/EC) 325 mg PO DAILY ropinirole 0.5 mg tablet 0.5 mg PO BEDTIME cholecalciferol (vitamin D3) 25 mcg (1,000 unit) tablet 1 tab PO DAILY melatonin 5 mg tablet 10 mg PO BEDTIME carvedilol 3.125 mg Tablet 3.125 mg PO BID Qty: 60 0RF Protocol: Hold for SBP/HR < HOLD for SBP < : 90 HOLD for HR < : 60 Rx Instructions: TAKE WITH FOOD quetiapine 25 mg tablet 25 mg PO BID trazodone 150 mg tablet 225 mg PO BEDTIME omeprazole 20 mg tablet,delayed release (DR/EC) 20 mg PO DAILY@0630 Discharge Orders: Discharge Order (Routine); Ordered 03/07/22 Ordered By: Gerson Ramires Diet: Advance to usual diet Activity on Discharge: As tolerated Stand Alone Forms: Patient Portal Discharge page Care Plan Goals: Acute encephalopathy resolved question etiology CT head showed no acute abnormality patient's unable to tolerate EEG and MRI seen by Neurology started on Keppra 250 mg 1 tablet twice daily for possible seizure Start Keppra from tomorrow morning Patient on multiple medications that can cause sedation and lethargy please review medications with PCP Health Concerns: Take all home medications as before Plan of Treatment: Outpatient follow-up with primary care physician Assessment: As above
--- NOTE | 2022-03-07 15:09 | MHC.CM.PN ---
Patient has been medically cleared for dc to home today, self care.
[2022-03-07] MEDS: levETIRAcetam 250 MG TABLET PO (15:25)
[2022-03-07] MEDS: 0.9 % Sodium Chloride Flush 3 ML SYRINGE IVFLUSH (15:26)
== END 2022-03-07 16:10 | disposition home or self-care (01) ==
LOC: HO.ED 03-07 01:07 → HO.EDOVER 03-07 01:15 → HO.IMC 03-07 01:32
PROVIDERS: Admitting Provider Student in an Organized Health Care Education/Training Program; Emergency Provider Emergency Medicine; PCP Internal Medicine; Visit Provider Hospitalist
DX: G93.40 Encephalopathy, unspecified (principal); F03.90 Unspecified dementia, unspecified severity, without behavioral disturbance, psychotic disturbance, mood disturbance, and anxiety; R51.9 Headache, unspecified; M54.2 Cervicalgia; Z20.822 Contact with and (suspected) exposure to COVID-19; Z20.828 Contact with and (suspected) exposure to other viral communicable diseases; Z79.899 Other long term (current) drug therapy
CPT/HCPCS: 36415; 70450; 70496; 70498; 80048; 80076; 80307; 81001; 82077; 82140; 82803; 82947; 83605; 83735; 84484; 85025; 85610; 87040; 87205; 87635; 93005; 96361; 96372; 96374; 96375; 99222; 99285; J1650; Q9967

== ENCOUNTER 2022-06-24 10:42 | Inpatient (IN) | payer OTHER, SELFPAY ==
--- NOTE | ~2022-06-24 | XR_ITS ---
EXAMINATION: XR CHEST CLINICAL INFORMATION: Patient unresponsive COMPARISON: October 2021. TECHNIQUE: AP upright portable view of the chest was obtained. 1157 hours. FINDINGS: No new dominant consolidations appreciated. Pulmonary vascularity appears to be stable. Minimal linear atelectatic change toward the left base. Pleural surfaces appear to be clear. Calcific right paratracheal node again seen likely related to old granulomatous disease. Old healed left humeral fracture noted. XR/XR chest 1V IMPRESSION: No appreciable consolidations or effusions. Minimal linear atelectasis toward the left base.
--- NOTE | ~2022-06-24 | MR_ITS ---
EXAMINATION: MR BRAIN WITHOUT CONTRAST CLINICAL INFORMATION: Weakness. COMPARISON: Head CTA 06/24/2022. TECHNIQUE: Multiplanar, multisequence imaging of the brain was performed without intravenous contrast. FINDINGS: There is no acute infarction, hemorrhage, mass, or extra-axial fluid collection. There is severe patchy T2/FLAIR hyperintensity throughout the cerebral white matter most compatible with chronic microangiopathy. There is diffuse brain parenchymal volume loss with prominence of ventricles and sulci. No hydrocephalus is seen. The major arterial flow voids are preserved at the skull base. There is paranasal sinus mucosal thickening. MR/MR head/brain wo con IMPRESSION: No acute infarct, mass lesion, intracranial hemorrhage, or evidence of hydrocephalus. Background changes of severe chronic microangiopathy and brain parenchymal volume loss.
--- NOTE | ~2022-06-24 | CT_ITS ---
EXAMINATION: CT ANGIOGRAM NECK WITH CONTRAST CT ANGIOGRAM BRAIN WITH CONTRAST CLINICAL INFORMATION: Left-sided weakness. COMPARISON: CTA head and neck 03/06/2022. TECHNIQUE: Test bolus sequences followed by intravenous administration 70 mL of Omnipaque 350. Helical imaging was performed in the axial plane from the thoracic inlet to the skull vertex. The data was processed at the tissue technologist workstation for generation of MIP sequences. Angled MIPs and volume rendered reformatted images were also generated at an offline 3D workstation. Stenoses are assessed in accordance with NASCET criteria unless otherwise indicated. This CT examination was performed using dose optimization techniques as appropriate, variously including the following: *Automated exposure control *Adjustment of mA and/or kV according to patient size (this includes techniques or standardized protocols for targeted exams where dose is matched to indication/reason for exam; i.e. extremities or head) *Use of iterative reconstruction technique DLP: 1448 mGy-cm FINDINGS: Neck CTA: The aortic arch and great vessel origins are patent. The bilateral common carotid arteries are patent. Both cervical internal carotid arteries are patent. The bilateral vertebral arteries are normal in course and caliber. Head CTA: No large vessel occlusion is seen. The intradural vertebral arteries and basilar artery are patent. Both metal flow coordinator are patent intracranial ICAs, ACAs, and MCAs are patent with symmetric collaterals. No aneurysm is seen. Non-vascular findings: Mild emphysematous changes are seen within the upper lungs. The cervical soft tissues are within normal limits. Advanced degenerative changes are seen within the spine. Delayed postcontrast imaging was also performed through the brain. There is no intracranial hemorrhage, extra-axial collection, mass effect, or acute large territorial infarction. Moderate chronic microangiopathic changes are seen within the cerebral white matter. The dural venous sinuses appear patent. The extracranial structures are unremarkable. CT/CT angio head neck stroke IMPRESSION: No occlusion or significant stenosis within the major head or neck arteries. No acute intracranial abnormality. Background chronic microangiopathic changes seen in the white matter. This critical result was discussed with Elizabeth Pham on 06/24/2022 1:07 PM, and it was ascertained that the content and urgency of the report was understood at the time of direct communication.
--- NOTE | ~2022-06-24 | CT_ITS ---
CT head for stroke CLINICAL INFORMATION: Reason for Exam left sided weakness COMPARISON: Prior head CT 03/06/2022 TECHNIQUE: Department standard protocol. This CT examination was performed using dose optimization techniques as appropriate, variously including the following: *Automated exposure control *Adjustment of mA and/or kV according to patient size (this includes techniques or standardized protocols for targeted exams where dose is matched to indication/reason for exam; i.e. extremities or head) *Use of iterative reconstruction technique DLP: 661 mGy-cm FINDINGS: CEREBRAL HEMISPHERES: There is no evidence of intra-axial or extra-axial mass, hemorrhage or acute infarct. 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 SUBDURAL SPACE: No bleed. BASAL GANGLIA AND PINEAL GLAND: Unremarkable VENTRICLES: Symmetric and normal in size. CEREBELLUM AND BRAINSTEM: No space-occupying mass, hemorrhage or acute infarct. CEREBELLOPONTINE ANGLES: No lesion found. ORBITS: No intraorbital mass. VESSELS: Unremarkable SKULL BASE: Unremarkable INCLUDED SINUSES AT SKULL BASE: Clear SKULL AND SKIN: No fracture or bone lesion found. 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 * No intracranial bleed. * Note: CT scan could be normal in the first 24 hour. If patient is symptomatic may initiate treatment and/or further investigate with follow-up MRI. This critical result was discussed with Dr. Bernard by telephone at 06/24/2022 12:07 PM and it was ascertained that the content and urgency of the report was understood at the time of direct communication.
--- NOTE | 2022-06-24 10:47 | ECG_ITS ---
Test Reason : STROKE Blood Pressure : / mmHG Vent. Rate : 066 BPM Atrial Rate : 066 BPM P-R Int : 190 ms QRS Dur : 108 ms QT Int : 418 ms P-R-T Axes : 035 -50 062 degrees QTc Int : 438 ms Sinus rhythm with marked sinus arrhythmia Left anterior fascicular block Moderate voltage criteria for LVH, may be normal variant ( R in aVL , [place] product ) Abnormal ECG When compared with ECG of 07-MAR-2022 00:12, No significant change was found Referred By: Darin Bernard Electronically Signed By:DARELL CHENG
--- NOTE | 2022-06-24 10:51 | ED.AMS ---
HPI - Altered Mental Status General Chief Complaint: Stroke Stated Complaint: left swelling question stroke lkwt 13 hrs per ems Time Seen by Provider: 06/24/22 10:47 Source: EMS Mode of arrival: EMS Limitations: altered mental status History of Present Illness HPI narrative: patient with dementia usually non verbal. Not awake for 13 hours not moving his left side, normally walks complaint: altered mental status and weakness Onset (ago): hour(s) (13) Timing confirmed by: other (EMS) Severity: severe Consistency of symptoms: constant Treatments prior to arrival: oxygen Related Data Home Medications Medication Instructions Recorded Confirmed omeprazole 20 mg tablet,delayed 20 mg PO DAILY@0630 03/28/20 06/24/22 release aspirin 325 mg tablet,delayed 325 mg PO DAILY 04/08/21 06/24/22 release cholecalciferol (vitamin D3) 25 1 tab PO DAILY 11/07/21 06/24/22 mcg (1,000 unit) tablet melatonin 5 mg tablet 10 mg PO BEDTIME insomnia 11/07/21 06/24/22 ropinirole 0.5 mg tablet 0.5 mg PO BEDTIME 11/07/21 06/24/22 quetiapine 25 mg tablet 25 mg PO BID 03/07/22 06/24/22 docusate sodium 50 mg/5 mL oral 5 ml PO BEDTIME PRN Constipation 06/24/22 06/24/22 liquid trazodone 50 mg tablet 50 - 100 mg PO BEDTIME 06/24/22 06/24/22 Previous Rx's Medication Instructions Recorded carvedilol 3.125 mg tablet 3.125 mg PO BID #60 tabs 11/14/21 levetiracetam 250 mg tablet 250 mg PO BID #60 tabs 03/07/22 (Keppra) Allergies Allergy/AdvReac Type Severity Reaction Status Date / Time No Known Allergies Allergy Verified 08/19/21 15:11 [No Known Allergies*] Review of Systems Review of Systems: Yes Unobtainable due to mental status PMFSH Past Medical History Medical History Alzheimer disease Arthritis Cardiomyopathy Dementia Encephalitis GERD (gastroesophageal reflux disease) High cholesterol Hypertension Osteoarthritis Family History Family History Father Pacemaker Social History Social History Household Members: Unknown / Unable to assess Housing: Apartment Do you presently have visiting nurse or other home services: No Unable to assess alcohol history related to: Unable to respond and Unknown Alcohol intake: never Patient Tobacco Use Status: Never used Tobacco e-Cigarette/Vaping Use: Never Used Advance Directives: Yes Advance Directives on File: Yes Advance Directives Date on File: 11/08/21 service: No Current occupational status: retired Current occupation: right handed Physical Exam ED Vital Signs: Vital Signs - 24 hr 06/24/22 11:07 06/24/22 13:26 Pulse Rate 68 60 Respiratory Rate 16 14 Blood Pressure 119/72 146/77 H Pulse Oximetry 95 99 Oxygen Delivery Method Room Air Room Air BMI result Body Mass Index 19.8 Const Other: chronically ill appearing unresponsive General: patient obtunded Nutritional Appearance: thin Orientation/consciousness: patient obtunded Limitations: no limitations and altered mental status HENMT Head: Yes normal to inspection Ears: external ears normal General nose exam: Normal external nose present Mouth: Normal oral and palatal mucosa present and oropharynx normal Throat: Yes posterior oropharynx normal Eyes Other: eyes rolled back Neck Neck: Yes normal visual inspection Chest Chest palpation & inspection: normal inspection of the chest Resp Auscultation: clear to auscultation bilaterally Cardio Jugular venous distension: no JVD Rate: regular rate Rhythm: regular rhythm Heart sounds: S1 normal heart sound present and S2 normal heart sound present GI Inspection: Yes normal to inspection Palpation (GI): Soft to palpation, nontender and No hepatosplenomegaly present Auscultation: normal bowel sounds General: Yes no CVA tenderness Back/Spine/Pelvis Back: no CVA tenderness Skin General skin exam: no rashes or lesions noted Neuro General: patient obtunded Extrem Other: left facial, left arm, left leg swelling Psych Appearance: grossly normal NIH Stroke Scale Internal: Initial- Upon Arrival Level of Consciousness: Responds only with reflex motor or autonomic effects, or unresponsive Level of Consciousness Questions: Answers neither question correctly Level of Consciousness Commands: Performs neither task correctly Best Gaze: Forced deviation (upward) Facial Palsy: Complete paralysis Motor Arm (Right): No drift Motor Arm (Left): No movement Motor Leg (Right): No drift Motor Leg (Left): No movement Best Language: Mute, global aphasia Course Reevaluation(s) Reevaluation #1: patient presents with new left sided weakness and decreased responsiveness, CT and CTA negative for LVO or large infarct will admit Time: 14:00 Reevaluation #2: I spent 40 minutes of critical care, with interventions, assessments, speaking to patient, consultants, and family. Time: 14:07 Medications Administered Generic Name Dose Route Start Last Admin Trade Name Freq PRN Reason Stop Dose Admin Sodium Chloride 3 ml 06/24/22 16:00 06/24/22 16:25 0.9 % Sodium Chloride Flush 3 Ml Syringe IVFLUSH Not Given QSHIFT ABBY Discontinued Medications Generic Name Dose Route Start Last Admin Trade Name Freq PRN Reason Stop Dose Admin Iohexol 100 ml 06/24/22 12:41 06/24/22 12:42 Iohexol 350 Mg/Ml 100 Ml Infus..Btl IV 06/24/22 12:42 70 ml ONCE ONE Administration Ketorolac Tromethamine 30 mg 06/24/22 12:43 06/24/22 13:14 Ketorolac Tromethamine 30 Mg/Ml Vial IVPUSH 06/24/22 12:44 30 mg ONCE ONE Administration Naloxone HCl 2 mg 06/24/22 15:09 06/24/22 15:46 Naloxone Hcl 2 Mg/2 Ml Syringe IVPUSH 06/24/22 15:10 2 mg ONCE ONE Administration Ondansetron HCl 4 mg 06/24/22 12:43 06/24/22 13:14 Ondansetron Hcl 4 Mg/2 Ml Vial IVPUSH 06/24/22 12:44 4 mg ONCE ONE Administration Medical Decision Making Differential Diagnosis Differential Diagnoses: The differential diagnosis associated with the presentation includes (CVA, cerebral bleed, tumor) Admission/Observation Consideration of admission/observation: Escalation of care including admission/observation considered (upon arrival this 87 yo with densed hemiparesis was immediately considered for admission) Consult Healthcare Provider Management of the patient was discussed with: Hospitalist Lab Data MDM Lab Attestation statement: I reviewed the patient's lab results. 06/24/22 11:41 06/24/22 11:41 Labs: Lab Results 06/24/22 06/24/22 06/24/22 Range/Units 11:17 11:21 11:41 WBC 6.4 (4.8-10.8) X10*3/uL RBC 4.51 L (4.60-5.80) X10*6/uL Hgb 13.8 L (14.0-18.0) g/dl Hct 42.4 (42.0-52.0) % MCV 94.0 (80.0-98.0) fL MCH 30.6 (27.0-33.0) pg MCHC 32.5 (31.0-36.0) g/dl RDW 13.2 (11.0-16.0) % Plt Count 151 L (160-400) X10*3/uL MPV 9.9 (9.4-12.4) fL Immature Gran % (Auto) 0.3 (0.0-0.4) % Neut % (Auto) 76.7 H (45-73) % Lymph % (Auto) 13.7 L (20-40) % [place] % (Auto) 7.8 (2-11) % Eos % (Auto) 1.2 (0-4) % Baso % (Auto) 0.3 (0-2) % Lymph # (Auto) 0.9 L (1.2-4.9) X10*3/uL [place] # (Auto) 0.5 (0.1-1.2) X10*3/uL Eos # (Auto) 0.1 (0.0-0.4) X10*3/uL Baso # (Auto) 0.0 (0.0-0.2) X10*3/uL Abs Immat Gran (auto) 0.02 (0.00-0.03) X10*3/uL Absolute Neuts (auto) 4.9 (2.0-8.3) x10*3/uL Absolute Nucleated RBC 0.000 (0.0-0.012) X10*3/uL Nucleated RBC % (auto) 0.0 (0.0-0.2) /100WBC PT (10.0-13.1) SEC Whole Blood PT 14.7 H (11.1-13.5) sec INR (0.9-1.1) Whole Blood INR 1.2 H (0.9-1.1) APTT (26.0-36.4) SEC Sodium (135-145) mmol/L Potassium (3.3-5.1) mmol/L Chloride (96-108) mmol/L Carbon Dioxide (22-29) mmol/L Anion Gap (12-20) BUN (9-16) mg/dL Creatinine (0.5-1.4) mg/dL Estim Creat Clear Calc Estimated GFR POC Glucose 124 H (60-115) mg/dL Random Glucose (60-115) mg/dL Calcium (8.4-10.2) mg/dL Troponin I High Sens (<3.5-35.0) ng/L 06/24/22 06/24/22 06/24/22 Range/Units 11:41 11:41 11:41 WBC (4.8-10.8) X10*3/uL RBC (4.60-5.80) X10*6/uL Hgb (14.0-18.0) g/dl Hct (42.0-52.0) % MCV (80.0-98.0) fL MCH (27.0-33.0) pg MCHC (31.0-36.0) g/dl RDW (11.0-16.0) % Plt Count (160-400) X10*3/uL MPV (9.4-12.4) fL Immature Gran % (Auto) (0.0-0.4) % Neut % (Auto) (45-73) % Lymph % (Auto) (20-40) % [place] % (Auto) (2-11) % Eos % (Auto) (0-4) % Baso % (Auto) (0-2) % Lymph # (Auto) (1.2-4.9) X10*3/uL [place] # (Auto) (0.1-1.2) X10*3/uL Eos # (Auto) (0.0-0.4) X10*3/uL Baso # (Auto) (0.0-0.2) X10*3/uL Abs Immat Gran (auto) (0.00-0.03) X10*3/uL Absolute Neuts (auto) (2.0-8.3) x10*3/uL Absolute Nucleated RBC (0.0-0.012) X10*3/uL Nucleated RBC % (auto) (0.0-0.2) /100WBC PT 14.6 H (10.0-13.1) SEC Whole Blood PT (11.1-13.5) sec INR 1.3 H (0.9-1.1) Whole Blood INR (0.9-1.1) APTT 29.7 (26.0-36.4) SEC Sodium 138 (135-145) mmol/L Potassium 4.2 (3.3-5.1) mmol/L Chloride 108 (96-108) mmol/L Carbon Dioxide 26 (22-29) mmol/L Anion Gap 8 L (12-20) BUN 22 H (9-16) mg/dL Creatinine 0.96 (0.5-1.4) mg/dL Estim Creat Clear Calc 45.3 Estimated GFR > 60 POC Glucose (60-115) mg/dL Random Glucose 136 H (60-115) mg/dL Calcium 8.3 L D (8.4-10.2) mg/dL Troponin I High Sens 25.8 (<3.5-35.0) ng/L Independent Interpretation I performed an independent interpretation of an: CT Scan (brain: no acute bleed) Radiology Impression Discussion of test interpretation with radiology: I have reviewed the radiologist's reading. (reviewed both Brain with and without contrast) Independent Historian Clinical information obtained from an independent historian. History obtained from or confirmed by: EMS (discussed at length with EMS) Discharge Plan Discharge Clinical Impression: Cerebrovascular accident Patient Disposition: Admitted As Inpatient
[2022-06-24 11:07] VITALS: BP 110/72; BP 119/72; PULSE 65; PULSE 68; RESP 16; O2SAT 95; BMI 19.8
[2022-06-24 11:24] LABS: Prothrombin Time Whole Bld POC 14.7 sec (11.1-13.5); ~PT, ~INR - Anti Coag Clinic 1.2 (0.9-1.1)
[2022-06-24 11:25] LABS: Glucose, Whole Blood 124 mg/dL (60-115)
[2022-06-24 11:47] LABS: MANUAL DIFF FLAG NO
[2022-06-24 11:51] LABS: Basophils Percent Auto 0.3 % (0-2); Eosinophils Absolute Auto 0.1 X10*3/uL (0.0-0.4); Eosinophils Percent Auto 1.2 % (0-4); Hematocrit 42.4 % (42.0-52.0); Hemoglobin 13.8 g/dl (14.0-18.0); Imm Gran Abs Auto 0.02 X10*3/uL (0.00-0.03); Imm Gran Pct Auto 0.3 % (0.0-0.4); Lymphocytes Absolute Auto 0.9 X10*3/uL (1.2-4.9); Lymphocytes Percent Auto 13.7 % (20-40); Mean Corpuscular HGB Conc 32.5 g/dl (31.0-36.0); Mean Corpuscular Hemoglobin 30.6 pg (27.0-33.0); Mean Platelet Volume 9.9 fL (9.4-12.4); Monocytes Absolute Auto 0.5 X10*3/uL (0.1-1.2); Monocytes Percent Auto 7.8 % (2-11); Neutrophils Absolute Auto 4.9 x10*3/uL (2.0-8.3); Neutrophils Percent Auto 76.7 % (45-73); Platelet Count 151 X10*3/uL (160-400); Red Blood Count 4.51 X10*6/uL (4.60-5.80); Red Cell Distribution Width 13.2 % (11.0-16.0); White Blood Count 6.4 X10*3/uL (4.8-10.8)
[2022-06-24 11:56] LABS: INTERNATIONAL NORM RATIO 1.3 (0.9-1.1); Prothrombin Time 14.6 SEC (10.0-13.1)
[2022-06-24 11:59] LABS: Partial Thromboplastin Time 29.7 SEC (26.0-36.4)
[2022-06-24 12:06] LABS: Anion Gap 8 (12-20); Blood Urea Nitrogen 22 mg/dL (9-16); Calcium 8.3 mg/dL (8.4-10.2); Carbon Dioxide 26 mmol/L (22-29); Chloride 108 mmol/L (96-108); Creatinine Clr Calc Pharmacy 45.3; Estimated Glomerular Filt Rate > 60; Glucose Random 136 mg/dL (60-115); Potassium 4.2 mmol/L (3.3-5.1); Sodium 138 mmol/L (135-145)
[2022-06-24 12:13] LABS: Troponin-I High Sensitivity 25.8 ng/L (<3.5-35.0)
[2022-06-24 12:22] LABS: Stroke Lab Use COMPLETE
[2022-06-24] MEDS: iohexoL 350 MG/ML 100 ML INFUS..BTL IV (12:42)
[2022-06-24] MEDS: ondansetron HCL 4 MG/2 ML VIAL IVPUSH (13:14)
[2022-06-24] MEDS: Ketorolac Tromethamine 30 MG/ML VIAL IVPUSH (13:14)
[2022-06-24 13:26] VITALS: BP 146/77; PULSE 60; RESP 14; O2SAT 99
--- NOTE | 2022-06-24 14:30 | P.HPHOSP_ITS ---
History of Present Illness Date of Service: 06/24/22 Chief Complaint: Weakness 87 year old man presenting with non-responsiveness for apparently 13 hours. No reports of chest pain, seizure like activity, fever, chills, recent illness, sick contacts. Normally ambulated in the home but does not hold conversations re gularly due to dementia. Patient withdraws to painful stimuli, noted pinpoint pupils, somnolent but hemodynamically stable with labs all within acceptable limits. Patient had very similar presentation in February 2022 and was treated for seizure activity and sent home with Nolan. Head and neck CTA negative for occlusion or significant stenosis. Patient was given a dose of narcan in the ED. He will be admitted for further management and treatment of somnolence Review of Systems Review of Systems: Yes Unobtainable due to mental status [facility] Medical History (Updated 06/25/22 @ 12:51 by Romina Rose MD) Alzheimer disease Arthritis Cardiomyopathy Dementia Encephalitis GERD (gastroesophageal reflux disease) High cholesterol Hypertension Osteoarthritis Family History Father Pacemaker Social History Household Members: Spouse Housing: Apartment Do you presently have visiting nurse or other home services: Yes ([employer] every day) Unable to assess alcohol history related to: Unable to respond and Unknown Alcohol intake: never Patient Tobacco Use Status: Never used Tobacco e-Cigarette/Vaping Use: Never Used Use of substances other than those prescribed or required for medical reasons: No Currently Displaying Signs/Symptoms of Drug Intoxication Withdrawal: No Advance Directives: Yes Advance Directives on File: Yes Advance Directives Date on File: 11/08/21 Recently lost weight without trying: No Nutrition Risks: No Nutritional Risk service: No Current occupational status: retired Current occupation: right handed Meds Allergies Allergy/AdvReac Type Severity Reaction Status Date / Time No Known Allergies Allergy Verified 08/19/21 15:11 [No Known Allergies*] Home Medications Medication Instructions Recorded Confirmed Last Taken Type omeprazole 20 mg tablet,delayed 20 mg PO DAILY@0630 03/28/20 06/24/22 Unknown History release aspirin 325 mg tablet,delayed 325 mg PO DAILY 04/08/21 06/24/22 Unknown History release cholecalciferol (vitamin D3) 25 1 tab PO DAILY 11/07/21 06/24/22 Unknown History mcg (1,000 unit) tablet melatonin 5 mg tablet 10 mg PO BEDTIME insomnia 11/07/21 06/24/22 Unknown History ropinirole 0.5 mg tablet 0.5 mg PO BEDTIME 11/07/21 06/24/22 Unknown History quetiapine 25 mg tablet 25 mg PO BID 03/07/22 06/24/22 Unknown History docusate sodium 50 mg/5 mL oral 5 ml PO BEDTIME PRN Constipation 06/24/22 06/24/22 Unknown History liquid Physical Exam Vital Signs and Narrative: Vital Signs: Last Vital Signs Pulse 60 06/24/22 13:26 Resp 14 06/24/22 13:26 BP 146/77 H 06/24/22 13:26 Pulse Ox 99 06/24/22 13:26 O2 Del Method Room Air 06/24/22 13:26 BMI result Body Mass Index 19.8 Appearing in no acute distress head is normocephalic atraumatic eyes pupils are PERRLA sclera is anicteric mouth throat mucous membranes are intact and moist neck is supple no lymphadenopathy, no JVD noted lung sounds are clear to auscultation heart regular rate rhythm, clear S1, S2 positive bowel sounds, abdomen is soft, nontender neuro patient is alert x3, no focal deficits Results Labs 06/24/22 11:41 06/24/22 11:41 Labs: Laboratory Results - last 24 hr 06/24/22 06/24/22 06/24/22 11:17 11:21 11:41 MCV 94.0 MCH 30.6 MCHC 32.5 RDW 13.2 Plt Count 151 L MPV 9.9 Immature Gran % (Auto) 0.3 Neut % (Auto) 76.7 H Lymph % (Auto) 13.7 L [place] % (Auto) 7.8 Eos % (Auto) 1.2 Baso % (Auto) 0.3 Lymph # (Auto) 0.9 L [place] # (Auto) 0.5 Eos # (Auto) 0.1 Baso # (Auto) 0.0 Abs Immat Gran (auto) 0.02 Absolute Neuts (auto) 4.9 Absolute Nucleated RBC 0.000 Nucleated RBC % (auto) 0.0 PT Whole Blood PT 14.7 H INR Whole Blood INR 1.2 H APTT Anion Gap Estim Creat Clear Calc Estimated GFR POC Glucose 124 H Random Glucose Calcium Troponin I High Sens 06/24/22 06/24/22 06/24/22 11:41 11:41 11:41 MCV MCH MCHC RDW Plt Count MPV Immature Gran % (Auto) Neut % (Auto) Lymph % (Auto) [place] % (Auto) Eos % (Auto) Baso % (Auto) Lymph # (Auto) [place] # (Auto) Eos # (Auto) Baso # (Auto) Abs Immat Gran (auto) Absolute Neuts (auto) Absolute Nucleated RBC Nucleated RBC % (auto) PT 14.6 H Whole Blood PT INR 1.3 H Whole Blood INR APTT 29.7 Anion Gap 8 L Estim Creat Clear Calc 45.3 Estimated GFR > 60 POC Glucose Random Glucose 136 H Calcium 8.3 L D Troponin I High Sens 25.8 Imaging Radiologist's Impressions: Impressions Head CT 06/24/22 11:00 IMPRESSION: * Deep white matter and periventricular hypoattenuation, nonspecific; 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 * No intracranial bleed. * Note: CT scan could be normal in the first 24 hour. If patient is symptomatic may initiate treatment and/or further investigate with follow-up MRI. This critical result was discussed with Dr. Bernard by telephone at 06/24/2022 12:07 PM and it was ascertained that the content and urgency of the report was understood at the time of direct communication. Chest X-Ray 06/24/22 11:57 IMPRESSION: No appreciable consolidations or effusions. Minimal linear atelectasis toward the left base. Head/Neck CTA 06/24/22 12:42 IMPRESSION: No occlusion or significant stenosis within the major head or neck arteries. No acute intracranial abnormality. Background chronic microangiopathic changes seen in the white matter. This critical result was discussed with Elizabeth Pham on 06/24/2022 1:07 PM, and it was ascertained that the content and urgency of the report was understood at the time of direct communication. Assessment and Plan (1) Encephalopathy: Status: Acute Plan 87 year old man admitted with somnolence with history of possible seizures. Similar symptoms in 02/2022 and dx with seizures. Somnolence, unspecified possible seizure vs stroke head CTA neg for occusion or stenosis MRI ordered, if positive order all other stroke work up Neuro consult monitor on telemetry get LFT, ammonia, VBG NPO for now until more awake Seizures seizure precautions discuss with neuro re EEG on Keppra, change to IV due to somnolence Mental health/dementia hold all sedating medications in light of somnolence GERD PPI DVT prophylaxis with heparin Attending Dr. Morrison Full code 2 inpatient midnight for somnolence r/t possible seizure vs stroke Time Spent With Patient Time: Total time managing care of this patient today ____ minutes. Quality Stroke Does the patient have a stroke diagnosis?: No VTE Prior VTE?: No VTE Risk Level:: Medical - moderate - high VTE Device Contraindication: Treatment Not Indicated VTE Drug Contraindication: N/A - Med Ordered
--- NOTE | 2022-06-24 14:55 | PHA.MEDREC ---
Pharmacy Consult ? Medication Reconciliation Pharmacy has completed the medication reconciliation. Pt speaks niuean, has altered mental status, and I'm unable to reach family member to confirm medications. Used claim history to complete med rec.
[2022-06-24] MEDS: Naloxone HCl 2 MG/2 ML SYRINGE IVPUSH (15:46)
[2022-06-24 15:47] VITALS: BP 122/71; PULSE 62; RESP 16; O2SAT 96
[2022-06-24 16:48] LABS: Venous Blood Gas Refer to POC result
[2022-06-24 16:49] LABS: VBG Base Excess 3.5 mmol/L; VBG HCO3 30 mmol/L (22-26); VBG pCO2 54 mmHg; VBG pH 7.34 (7.32-7.43); VBG pO2 37 mmHg
[2022-06-24 16:56] LABS: Ammonia 24 umol/L (13-55)
[2022-06-24 17:05] LABS: Alanine Aminotransferase 7 U/L (0-40); Albumin Level 3.1 g/dL (3.5-5.0); Alkaline Phosphatase 74 U/L (39-117); Aspartate Amino Transferase 16 U/L (5-37); Bilirubin Direct 0.2 mg/dL (0.0-0.5); Bilirubin Total 0.5 mg/dL (0.0-1.0); Total Protein 5.6 g/dL (6.5-8.0)
[2022-06-24] MEDS: levETIRAcetam 250 MG in 0.9 % Sodium Chloride 100 ML 410 MG IV (17:52)
[2022-06-24] MEDS: Dextrose 5 % and 0.9 % NaCl 1,000 ML 80 ML IVCONT (17:58)
[2022-06-24] MEDS: Heparin Sodium,Porcine 5,000 UNIT/ML VIAL 5000 UNIT SUBCUT (18:16)
[2022-06-24 19:41] VITALS: BP 190/125; PULSE 63; RESP 18; TEMP 36.6; O2SAT 93
[2022-06-24] MEDS: hydrALAZINE HCl 20 MG/ML VIAL 10 MG IVPUSH (20:07)
[2022-06-25 03:44] VITALS: BP 148/82; PULSE 83; RESP 20; TEMP 36.8; O2SAT 96
[2022-06-25] MEDS: levETIRAcetam 250 MG in 0.9 % Sodium Chloride 100 ML 410 MG IV (05:32)
[2022-06-25] MEDS: Heparin Sodium,Porcine 5,000 UNIT/ML VIAL 5000 UNIT SUBCUT (05:35)
[2022-06-25 07:32] VITALS: BP 130/69; PULSE 63; RESP 20; TEMP 37.3; O2SAT 96
--- NOTE | 2022-06-25 09:15 | MHC.CM.PN ---
Addendum entered by Monika Velázquez 06/25/22 12:07: DP: PT HAS BEEN MEDICALLY CLEARED FOR DC HOME, NO SERVICES. DAUGHTER/HCP SHAI UPDATED. RN AWARE. BLS TRANSPORT BOOKED FOR 2 PM VIA [email or web address] Original Note: IMM DELIVERED SPOKE WITH DAUGHTER/HCP SHAI SOTO ([phone]), IMM EXPLAINED AND SHE REQUESTS WHITE COPY BE SENT VIA MAIL TO HER. YELLOW COPY TO CHART. PT LIVES WITH /SUPPORT FROM FAMILY. 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 AMBULATES INDEP. +HCP ON FILE +COVID VAX X4. PCP DR. Robbin EARL DP: HOME WITH FAMILY, RESUMPTION OF [employer],[facility]. DAUGHTER REQUESTS BLS TRANSPORT HOME. CM WILL CONTINUE TO FOLLOW.
[2022-06-25 11:28] VITALS: BP 147/85; PULSE 85; RESP 20; TEMP 36.8; O2SAT 97
--- NOTE | 2022-06-25 11:51 | P.DS_ITS ---
DS: Providers Provider Date of Service: 06/25/22 Date of admission: 06/24/22 15:22 Primary care physician: Douglas Nguyễn MD Consults: 06/24/22 15:01 Consult to Neurology Routine Consulting Provider: [facility] [place] [facility] Reason for consultation: weakness, ? stroke DS: Summary Hospital Course Hospital Course: HP as per admitting provider 87 year old man presenting with non-responsiveness for apparently 13 hours. No reports of chest pain, seizure like activity, fever, chills, recent illness, sick contacts. Normally ambulated in the home but does not hold conversations regularly due to dementia.? Patient withdraws to painful stimuli, noted pinpoint pupils, somnolent but hemodynamically stable with labs all within acceptable limits. Patient had very similar presentation in February 2022 and was treated for seizure activity and sent home with Keppra. Head and neck CTA negative for occlusion or significant stenosis. Patient was given a dose of narcan in the ED. He will be admitted for further management and treatment of somnolence . ? Somnolence, unspecified. seizure vs medications induced somnolence from extra dose trazodone at home. MRI negative for acute ischemia/infarction. No VBG, ammonia. LFT's. Now awake and at baseline mentation as per daughter. Trazodone adjusted to 50 mg at bedtime. Continue current Keppra dose and all other mental health medications. GERD. PPI Time Spent with Patient Time attestation: Total time managing care of this patient today ____ minutes. Discharge coordination time: Greater than 30 minutes Quality: Safe Use of Opioids Does Pt have an Active Cancer Diagnosis on the Problem List?: No Quality: Stroke Does the patient have a stroke diagnosis?: No Physical Exam Vital Signs: Vital Signs: Last Vital Signs Temp 98.2 F 06/25/22 11:28 Pulse 85 06/25/22 11:28 Resp 20 06/25/22 11:28 BP 147/85 H 06/25/22 11:28 Pulse Ox 97 06/25/22 11:28 O2 Del Method Room Air 06/25/22 11:28 BMI result Body Mass Index 19.8 Appearing in no acute distress head is normocephalic atraumatic eyes pupils are PERRLA sclera is anicteric mouth throat mucous membranes are intact and moist neck is supple no lymphadenopathy, no JVD noted lung sounds are clear to auscultation heart regular rate rhythm, clear S1, S2 positive bowel sounds, abdomen is soft, nontender neuro patient is alert, baseline dementia DS: Data Data Completed and Pending Labs on day of discharge: Laboratory Results - last 24 hr 06/24/22 06/24/22 06/24/22 11:41 11:41 11:41 WBC 6.4 RBC 4.51 L Hgb 13.8 L Hct 42.4 MCV 94.0 MCH 30.6 MCHC 32.5 RDW 13.2 Plt Count 151 L MPV 9.9 Immature Gran % (Auto) 0.3 Neut % (Auto) 76.7 H Lymph % (Auto) 13.7 L [place] % (Auto) 7.8 Eos % (Auto) 1.2 Baso % (Auto) 0.3 Lymph # (Auto) 0.9 L [place] # (Auto) 0.5 Eos # (Auto) 0.1 Baso # (Auto) 0.0 Abs Immat Gran (auto) 0.02 Absolute Neuts (auto) 4.9 Absolute Nucleated RBC 0.000 Nucleated RBC % (auto) 0.0 PT 14.6 H INR 1.3 H APTT 29.7 VBG pH VBG pCO2 VBG pO2 VBG HCO3 VBG O2 Saturation VBG Base Excess Sodium 138 Potassium 4.2 Chloride 108 Carbon Dioxide 26 Anion Gap 8 L BUN 22 H Creatinine 0.96 Estim Creat Clear Calc 45.3 Estimated GFR > 60 Random Glucose 136 H Calcium 8.3 L D Total Bilirubin Direct Bilirubin AST ALT Alkaline Phosphatase Ammonia Troponin I High Sens Total Protein Albumin 06/24/22 06/24/22 06/24/22 11:41 16:39 16:39 WBC RBC Hgb Hct MCV MCH MCHC RDW Plt Count MPV Immature Gran % (Auto) Neut % (Auto) Lymph % (Auto) [place] % (Auto) Eos % (Auto) Baso % (Auto) Lymph # (Auto) [place] # (Auto) Eos # (Auto) Baso # (Auto) Abs Immat Gran (auto) Absolute Neuts (auto) Absolute Nucleated RBC Nucleated RBC % (auto) PT INR APTT VBG pH VBG pCO2 VBG pO2 VBG HCO3 VBG O2 Saturation VBG Base Excess Sodium Potassium Chloride Carbon Dioxide Anion Gap BUN Creatinine Estim Creat Clear Calc Estimated GFR Random Glucose Calcium Total Bilirubin 0.5 Direct Bilirubin 0.2 AST 16 ALT 7 Alkaline Phosphatase 74 Ammonia 24 Troponin I High Sens 25.8 Total Protein 5.6 L Albumin 3.1 L 06/24/22 16:42 WBC RBC Hgb Hct MCV MCH MCHC RDW Plt Count MPV Immature Gran % (Auto) Neut % (Auto) Lymph % (Auto) [place] % (Auto) Eos % (Auto) Baso % (Auto) Lymph # (Auto) [place] # (Auto) Eos # (Auto) Baso # (Auto) Abs Immat Gran (auto) Absolute Neuts (auto) Absolute Nucleated RBC Nucleated RBC % (auto) PT INR APTT VBG pH 7.34 VBG pCO2 54 VBG pO2 37 VBG HCO3 30 H VBG O2 Saturation 56.0 VBG Base Excess 3.5 Sodium Potassium Chloride Carbon Dioxide Anion Gap BUN Creatinine Estim Creat Clear Calc Estimated GFR Random Glucose Calcium Total Bilirubin Direct Bilirubin AST ALT Alkaline Phosphatase Ammonia Troponin I High Sens Total Protein Albumin Discharge Plan Discharge Anticipated Discharge Date/Time: 06/25/22 11:45 Patient Disposition: Home, Self-Care Discharge Diagnosis: Seizure vs medication induced somnolence Referrals: Douglas Nguyễn MD [Primary Care Provider] - 1 Week Discharge Medications: Continued aspirin 325 mg tablet,delayed release (DR/EC) 325 mg PO DAILY ropinirole 0.5 mg tablet 0.5 mg PO BEDTIME cholecalciferol (vitamin D3) 25 mcg (1,000 unit) tablet 1 tab PO DAILY melatonin 5 mg tablet 10 mg PO BEDTIME carvedilol 3.125 mg Tablet 3.125 mg PO BID Qty: 60 0RF Protocol: Hold for SBP/HR < HOLD for SBP < : 90 HOLD for HR < : 60 Rx Instructions: TAKE WITH FOOD quetiapine 25 mg tablet 25 mg PO BID levetiracetam [Keppra] 250 mg tablet 250 mg PO BID Qty: 60 0RF docusate sodium 50 mg/5 mL liquid 5 ml PO BEDTIME PRN (Reason: Constipation) omeprazole 20 mg tablet,delayed release (DR/EC) 20 mg PO DAILY@0630 Changed trazodone 50 mg tablet 50 mg PO BEDTIME Qty: 30 0RF Discharge Orders: Discharge Order (Routine); Ordered 06/25/22 Ordered By: Ada Galeano Diet: Advance to usual diet Activity on Discharge: As tolerated Stand Alone Forms: Patient Portal Discharge page Care Plan Goals: Complete resolution of symptoms Health Concerns: Seizure vs medication induced somnolence Plan of Treatment: Follow up with primary care provider as needed Take all medications as prescribed do not take more than 50 mg of trazodone a day to avoid oversedation Assessment: See discharge summary
--- NOTE | 2022-06-25 12:44 | PM.NEUROCN ---
History of Present Illness Data of Consult Service Date: 06/25/22 Primary Care Provider: Douglas Nguynễ MD [facility] Reason for consult: Decreased responsiveness This is a 87 year old man brought in for being poorly responsiveness for 13 hours. He may hav ebeen given 100mg Trazadone for sleep instaed of 50mg. He is now back to his baseline dementia and alertness. No report of seizure like activity, fever, chills, recent illness. Normally he gets around in the home but does not hold conversations due to dementia.?He was hemodynamically stable with labs all within acceptable limits. MRI showed extensive chronic microvascular disease and atrophy but no acute findings. Patient had a very similar presentation in February 2022 and was treated for seizure activity and sent home with Nolan. Head and neck CTA negative for occlusion or significant stenosis. Patient was given a dose of narcan in the ED. Review of Systems Review of Systems: Yes Unobtainable due to mental status Neurologic: Reports confusion Psychiatric: Psychiatric: Reports confusion PMFSH Past Medical History Medical History (Updated 06/25/22 @ 12:51 by Romina Rose MD) Alzheimer disease Arthritis Cardiomyopathy Dementia Encephalitis GERD (gastroesophageal reflux disease) High cholesterol Hypertension Osteoarthritis Family History Family History Father Pacemaker Social History Social History Household Members: Spouse Housing: Apartment Do you presently have visiting nurse or other home services: Yes ([employer] every day) Unable to assess alcohol history related to: Unable to respond and Unknown Alcohol intake: never Patient Tobacco Use Status: Never used Tobacco e-Cigarette/Vaping Use: Never Used Use of substances other than those prescribed or required for medical reasons: No Currently Displaying Signs/Symptoms of Drug Intoxication Withdrawal: No Advance Directives: Yes Advance Directives on File: Yes Advance Directives Date on File: 11/08/21 Recently lost weight without trying: No Nutrition Risks: No Nutritional Risk service: No Current occupational status: retired Current occupation: right handed Meds Allergies Allergy/AdvReac Type Severity Reaction Status Date / Time No Known Allergies Allergy Verified 08/19/21 15:11 [No Known Allergies*] Active Medications: Current Medications Acetaminophen (Acetaminophen 325 Mg Tablet) 650 mg PO Q6H PRN PRN Reason: Pain, Mild (Pain Scale 1-3) Heparin Sodium (Porcine) (Heparin Sodium,Porcine 5,000 Unit/Ml Vial) 5,000 unit SUBCUT Q12H [facility] Last Admin: 06/25/22 05:35 Dose: 5,000 unit Levetiracetam 250 mg/ Sodium (Chloride) 102.5 mls @ 410 mls/hr IV Q12H [facility] Last Infusion: 06/25/22 05:54 Dose: Infused Dextrose/Sodium Chloride (D5ns) 1,000 mls @ 80 mls/hr IVCONT .[id number] [facility] Last Admin: 06/25/22 05:39 Dose: Not Given Ondansetron HCl (Ondansetron Hcl 4 Mg/2 Ml Vial) 4 mg IVPUSH Q8H PRN PRN Reason: Nausea and Vomiting Pharmacy Consult (Consult Rx Perform Med Rec) 1 each MISCELLANE ONCE PRN PRN Reason: Consult order Sodium Chloride (0.9 % Sodium Chloride Flush 3 Ml Syringe) 3 ml IVFLUSH QSHIFT [facility] Last Admin: 06/25/22 08:03 Dose: Not Given Home Medications Medication Instructions Recorded Confirmed Last Taken Type omeprazole 20 mg tablet,delayed 20 mg PO DAILY@0630 03/28/20 06/24/22 Unknown History release aspirin 325 mg tablet,delayed 325 mg PO DAILY 04/08/21 06/24/22 Unknown History release cholecalciferol (vitamin D3) 25 1 tab PO DAILY 11/07/21 06/24/22 Unknown History mcg (1,000 unit) tablet melatonin 5 mg tablet 10 mg PO BEDTIME insomnia 11/07/21 06/24/22 Unknown History ropinirole 0.5 mg tablet 0.5 mg PO BEDTIME 11/07/21 06/24/22 Unknown History quetiapine 25 mg tablet 25 mg PO BID 03/07/22 06/24/22 Unknown History docusate sodium 50 mg/5 mL oral 5 ml PO BEDTIME PRN Constipation 06/24/22 06/24/22 Unknown History liquid Physical Exam Vital Signs: Vital Signs: Last Vital Signs Temp 98.2 F 06/25/22 11:28 Pulse 85 06/25/22 11:28 Resp 20 06/25/22 11:28 BP 147/85 H 06/25/22 11:28 Pulse Ox 97 06/25/22 11:28 O2 Del Method Room Air 06/25/22 11:28 BMI result Body Mass Index 19.8 Const: Other: chronically ill appearing unresponsive General: healthy appearing and confusion Nutritional Appearance: thin Orientation/consciousness: confusion Limitations: no limitations and altered mental status HEENT: Head: Yes normal to inspection Ears: external ears normal General nose exam: Normal external nose present Mouth: Normal oral and palatal mucosa present and oropharynx normal Throat: Yes posterior oropharynx normal Eyes: Other: eyes rolled back General: appearance normal, both eyes and all related structures Neck: Neck: Yes normal visual inspection Chest: Chest palpation & inspection: normal inspection of the chest Resp: Auscultation: clear to auscultation bilaterally Cardio: Jugular venous distension: no JVD Rate: regular rate Rhythm: regular rhythm Heart sounds: S1 normal heart sound present and S2 normal heart sound present GI: Inspection: Yes normal to inspection Palpation (GI): Soft to palpation, nontender and No hepatosplenomegaly present Auscultation: normal bowel sounds : General: Yes no CVA tenderness Back/Spine/Pelvis: Back: no CVA tenderness Skin: General skin exam: no rashes or lesions noted Neuro: Other: He is alert and will occasionally follow one-step commands. He is mumbling and pickiing at his bedclothes, and sitting up. Her height cannot get any useful information from him, but he appears to be a verry alert and conscious. Cranial nerves are grossly intact. He has a nonfocal examination and moves all 4 extremities and squeezes with both hands. Plantar response is flexor. Neck is supple. General: confusion Extrem: Other: left facial, left arm, left leg swelling Psych: Appearance: grossly normal Results Labs 06/24/22 11:41 06/24/22 11:41 Labs: Liver Function 06/24/22 Range/Units 16:39 Total Bilirubin 0.5 (0.0-1.0) mg/dL Direct Bilirubin 0.2 (0.0-0.5) mg/dL AST 16 (5-37) U/L ALT 7 (0-40) U/L Alkaline Phosphatase 74 (39-117) U/L Albumin 3.1 L (3.5-5.0) g/dL Assessment and Plan (1) Encephalopathy: Status: Acute Probable medication induced hypersomnolence from trazodone. Baseline dementia from Alzheimer's disease. No definite seizures. Recommendation: Continue Keppra at current dose. Reduce trazodone 50 mg at night maximum dose. Patient can be discharged Time Spent With Patient Time: Total time managing care of this patient today ____ minutes. Procedures Date of Service Date of Service: 06/25/22
[2022-06-25 13:03] LABS: Alanine Aminotransferase 9 U/L (0-40); Albumin Level 3.3 g/dL (3.5-5.0); Alkaline Phosphatase 79 U/L (39-117); Anion Gap 13 (12-20); Aspartate Amino Transferase 19 U/L (5-37); Bilirubin Total 0.7 mg/dL (0.0-1.0); Blood Urea Nitrogen 20 mg/dL (9-16); Calcium 8.6 mg/dL (8.4-10.2); Carbon Dioxide 21 mmol/L (22-29); Chloride 110 mmol/L (96-108); Creatinine Clr Calc Pharmacy 51.8; Estimated Glomerular Filt Rate > 60; Glucose Random 90 mg/dL (60-115); Potassium 4.1 mmol/L (3.3-5.1); Sodium 140 mmol/L (135-145); Total Protein 5.8 g/dL (6.5-8.0)
== END 2022-06-25 14:47 | disposition home or self-care (01) | DRG 101 ==
LOC: HO.ED 14:07 → HO.EDOVER 15:33 → HO.IMC 15:53
PROVIDERS: Admitting Provider Nurse Practitioner Acute Care; Emergency Provider Emergency Medicine; PCP Internal Medicine; Visit Provider Nurse Practitioner Acute Care
DX: R56.9 Unspecified convulsions (principal); R40.0 Somnolence; G30.9 Alzheimer's disease, unspecified; F02.80 Dementia in other diseases classified elsewhere, unspecified severity, without behavioral disturbance, psychotic disturbance, mood disturbance, and anxiety; T43.215A Adverse effect of selective serotonin and norepinephrine reuptake inhibitors, initial encounter; K21.9 Gastro-esophageal reflux disease without esophagitis; Z79.82 Long term (current) use of aspirin; Z79.899 Other long term (current) drug therapy
CPT/HCPCS: 36415; 70450; 70496; 70498; 70551; 71045; 80048; 80053; 80076; 82140; 82803; 82947; 84484; 85025; 85610; 85730; 93005; 99285; J1643; J1885; J1953; J2405; Q9967

== ENCOUNTER 2022-11-12 18:42 | Emergency (ER) | payer OTHER, SELFPAY ==
--- NOTE | ~2022-11-12 | CT_ITS ---
EXAMINATION: CT HEAD WITHOUT CONTRAST CLINICAL INFORMATION: Mental status change. COMPARISON: None available. TECHNIQUE: Contiguous axial imaging was performed from the skull base to vertex without intravenous administration of contrast. This CT examination was performed using dose optimization techniques as appropriate, variously including the following: *Automated exposure control *Adjustment of mA and/or kV according to patient size (this includes techniques or standardized protocols for targeted exams where dose is matched to indication/reason for exam; i.e. extremities or head) *Use of iterative reconstruction technique DLP: 707 mGy-cm FINDINGS: There is cerebral volume loss with prominence of the lateral and the third ventricles the cortical sulci are widened appropriately. The fourth ventricle and basal cisterns are normally outlined. There is extensive bilateral periventricular and central white matter image attenuation. There is no territorial defect, hemorrhage or midline shift. The extra-axial spaces are unremarkable. Calvarium: Intact Maxillofacial sinuses and mastoids: Clear as visualized. CT/CT head/brain wo IV con IMPRESSION: Cerebral volume loss and periventricular and central matter diminished attenuation which is nonspecific but likely to represent microvascular disease. No acute intracranial abnormality. No significant change.
--- NOTE | ~2022-11-12 | XR_ITS ---
EXAMINATION: XR CHEST CLINICAL INFORMATION: Mental status change COMPARISON: Previous chest x-ray most june TECHNIQUE: Frontal view of the chest was obtained. FINDINGS: The cardiac silhouette is slightly enlarged but stable. Hilar and mediastinal contours are unremarkable. The lungs are clear. No pleural effusion or pneumothorax. Healed distal left humeral shaft fracture. XR/XR chest 1V IMPRESSION: No evidence for acute disease in chest.
[2022-11-12 19:02] VITALS: BP 127/70; BP 149/88; PULSE 65; PULSE 69; RESP 18; TEMP 37.1; O2SAT 98; BMI 25.8
--- NOTE | 2022-11-12 19:08 | PHA.MEDREC ---
Pharmacy Consult ? Medication Reconciliation Pharmacy has completed the medication reconciliation. Patient brought medbox list of medication. Trazodone is a prn med written on list and docusate is a prn medication recently filled per claim history. Robyn Cheng, JuanitaD
--- NOTE | 2022-11-12 19:23 | ECG_ITS ---
Test Reason : Altered Mentation Blood Pressure : / mmHG Vent. Rate : 068 BPM Atrial Rate : 068 BPM P-R Int : 190 ms QRS Dur : 100 ms QT Int : 402 ms P-R-T Axes : 077 -48 068 degrees QTc Int : 427 ms Normal sinus rhythm Left anterior fascicular block Minimal voltage criteria for LVH, may be normal variant ( [place] product ) Abnormal ECG When compared with ECG of 24-JUN-2022 11:10, Premature atrial complexes are no longer Present Referred By: Chalino Mcmahon Electronically Signed By:LINO DOMINGUEZ
--- NOTE | 2022-11-12 19:25 | ED_ITS ---
HPI - Altered Mental Status General Chief Complaint: Altered Mental Status Stated Complaint: AMS Time Seen by Provider: 11/12/22 19:16 Source: patient, family (Daughter) and EMS Mode of arrival: EMS Limitations: altered mental status History of Present Illness HPI narrative: 87-year-old male came in by ambulance for change mental status and patient becoming nonresponsive, patient is known to have advanced dementia lives home with his daughter mostly dependent with most of the daily functional activity, no reports of CP, coughing, fever, chills, recent illness, a family member diagnosed with COVID patient did not expose to this person, Related Data Home Medications Medication Instructions Recorded Confirmed omeprazole 20 mg tablet,delayed 20 mg PO DAILY@0630 03/28/20 11/12/22 release aspirin 325 mg tablet,delayed 325 mg PO DAILY 04/08/21 11/12/22 release cholecalciferol (vitamin D3) 25 1 tab PO DAILY 11/07/21 11/12/22 mcg (1,000 unit) tablet melatonin 5 mg tablet 10 mg PO BEDTIME insomnia 11/07/21 11/12/22 ropinirole 0.5 mg tablet 0.5 mg PO BEDTIME 11/07/21 11/12/22 quetiapine 25 mg tablet 25 mg PO BID 03/07/22 11/12/22 docusate sodium 50 mg/5 mL oral 5 ml PO BEDTIME PRN Constipation 11/12/22 11/12/22 liquid trazodone 50 mg tablet 50 mg PO BEDTIME PRN Insomnia 11/12/22 11/12/22 Previous Rx's Medication Instructions Recorded carvedilol 3.125 mg tablet 3.125 mg PO BID #60 tabs 11/14/21 levetiracetam 250 mg tablet 250 mg PO BID #60 tabs 03/07/22 (Keppra) Allergies Allergy/AdvReac Type Severity Reaction Status Date / Time No Known Allergies Allergy Verified 08/19/21 15:11 [No Known Allergies*] Review of Systems Review of Systems: All other systems are reviewed and are negative Constitutional: Reports as per HPI and Reports no additional constitutional complaints Eyes: Reports as per HPI and Reports no additional eye complaints Reports system reviewed and no additional complaints, except as documented Cardiovascular: Reports as per HPI and Reports no additional cardiovascular complaints Respiratory: Reports as per HPI and Reports no additional respiratory complaints Gastrointestinal: Reports as per HPI and Reports no additional gastrointestinal complaints Genitourinary: Reports no additional female genitourinary complaints Musculoskeletal: Reports no additional musculoskeletal complaints Skin/Breast: Reports system reviewed and no additional complaints, except as docu Psychiatric: Reports no additional psychiatric complaints Endocrine: Reports no additional endocrine complaints Hematologic/Lymphatic: Reports no additional hematologic/lymphatic complaints Allergic/Immunologic: Reports no additional allergic/immunologic complaints Reports system reviewed and no additional complaints, except as documented and Reports Abnormal speech present [facility] Past Medical History Medical History Cardiomyopathy Encephalitis Osteoarthritis GERD (gastroesophageal reflux disease) Dementia Hypertension High cholesterol Arthritis Alzheimer disease Family History Family History Father Pacemaker Social History Social History Household Members: Spouse Housing: Apartment Do you presently have visiting nurse or other home services: Yes ([employer] every day) Unable to assess alcohol history related to: Unable to respond and Unknown Alcohol intake: never Patient Tobacco Use Status: Never used Tobacco e-Cigarette/Vaping Use: Never Used Advance Directives: Yes Advance Directives on File: Yes Advance Directives Date on File: 11/08/21 service: No Current occupational status: retired Current occupation: right handed Physical Exam ED Vital Signs: Vital Signs - 24 hr 11/12/22 19:02 Temperature 98.7 F Pulse Rate 65 Respiratory Rate 18 Blood Pressure 127/70 Pulse Oximetry 98 Oxygen Delivery Method Room Air BMI result Body Mass Index 25.8 Vital signs have been reviewed and appear to be correct. Blood pressure elevated. Heart rate normal. Respiratory rate normal. Temperature normal. Oxygen saturation normal. Appearance: Somnolent, open his eyes to painful stimuli, No acute distress. Head: Normal external exam. Normocephalic. Atraumatic. No Hernandez signs noted. No raccoon eyes noted Eyes: PERRLA. EOMI. Conjunctiva and sclera normal. Eyelids normal. ENT: TM's Normal. Pharynx normal. Uvula midline. Moist mucous membranes. No trismus noted. No drooling noted. No muffled voice noted. Neck: Normal inspection. Neck supple. FROM. No adenopathy. Thyroid Normal. No meningeal signs. No neck mass noted. CVS: Normal heart rate and rhythm. Heart sound normal. No murmurs noted. Pulses normal throughout. Respiratory: No respiratory distress. Painless inspiration. Breath sounds normal. No wheezes/rales/rhonchi noted. Chest nontender. No accessory muscle usage noted or decreased air movement noted. Abdomen: Soft and nontender. Bowel sounds normal in all 4 quadrants. No distention noted. No organomegaly noted. No visible injury noted. Back: No CVA tenderness. Full range of motion noted. Skin: Skin warm and dry. Normal skin color. Normal skin turgor. No rashes/lesions/lacerations noted. Extremities: No lower extremity edema. Extremities exhibit normal range of motion. Extremities nontender. Neuro: Cranial nerve exam: II-XII are grossly intact No motor deficit. No sensory deficit. Reflexes normal. Course Course Course Narrative: 87-year-old male with acute mental status change and subjective fever, awaiting for labs/chest x-ray/UA, case signed out to Dr. Mullins. Medications Administered Discontinued Medications Generic Name Dose Route Start Last Admin Trade Name Freq PRN Reason Stop Dose Admin Sodium Chloride 1,000 mls @ 999 mls/hr 11/12/22 19:23 11/12/22 20:09 Ns IV 11/12/22 20:23 999 mls/hr .Q1H1M ONE Administration Medical Decision Making Differential Diagnosis Differential Diagnoses: The differential diagnosis associated with the presentation includes (UTI, pneumonia, electrolyte abnormality, severe dehydration and hypovolemia, severe anemia.) Admission/Observation Consideration of admission/observation: Escalation of care including admission/observation considered Independent Interpretation I performed an independent interpretation of an: Plain X-Ray (Chest: No acute intrathoracic pathology.) Radiology Impression Discussion of test interpretation with radiology: I have reviewed the radiologist's reading. Discharge Plan Discharge Clinical Impression: Acute alteration in mental status Patient Disposition: Still a Patient Prescriptions: No Action aspirin 325 mg tablet,delayed release (DR/EC) 325 mg PO DAILY ropinirole 0.5 mg tablet 0.5 mg PO BEDTIME cholecalciferol (vitamin D3) 25 mcg (1,000 unit) tablet 1 tab PO DAILY melatonin 5 mg tablet 10 mg PO BEDTIME carvedilol 3.125 mg Tablet 3.125 mg PO BID Qty: 60 0RF Protocol: Hold for SBP/HR < HOLD for SBP < : 90 HOLD for HR < : 60 Rx Instructions: TAKE WITH FOOD quetiapine 25 mg tablet 25 mg PO BID levetiracetam [Keppra] 250 mg tablet 250 mg PO BID Qty: 60 0RF docusate sodium 50 mg/5 mL liquid 5 ml PO BEDTIME PRN (Reason: Constipation) trazodone 50 mg tablet 50 mg PO BEDTIME PRN (Reason: Insomnia) omeprazole 20 mg tablet,delayed release (DR/EC) 20 mg PO DAILY@0630
[2022-11-12 20:00] VITALS: BP 147/82; PULSE 66; RESP 14; TEMP 36.7; O2SAT 99
[2022-11-12] MEDS: 0.9 % Sodium Chloride 1,000 ML 999 ML IV (20:09)
[2022-11-12 21:22] LABS: PLT CLUMP 1; SCAN SMEAR FLAG 1
[2022-11-12 21:24] LABS: Basophils Percent Auto 0.2 % (0-2); Eosinophils Percent Auto 0.4 % (0-4); Imm Gran Abs Auto 0.02 X10*3/uL (0.00-0.03); Imm Gran Pct Auto 0.4 % (0.0-0.4); Lymphocytes Absolute Auto 0.5 X10*3/uL (1.2-4.9); Lymphocytes Percent Auto 10.4 % (20-40); MANUAL DIFF FLAG SCAN; Mean Corpuscular HGB Conc 33.3 g/dl (31.0-36.0); Mean Corpuscular Hemoglobin 31.1 pg (27.0-33.0); Mean Corpuscular Volume 93.3 fL (80.0-98.0); Mean Platelet Volume 9.8 fL (9.4-12.4); Monocytes Absolute Auto 0.4 X10*3/uL (0.1-1.2); Monocytes Percent Auto 9.6 % (2-11); Neutrophils Absolute Auto 3.6 x10*3/uL (2.0-8.3); Red Cell Distribution Width 13.4 % (11.0-16.0)
[2022-11-12 21:32] LABS: Lactic Acid 1.3 mmol/L (0.5-2.0)
[2022-11-12 21:36] LABS: Platelet Count 127 X10*3/uL (160-400); White Blood Count 4.5 X10*3/uL (4.8-10.8)
[2022-11-12 21:38] LABS: Alanine Aminotransferase 7 U/L (0-40); Albumin Level 3.8 g/dL (3.5-5.0); Alkaline Phosphatase 83 U/L (39-117); Anion Gap 10 (12-20); Aspartate Amino Transferase 15 U/L (5-37); Bilirubin Direct 0.1 mg/dL (0.0-0.5); Bilirubin Total 0.4 mg/dL (0.0-1.0); Blood Urea Nitrogen 23 mg/dL (9-16); Calcium 9.1 mg/dL (8.4-10.2); Carbon Dioxide 22 mmol/L (22-29); Chloride 109 mmol/L (96-108); Creatinine Clr Calc Pharmacy 52.3; Estimated Glomerular Filt Rate > 60; Glucose Random 118 mg/dL (60-115); Lipase 7 U/L (8-78); Potassium 4.1 mmol/L (3.3-5.1); Sodium 137 mmol/L (135-145); Total Protein 6.7 g/dL (6.5-8.0)
[2022-11-12 21:39] LABS: SLIDE REVIEW VERIFIED
[2022-11-12 21:41] LABS: B Type Natriuretic Peptide 182 pg/mL (<100)
[2022-11-12 21:45] LABS: Troponin-I High Sensitivity 32.2 ng/L (<3.5-35.0)
[2022-11-12 22:04] LABS: Influenza A PCR NEGATIVE (Negative); Influenza B PCR NEGATIVE (Negative); Resp Syncy Virus RNA Qual PCR NEGATIVE (Negative); SARS COV2 PCR INHOUSE POSITIVE (Negative)
[2022-11-12 23:04] VITALS: BP 149/84; PULSE 61; RESP 11; O2SAT 97
--- NOTE | 2022-11-12 23:36 | PC.NURSE ---
This RN assumed care upon patient arrival. Patient found to be COVID +. Family at bedside provided with masks, patient to be discharged via ambulance home
== END 2022-11-13 01:01 | disposition home or self-care (01) ==
PROVIDERS: Emergency Provider Emergency Medicine
DX: R41.82 Altered mental status, unspecified (principal); G30.9 Alzheimer's disease, unspecified; F02.80 Dementia in other diseases classified elsewhere, unspecified severity, without behavioral disturbance, psychotic disturbance, mood disturbance, and anxiety; R06.02 Shortness of breath; R94.31 Abnormal electrocardiogram [ECG] [EKG]; K21.9 Gastro-esophageal reflux disease without esophagitis; Z20.822 Contact with and (suspected) exposure to COVID-19; Z20.828 Contact with and (suspected) exposure to other viral communicable diseases; Z79.899 Other long term (current) drug therapy
CPT/HCPCS: 0241U; 36415; 70450; 71045; 80048; 80076; 83605; 83690; 83880; 84484; 85025; 87040; 93005; 99284; 99285

== ENCOUNTER 2024-09-05 20:56 | Inpatient (IN) | payer OTHER, SELFPAY ==
[2024-09-05] VITALS (7 sets, daily range): BP systolic 124–154; BP diastolic 73–84; PULSE 73–88; RESP 19–27; TEMP 38.7–39.8; O2SAT 89–97; BMI 24.9
--- NOTE | 2024-09-05 | ECG_ITS ---
Test Reason : sob, ams Blood Pressure : */* mmHG Vent. Rate : 84 BPM Atrial Rate : 84 BPM P-R Int : 216 ms QRS Dur : 96 ms QT Int : 366 ms P-R-T Axes : 52 -61 89 degrees QTcB Int : 432 ms Sinus rhythm with 1st degree A-V block Left anterior fascicular block Minimal voltage criteria for LVH, may be normal variant ( Tab product ) Abnormal ECG When compared with ECG of 12-Nov-2022 20:40, No significant change was found Referred By: Generic ED Physician Electronically Signed By: Trenton Berrios
--- NOTE | ~2024-09-05 | FL_ITS ---
EXAMINATION: FL GUIDANCE ONLY HISTORY: evacuation of hematoma COMPARISON: Correlation is made with a CT of the pelvis dated 09/06/2024. TECHNIQUE: Fluoroscopy time: 29.4 seconds. Cumulative Dose: 8.20 mGy. Images: 2. FINDINGS: Images demonstrate a Wylie catheter in place. FL/FL guidance in OR IMPRESSION: Fluoroscopy during procedure. Please see procedure report for additional information. Electronically signed by: Kain Arora MD 09/06/2024 02:33 PM EDT
--- NOTE | ~2024-09-05 | CT_ITS ---
CLINICAL HISTORY: aspiration PNA suspected CT chest with contrast Comparison: None provided Findings: Motion limited exam. Enlarged cardiac atria. Enlarged pulmonary trunk measuring 35 mm in width. Query pulmonary arterial hypertension. Calcified mediastinal and right hilar nodes. Small right pleural effusion. Mild right lower lobe peribronchovascular opacities suggestive of pneumonia -/+ aspiration pneumonia. 3 mm right upper lung nodule (series 9, image 53) and 3 mm right juxtapleural nodule. For the upper abdominal findings please refer to same-day abdomen CT report. The bones are intact. IMPRESSION: 1. Small right pleural effusion. Mild right lower lobe peribronchovascular opacities suggestive of pneumonia -/+ aspiration pneumonia. 2. Enlarged pulmonary trunk measuring 35 mm in width. Query pulmonary arterial hypertension. This document has been electronically signed by: Maty España MD on 09/06/2024 06:06:23
--- NOTE | ~2024-09-05 | CT_ITS ---
CLINICAL HISTORY: derrick hematuria CT abdomen and pelvis with contrast Comparison: None provided Findings: For the lower lung findings please refer to same-day chest CT report. Motion limited exam. Distended gallbladder. Correlate clinically for presence or absence of right upper quadrant pain. Too small to characterize left hepatic lobe hypodensity. [id number] early atrophied pancreas. Borderline prominent pancreatic duct measuring up to 3 mm in width. No bowel obstruction, pneumoperitoneum, or pneumatosis. Significant stool in the rectum and relatively moderate stool in the colon. Atherosclerotic calcifications. Incompletely evaluated appendix. Evaluated portion unremarkable. Enlarged prostate. At least mild soft tissue emphysema at level of the incompletely evaluated penis. Incompletely evaluated penile catheter (questionably malpositioned Wylie catheter) cannot be excluded. Correlate clinically. No hydronephrosis or renal stone. Small dense layer in the left posterolateral aspect of the urinary bladder due to mild hemorrhagic/dense urinary bladder contents (UA correlation recommended) versus less likely nonobstructive urinary bladder stone/stones. Small amount of nondependent gas in the urinary bladder likely due to recent catheterization. Correlate clinically. Tiny amount of right groin gas seems to be located within veins and may be due to prior venous access. No acute fracture. Spinal degenerative changes. IMPRESSION: 1. At least mild soft tissue emphysema at level of the incompletely evaluated penis. Incompletely evaluated penile catheter (questionably malpositioned Wylie catheter) cannot be excluded. Correlate clinically. 2. Distended gallbladder. Correlate clinically for presence or absence of right upper quadrant pain. 3. No hydronephrosis or renal stone. Small dense layer in the left posterolateral aspect of the urinary bladder due to mild hemorrhagic/dense urinary bladder contents (UA correlation recommended) versus less likely nonobstructive urinary bladder stone/stones. 4. Significant stool in the rectum and relatively moderate stool in the colon. This document has been electronically signed by: Maty España MD on 09/06/2024 06:18:20
--- NOTE | ~2024-09-05 | XR_ITS ---
CLINICAL HISTORY: cough short of breath 1 view chest x-ray Comparison: CR/SR - XR CHEST 2 VIEWS - 11/12/22 19:32 EDT Findings: Opacity of the right lung base which may be due to atelectasis or pneumonia however recommend follow-up imaging to exclude underlying pulmonary finding. Mild cardiomegaly, unchanged No acute fracture. IMPRESSION: Opacity of the right lung base which may be due to atelectasis or pneumonia however recommend follow-up imaging to exclude underlying pulmonary finding. This document has been electronically signed by: Osman Dixon DO on 09/05/2024 21:42:52
--- NOTE | 2024-09-05 21:05 | PC.NURSE ---
pt arrived by EMS with not much information other than pt has a wet cough and was 80% on room air. Pt was placed on 2L NC with spo2 99%. Pt woke up this am and had breakfast, then after a nap was not verbay responding, per nurse discharge pt was shaking and had a fever. Per daughter pt has advanced dementia and is minimally responsive, has been having increased difficulty with talking, walking and swallowing but does still do these things with maximum assistance. made aware, obtaining labs at this time and will obtain straight cath.
[2024-09-05 21:06] LABS: Glucose, Whole Blood 103 mg/dL (60-115)
--- OUTSIDE RECORDS SUMMARY | 2024-09-05 21:12 | XMS_ITS | Data Portability ---
Author Organization [email or web address], [facility] [employer] [facility] Address [address] [place] [address] Care Team Providers Care Metal Or Wood Blocker Name Role Phone HIM CCA OTHER SILVIO EARL Primary Care Provider Assessment Encounter Date Assessment Date Assessment LastModified by Organization Details LastModified Time 10/28/2023 10/28/2023 I have reviewed and agree with the assessment and plan as daocumented by the trans router. I provided real-time medical direction for this encounter and was immediately available to provide additional phone-based assistance as needed. History as noted in EMR and by trans router. I would add / emphasize: Patient seen for nonproductive cough for 2 weeks. AVSS, well-appearing, afebrile, no labored respirations, clear lungs per report, saturating well on room air, speaking in full sentences. Differential diagnosis includes possible silent aspiration in the setting of advanced dementia versus viral/postviral cough. Given benign appearance, clear lungs, no fevers, low suspicion for acute bacterial pneumonia. Advised on usage of prescribed cough suppressants (prescribed by previous clinician) and red flag symptoms for seeking ED evaluation. Patient voices understanding. [id number] COVID and flu tests are negative. Patient would benefit from close follow-up with primary care for further evaluation and monitoring. [email or web address] Not available 10/29/2023 16:15:39 12/09/2023 12/09/2023 I provided real -time medical direction via phone for this encounter and was available for additional phone-based assistance as needed. I have reviewed and agree with the Assessment and Plan as documented by the Bank Representative. Patient given the opportunity to ask questions. Our service contacted for an assessment of: cough As per above, patient with + cough. Taking OTCs with + trajectory. Unable to give history. Per trans router on the scene, VSS< non-toxic, NAD Impression: improving URI symptoms, cough Plan: Fortunately COVID and flu are negative. Stay current course. Red flags discussed Allergies: Reviewed PCP f/u: We discussed the diagnostic uncertainty of home visits and the risk associated with this. In this case, the patient and I felt this to be an acceptable and reasonable amount of risk given the benefit of avoiding an ED visit. We discussed the need to seek care urgently/emergen tly in the setting of any new or worsening serious symptoms, particularly fever chills [email or web address] Not available 12/09/2023 13:45:25 06/01/2024 06/01/2024 I provided real -time medical direction via phone for this encounter, and was available for additional phone based assistance as needed. I have reviewed and agree with the Assessment and Plan as documented by the Bank Representative. We discussed the diagnostic uncertainty of home visits and the risk associated with this. In this case the patient's daughters and I felt this to be an acceptable and reasonable amount of risk given the benefit of avoiding an ED visit at this time- will try more medication-advis ed if not improving within 1-2 days will need to go in for disimpaction/ may need labs and if requires ivf if refuses to eat/drink will need support/ assistance of several medical manager which we do not have at home to accomplish this due to the agitated dementia- they verbalized understanding to the medic. The patient's family (daughters) given the opportunity to ask questions. Advised if develops CP/severe SOB/turning blue/ v/d or black/bloody emesis or stool/ increased AMS/ syncope/ fever to call 911- they verbalized understanding of instructions 06/02/2024 requested CRC call and check on patient -if not improving to have family consider bringing to the ED, given issues with agitation secondary to dementia and inability to get labs/IV at home/we do not provide enemas or disimpaction. [email or web address] Not available 06/02/2024 15:47:34 06/21/2024 06/21/2024 I provided real -time medical direction via phone for this encounter, and was available for additional phone based assistance as needed. I have reviewed and agree with the Assessment and Plan as documented by the Bank Representative. We discussed the diagnostic uncertainty of home visits and the risk associated with this. In this case the wrapping checker/ medic and I felt this to be an acceptable and reasonable amount of risk given the benefit of avoiding an ED visit. The patient's wrapping checker given the opportunity to ask questions due to patient w/ dementia. Allergies verified w/ daughter over the phone by the medic and pharmacy verified with CHART CLERK Advised if develops CP/severe SOB/turning blue/uncontrolle d n/v/d / severe AMS/ syncope/ hi fever to call 911- verbalized understanding of instruction [email or web address] Not available 06/21/2024 13:37:49 Plan of Treatment Reminders Order Date Submit Date Provider Last Modified By Organization Details Last Modified Time Details Appointments None recorded. Lab rapid SARS CoV 2 Ag, QL [place], respiratory specimen [address], [id number] 4 13:43:15 rapid flu (A+B) [address], [id number] 4 13:43:17 rapid SARS CoV 2 Ag, QL IA, respiratory specimen 2023 024 [facility], [address] [place] [address], [id number] 4 13:22:25 rapid flu (A+B) [address], [id number] 4 13:22:44 Referral None recorded. Procedures None recorded. Surgeries None recorded. Imaging None recorded. Medication Orders bacitracin 500 unit/gram topical ointment 2024 025 [email or web address] [facility], [address] [place] [address], [id number], 5 13:32:15 bacitracin 500 unit/gram topical ointment 2024 025 [facility], [address] [place] [address], [id number], 5 10:34:07 Miralax 17 gram/dose oral powder 2024 025 [facility], [address], [place], [id number], 5 16:16:54 docusate sodium 50 mg/5 mL oral liquid 2024 025 [facility], [address], [place], [id number], 5 12:59:12 senna 8.8 mg/5 mL oral syrup 2024 025 [facility], [address], [place], [id number], 5 16:16:52 Dulcolax (bisacodyl) 10 mg rectal suppository 2024 025 [facility], [address], [place], [id number], 5 16:16:56 Patient TargetsNo targets recorded. Patient Instructions Encounter Date Encounter Id Patient Instructions Last Modified By Organization Details Last Modified Time 06/21/2024 [id number] application of wound dressing* Not available 06/21/2024 13:32:15 Reason for Referral None Reported. Results Created Date Observation Date Name Description Value Unit Range Abnormal Flag Note LastModifiedBy Organization Detail LastModifiedTime 12/09/1912/09/2023 rapid flu (A+B) Flu negati ve Not Available Main - [facility] ed [address] [place] [address], [id number] 12/09/2023 13:43:05 12/09/19 24 12/09/2023 rapid SARS CoV 2 Ag, QL IA, respi rator y speci men rapid SARS CoV 2 Ag, QL IA, respiratory specimen negati ve Not Available Main - [facility] ed [address] [place] [address], [id number] 12/09/2023 13:43:03 Result Notes None recorded. Medical Equipment None Reported. Allergies No known drug allergies Medications Name Sig Start Date Stop Date Status Note LastModified by Organization Details LastModified Time Prescription - Renewal active Not Available Not Available No t Available quetiapine 25 mg tablet TAKE ONE TABLET TWICE DAILY IN THE MORNING AND AT BEDTIME active Not Available Not Available N ot Available docusate sodium 50 mg/5 mL oral liquid Take 10 mL twice a day by oral route for 7 days. 2024 active Not Available Not Available Not Avai lable atorvastatin 20 mg tablet TAKE ONE TABLET AT BEDTIME (FOR CHOLESTEROL ) active Not Available Not Available No t Available trazodone 50 mg tablet TAKE ONE TABLET EVERY NIGHT AT BEDTIME active Not Available Not Available N ot Available polyethylene glycol 3350 17 gram oral powder packet MIX 1 PACKET IN 8 OUNCES OF WATER, JUICE,SODA, COFFEE, OR TEA DAILY NEEDED FOR CONSTIPATIO N FOR THREE DAYS active Not Available Not Available No t Available benzonatate 200 mg capsule TAKE ONE CAPSULE BY MOUTH THREE TIMES DAILY NEEDED FOR COUGH active Not Available Not Available No t Available senna 8.6 mg tablet TAKE ONE TABLET DAILY active Not Available Not Available No t Available sodium chloride 1 gram tablet TAKE ONE TABLET BY MOUTH THREE TIMES DAILY IN THE MORNING, EVENING AND BEDTIME active Not Available Not Available No t Available Milk of Magnesia 400 mg/5 mL oral suspension TAKE 30 ml's BY MOUTH AT BEDTIME FOR 10 DAYS active Not Available Not Available No t Available bacitracin 500 unit/gram topical ointment APPLY TO THE AFFECTED AREA(S) DAILY FOR 10 DAYS active Not Available Not Available No t Available senna 8.8 mg/5 mL oral syrup TAKE FIVE ML BY MOUTH TWICE DAILY FOR SEVEN DAYS STOP IF diarrea active Not Available Not Available N ot Available amlodipine 2.5 mg tablet TAKE ONE TABLET EVERY MORNING FOR BLOOD PRESSURE active Not Available Not Available No t Available amlodipine 5 mg tablet TAKE ONE TABLET EVERY MORNING FOR BLOOD PRESSURE active Not Available Not Available No t Available sulfamethoxa zole 800 mg-trimethop rim 160 mg tablet TAKE ONE TABLET TWICE DAILY UNTIL FINISHED active Not Available Not Available No t Available triamterene 37.5 mg-hydrochlo rothiazide 25 mg capsule TAKE ONE CAPSULE EVERY OTHER DAY IN THE MORNING active Not Available Not Available No t Available carvedilol 3.125 mg tablet TAKE ONE TABLET IN THE MORNING AND EVENING FOR BLOOD PRESSURE active Not Available Not Available No t Available lorazepam 0.5 mg tablet TAKE 1 TABLET BY MOUTH EVERY 4 HOURS NEEDED FOR ANXIETY/DYS PNEA active Not Available Not Available No t Available aspirin 325 mg tablet,delay ed release TAKE ONE TABLET EVERY NIGHT AT BEDTIME (HEART) active Not Available Not Available No t Available levetiraceta m 250 mg tablet TAKE ONE TABLET TWICE DAILY IN THE MORNING AND AT BEDTIME active Not Available Not Available N ot Available ropinirole 0.25 mg tablet TAKE ONE TABLET AT BEDTIME active Not Available Not Available No t Available bisacodyl 10 mg rectal suppository INSERT ONE SUPPOSITORY RECTALLY today AND THEN EVERY DAY IF no BOWEL MOVEMENT FOR 24 HOURS active Not Available Not Available No t Available trazodone 150 mg tablet TAKE 1&1/2 TABLETS AT BEDTIME active Not Available Not Available No t Available ropinirole 0.5 mg tablet TAKE ONE TABLET EVERY NIGHT AT BEDTIME active Not Available Not Available N ot Available docusate sodium 100 mg capsule TAKE ONE CAPSULE BY MOUTH AT BEDTIME NEEDED active Not Available Not Available No t Available omeprazole 20 mg capsule,karyn yed release TAKE ONE CAPSULE EVERY MORNING FOR GERD active Not Available Not Available No t Available codeine 10 mg-guaifenes in 100 mg/5 mL oral liquid TAKE 10 ML BY MOUTH EVERY 6 HOURS NEEDED FOR COUGH active Not Available Not Available No t Available sodium chloride 0.9 % intravenous solution Inject 1000 mL by intravenous route. 2021 active Not Available Not Available Not Avai lable polyethylene glycol 3350 17 gram/dose oral powder STIR 17GM INTO 8 OUNCES OF WATER, OR JUICE, AND DRINK DAILY NEEDED / DIRECTED, STOP IF diarrea active Not Available Not Available No t Available amoxicillin 875 mg-potassium clavulanate 125 mg tablet TAKE ONE TABLET TWICE DAILY UNTIL FINISHED active Not Available Not Available No t Available Ventolin HFA 90 mcg/actuatio n aerosol inhaler INHALE TWO PUFFS EVERY 4 HOURS NEEDED FOR WHEEZING active Not Available Not Available No t Available memantine 10 mg tablet TAKE ONE TABLET BY MOUTH EVERY EVENING FOR memory active Not Available Not Available No t Available cholecalcife rol (vitamin D3) 25 mcg (1,000 unit) tablet TAKE ONE TABLET EVERY MORNING (VITAMIN) active Not Available Not Available No t Available Mucinex DM 60 mg-1,200 mg tablet,exten ded release 12 hr Take 1 tablet twice a day by oral route as needed. 2021 active Not Available Not Available Not Avai lable diclofenac 1 % topical gel APPLY TWO grams TO THE AFFECTED AREA(s) TWICE DAILY. active Not Available Not Available No t Available melatonin 5 mg tablet TAKE ONE TABLET EVERY NIGHT AT BEDTIME active Not Available Not Available N ot Available Double Antibiotic (bacitrcn zn) 500 unit-10,000 unit/gram top ointment APPLY TO THE AFFECTED AREA(S) TWICE DAILY active Not Available Not Available Not Available Stimulant Laxative Plus 8.6 mg-50 mg tablet TAKE 1 TABLET BY MOUTH ONCE DAILY active Not Available Not Available No t Available Compact Space Chamber USE WITH INHALER EVERY 6 HOURS active Not Available Not Available No t Available Vitals Date Recorded Body height Heart rate Body weight Respiratory rate Body temperature Provider Name and Address Organization Details Last Updated DateTime 5 152.4 cm 68 /min 00058.8 g 18 /min 98.4 [degF] Not Available [employer] 5 15:08:29 Date Recorded Body temperature Heart rate Oxygen saturation Oxygen saturation in Arterial blood by Pulse oximetry Body weight Body height Respiratory rate Systolic And Diastolic Provider Name and Address Organization Details Last Updated DateTime 5 98.4 [degF] 70 /min 95 % 95 % 36161.7 2 g 167.64 cm 19 /min 103/54 mm[Hg] Not Available [employer] 5 13:30:07 Date Recorded Heart rate Oxygen saturation Oxygen saturation in Arterial blood by Pulse oximetry Respiratory rate Body temperature Systolic And Diastolic Provider Name and Address Organization Details Last Updated DateTime 5 68 /min 98 % 98 % 16 /min 98.2 [degF] 134/80 mm[Hg] Not Available [employer] [facility] 5 09:33:03 Date Recorded Body temperature Oxygen saturation Oxygen saturation in Arterial blood by Pulse oximetry Respiratory rate Heart rate Systolic And Diastolic Provider Name and Address Organization Details Last Updated DateTime 4 97.1 [degF] 95 % 95 % 14 /min 71 /min 136/78 mm[Hg] Not Available [employer] [facility] 4 10:12:21 Date Recorded Oxygen saturation Oxygen saturation in Arterial blood by Pulse oximetry Respiratory rate Body temperature Heart rate Provider Name and Address Organization Details Last Updated DateTime 4 95 % 95 % 16 /min 98 [degF] 84 /min Not Available [facility] - production 13:06:07 Social History None recorded. Functional Status None recorded. Mental Status None recorded. Family History Nothing Reported. Medical History No medical history recorded. Past Encounters Encounter ID Performer Location Encounter Start Date Encounter Closed Date Diagnosis/Indication Diagnosis SNOMED-CT Code Diagnosis ICD10 Code Diagnosis Note [id number] Edward Dozier MD Main - [address] [phone] 08/13/2021 13:46:15 11/20/2021 10:49:57 Low blood pressure 70608501 I95.9 [id number] Agatha Watson MD [facility] - [address] [id number] 01/28/2022 18:58:53 01/30/2022 10:49:56 Viral upper respiratory tract infection 291528697 J06.9 requesting RX cough/ congestion meds aware insurance may not cover. Advised to keep well hydrated/h umidifier by bedside- f/u pcp 2-3 days/ Advised if develops high fever/ severe SOB/turnin g blue/ CP to call 911- the family verbalized understand ing to medic. [id number] Joao Mantilla MD Main - [address] [address] 02/27/2022 21:02:21 03/01/2022 10:15:05 Lethargy 327637585 R53.83 Elderly patient with underlying dementia was evaluated for lethargy following nightly trazodone. He was sleeping restfully. Vital signs were reassuring . Patient aroused to voice with mental status at baseline. NO focal neurologic al signs. Given that patient was close to baseline objectivel y, no interventi on was made. [id number] Roxy Figueroa MD Main - [address] [phone] 11/12/2022 18:02:20 12/30/2022 14:55:43 Excessive somnolence 772988419 R40.0 I provided real -time medical direction via phone for this encounter, and was available for additional phone based assistance as needed. I have reviewed and agree with the Assessment and Plan as documented by the Bank Representative. Patient given the opportunit y to ask questions. 87 yo p/w increased somnolence and decreased responsive ness all day, which is unusual for him. On arrival trans router (who has treated this pt many times in the past) found him obtunded and mildly febrile. Agreed with trans router that he should present emergently to the ED imaging and additional eval for sepsis (amongst other possible dx on differenti al). Family agreeable, trans router assissted in calling ambulance. [id number] Anette Godfrey MD Main - [facility] [address] [place] [phone] 11/20/2022 19:01:22 11/21/2022 00:26:17 Swelling of hand 622722772 R22.32 [id number] [facility] [address] [place] [id number] 09/03/2023 12:29:25 09/03/2023 22:06:42 Swelling around eyes 674662820 R22.0 As noted, we were called to see this patient regarding concerns of swelling. Evaluation in the field was performed by my trans router colleague, as noted above, I provided real-time direction and supervisio n for this visit. The evaluation revealed:[age] y/o man with dementia, unable to provide much history, with film sound engineer/ guardian present. Awoke with red area on his cheekbone below his L eye. No changes to vision are noted, able to move eyeball. No changes to oral intake/audrey n with eating/new nasal discharge. Impression :erythemat ous area below eye without signs or symptoms of extension. Concerning for scratch or bug bite. Plan:monit or clinically , especially for changes to vision or oral pain/drain age. consider cool compresses Dispositio n: We discussed the diagnostic uncertaint y of home visits and the risk associated with this. In this case, the patient and I felt this to be an acceptable and reasonable amount of risk given the benefit of avoiding an ED visit. We discussed the need to seek care urgently/e mergently in the setting of any new or worsening serious symptoms, particular ly changes to consciousn ess, chest pain, difficulty breathing. [id number] Cristobal Geiger MD Main - [facility] [address] [place] [phone] 10/28/2023 10:04:05 10/29/2023 21:44:53 Cough [id number] R05.9 [id number] Anette Godfrey MD Main - [facility] [address] [place] [phone] 12/09/2023 13:03:26 12/09/2023 16:17:23 Cough [id number] R05.9 [id number] Agatha Watson MD Main - [facility] [address] [place] [phone] 06/01/2024 15:08:25 06/01/2024 18:59:34 Acute constipation 209527625 K59.00 advised to push po hydration and fiber- medic reviewed new medication protocol w/ daughters [id number] [facility] [address] [place] [phone] 06/21/2024 13:30:01 06/22/2024 10:33:23 Abrasion [id number] T14.8XXA to RLE w/out s/s of cellulitis -will cover with topical antibiotic . MEDIC REVIEWED S/S INFECTION W/ CHART CLERK- WOULD REQUIRE RECHECK AT ONCE/ try elevating the leg/ per wrapping checker has 24 hr care- to change dressing daily and prn if wet or soiled [id number] Brea Lyman MD Main - [facility] [address] [place] [phone] 06/29/2024 09:32:54 06/29/2024 10:49:59 Ingrowing toenail 940448555 L60.0 Evaluation in the field was performed by my trans router colleague, as noted above, I provided real-time direction and supervisio n for this visit.This is a 89yo M with advanced dementia who was seen 1 week ago by [facility] for abrasion to R great toe (iso nail clipping) who is p/w failure of lesion to heal. Have been applying topical antibiotic cream as recommende dDarshan Deny redness, pus, fevers, not endorsing pain. VS: unremarkab leParamedi c exam: R great toe with ingrown toenail, area of clipping injury with white boarders not healing but no signs of active infectionP OC testing: none Impression : (1) ingrown toenail; (2) cut 2/2 nail clipping, no sig healing but no signs of infectionP anibal: recommend podiatry evaluation and ongoing topical antibiotic ointment without covering to prevent maceration Red flags reviewed, pt expressed understand ing For PCP: please consider podiatry referral We discussed the diagnostic uncertaint y of home visits and the risk associated with this. In this case, the patient and I felt this to be an acceptable and reasonable amount of risk given the benefit of avoiding an ED visit. We discussed the need to seek care urgently/e mergently in the setting of any new or worsening serious symptoms, shortness of breath, cough, chest pain, fever. Health Concerns Section Related Observation LastModified by Organization Detai ls LastModified Time None Recorded Concern Status LastModified by Organization Details LastModified Time None Recorded Advance Directives Directive None Recorded Payers Insurance Date Sequence Insurance Name Policy Number Policy [employer] Covered Member ID [employer] Member ID Guarantor Name 06/01/2024 1 [facility] - DOS PRIOR TO 2022 - DUAL ELIGIBLE (MEDICARE REPLACEMENT/ADV ANTAGE - HMO) Mayur Bones [id number] Mayur Bones 06/29/2024 1 [facility] - DOS ON OR AFTER 2022 - DUAL ELIGIBLE - CUSTODIAL OPTIONS AND ONE CARE (MEDICARE REPLACEMENT/ADV ANTAGE - HMO) Mayur Bones [id number] Mayur Bones Notes Date Note Type Note Provider Name and Address Organization Details Recorded Time 10/28/2023 text/html HPI: [facility] reporting 2 weeks of cough, congestion, denying feversMember has not been taking anything OTC . PT has not had any sob PMH HTN , seizure takes keppra Allergies > NKDA ...................... ...................... ...................... ...................... ...................... ...................... ......... CRC Nurse Triage Notes (Nayla Aguilar): Chief Complaints: URI PMH: Hypertension Comments: Pt is safe and stable to wait till 10/27.Visit after 10am Bank Representative Organization Information for Jose Enrique Lanza Business Legal Name: [facility] Address: [address] [place] [address], [place] [address], [employer] Teacher: [place] KHAN No.: [id number] Bank Representative POC Test Results from [facility] En[facility] Rapid COVID antigen (10:12:29) COVID: - Rapid influenza antigen (10:12:30) Flu: - ...................... ...................... ...................... ...................... ...................... ...................... ......... Bank Representative Note From Jose Enrique Lanza: Pt s family reporting dry cough for two weeks. Family has OTC robitussin and guaifenesin with codeine and are seeking guidance on which to use and when. Pt has advanced dementia. Family denies the pt having any CP, SOB, ALVARADO, f/n/v/d. Pt is alert to baseline, NAD. VSS. Afebrile. Non focal neuro exam. Lungs CTA. Benign ABD exam. No LE edema. Rapid covid and flu negative. Family instructed to use the robitussin during the daytime and the guaifenesin with codeine at night as it may cause drowsiness/increased fall risk. Red flags reviewed. ...................... ...................... ...................... ...................... ...................... ...................... ......... Disposition: Fulfilled Cristobal Geiger MD [address] [facility],[address], [place], [address], PIERCE OLIVAREZ 10/29/2023 16:15:47 12/09/2023 text/html HPI: Elderly male patient with severe dementia with several days of loose congestion and cough. No fever no acute shortness of breath. ...................... ...................... ...................... ...................... ...................... ...................... ......... CRC Nurse Triage Notes (Elizabeth Mitchell): Chief Complaints: Cough PMH: Severe Dementia, Hypertension Comments: CRC RN did not require any additional information to process this visit. Bank Representative Organization Information for [employer]entes [facility] Business Legal Name: [employer]. Address: [address] [place] [address], [employer] Teacher: Peewee Tolentino MD [place] No.: [id number] Bank Representative POC Test Results from [facility] Rapid COVID antigen (13:08:04) COVID: - Attachments uploaded as part of this test result can be found under Documents section. Rapid influenza antigen (13:08:05) Flu: - Attachments uploaded as part of this test result can be found under Documents section. ...................... ...................... ...................... ...................... ...................... ...................... ......... Bank Representative Note From Fuentes Romero: 88 yo m with a hx of severe dementia COAx0 (not oriented to self, place, date, or events) this is baseline for pt. Pt according to grandson and film sound engineer is acting at baseline. Visit was initiated by pt's daughter who is not at the home. Pt's grandson and CHART CLERK are home with pt. They report the daughter comes once a week, and when she saw him yesterday, he had been coughing a lot and called to make the visit. Grandson reports the pt has had a cough for about 1 week but has shown great improvement and has not been coughing as often as he was. Pt is being treated with OTC Tussin - Cough & congestion relief medication. Pt is noted to be resting comfortably, no coughing noted during visit. Pt is breathing non-labored, (non-speaking) but does not appear in any distress. Lungs clear, no wheezing or rhonchi noted. No BLE edema noted. According to PVA pt has not had any complaints, no CP or made himself seem like he has been in distress. Grandson and CHART CLERK report there has been a positive improvement in that he hadn't been eating last week, and since Friday has been eating at baseline, and even walking around more. POC Covid and Flu both NEG.Allergies:Grandson unsure of Allergies, both CHART CLERK and Grandson report NKDA. Grandson is a poor historian of the pt reporting he just moved in and is unable to provide a lot of information. Unable to obtained height or weight, and BP was also UTO due to combativeness of the pt. Pharmacy:[facility] [address] [place], [place] [id number] Consult:Pt appears to be on an upward positive trend. No need for med change. Discussed red flags with CHART CLERK and Grandson. ...................... ...................... ...................... ...................... ...................... ...................... ......... Disposition: Letty Anette Godfrey MD [address] [facility],[address], [place], [address], [email or web address] 12/09/2023 13:45:52 06/01/2024 text/html CRC Nurse Triage Notes (Eber Oh): Reason For Request: Patient has not had a bowel movement in 8 days Patient Reports: ConstipationDenies: Sharp focal or diffuse abdominal pain Vomiting blood/coffee ground material Bloating, jaundice new onset with pain Nausea and vomiting greater than 2 hours with abdominal pain Tearing pain that radiates to back Food Impaction Chief Complaints: Abdominal PainPMH: Hypertension, HyperlipidemiaPMH Reviewed at 06/01/2024 - 12:28Allergies Reviewed at 06/01/2024 - :28Comments: 89 y.o male complains of Abdominal Pain/constipation x8 days Daughter looking for patient to receive an enema for constipation. No BM x8 days. He is taking oral senna daily, MOM, and suppository on day 5. Denies abdominal pain, distension, or N/V. Offered visit to recommend other therapies to try. Daughter declined visit and will attempt enema at home. Reviewed RED flags. Recommended ER if no relief with enema. CG called back and reports the pt received an Enema and having bowel movements - CG is requesting a wellness check I think he needs IV Fluids. Decreased PO intake. Denies fever. I provided information on the mobile health provider response time and advised the patient and/or caregiver to monitor reported signs and symptoms. I discussed the warning signs of when to seek emergency care. Daughter looking for patient to receive an enema for constipation. No BM x8 days. He is taking oral senna daily, MOM, and suppository on day 5. Denies abdominal pain, distension, or N/V. Offered visit to recommend other therapies to try. Daughter declined visit and will attempt enema at home. Reviewed RED flags. Recommended ER if no relief with enema. ...................... ...................... ...................... ...................... ...................... ...................... ......... Bank Representative Note From Davi Blake: Patient alert to verbal, shuffling inassisted GAIT ambulating about apartment. Caregiver reports current mental state is baseline, nonverbal non-cooperative with procedures. Caregiver reports patient unable to move his bowels for the last eight days, tried enema at noon today with some feces. Patient has been in the hospital in the past for impaction more than a year ago. Patient pink warm, dry secondary exam unremarkable good skin TURGOR, no speech, negative increased work of breathing negative use of accessory muscles to breathe, abdomen firm, no grimacing. No edema noted. Unable to obtain blood pressure, blood sample, or gain IV access, patient uncooperative with procedures. Patient appears agitated, standing and walking in circles around room. Patient swats at caregiver on redirection attempt. [facility] will prescribe medication to patient s local pharmacy, red flags, patient education, supportive care discussed with caregiver and daughter on phone. Caregiver demonstrates understanding of care and plan and that if no change in 24 to 48 hours patient should be evaluated at emergency department. ...................... ...................... ...................... ...................... ...................... ...................... ......... [facility] Consulted: Agatha Watson ...................... ...................... ...................... ...................... ...................... ...................... ......... Disposition: FulfilledSEGMD: as above- decreased po- no n/v no fever- no bloody stool today- sl more restless after enema. Has only been using colace 50 mg on and off/ Senna 1 per day and MOM almost daily Agatha Watson MD [address] [place] [address],[address], [place], [address], [employer] 06/02/2024 15:47:42 06/21/2024 text/html CRC Nurse Triage Notes (Bret Morales): Reason For Request: Patient has cuts on his legs, possibly infected, unknown how, -Wants the wounds checked out and cared for. Been there for a few days, not healing well.Denies: Roman Flash, circumferential roman Roman reported with black tissue to the area Open skin area after a fall with uncontrolled bleeding Abscess/infection with streaking noted, presence of fever or without Chief Complaints: Wound CarePMH: Hypertension, HyperlipidemiaPMH Reviewed at 06/21/2024:45Allergies Reviewed at 06/21/2024 - :45Comments: Additional PMH: [id number] y.o male complains of Wound CarePt and patient's daughter are Portuguese speaking primarily, marketing business analyst# [id number] used for triage assessment. Daughter reporting pt has wounds on his legs since Friday of last week, unclear how patient got the wounds on his legs. Daughter reports red color around the wounds, she is concerned they could be infected. Daughter denies pt having fever or chills. I provided information on the mobile health provider response time and advised the patient and/or caregiver to monitor reported signs and symptoms. I discussed the warning signs of when to seek emergency care -SILVANO Crawford: Patient has 24-hour care per his CHART CLERK at home. The CHART CLERK who was there during our visit last saw this patient last Friday and he did not have the wounds. Due to dementia patient is unable to relate how he got the wounds ...................... ...................... ...................... ...................... ...................... ...................... ......... Bank Representative Note From Alicia Hoffmann: Pt chief complaint today of a wound acquired on his right layne approx 5 days prior to [facility] arrival on scene today. Pt is experiencing advanced Alzheimer s and is not able to communicate with [facility] provider. [facility] is on scene for relaying of information. To the knowledge of the entry specialists 5 days prior was her last patient contact, [facility] states that when she last saw the pt there were no wounds present. [facility] is unsure of when the wounds were generated. Daughter of pt notes that approx 1 day prior to today she noted her father s wounds and had begun to place neosporin on the area. Pt is noted to be wandering more frequently and it is thought that he may have struck a low table or tub in His home. Pt is monitored 24/ per [facility]. Today [facility] provider is asked to perform an assessment on the extremity as well as perform wound care and treatment if needed. No signs of cp, sob, NVD, dizziness or pain noted. Pt allergies listed as NVD with confirmation from daughter. Non neural focal exam, afebrile, vitals appear to be WNL for the baseline of the pt. Pt lungs present as clear bilaterally on auscultation. Benign abdominal assessment, upon inspection of the effected lower extremity the wounds in question are approx the size of a dime each. No bleeding or discharge noted. The area around said wounds is not red or hot to touch. Non tender upon moderate palpation. Pt has positive csm in the all extremity. Pt gait is not effected.pt mentation at his baseline with a GCS of 15. [facility] Agatha Watson consulted. Director Security Risk Management is informed that a hospital visit is not necessary at this point. Pt wound is cared for by [facility] provider using a clean technique, as well as the use of bacitracin and bandages. Prescription for bacitracin sent to local pharmacy. Director Security Risk Management is educated on the proper cleaning and wound care needed for the pt by [facility] provider. Director Security Risk Management is also educated on red flag S&S and told to contact emergency services if any begin to present. [facility] Medication Orders: bacitracin 500 unit/gram topical ointment: Administered ...................... ...................... ...................... ...................... ...................... ...................... ......... [facility] Consulted: Agatha Watson ...................... ...................... ...................... ...................... ...................... ...................... ......... Disposition: Fulfilled Agatha Watson MD [address] [facility],[address], [place], [address], [employer] 06/21/2024 22:28:21 06/29/2024 text/html CRC Nurse Triage Notes (Nayla Aguilar): Reason For Request: wound care on toe Denies: Roman Flash, circumferential roman Roman reported with black tissue to the area Open skin area after a fall with uncontrolled bleeding Abscess/infection with streaking noted, presence of fever or without History of cellulitis, isolated redness noted Fever and chills noted in setting of wound Rash Bites -bugs, spider Abscess Chief Complaints: Wound Care PMH: Hypertension, Hyperlipidemia, Dementia (e.g., Alzheimer's Disease) PMH Reviewed at 06/29/2024: Allergies Reviewed at 06/29/2024:54 Comments: 89 y.o male complains of Wound Care He has a wound on his left foot , big toe. The wound has been there since june 21. He denies any falls or injuries. She was cutting the nail and she cut his skin. She has been cleaning it and putting antibiotic ointment. The area is not open, but swollen area where the wound is. He denies any fever/ chills/ nausea/ vomiting He has alzheimers and unable to verbalize complaints . they are agreeable to a visit at anytime but if it is after 1, please call the other sister kirsty, number is noted as there is a change of care I provided information on the mobile health provider response time and advised the patient and/or caregiver to monitor reported signs and symptoms. I discussed the warning signs of when to seek emergency care. ...................... ...................... ...................... ...................... ...................... ...................... ......... Bank Representative Note From Michael Ross: Dispatched to the call address for the male with wound care request. Family advises they were cutting his toe nails and cut a little bit of his skin. They advise he has Alzheimer's and it is difficult to get him to appointments. They deny fevers, n/v/d, diff breathing/sob or any other complaints. They have been keeping it clean and putting triple antibiotic ointment on it. Pt was found sitting on edge of bed, CAOx1 (baseline), airway open and patent, breathing non labored, able to speak in full sentences, -JVD, -HEENT, skin pink/warm/dry with good turgor, abd soft non tender/distended, pupils PERRL, mucous membranes pink and moist, +CMSx4, -edema/swelling. Left great toenail with curling into the toe on the lateral side, opening in skin noted however area appears clean and without erythema or drainage. Ingrown toenail Pt was assessed with full set of vitals. C consulted. Family advised Pt needs to be seen by a pediatrist. Red flags discussed. ALL times are approx. ...................... ...................... ...................... ...................... ...................... ...................... ......... [facility] Consulted: Brea Lyman ...................... ...................... ...................... ...................... ...................... ...................... ......... Disposition: Fulfilled Brea Lyman MD [address] [place] [address],[address], [place], [address], [employer]ARE[employer] 06/29/2024 10:22:53
--- NOTE | 2024-09-05 21:19 | ED.GENADULT ---
HPI - General Adult General Chief complaint: Altered Mental Status Stated complaint: Sob, weakness, decreased responsiveness Time Seen by Provider: 09/05/24 21:04 Source: family and EMS Mode of arrival: EMS Limitations: altered mental status (Baseline Alzheimer's dementia, information obtained through his daughter) and other History of Present Illness ED Provider: HPI narrative: This is 89-year-old male with history of advanced Alzheimer's dementia, lives at home with daughter, presenting with fevers, cough from home, he has mostly bed-bound, has had also change in his mentation from baseline as well he is more lethargic. No reports of sick contacts no rashes no trauma, daughter states that it seems that he is trying to cough up something from his lungs. No reports of aspirations in the past. He does ambulate sometimes with assistance. Related Data Home Medications ?Medication ?Instructions ?Recorded ?Confirmed omeprazole 20 mg tablet,delayed 20 mg PO DAILY@0630 03/28/20 11/12/22 release aspirin 325 mg tablet,delayed 325 mg PO DAILY 04/08/21 11/12/22 release cholecalciferol (vitamin D3) 25 1 tab PO DAILY 11/07/21 11/12/22 mcg (1,000 unit) tablet melatonin 5 mg tablet 10 mg PO BEDTIME insomnia 11/07/21 11/12/22 ropinirole 0.5 mg tablet 0.5 mg PO BEDTIME 11/07/21 11/12/22 quetiapine 25 mg tablet 25 mg PO BID 03/07/22 11/12/22 docusate sodium 50 mg/5 mL oral 5 ml PO BEDTIME PRN Constipation 11/12/22 11/12/22 liquid trazodone 50 mg tablet 50 mg PO BEDTIME PRN Insomnia 11/12/22 11/12/22 Previous Rx's ?Medication ?Instructions ?Recorded carvedilol 3.125 mg tablet 3.125 mg PO BID #60 tabs 11/14/21 levetiracetam 250 mg tablet 250 mg PO BID #60 tabs 03/07/22 (Keppra) Allergies Allergy/AdvReac Type Severity Reaction Status Date / Time No Known Allergies (No Known Allergy Verified 09/05/24 20:58 Allergies*) Review of Systems Constitutional: Constitutional: Reports as per HPI [facility] Past Medical History Medical History Cardiomyopathy Encephalitis Osteoarthritis GERD (gastroesophageal reflux disease) Dementia Hypertension High cholesterol Arthritis Alzheimer disease Family History Family History Father Pacemaker Social History Social History Household Members: Spouse Housing: Apartment Do you presently have visiting nurse or other home services: Yes ([employer] every day) Unable to assess alcohol history related to: Unable to respond and Unknown Alcohol intake: unknown Comment: 1:1 sitter Patient Tobacco Use Status: Never used Tobacco e-Cigarette/Vaping Use: Never Used Advance Directives: Yes Advance Directives on File: Yes Advance Directives Date on File: 11/08/21 service: No Current occupational status: retired Current occupation: right handed Physical Exam ED Vital Signs: Vital Signs - 24 hr 09/05/24 20:56 09/05/24 22:11 09/05/24 22:41 Temperature 103.7 F H 101.6 F H 101.6 F H Pulse Rate 88 79 Respiratory Rate 27 H 21 H Blood Pressure 154/84 H 125/73 Pulse Oximetry 94 95 Oxygen Delivery Method Room Air Room Air 09/05/24 22:43 Temperature Pulse Rate 75 Respiratory Rate 20 Blood Pressure 124/79 Pulse Oximetry 94 Oxygen Delivery Method Room Air BMI result Body Mass Index 24.9 Const Other: Gen: ?Chronically ill-appearing HEENT: Dry oral mucosa, no scleral icterus Neck: Supple, no LAD CV: S1-S2 Resp: ?Some rhonchorous breath sounds at the bases, no stridor no obvious wheezing Abd: ?Bowel sounds are present, did not elicit wincing on physica examination, exam unremarkable MSK: FROM, strength 5/5 all extremities Skin: Warm, dry, intact, did not note any ulcerations or bruising Neuro: Eyes open spontaneously, responsive to physical stimulus Medications Administered Discontinued Medications Generic Name Dose Route Start Last Admin Trade Name Freq PRN Reason Stop Dose Admin Acetaminophen 975 mg 09/05/24 21:03 09/05/24 21:34 Acetaminophen 325 Mg Tablet PO 09/05/24 21:04 Not Given ONCE ONE Ceftriaxone Sodium 2 gm 09/05/24 21:20 09/05/24 21:28 Ceftriaxone Sodium 2 Gm Vial IVPUSH 09/05/24 21:21 2 gm ONCE ONE Administration Sodium Chloride 1,000 mls @ 999 mls/hr 09/05/24 21:15 09/05/24 22:20 Ns IV 09/05/24 22:15 Infused .Q1H1M ABBY Infusion Acetaminophen 1,000 mg in 100 mls @ 400 mls/hr 09/05/24 21:21 09/05/24 21:58 Ofirmev IV 09/05/24 21:35 Infused ONCE ONE Infusion Piperacillin Sod/Tazobactam 100 mls @ 200 mls/hr 09/05/24 23:45 09/06/24 00:06 Sod 4.5 gm/ Sodium Chloride IV 200 mls/hr Q6H ABBY Administration Medical Decision Making Medical Decision Making MDM Narrative: 21:25 code sepsis activated 89-year-old patient with multiple chronic diseases, dementia, limited historian, presenting with a high fever from home, possibly respiratory, EMS reported that he was hypoxic at baseline without being on oxygen his oxygen was 92%, considerations as below, we will initiate septic workup we will cover with empiric antibiotics and we will anticipate admission, he has no hypotension at this time. Differential Diagnosis Differential Diagnoses: The differential diagnosis associated with the presentation includes Pneumonia, UTI, viral infection, abdominal and was also infection, ulcers, cellulitis Admission/Observation Consideration of admission/observation: Escalation of care including admission/observation considered 2022 Emergency Medicine Coding Guide from Duriana on 09/05/2024 All calculations should be rechecked by clinician prior to use RESULT SUMMARY: 5 Estimated Level of Service Problems: High (5) Risk: High (5) Data: Extensive (5) NARRATIVE MDM: This patient's problem complexity is High as patient: may have an acute or chronic illness/injury posing a threat to life or body function. This patient's risk is High due to: overall presentation requiring evaluation for a potentially High-risk process. This patient's data complexity is Extensive due to: -multiple tests ordered/reviewed -independent historian used to support history -independent interpretation of imaging or EKG INPUTS: Number and Complexity ?> 2 = 5: illness/injury w/life or body threat (b) Risk level ?> 4 = High Tests ordered ?> 3 = =3 Tests results reviewed (excluding labs) ?> 2 = 2 Prior external notes reviewed ?> 0 = 0 Assessment requiring and independent historian ?> 1 = Yes Independent interpretation of tests ?> 1 = Yes Discussed management/test interpretation w/external professional ?> 0 = No Lab Data MDM Lab Attestation statement: I reviewed the patient's lab results. 09/05/24 21:15 09/05/24 21:14 Labs: Lab Results 09/05/24 09/05/24 09/05/24 Range/Units 21:02 21:14 21:15 WBC 7.0 (4.8-10.8) X10*3/uL RBC 4.54 L (4.60-5.80) X10*6/uL Hgb 14.2 (14.0-18.0) g/dl Hct 42.8 (42.0-52.0) % MCV 94.3 (80.0-98.0) fL MCH 31.3 (27.0-33.0) pg MCHC 33.2 (31.0-36.0) g/dl RDW 13.8 (11.0-16.0) % Plt Count 134 L (160-400) X10*3/uL MPV 10.1 (9.4-12.4) fL Absolute Nucleated RBC 0.000 (0.0-0.012) X10*3/uL Nucleated RBC % (auto) 0.0 (0.0-0.2) /100WBC Sodium 139 (135-145) mmol/L Potassium 4.8 (3.3-5.1) mmol/L Chloride 113 H (96-108) mmol/L Carbon Dioxide 18 L (22-29) mmol/L Anion Gap 13 (12-20) BUN 21 H (9-16) mg/dL Creatinine 0.90 (0.5-1.4) mg/dL Estim Creat Clear Calc 37.5 Estimated GFR > 60 POC Glucose 103 (60-115) mg/dL Random Glucose 121 H (60-115) mg/dL Lactic Acid 1.7 (0.5-2.0) mmol/L Calcium 8.4 D (8.4-10.2) mg/dL Magnesium 1.9 (1.6-2.6) mg/dL Total Bilirubin 0.6 (0.0-1.0) mg/dL AST 25 (5-37) U/L ALT 8 (0-40) U/L Alkaline Phosphatase 85 (39-117) U/L Troponin I High Sens 35.9 H (<3.5-35.0) ng/L B-Natriuretic Peptide 292 H (<100) pg/mL Total Protein 7.0 (6.5-8.0) g/dL Albumin 3.5 (3.5-5.0) g/dL Influenza Type A (PCR) (Negative) Influenza Type B (PCR) (Negative) RSV RNA Qual (PCR) (Negative) SARS-CoV-2 RNA (RT-PCR) (Negative) 09/05/24 Range/Units 21:32 WBC (4.8-10.8) X10*3/uL RBC (4.60-5.80) X10*6/uL Hgb (14.0-18.0) g/dl Hct (42.0-52.0) % MCV (80.0-98.0) fL MCH (27.0-33.0) pg MCHC (31.0-36.0) g/dl RDW (11.0-16.0) % Plt Count (160-400) X10*3/uL MPV (9.4-12.4) fL Absolute Nucleated RBC (0.0-0.012) X10*3/uL Nucleated RBC % (auto) (0.0-0.2) /100WBC Sodium (135-145) mmol/L Potassium (3.3-5.1) mmol/L Chloride (96-108) mmol/L Carbon Dioxide (22-29) mmol/L Anion Gap (12-20) BUN (9-16) mg/dL Creatinine (0.5-1.4) mg/dL Estim Creat Clear Calc Estimated GFR POC Glucose (60-115) mg/dL Random Glucose (60-115) mg/dL Lactic Acid (0.5-2.0) mmol/L Calcium (8.4-10.2) mg/dL Magnesium (1.6-2.6) mg/dL Total Bilirubin (0.0-1.0) mg/dL AST (5-37) U/L ALT (0-40) U/L Alkaline Phosphatase (39-117) U/L Troponin I High Sens (<3.5-35.0) ng/L B-Natriuretic Peptide (<100) pg/mL Total Protein (6.5-8.0) g/dL Albumin (3.5-5.0) g/dL Influenza Type A (PCR) NEGATIVE (Negative) Influenza Type B (PCR) NEGATIVE (Negative) RSV RNA Qual (PCR) NEGATIVE (Negative) SARS-CoV-2 RNA (RT-PCR) NEGATIVE (Negative) Independent Interpretation I performed an independent interpretation of an: EKG (84 beats per minute otherwise normal ECG without dysrhythmia, AV migdalia blocks or ST-T changes to suspect underlying ACS, my independent interpretation) and Plain X-Ray (Right lower lobe opacity new from prior) Radiology Impression Discussion of test interpretation with radiology: I have reviewed the radiologist's reading. (MPRESSION: Opacity of the right lung base which may be due to atelectasis or pneumonia however recommend follow-up imaging to exclude underlying pulmonary finding.) Discharge Plan Discharge Clinical Impression: Dementia Pneumonia Qualifiers: Pneumonia type: due to unspecified organism Laterality: right Lung location: lower lobe of lung Qualified Code(s): J18.9 - Pneumonia, unspecified organism
[2024-09-05 21:37] LABS: NRBC Abs Auto 0.000 X10*3/uL (0.0-0.012); NRBC Pct Auto 0.0 /100WBC (0.0-0.2); PLT CLUMP 1
[2024-09-05 21:39] LABS: Hematocrit 42.8 % (42.0-52.0); Hemoglobin 14.2 g/dl (14.0-18.0); Mean Corpuscular HGB Conc 33.2 g/dl (31.0-36.0); Mean Corpuscular Hemoglobin 31.3 pg (27.0-33.0); Mean Corpuscular Volume 94.3 fL (80.0-98.0); Red Blood Count 4.54 X10*6/uL (4.60-5.80)
[2024-09-05 21:40] LABS: Alanine Aminotransferase 8 U/L (0-40); Albumin Level 3.5 g/dL (3.5-5.0); Alkaline Phosphatase 85 U/L (39-117); Anion Gap 13 (12-20); Aspartate Amino Transferase 25 U/L (5-37); Blood Urea Nitrogen 21 mg/dL (9-16); Calcium 8.4 mg/dL (8.4-10.2); Carbon Dioxide 18 mmol/L (22-29); Chloride 113 mmol/L (96-108); Creatinine Clr Calc Pharmacy 37.5; Estimated Glomerular Filt Rate > 60; Magnesium 1.9 mg/dL (1.6-2.6); Potassium 4.8 mmol/L (3.3-5.1); Sodium 139 mmol/L (135-145); Total Protein 7.0 g/dL (6.5-8.0)
[2024-09-05 21:43] LABS: Platelet Count 134 X10*3/uL (160-400); White Blood Count 7.0 X10*3/uL (4.8-10.8)
[2024-09-05 21:44] LABS: Troponin-I High Sensitivity 35.9 ng/L (<3.5-35.0)
[2024-09-05 21:52] LABS: B Type Natriuretic Peptide 292 pg/mL (<100)
[2024-09-05 22:13] LABS: Resp Syncy Virus RNA Qual PCR NEGATIVE (Negative); SARS COV2 PCR INHOUSE NEGATIVE (Negative)
--- NOTE | 2024-09-05 22:36 | PC.NURSE ---
This RN was asked to attempt a straight cath on PT, Primary nurse had attempted x1, blood noted to be coming out of the penis tip at that time. Bladder scan prior to this RN attempt showed approx 90cc of urine in bladder. This RN attempted straight cath, blood noted to be rushing out around straight cath, bright red in color, moderate amounts noted. Straight cath went in smoothly, no coiling noted at this time, small amount of blood noted in straight cath tubing, otherwise all blood noted to be coming from around straight cath tubing. Straight cath removed, followed by more bleeding. This RN approached MD to alert him of situation, at this time he stated he is not retaining, so he is not concerned. [place] cath applied at this time by staff, hygiene care provided. Primary nurse aware of MD response.
--- NOTE | 2024-09-05 22:39 | PC.NURSE ---
t/w attempted to put in straiht cath to obtain urine. Attempt was unsuccessfull, pt had bloody output. At time of insertion there was no resistance or coiling. no urine output. MD made aware. bladder scan was for 91ml. 2nd nurse attempted with the same bloody output. aware. no new orders.
--- NOTE | 2024-09-05 22:57 | PM.IMHP ---
History of Present Illness Date of Service: 09/05/24 Attending physician on admission: Delvis Brasher Chief Complaint: fever Patient is an 89-year-old black male with known history of advancing dementia requiring direct care for all ADLs and IADLs, GERD, seizures, HFrEF, HLD, HTN presents to ED with report of fever that started today with diminished response to family. Pt's daughter present and helped with HPI as pt is not able to provide. Patient has Alzheimer worsened for years prior and then later patient developed seizure activity that led to his current status of being bed-bound independent for all aspects of care. Daughter states that they have been trying to feed patient his food and meds by crushing and adjusting food consistency orally.. Patient had been in hospice prior but hospice released him from the program because patient was not progressing further. This was some time ago. Pt does not use oxygen at home currently. CXR done in ED notes opacity of right lung base due to PNA vs aterlectasis. Clinical exam reveals B rhonchi throughout with suspicion of aspiration as pt is not able to protect airway noting severe stiffness in neck and throat and pt is not able to swallow on command. Pt was started on Ceftriaxone in the ED. BNP 292, troponin 35.9. Incidentally, on arrival to examine pt, noted hematuria from urethra and nursing had notified ED provider but this information was not provided when admission was accepted. Pt is on ASA 325 mgs daily. Daughter denies any issues at home with hematuria, blood in urine or noticeable pain with urination. Nursing had attempted to straight cath initially to get urine and culture. Bleeding started soon after and continued to the point that the paper underneath was saturated. This health science writer did update ED provider regarding pt's presentation. This health science writer also asked Dr. Mejia to call and was later updated. This health science writer left message with Dr. Sharma regarding pt's condition. Assisted with 3 way catheter placement and initially derrick blood was noted draining. Nursing flushed catheter further and clots were noted. Irrigation was then started. No urine noted in tube. Repeat CBC, T/S and LA ordered for 1AM. No new skin issues found on exam for admission. 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[employer] every day) Unable to assess alcohol history related to: Unable to respond and Unknown Alcohol intake: never Comment: 1:1 sitter Patient Tobacco Use Status: Never used Tobacco Smoked in Last 30 Days: No e-Cigarette/Vaping Use: Never Used Use of substances other than those prescribed or required for medical reasons: No Advance Directives: Yes Advance Directives on File: Yes Advance Directives Date on File: 11/08/21 Nutrition Risks: Difficulty swallowing and On aspiration precautions service: No Current occupational status: retired Current occupation: right handed Ebola Risk: Travel/Contact With Anyone From Affected Area/s: No Has Patient Experienced Ebola Symptoms: No Meds Allergies Allergy/AdvReac Type Severity Reaction Status Date / Time No Known Allergies (No Known Allergy Verified 09/05/24 20:58 Allergies*) Home Medications ?Medication ?Instructions ?Recorded ?Confirmed ?Last Taken ?Type omeprazole 20 mg tablet,delayed 20 mg PO DAILY@0630 03/28/20 11/12/22 Unknown History release aspirin 325 mg tablet,delayed 325 mg PO DAILY 04/08/21 11/12/22 Unknown History release cholecalciferol (vitamin D3) 25 1 tab PO DAILY 11/07/21 11/12/22 Unknown History mcg (1,000 unit) tablet melatonin 5 mg tablet 10 mg PO BEDTIME insomnia 11/07/21 11/12/22 Unknown History ropinirole 0.5 mg tablet 0.5 mg PO BEDTIME 11/07/21 11/12/22 Unknown History quetiapine 25 mg tablet 25 mg PO BID 03/07/22 11/12/22 Unknown History docusate sodium 50 mg/5 mL oral 5 ml PO BEDTIME PRN Constipation 11/12/22 11/12/22 Unknown History liquid trazodone 50 mg tablet 50 mg PO BEDTIME PRN Insomnia 11/12/22 11/12/22 Unknown History Physical Exam Vital Signs and Narrative: Vital Signs: Last Vital Signs Temp 101.6 F H 09/05/24 22:41 Pulse 75 09/05/24 22:43 Resp 20 09/05/24 22:43 BP 124/79 09/05/24 22:43 Pulse Ox 94 09/05/24 22:43 O2 Del Method Room Air 09/05/24 22:43 BMI result Body Mass Index 24.9 CUrrently nonverbal. Pt unable to follow commands. Pt can move lower limbs independently. Neuro: unable to assess, pt cannot protect airway, mouth and neck stiff EYES: PERRLA. sclera nonicteric ENT: no epistaxis, oral mucosa moist, no thrush seen Cardiac: S1 S2 RRR, no murmur, no JVD, no edema in Lower ext Pulmonary: lungs B rhonchi throughout Abdominal: BS active in all 4 quadrants, no guarding, tenderness, rebounding MSK: unable to assess strength, Left hand contracted : derrick blood seen draining from urethra, three catheter placed by nursing, derrick blood with clots continued, irrigation started, BS initially 91 cc , renal fx stable Extremities: no edema in lower extremities, PT and DP pulses palpable +2 Psych: unable to assess Skin: no wounds seen on exam, unable to examine backside Results Labs 09/06/24 01:10 09/05/24 21:14 Labs: Laboratory Results - last 24 hr 09/05/24 09/05/24 09/05/24 21:02 21:14 21:15 MCV 94.3 MCH 31.3 MCHC 33.2 RDW 13.8 Plt Count 134 L MPV 10.1 Absolute Nucleated RBC 0.000 Nucleated RBC % (auto) 0.0 Anion Gap 13 Estim Creat Clear Calc 37.5 Estimated GFR > 60 POC Glucose 103 Random Glucose 121 H Lactic Acid 1.7 Calcium 8.4 D Magnesium 1.9 Total Bilirubin 0.6 AST 25 ALT 8 Alkaline Phosphatase 85 B-Natriuretic Peptide 292 H Total Protein 7.0 Albumin 3.5 Influenza Type A (PCR) Influenza Type B (PCR) RSV RNA Qual (PCR) SARS-CoV-2 RNA (RT-PCR) 09/05/24 21:32 MCV MCH MCHC RDW Plt Count MPV Absolute Nucleated RBC Nucleated RBC % (auto) Anion Gap Estim Creat Clear Calc Estimated GFR POC Glucose Random Glucose Lactic Acid Calcium Magnesium Total Bilirubin AST ALT Alkaline Phosphatase B-Natriuretic Peptide Total Protein Albumin Influenza Type A (PCR) NEGATIVE Influenza Type B (PCR) NEGATIVE RSV RNA Qual (PCR) NEGATIVE SARS-CoV-2 RNA (RT-PCR) NEGATIVE ECG Attestation: I personally reviewed and interpreted this ECG as follows: (NSR no ischemic changes ) Assessment and Plan (1) Aspiration pneumonia: Qualifiers: Aspiration pneumonia type: unspecified Laterality: right Lung location: lower lobe of lung Qualified Code(s): J69.0 - Pneumonitis due to inhalation of food and vomit Status: Acute Plan Patient is an 89-year-old black male with known history of advancing dementia requiring direct care for all ADLs and IADLs, GERD, seizures, HFrEF, HLD, HTN presents with fever and decreased responsiveness diagnosed with aspiration PNA and incidentally derrick hematuria after straight catheterization for urine sample. Pt is on ASA [address] scan chest pending Continue Ceftriaxone and adding doxycycline (no azithromycin due to current meds that prolong Qtc) DUO NEBS prn Oxygen prn, currently on RA, does not use oxygen at home Pt is not able to protect airway due to advancing dementia and physical decline - family feeds pt and gives medications orally with revisions Aspiration precautions ordered Telemetry and continuous pulse ox Tylenol for fever, ice packs as needed Pt does not meet criteria for Sepsis - no leukocytosis, no tachycardia, no hypoxia ST eval ordered NPO for now Family agreed with hospice consult as it is suspected pt is declining and pt was once with hospice Severe hematuria (no prostate hx known) Incidental occurrence after straight catheterization (possible prostate involvement) Derrick hematuria persisted, 3 way catheter was placed successfully Urology notified, reviewed case with Dr. Sharma and agreed with current plan CT ABD PELVIS ordered, to be reviewed by urology Repeat CBC, LA at 0100, type and screen added in case Pt is on Ceftriaxone for asp PNA Ua with reflex pending ASA held No lovenox Thrombocytopenia PLTS 116K Noted hematuria Repesat CBC in AM Seizure HX Continue Kepra Will check level noting decreased responsiveness HFrEF NPO for now but if able, Continue Coreg once med rec is completed, BP remains stable BNP mildly elevated 292 GERD IV protonix for now Dementia, Advanced Pt is dependent for 24.7 care at home (professional care with family) Family requested hospice consultation this admission, pt has been with same hospice in the past FUll Code status remains in place HCP is pt's daughter Case management consulted for support, family lost their mother less than a year prior DVT prophylaxis: contraindicated due to hematuria MED REC PENDING FULL CODE Quality Stroke Does the patient have a stroke diagnosis?: No Reason for No Anti-thrombotic by Day Two: Contraindicated (derrick hematuria ) VTE Prior VTE?: No VTE Risk Level:: Medical - moderate - high VTE Device Contraindication: N/A - Device Ordered VTE Drug Contraindication: N/A - Med Ordered
[2024-09-06] VITALS (20 sets, daily range): BP systolic 99–172; BP diastolic 56–99; PULSE 56–94; RESP 14–23; TEMP 35.7–37.7; O2SAT 92–99; BMI 24.7
[2024-09-06 01:14] LABS: MANUAL DIFF FLAG NO
[2024-09-06 01:17] LABS: Hematocrit 35.6 % (42.0-52.0); Hemoglobin 11.6 g/dl (14.0-18.0); Imm Gran Abs Auto 0.03 X10*3/uL (0.00-0.03); Imm Gran Pct Auto 0.3 % (0.0-0.4); Lymphocytes Absolute Auto 0.7 X10*3/uL (1.2-4.9); Mean Corpuscular HGB Conc 32.6 g/dl (31.0-36.0); Mean Corpuscular Hemoglobin 30.9 pg (27.0-33.0); Mean Corpuscular Volume 94.7 fL (80.0-98.0); NRBC Abs Auto 0.000 X10*3/uL (0.0-0.012); NRBC Pct Auto 0.0 /100WBC (0.0-0.2); Platelet Count 116 X10*3/uL (160-400); Red Blood Count 3.76 X10*6/uL (4.60-5.80); White Blood Count 8.6 X10*3/uL (4.8-10.8)
[2024-09-06] MEDS: diazePAM 10 MG/2 ML CARTRIDGE 5 MG IVPUSH (04:15)
[2024-09-06] MEDS: iohexoL 350 MG/ML 100 ML INFUS..BTL 85 ML IV (04:30)
[2024-09-06 05:25] LABS: Hematocrit 32.3 % (42.0-52.0); Hemoglobin 10.7 g/dl (14.0-18.0); Mean Corpuscular HGB Conc 33.1 g/dl (31.0-36.0); Mean Corpuscular Hemoglobin 31.8 pg (27.0-33.0); Mean Corpuscular Volume 95.8 fL (80.0-98.0); NRBC Abs Auto 0.000 X10*3/uL (0.0-0.012); NRBC Pct Auto 0.0 /100WBC (0.0-0.2); Platelet Count 111 X10*3/uL (160-400); Red Blood Count 3.37 X10*6/uL (4.60-5.80); White Blood Count 10.2 X10*3/uL (4.8-10.8)
[2024-09-06 05:28] LABS: INTERNATIONAL NORM RATIO 1.5 (0.9-1.1); Prothrombin Time 16.8 SEC (10.9-12.4)
[2024-09-06 05:30] LABS: Partial Thromboplastin Time 32.5 SEC (26.0-36.8)
[2024-09-06 05:40] LABS: Anion Gap 12 (12-20); Blood Urea Nitrogen 18 mg/dL (9-16); Calcium 7.2 mg/dL (8.4-10.2); Carbon Dioxide 16 mmol/L (22-29); Chloride 117 mmol/L (96-108); Creatinine Clr Calc Pharmacy 43.3; Estimated Glomerular Filt Rate > 60; Potassium 5.2 mmol/L (3.3-5.1); Sodium 140 mmol/L (135-145)
[2024-09-06 05:41] LABS: Band Neutrophils Percent 13 % (3-5); Basophils Abs Manual 0.1 X10*3/uL (0.0-0.2); Basophils Percent Manual 1 % (0-2); Lymphocytes Absolute Manual 0.6 X10*3/uL (1.2-4.9); Lymphocytes Percent Manual 6 % (20-40); Monocytes Absolute Manual 0.4 X10*3/uL (0.1-1.2); Monocytes Percent Manual 4 % (2-11); Neutrophils Absolute Manual 9.1 X10*3/uL (2.0-8.3); Neutrophils Percent Manual 76 % (45-73)
[2024-09-06 05:43] LABS: Acanthocytes 3+ (>5) /OIF; Burr Cells 1+ (0-2) /OIF; RBC Morphology NOTED; Schistocytes 1+ (0-2) /OIF
--- NOTE | 2024-09-06 06:00 | PC.NURSE ---
2250 t/w at bedside with hospitalist LARA Cummins. discussed steven blood at time of straght cath insertion. MD and GROUNDS/MAINTENANCE SPECIALIST aware, GROUNDS/MAINTENANCE SPECIALIST at bedside for 3 way catheter insertion, steven red blood saturated pad, clots present as well. Saline irrigation connected. Steven red blood and clots with continuous bladder irrigation running. GROUNDS/MAINTENANCE SPECIALIST aware, pt brought to CT but having lots of movement and unable to stay still for scan. Contacted [facility] and 5mg IV vaium ordered and administered. Pt tolerate well, able to complete CT scans and pt resting in bed, vitals remain stable at this time. Daughter at bedside.
--- NOTE | 2024-09-06 06:30 | PC.NURSE ---
Maria G BERMUDEZ made aware of critical findings on C. Per Maria G leave CBI as is and let urology assess.
--- NOTE | 2024-09-06 07:26 | PC.NURSE ---
Pt appears to be sleeping, woke a bit with movement. Pt not speaking was aubile grunting when repositioning. Pt had some audible wheezing and snoring, rhochi/wheezes more in right lungs. RR even and unlabored. No visible s/s of distress or pain at this time. Continuous irrigation bag changed d/t full with bright red blood and had a clot that wouldn't allow drainage. New bag draining well.
--- NOTE | 2024-09-06 08:00 | PC.NURSE ---
dr logan at bedside, removed the original three way cath and she attempted to insert a new three way cath, felt some resistance, new plan to to to OR inert under cystoscopy, attempted to put on a [place] condom cath do to the gross hematuria the cath continuos to slip right off, applied a male perwick instead, the penis also appears swollen
[2024-09-06 08:01] LABS: HBS Num1 303.33 mIU/mL (0-7.99); HBc Num1 11.17 S/CO (0.00-0.79); HBsAGNum1 0.33 S/CO (0.00-0.99); Hepatitis A Antibody IgM 0.39 Index (0-0.79); Hepatitis B Surface Antigen Negative (Negative); ~HepC Num1 0.13 S/CO (0.00-0.79); ~Hepatitis A Antibody IgM Nonreactive (Nonreactive); ~Hepatitis B Surface Antibody REACTIVE (Nonreactive); ~Hepatitis C Antibody Nonreactive (Nonreactive)
--- NOTE | 2024-09-06 08:08 | PHA.MEDREC ---
Addendum entered by Otoniel Mcallister PharmD 09/06/24 08:10: reviewed Original Note: Pharmacy Consult ? Medication Reconciliation Pharmacy has completed the medication reconciliation. Spoke to patient daughter at bedside to confirm med list. daughter had a medbox list of patients medication with her. utilized claims and list from daughter to confirm med list. Patient last had his medications yesterday.
[2024-09-06] MEDS: 0.9 % Sodium Chloride Flush 3 ML SYRINGE IVFLUSH ×3 (08:38→20:17)
--- NOTE | 2024-09-06 09:02 | P.CNUR_ITS ---
History of Present Illness Consult details Consult date: 09/06/24 Narrative: 89-year-old male with history of advanced Alzheimer's dementia, lives at home with daughter, presenting with fevers, cough from home, he has mostly bed-bound, has had also change in his mentation from baseline as well he is more lethargic. No reports of sick contacts no rashes no trauma. Reportedly he does ambulate sometimes with assistance. Reportedly catheter was placed to obtain urine for evaluation. Per daughter the patient was repeatedly catheterized, family does not report prior episodes of blood in the urine or problems with urination. Hematuria was noted after catheterization. CT imaging indicated enlarged prostate catheter balloon not in the bladder. At bedside the catheter was removed attempts to place a different catheter met with resistance transurethrally and procedure was discontinued. CTAP- dense layer in the left posterolateral aspect of the urinary bladder may be due to hemorrhagic blood cots urinary bladder. Review of Systems 2 Review of Systems: Per [facility] Past Medical History Medical History Cardiomyopathy Encephalitis Osteoarthritis GERD (gastroesophageal reflux disease) Dementia Hypertension High cholesterol Arthritis Alzheimer disease Family History Family History Father Pacemaker Social History Social History Household Members: Spouse Housing: Apartment Do you presently have visiting nurse or other home services: Yes ([employer] every day) Unable to assess alcohol history related to: Unable to respond and Unknown Alcohol intake: never Comment: 1:1 sitter Patient Tobacco Use Status: Former Tobacco user Tobacco use type: Cigarette Smoked in Last 30 Days: No e-Cigarette/Vaping Use: Never Used Use of substances other than those prescribed or required for medical reasons: No Are you DNR?: No Advance Directives: Yes Advance Directives on File: Yes Advance Directives Date on File: 11/08/21 Nutrition Risks: Difficulty swallowing and On aspiration precautions service: No Current occupational status: retired Current occupation: right handed Travel History Ebola Risk: Travel/Contact With Anyone From Affected Area/s: No Has Patient Experienced Ebola Symptoms: No Meds Allergies Allergy/AdvReac Type Severity Reaction Status Date / Time No Known Allergies (No Known Allergy Verified 09/06/24 12:11 Allergies*) Active Medications: Current Medications Acetaminophen (Acetaminophen 325 Mg Tablet) 650 mg PO Q6H PRN PRN Reason: Pain, Mild 1-3,fever,headache Acetaminophen (Acetaminophen 325 Mg Tablet) 650 mg PO Q6H PRN PRN Reason: Pain, Mild 1-3,fever,headache Albuterol/Ipratropium (Albuterol/Iprat 2.5/0.5mg 3 Ml Ampul.Neb) 3 ml INHALE Q4H PRN PRN Reason: Shortness of Breath/Wheezing Calcium Carbonate (Calcium Carbonate 750 Mg Tab.Chew) 750 mg PO Q4H PRN PRN Reason: Heartburn Calcium Carbonate (Calcium Carbonate 750 Mg Tab.Chew) 750 mg PO Q4H PRN PRN Reason: Heartburn Ceftriaxone Sodium (Ceftriaxone Sodium 2 Gm Vial) 2 gm IVPUSH Q24H [facility] Doxycycline Hyclate 100 mg/ (Sodium Chloride) 250 mls @ 166.67 mls/hr IV Q12H [facility] Last Infusion: 09/06/24 04:49 Dose: Infused Magnesium Hydroxide (Milk Of Magnesia 30 Ml Oral.Susp) 30 ml PO DAILY PRN PRN Reason: Constipation Magnesium Hydroxide (Milk Of Magnesia 30 Ml Oral.Susp) 30 ml PO DAILY PRN PRN Reason: Constipation Melatonin (Melatonin 3 Mg Tablet) 6 mg PO BEDTIME PRN PRN Reason: Insomnia Melatonin (Melatonin 3 Mg Tablet) 6 mg PO BEDTIME PRN PRN Reason: Insomnia Morphine Sulfate (Morphine Sulfate 2 Mg/Ml Cartridge) 2 mg IVPUSH Q3H PRN; Protocol PRN Reason: Pain, Moderate(Pain Scale 4-6) Ondansetron HCl (Ondansetron Hcl 4 Mg/2 Ml Vial) 4 mg IVPUSH Q8H PRN PRN Reason: Nausea and Vomiting Pantoprazole Sodium (Pantoprazole Sodium 40 Mg/10 Ml Vial) 40 mg IVPUSH DAILY@0630 [facility] Last Admin: 09/06/24 06:41 Dose: 40 mg Polyethylene Glycol (Polyethylene Glycol 3350 17 Gm Powd.Pack) 17 gm PO DAILY PRN PRN Reason: Constipation Senna (Sennosides 8.6 Mg Tablet) 17.2 mg PO BEDTIME [facility] Sodium Chloride (0.9 % Sodium Chloride Flush 3 Ml Syringe) 3 ml IVFLUSH QSHIFT [facility] Last Admin: 09/06/24 08:38 Dose: 3 ml Sodium Chloride (0.9 % Sodium Chloride Flush 3 Ml Syringe) 3 ml IVFLUSH [facility] Last Admin: 09/06/24 08:38 Dose: Not Given Home Medications ?Medication ?Instructions ?Recorded ?Confirmed ?Last Taken ?Type omeprazole 20 mg tablet,delayed 20 mg PO DAILY@0630 09/06/24 09/05/24 History release aspirin 325 mg tablet,delayed 325 mg PO DAILY 04/08/21 09/06/24 09/05/24 History release cholecalciferol (vitamin D3) 25 1 tab PO DAILY 2 09/06/24 09/05/24 History mcg (1,000 unit) tablet ropinirole 0.5 mg tablet 0.5 mg PO BEDTIME 11/07/21 0 09/06/24 09/05/24 History quetiapine 25 mg tablet 25 mg PO BID 03/07/2209/05/24 History docusate sodium 50 mg/5 mL oral 5 ml PO BEDTIME PRN Co nstipation 11/12/22 09/06/24 Unknown History liquid trazodone 50 mg tablet 50 mg PO BEDTIME PRN Insomni a 11/12/22 09/06/24 Unknown History melatonin 5 mg tablet 5 mg PO BEDTIME 09/06/2409/05/24 History sennosides 8.6 mg tablet (senna) 8.6 mg PO DAILY 09/0609/06/24 09/05/24 History Physical Exam 2 Vital Signs: Vital Signs: Last Vital Signs Temp 96.6 F L 09/06/24 06:48 Pulse 67 09/06/24 06:48 Resp 23 H 09/06/24 06:48 BP 126/70 09/06/24 06:48 Pulse Ox 99 09/06/24 06:48 O2 Del Method Room Air 09/06/24 06:48 BMI result Body Mass Index 24.9 Results Labs 09/06/24 10:48 09/06/24 10:49 Labs: Abnormal lab results 09/05/24 09/05/24 09/06/24 Range/Units 21:14 21:15 01:10 RBC 4.54 L 3.76 L (4.60-5.80) X10*6/uL Hgb 11.6 L (14.0-18.0) g/dl Hct 35.6 L (42.0-52.0) % Plt Count 134 L 116 L (160-400) X10*3/uL Neut % (Auto) 84.7 H (45-73) % Lymph % (Auto) 8.5 L (20-40) % Lymph # (Auto) 0.7 L (1.2-4.9) X10*3/uL Neutrophils % (Manual) (45-73) % Band Neutrophils % (3-5) % Lymphocytes % (Manual) (20-40) % Abs Neuts (Manual) (2.0-8.3) X10*3/uL Lymphocytes # (Manual) (1.2-4.9) X10*3/uL PT (10.9-12.4) SEC INR (0.9-1.1) Potassium (3.3-5.1) mmol/L Chloride 113 H (96-108) mmol/L Carbon Dioxide 18 L (22-29) mmol/L BUN 21 H (9-16) mg/dL Random Glucose 121 H (60-115) mg/dL Calcium (8.4-10.2) mg/dL Troponin I High Sens 35.9 H (<3.5-35.0) ng/L B-Natriuretic Peptide 292 H (<100) pg/mL 09/06/24 Range/Units 05:01 RBC 3.37 L (4.60-5.80) X10*6/uL Hgb 10.7 L (14.0-18.0) g/dl Hct 32.3 L (42.0-52.0) % Plt Count 111 L (160-400) X10*3/uL Neut % (Auto) (45-73) % Lymph % (Auto) (20-40) % Lymph # (Auto) (1.2-4.9) X10*3/uL Neutrophils % (Manual) 76 H (45-73) % Band Neutrophils % 13 H (3-5) % Lymphocytes % (Manual) 6 L (20-40) % Abs Neuts (Manual) 9.1 H (2.0-8.3) X10*3/uL Lymphocytes # (Manual) 0.6 L (1.2-4.9) X10*3/uL PT 16.8 H (10.9-12.4) SEC INR 1.5 H (0.9-1.1) Potassium 5.2 H (3.3-5.1) mmol/L Chloride 117 H (96-108) mmol/L Carbon Dioxide 16 L (22-29) mmol/L BUN 18 H (9-16) mg/dL Random Glucose (60-115) mg/dL Calcium 7.2 L D (8.4-10.2) mg/dL Troponin I High Sens (<3.5-35.0) ng/L B-Natriuretic Peptide (<100) pg/mL Short CBC 09/05/24 09/06/24 09/06/24 Range/Units 21:15 01:10 05:01 WBC 7.0 8.6 10.2 (4.8-10.8) X10*3/uL Hgb 14.2 11.6 L 10.7 L (14.0-18.0) g/dl Hct 42.8 35.6 L 32.3 L (42.0-52.0) % Plt Count 134 L 116 L 111 L (160-400) X10*3/uL BMP 09/05/24 09/06/24 21:14 05:01 Sodium 139 140 Potassium 4.8 5.2 H Chloride 113 H 117 H Carbon Dioxide 18 L 16 L BUN 21 H 18 H Creatinine 0.90 0.78 Calcium 8.4 D 7.2 L D Liver Function 09/05/24 Range/Units 21:14 Total Bilirubin 0.6 (0.0-1.0) mg/dL AST 25 (5-37) U/L ALT 8 (0-40) U/L Alkaline Phosphatase 85 (39-117) U/L Albumin 3.5 (3.5-5.0) g/dL All other labs normal. Imaging Additional studies: Date of Service: 09/06/24 CLINICAL HISTORY: derrick hematuria CT abdomen and pelvis with contrast Comparison: None provided Findings: For the lower lung findings please refer to same-day chest CT report. Motion limited exam. Distended gallbladder. Correlate clinically for presence or absence of right upper quadrant pain. Too small to characterize left hepatic lobe hypodensity. Itruvdez-[id number] early atrophied pancreas. Borderline prominent pancreatic duct measuring up to 3 mm in width. No bowel obstruction, pneumoperitoneum, or pneumatosis. Significant stool in the rectum and relatively moderate stool in the colon. Atherosclerotic calcifications. Incompletely evaluated appendix. Evaluated portion unremarkable. Enlarged prostate. At least mild soft tissue emphysema at level of the incompletely evaluated penis. Incompletely evaluated penile catheter (questionably malpositioned Clark catheter) cannot be excluded. Correlate clinically. No hydronephrosis or renal stone. Small dense layer in the left posterolateral aspect of the urinary bladder due to mild hemorrhagic/dense urinary bladder contents (UA correlation recommended) versus less likely nonobstructive urinary bladder stone/stones. Small amount of nondependent gas in the urinary bladder likely due to recent catheterization. Correlate clinically. Tiny amount of right groin gas seems to be located within veins and may be due to prior venous access. No acute fracture. Spinal degenerative changes. IMPRESSION: 1. At least mild soft tissue emphysema at level of the incompletely evaluated penis. Incompletely evaluated penile catheter (questionably malpositioned Clark catheter) cannot be excluded. Correlate clinically. 2. Distended gallbladder. Correlate clinically for presence or absence of right upper quadrant pain. 3. No hydronephrosis or renal stone. Small dense layer in the left posterolateral aspect of the urinary bladder due to mild hemorrhagic/dense urinary bladder contents (UA correlation recommended) versus less likely nonobstructive urinary bladder stone/stones. 4. Significant stool in the rectum and relatively moderate stool in the colon. Assessment and Plan (1) Gross hematuria: Status: Acute (2) Enlarged prostate: Status: Acute Plan Large prostate, on CT catheter not in the bladder Hematuria secondary to traumatic catheter placement Unable to place clark at beside, catheter met with resistance tranurethrally Discussed with the daughter cystoscopy under anesthesia clot evacuation Procedures Date of Service Date of Service: 09/06/24
--- NOTE | 2024-09-06 09:09 | PC.NURSE ---
pt medicated with morphine for pain, pt is restless, unable to get comfortable keeps moving around in the bed, visible tears in the eyes, and daughter also reports that the pt is in pain
--- NOTE | 2024-09-06 09:37 | PC.NURSE ---
pt had a medium soft bowel movement, pt cleaned up and repositioned
--- NOTE | 2024-09-06 09:54 | HO.ANESPROP2 ---
Documented by User: Mariajose Meeks NP 09/06/24 10:14 HPI - Anesthesia Eval Consult details Narrative: 89 yr old male for cystoscopy evacuation of hematoma. Aspiration PNA, O2 sat 94% No known CP/SOB Alzheimer's disease: hx obtained from family member at bedside On keppra ?h/o seizure in 2021 or 2022. HFrEF: BNP mildly elevated 292 PMFSH Active Problems Active Problems: All Active Problems Aspiration pneumonia (Acute) Dementia (Acute) Pneumonia (Acute) COVID-19 (Acute) Trigger finger, right ring finger (Acute) Past Medical History Medical History Cardiomyopathy Encephalitis Osteoarthritis GERD (gastroesophageal reflux disease) Dementia Hypertension High cholesterol Arthritis Alzheimer disease Functional capacity: bed bound (09/09 care needed ) Family History Family History Father Pacemaker Family history of problems with anesthesia: No Surgical History History of Problems with Anesthesia: No Social History Social History Household Members: Spouse Housing: Apartment Do you presently have visiting nurse or other home services: Yes ([employer] every day) Unable to assess alcohol history related to: Unable to respond and Unknown Alcohol intake: never Comment: 1:1 sitter Patient Tobacco Use Status: Former Tobacco user Tobacco use type: Cigarette Smoked in Last 30 Days: No e-Cigarette/Vaping Use: Never Used Use of substances other than those prescribed or required for medical reasons: No Are you DNR?: No Advance Directives: Yes Advance Directives on File: Yes Advance Directives Date on File: 11/08/21 Nutrition Risks: Difficulty swallowing and On aspiration precautions service: No Current occupational status: retired Current occupation: right handed Meds Allergies Allergy/AdvReac Type Severity Reaction Status Date / Time No Known Allergies (No Known Allergy Verified 09/06/24 12:11 Allergies*) Active Medications: Current Medications Acetaminophen (Acetaminophen 325 Mg Tablet) 650 mg PO Q6H PRN PRN Reason: Pain, Mild 1-3,fever,headache Albuterol/Ipratropium (Albuterol/Iprat 2.5/0.5mg 3 Ml Ampul.Neb) 3 ml INHALE Q4H PRN PRN Reason: Shortness of Breath/Wheezing Calcium Carbonate (Calcium Carbonate 750 Mg Tab.Chew) 750 mg PO Q4H PRN PRN Reason: Heartburn Ceftriaxone Sodium (Ceftriaxone Sodium 2 Gm Vial) 2 gm IVPUSH Q24H [facility] Doxycycline Hyclate 100 mg/ (Sodium Chloride) 250 mls @ 166.67 mls/hr IV Q12H [facility] Last Infusion: 09/06/24 04:49 Dose: Infused Magnesium Hydroxide (Milk Of Magnesia 30 Ml Oral.Susp) 30 ml PO DAILY PRN PRN Reason: Constipation Melatonin (Melatonin 3 Mg Tablet) 6 mg PO BEDTIME PRN PRN Reason: Insomnia Morphine Sulfate (Morphine Sulfate 2 Mg/Ml Cartridge) 2 mg IVPUSH Q3H PRN; Protocol PRN Reason: Pain, Moderate(Pain Scale 4-6) Last Admin: 09/06/24 09:08 Dose: 2 mg Ondansetron HCl (Ondansetron Hcl 4 Mg/2 Ml Vial) 4 mg IVPUSH Q8H PRN PRN Reason: Nausea and Vomiting Pantoprazole Sodium (Pantoprazole Sodium 40 Mg/10 Ml Vial) 40 mg IVPUSH DAILY@0630 [facility] Last Admin: 09/06/24 06:41 Dose: 40 mg Polyethylene Glycol (Polyethylene Glycol 3350 17 Gm Powd.Pack) 17 gm PO DAILY PRN PRN Reason: Constipation Senna (Sennosides 8.6 Mg Tablet) 17.2 mg PO BEDTIME [facility] Sodium Chloride (0.9 % Sodium Chloride Flush 3 Ml Syringe) 3 ml IVFLUSH QSHIFT [facility] Last Admin: 09/06/24 08:38 Dose: 3 ml Home Medications ?Medication ?Instructions ?Recorded ?Confirmed ?Last Taken ?Type omeprazole 20 mg tablet,delayed 20 mg PO DAILY@0630 03/28/20 09/06/24 09/05/24 History release aspirin 325 mg tablet,delayed 325 mg PO DAILY 04/08/21 09/06/24 09/05/24 History release cholecalciferol (vitamin D3) 25 1 tab PO DAILY 11/07/21 09/06/24 09/05/24 History mcg (1,000 unit) tablet ropinirole 0.5 mg tablet 0.5 mg PO BEDTIME 11/07/21 09/06/24 09/05/24 History quetiapine 25 mg tablet 25 mg PO BID 03/07/22 09/06/24 09/05/24 History docusate sodium 50 mg/5 mL oral 5 ml PO BEDTIME PRN Constipation 11/12/22 09/06/24 Unknown History liquid trazodone 50 mg tablet 50 mg PO BEDTIME PRN Insomnia 11/12/22 09/06/24 Unknown History melatonin 5 mg tablet 5 mg PO BEDTIME 09/06/24 09/06/24 09/05/24 History sennosides 8.6 mg tablet (senna) 8.6 mg PO DAILY 09/06/24 09/06/24 09/05/24 History Exam Height,Weight and Vital Signs: Height 4 ft 11 in Weight 55.9 kg Last Vital Signs Temp 99.8 F 09/06/24 09:08 Pulse 94 09/06/24 09:08 Resp 22 H 09/06/24 09:08 BP 136/81 09/06/24 09:08 Pulse Ox 96 09/06/24 09:08 O2 Del Method Room Air 09/06/24 09:08 Pertinent Lab Results Pertinent Lab Results: Laboratory Tests 09/05/24 09/05/24 09/05/24 21:02 21:14 21:15 WBC 7.0 RBC 4.54 L Hgb 14.2 Hct 42.8 MCV 94.3 MCH 31.3 MCHC 33.2 RDW 13.8 Plt Count 134 L MPV 10.1 Immature Gran % (Auto) Neut % (Auto) Lymph % (Auto) [place] % (Auto) Eos % (Auto) Baso % (Auto) Lymph # (Auto) [place] # (Auto) Eos # (Auto) Baso # (Auto) Abs Immat Gran (auto) Absolute Neuts (auto) Absolute Nucleated RBC 0.000 Nucleated RBC % (auto) 0.0 Neutrophils % (Manual) Band Neutrophils % Lymphocytes % (Manual) Monocytes % (Manual) Basophils % (Manual) Abs Neuts (Manual) Lymphocytes # (Manual) Monocytes # (Manual) Basophils # (Manual) Platelet Estimate Plt Morphology Comment RBC Morphology [place] Cells Acanthocytes (Spur) Schistocytes PT INR APTT Sodium 139 Potassium 4.8 Chloride 113 H Carbon Dioxide 18 L Anion Gap 13 BUN 21 H Creatinine 0.90 Estim Creat Clear Calc 37.5 Estimated GFR > 60 POC Glucose 103 Random Glucose 121 H Lactic Acid 1.7 Calcium 8.4 D Magnesium 1.9 Total Bilirubin 0.6 AST 25 ALT 8 Alkaline Phosphatase 85 Troponin I High Sens 35.9 H B-Natriuretic Peptide 292 H Total Protein 7.0 Albumin 3.5 Hepatitis A IgM Ab Hep Bs Antigen Hep Bs Antibody Hepatitis C Ab (EIA) Influenza Type A (PCR) Influenza Type B (PCR) RSV RNA Qual (PCR) SARS-CoV-2 RNA (RT-PCR) 09/05/24 09/06/24 09/06/24 21:32 01:10 05:01 WBC 8.6 10.2 RBC 3.76 L 3.37 L Hgb 11.6 L 10.7 L Hct 35.6 L 32.3 L MCV 94.7 95.8 MCH 30.9 31.8 MCHC 32.6 33.1 RDW 13.7 13.9 Plt Count 116 L 111 L MPV 9.9 10.0 Immature Gran % (Auto) 0.3 Cancelled Neut % (Auto) 84.7 H Cancelled Lymph % (Auto) 8.5 L Cancelled [place] % (Auto) 6.4 Cancelled Eos % (Auto) 0.0 Cancelled Baso % (Auto) 0.1 Cancelled Lymph # (Auto) 0.7 L Cancelled [place] # (Auto) 0.6 Cancelled Eos # (Auto) 0.0 Cancelled Baso # (Auto) 0.0 Cancelled Abs Immat Gran (auto) 0.03 Cancelled Absolute Neuts (auto) 7.3 Cancelled Absolute Nucleated RBC 0.000 0.000 Nucleated RBC % (auto) 0.0 0.0 Neutrophils % (Manual) 76 H Band Neutrophils % 13 H Lymphocytes % (Manual) 6 L Monocytes % (Manual) 4 Basophils % (Manual) 1 Abs Neuts (Manual) 9.1 H Lymphocytes # (Manual) 0.6 L Monocytes # (Manual) 0.4 Basophils # (Manual) 0.1 Platelet Estimate DECREASED Plt Morphology Comment NORMAL RBC Morphology NOTED [place] Cells 1+ (0-2) Acanthocytes (Spur) 3+ (>5) Schistocytes 1+ (0-2) PT 16.8 H INR 1.5 H APTT 32.5 Sodium 140 Potassium 5.2 H Chloride 117 H Carbon Dioxide 16 L Anion Gap 12 BUN 18 H Creatinine 0.78 Estim Creat Clear Calc 43.3 Estimated GFR > 60 POC Glucose Random Glucose 103 Lactic Acid 1.3 Calcium 7.2 L D Magnesium Total Bilirubin AST ALT Alkaline Phosphatase Troponin I High Sens B-Natriuretic Peptide Total Protein Albumin Hepatitis A IgM Ab Nonreactive Hep Bs Antigen Negative Hep Bs Antibody REACTIVE Hepatitis C Ab (EIA) Nonreactive Influenza Type A (PCR) NEGATIVE Influenza Type B (PCR) NEGATIVE RSV RNA Qual (PCR) NEGATIVE SARS-CoV-2 RNA (RT-PCR) NEGATIVE Narrative Narrative: EKG 09/05/24 Vent. Rate : 84 BPM Atrial Rate : 84 BPM P-R Int : 216 ms QRS Dur : 96 ms QT Int : 366 ms P-R-T Axes : 52 -61 89 degrees QTcB Int : 432 ms Sinus rhythm with 1st degree A-V block Left anterior fascicular block Minimal voltage criteria for LVH, may be normal variant ( Tab product ) Abnormal ECG When compared with ECG of 12-Nov-2022 20:40, No significant change was found Airway Mallampati Class: Patient Non-Cooperative TM Dist: >3cm Neck ROM: Full Loose/Missing/Broken Teeth: Yes and Upper Heart: RRR Lungs: rhonchi at bases b/l Assessment and Plan Final Anesthetic Review Family History of Problems with Anesthesia: No History of Problems with Anesthesia: No Documented by User: Kylie Brown MD 09/06/24 12:14 [facility] Past Medical History Medical History Cardiomyopathy Encephalitis Osteoarthritis GERD (gastroesophageal reflux disease) Dementia Hypertension High cholesterol Arthritis Alzheimer disease Family History Family History Father Pacemaker Social History Social History Household Members: Spouse Housing: Apartment Do you presently have visiting nurse or other home services: Yes ([employer] every day) Unable to assess alcohol history related to: Unable to respond and Unknown Alcohol intake: never Comment: 1:1 sitter Patient Tobacco Use Status: Former Tobacco user Tobacco use type: Cigarette Smoked in Last 30 Days: No e-Cigarette/Vaping Use: Never Used Use of substances other than those prescribed or required for medical reasons: No Are you DNR?: No Advance Directives: Yes Advance Directives on File: Yes Advance Directives Date on File: 11/08/21 Nutrition Risks: Difficulty swallowing and On aspiration precautions service: No Current occupational status: retired Current occupation: right handed Meds Allergies Allergy/AdvReac Type Severity Reaction Status Date / Time No Known Allergies (No Known Allergy Verified 09/06/24 12:11 Allergies*) Home Medications ?Medication ?Instructions ?Recorded ?Confirmed ?Last Taken ?Type omeprazole 20 mg tablet,delayed 20 mg PO DAILY@0630 03/28/20 09/06/24 09/05/24 History release aspirin 325 mg tablet,delayed 325 mg PO DAILY 04/08/21 09/06/24 09/05/24 History release cholecalciferol (vitamin D3) 25 1 tab PO DAILY 11/07/21 09/06/24 09/05/24 History mcg (1,000 unit) tablet ropinirole 0.5 mg tablet 0.5 mg PO BEDTIME 11/07/21 09/06/24 09/05/24 History quetiapine 25 mg tablet 25 mg PO BID 03/07/22 09/06/24 09/05/24 History docusate sodium 50 mg/5 mL oral 5 ml PO BEDTIME PRN Constipation 11/12/22 09/06/24 Unknown History liquid trazodone 50 mg tablet 50 mg PO BEDTIME PRN Insomnia 11/12/22 09/06/24 Unknown History melatonin 5 mg tablet 5 mg PO BEDTIME 09/06/24 09/06/24 09/05/24 History sennosides 8.6 mg tablet (senna) 8.6 mg PO DAILY 09/06/24 09/06/24 09/05/24 History Assessment and Plan Assessment Anesthesia Assessment: Anesthesia Plan Discussed and Chart Reviewed Final Anesthetic Review NPO: Yes ASA Class: III (vit k given) Final Preanesthetic Review: No Changes in Pt Med Stat, Meds/Allgs Chart Reviewed, Consent Obtained/Reviewed and Anes Risks/Benef Reviewed Patient Risk: Intermediate Procedure Risk: Low Anesthetic Plan Anesthetic Plan: GA (post op delirium chances are high, explained to KRISTI , his daughter and HCP) Disposition: Standard PACU
--- NOTE | 2024-09-06 10:11 | PC.NURSE ---
report given to suzanna rn
[2024-09-06] MEDS: Lidocaine HCl 2 % Urojet 10 ML JEL.PF.APP TOPICAL (10:32)
[2024-09-06 10:55] LABS: NRBC Abs Auto 0.000 X10*3/uL (0.0-0.012); NRBC Pct Auto 0.0 /100WBC (0.0-0.2); PLT CLUMP 1
[2024-09-06 10:57] LABS: Hematocrit 27.9 % (42.0-52.0); Hemoglobin 9.5 g/dl (14.0-18.0); Mean Corpuscular HGB Conc 34.1 g/dl (31.0-36.0); Mean Corpuscular Hemoglobin 32.5 pg (27.0-33.0); Mean Corpuscular Volume 95.5 fL (80.0-98.0); Red Blood Count 2.92 X10*6/uL (4.60-5.80)
[2024-09-06 11:12] LABS: Anion Gap 7 (12-20); Blood Urea Nitrogen 20 mg/dL (9-16); Calcium 7.0 mg/dL (8.4-10.2); Carbon Dioxide 20 mmol/L (22-29); Chloride 118 mmol/L (96-108); Creatinine Clr Calc Pharmacy 41.2; Estimated Glomerular Filt Rate > 60; Potassium 4.1 mmol/L (3.3-5.1); Sodium 141 mmol/L (135-145)
[2024-09-06 11:14] LABS: INTERNATIONAL NORM RATIO 1.6 (0.9-1.1); Prothrombin Time 18.7 SEC (10.9-12.4)
[2024-09-06 11:15] LABS: Partial Thromboplastin Time 32.4 SEC (26.0-36.8)
[2024-09-06 11:40] LABS: HBc Num2 11.09 S/CO; HBc Num3 11.00 S/CO
[2024-09-06 11:57] LABS: Band Neutrophils Percent 13 % (3-5); Eosinophils Percent Manual 1 % (0-4); Lymphocytes Percent Manual 7 % (20-40); Neutrophils Percent Manual 79 % (45-73)
[2024-09-06 12:00] LABS: RBC Morphology NOTED; Schistocytes 1+ (0-2) /OIF; Sickle Cells 1+ (0-2) /OIF
[2024-09-06 12:02] LABS: Eosinophils Absolute Manual 0.1 X10*3/uL (0.0-0.4); Lymphocytes Absolute Manual 0.6 X10*3/uL (1.2-4.9); Neutrophils Absolute Manual 8.4 X10*3/uL (2.0-8.3); Platelet Count 105 X10*3/uL (160-400); White Blood Count 9.1 X10*3/uL (4.8-10.8)
[2024-09-06] MEDS: Albuterol Sulfate (0.083%) 2.5 MG/3 ML VIAL.NEB INHALE (12:33)
--- NOTE | 2024-09-06 13:03 | MHC.SHP ---
Pre-Procedural Eval Section A - 24 Hr Update-Section A only Date of Service: 09/06/24 The patient is an INPATIENT: Yes The patient has been examined within 24 hours of the surgical procedure. The History & Physical has been completed within 30 days and I have reviewed it.: Yes Section B - Complete if H&P > 30 days Chief Complaint: hematuria Allergies: Allergies Allergy/AdvReac Type Severity Reaction Status Date / Time No Known Allergies (No Known Allergy Verified 09/06/24 12:11 Allergies*) Plan Diagnosis/Plan: Unchanged I have reviewed the history and physical and performed a pertinent physical examination on my patient. No changes have occurred unless specified. Cystoscopy, evacuation bladder clots, possible suprapubic tube. Pt has dementia. consent obtained from daughter. Time Spent With Patient Time: Total time managing care of this patient today ____ minutes.
--- NOTE | 2024-09-06 13:04 | W.PM.OPN ---
Operative Note Operative Note Date of Service: 09/06/24 Narrative: PREOP DIAGNOSIS: Gross hematuria, traumatic catheterization, enlarged prostate POSTOP DIAGNOSIS: Gross hematuria, traumatic catheterization, enlarged prostate, urethral stricture PROCEDURE: Cystoscopy, urethral dilation, retrograde, 8 [place]ib[place]ian to 20 [place], [place] tip catheter size 18 [place]ian, Rectal fecal disimpaction. SURGEON: Mary Otto MD ANESTHESIA: General Indications: Gross hematuria Details of procedure: The patient was brought into the operating room placed on the OR table in supine position. Levaquin 500 mg IV.. General anesthesia was administered. The patient was repositioned into lithotomy position, prepped and draped in the usual sterile fashion. Time-out was done per protocol. A 22 fr cystoscope was placed transurethrally which visualized a false passage in the mid bulbous urethra. Attempts to place a guidewire through the normal-appearing urethra was not successful in getting the guidewire into the bladder. A short Olympus ureteroscope was then passed transurethrally which was able to be manipulated into the prostatic urethra to the bladder neck there was scarring noted and the guidewire was able to be manipulated into the bladder. A 5 [place]ian ureteral catheter was passed over the guidewire and a retrograde was done noting contrast in the bladder. The Amplaz stiff guidewire was then passed through the 5 fr so they wanted him to go to I am not sure he is on medicine but if they were going to go to tele I can just send him there change in I will put transfer catheter. Urethral dilation was then done starting with an 8 [place]ian and gradually dilated up to a 20 [place]ian. The 22 [place]ian cystoscope was then passed over the Amplatz guidewire into the bladder. There were no significant clots noted. The entire bladder was visualized. There were no suspicious bladder lesions seen. The cystoscope was removed. An 18 [place]ian [place] tip catheter was then passed over the guidewire into the bladder. Rectal fecal disimpaction was done. The patient was brought out of anesthesia and taken to recovery in stable condition. Wylie catheter needs to stay in for 10- 14 days. Complications: None EBL: minimal (<5 mL) Drains: 18 [place]ian [place] tip Wylie catheter, 10 cc in the balloon contrast mixed with water was placed into the balloon.
--- NOTE | 2024-09-06 15:30 | MHC.SLORD ---
Speech Language Pathology Order Status: Pt to OR today, POWER PLANT TECHNICIAN to assess 09/07.
--- NOTE | 2024-09-06 16:15 | HO.PM.IMPN ---
Subjective Subjective Date of Service: 09/06/24 Interval History: Events of initial presentation and ER stay reviewed. Gross hematuria; unable to advance Wylie in ER. Seen in consultation by Urology and taken to OR; urethral stricture noted. See OR notes for details Review of Systems Unable to obtain secondary to dementia Constitutional Constitutional: Reports as per HPI Physical Exam Vital Signs: Vital Signs: Last Vital Signs Temp 97 F 09/06/24 14:37 Pulse 60 09/06/24 16:00 Resp 14 09/06/24 16:00 BP 147/83 H 09/06/24 16:00 Pulse Ox 92 09/06/24 16:00 O2 Del Method Room Air 09/06/24 16:00 BMI result Body Mass Index 24.9 Const: Other: Awake confused. Interacting with daughters Resp: Other: Clear to auscultation bilaterally no rales rhonchi or wheezes Cardio: Other: No S4; positive S1-S2; no S3 murmurs rubs or gallops GI: Other: Soft nontender nondistended normoactive bowel sounds Extrem: Other: No edema bilaterally Objective Data Active Medications Acetaminophen (Acetaminophen 325 Mg Tablet) 650 mg PO Q6H PRN PRN Reason: Pain, Mild 1-3,fever,headache Albuterol/Ipratropium (Albuterol/Iprat 2.5/0.5mg 3 Ml Ampul.Neb) 3 ml INHALE Q4H PRN PRN Reason: Shortness of Breath/Wheezing Calcium Carbonate (Calcium Carbonate 750 Mg Tab.Chew) 750 mg PO Q4H PRN PRN Reason: Heartburn Ceftriaxone Sodium (Ceftriaxone Sodium 2 Gm Vial) 2 gm IVPUSH Q24H [facility] Doxycycline Hyclate 100 mg/ (Sodium Chloride) 250 mls @ 166.67 mls/hr IV Q12H [facility] Last Infusion: 09/06/24 04:49 Dose: Infused Documented By: CESAR Magnesium Hydroxide (Milk Of Magnesia 30 Ml Oral.Susp) 30 ml PO DAILY PRN PRN Reason: Constipation Melatonin (Melatonin 3 Mg Tablet) 6 mg PO BEDTIME PRN PRN Reason: Insomnia Morphine Sulfate (Morphine Sulfate 2 Mg/Ml Cartridge) 2 mg IVPUSH Q3H PRN; Protocol PRN Reason: Pain, Moderate(Pain Scale 4-6) Last Admin: 09/06/24 09:08 Dose: 2 mg Documented By: ESAU Naloxone HCl (Naloxone Hcl 0.4 Mg/Ml Vial) 0.04 mg IVPUSH Q5M PRN PRN Reason: Excessive sedation or RR < 8 Ondansetron HCl (Ondansetron Hcl 4 Mg/2 Ml Vial) 4 mg IVPUSH Q8H PRN PRN Reason: Nausea and Vomiting Ondansetron HCl (Ondansetron Hcl 4 Mg/2 Ml Vial) 4 mg IVPUSH ONCE PRN PRN Reason: Nausea and Vomiting Stop: 09/06/24 18:14 Pantoprazole Sodium (Pantoprazole Sodium 40 Mg/10 Ml Vial) 40 mg IVPUSH DAILY@0630 [facility] Last Admin: 09/06/24 06:41 Dose: 40 mg Documented By: CESAR Polyethylene Glycol (Polyethylene Glycol 3350 17 Gm Powd.Pack) 17 gm PO DAILY PRN PRN Reason: Constipation Senna (Sennosides 8.6 Mg Tablet) 17.2 mg PO BEDTIME [facility] Sodium Chloride (0.9 % Sodium Chloride Flush 3 Ml Syringe) 3 ml IVFLUSH QSHIFT [facility] Last Admin: 09/06/24 08:38 Dose: 3 ml Documented By: ESAU Labs 09/06/24 10:48 09/06/24 10:49 Labs: Laboratory Results - last 24 hr 09/05/24 09/05/24 09/05/24 21:02 21:14 21:15 MCV 94.3 MCH 31.3 MCHC 33.2 RDW 13.8 Plt Count 134 L MPV 10.1 Immature Gran % (Auto) Neut % (Auto) Lymph % (Auto) Ness % (Auto) Eos % (Auto) Baso % (Auto) Lymph # (Auto) Ness # (Auto) Eos # (Auto) Baso # (Auto) Abs Immat Gran (auto) Absolute Neuts (auto) Absolute Nucleated RBC 0.000 Nucleated RBC % (auto) 0.0 Neutrophils % (Manual) Band Neutrophils % Lymphocytes % (Manual) Monocytes % (Manual) Eosinophils % (Manual) Basophils % (Manual) Abs Neuts (Manual) Lymphocytes # (Manual) Monocytes # (Manual) Eosinophils # (Manual) Basophils # (Manual) Platelet Estimate Plt Morphology Comment RBC Morphology Sickle Cells [place] Cells Acanthocytes (Spur) Schistocytes PT INR APTT Serum Potassium Anion Gap 13 Estim Creat Clear Calc 37.5 Estimated GFR > 60 POC Glucose 103 Random Glucose 121 H Lactic Acid 1.7 Calcium 8.4 D Magnesium 1.9 Total Bilirubin 0.6 AST 25 ALT 8 Alkaline Phosphatase 85 B-Natriuretic Peptide 292 H Total Protein 7.0 Albumin 3.5 Hepatitis A IgM Ab Hep Bs Antigen Hep Bs Antibody Hep B Core Total Ab Hep B Core IgM Ab Hepatitis C Ab (EIA) Influenza Type A (PCR) Influenza Type B (PCR) RSV RNA Qual (PCR) SARS-CoV-2 RNA (RT-PCR) Blood Type Antibody Screen 09/05/24 09/06/24 09/06/24 21:32 01:10 05:01 MCV 94.7 95.8 MCH 30.9 31.8 MCHC 32.6 33.1 RDW 13.7 13.9 Plt Count 116 L 111 L MPV 9.9 10.0 Immature Gran % (Auto) 0.3 Cancelled Neut % (Auto) 84.7 H Cancelled Lymph % (Auto) 8.5 L Cancelled Ness % (Auto) 6.4 Cancelled Eos % (Auto) 0.0 Cancelled Baso % (Auto) 0.1 Cancelled Lymph # (Auto) 0.7 L Cancelled Ness # (Auto) 0.6 Cancelled Eos # (Auto) 0.0 Cancelled Baso # (Auto) 0.0 Cancelled Abs Immat Gran (auto) 0.03 Cancelled Absolute Neuts (auto) 7.3 Cancelled Absolute Nucleated RBC 0.000 0.000 Nucleated RBC % (auto) 0.0 0.0 Neutrophils % (Manual) 76 H Band Neutrophils % 13 H Lymphocytes % (Manual) 6 L Monocytes % (Manual) 4 Eosinophils % (Manual) Basophils % (Manual) 1 Abs Neuts (Manual) 9.1 H Lymphocytes # (Manual) 0.6 L Monocytes # (Manual) 0.4 Eosinophils # (Manual) Basophils # (Manual) 0.1 Platelet Estimate DECREASED Plt Morphology Comment NORMAL RBC Morphology NOTED Sickle Cells [place] Cells 1+ (0-2) Acanthocytes (Spur) 3+ (>5) Schistocytes 1+ (0-2) PT 16.8 H INR 1.5 H APTT 32.5 Serum Potassium Anion Gap 12 Estim Creat Clear Calc 43.3 Estimated GFR > 60 POC Glucose Random Glucose 103 Lactic Acid 1.3 Calcium 7.2 L D Magnesium Total Bilirubin AST ALT Alkaline Phosphatase B-Natriuretic Peptide Total Protein Albumin Hepatitis A IgM Ab Nonreactive Hep Bs Antigen Negative Hep Bs Antibody REACTIVE Hep B Core Total Ab Reactive Hep B Core IgM Ab Cancelled Hepatitis C Ab (EIA) Nonreactive Influenza Type A (PCR) NEGATIVE Influenza Type B (PCR) NEGATIVE RSV RNA Qual (PCR) NEGATIVE SARS-CoV-2 RNA (RT-PCR) NEGATIVE Blood Type Antibody Screen 09/06/24 09/06/24 09/06/24 09:56 10:48 10:49 MCV 95.5 MCH 32.5 MCHC 34.1 RDW 14.0 Plt Count 105 L MPV 10.1 Immature Gran % (Auto) Cancelled Neut % (Auto) Cancelled Lymph % (Auto) Cancelled Ness % (Auto) Cancelled Eos % (Auto) Cancelled Baso % (Auto) Cancelled Lymph # (Auto) Cancelled Ness # (Auto) Cancelled Eos # (Auto) Cancelled Baso # (Auto) Cancelled Abs Immat Gran (auto) Cancelled Absolute Neuts (auto) Cancelled Absolute Nucleated RBC 0.000 Nucleated RBC % (auto) 0.0 Neutrophils % (Manual) 79 H Band Neutrophils % 13 H Lymphocytes % (Manual) 7 L Monocytes % (Manual) Eosinophils % (Manual) 1 Basophils % (Manual) Abs Neuts (Manual) 8.4 H Lymphocytes # (Manual) 0.6 L Monocytes # (Manual) Eosinophils # (Manual) 0.1 Basophils # (Manual) Platelet Estimate DECREASED Plt Morphology Comment NORMAL RBC Morphology NOTED Sickle Cells 1+ (0-2) [place] Cells Acanthocytes (Spur) Schistocytes 1+ (0-2) PT 18.7 H INR 1.6 H APTT 32.4 Serum Potassium 4.2 Anion Gap 7 L Estim Creat Clear Calc 41.2 Estimated GFR > 60 POC Glucose Random Glucose 117 H Lactic Acid Calcium 7.0 L Magnesium Total Bilirubin AST ALT Alkaline Phosphatase B-Natriuretic Peptide Total Protein Albumin Hepatitis A IgM Ab Hep Bs Antigen Hep Bs Antibody Hep B Core Total Ab Hep B Core IgM Ab Hepatitis C Ab (EIA) Influenza Type A (PCR) Influenza Type B (PCR) RSV RNA Qual (PCR) SARS-CoV-2 RNA (RT-PCR) Blood Type A Positive Antibody Screen NEGATIVE Assessment and Plan (1) Gross hematuria: Status: Acute (2) Dementia: Status: Acute (3) Aspiration pneumonia: Status: Acute Plan 89-year-old male with known history of advancing dementia requiring direct care for all ADLs and IADLs, GERD, seizures, HFrEF, HLD, HTN presents with fever and decreased responsiveness diagnosed with aspiration PNA and incidentally derrick hematuria after straight catheterization for urine sample. Pt is on ASA 325 daily. 1. Aspiration pneumonia -CT scan chest... Mild right lower lobe peribronchovascular opacities suggestive of pneumonia plus-minus aspiration -Ceftriaxone/doxycycline (1) -DUO NEBS prn -titrate O2 to maintain sats greater than or equal to 92% -discussed advance directives with family. Patient was on hospice however was DC secondary to lack of progression of disease. -we will continue full code at present; family to discuss at home tonight 2. Hematuria -CTA abdomen pelvis without acute abnormalities -OR notes. . . Urethral stricture noted -continue ceftriaxone/doxycycline as above -UA with culture pending -no anticoagulation at this time 3. Seizure disorder -family notes compliance with therapies -follow clinically 4. HFpEF -stable and well compensated at this time -await speech eval and resume therapies as appropriate 5. Advanced dementia -continue outpatient therapies -full code at this time; patient family to discuss code status and questionable hospice Full code Patient requires ongoing hospitalization for IV antibiotics to treat aspiration pneumonia. Also requiring specialty consultation Quality Stroke Does the patient have a stroke diagnosis?: No Reason for No Anti-thrombotic by Day Two: Contraindicated (derrick hematuria ) VTE Prior VTE?: No VTE Risk Level:: Medical - moderate - high VTE Device Contraindication: N/A - Device Ordered VTE Drug Contraindication: N/A - Med Ordered
--- NOTE | 2024-09-06 16:18 | MHC.CM.PN ---
CM SPOKE TO PTS HCP/DAUGHTER, SHAI [phone] SHE REPORTS THE PT LIVES ALONE BUT HAS [employer] SERVICES DURING THE DAY AND HER BROTHER STAYS WITH HIM AT NIGHT HCP ON FILE PCP: SILVIO JONES AT [facility] ANIBAL CABAN DCP: HOME RESUME [facility] TRANSPORT
--- NOTE | 2024-09-06 19:46 | PC.NURSE ---
Pt arrived to unit approximately 1745. Drowsy, nonverbal. Makes groaning sounds on occasion when repositioning. Clark draining sheila urine with soem blood noted in clark bag. Meatal staining as well. Dr Otto and Dr Thayer contacted regarding clarification of post op orders. CBI not needed, to place orders for prn hand irrigation. Hospitalist to address diet and possible need for speech and hearing eval.
[2024-09-07] VITALS (9 sets, daily range): BP systolic 110–150; BP diastolic 70–96; PULSE 69–95; RESP 16–20; TEMP 36.3–38.7; O2SAT 96–98
[2024-09-07] MEDS: 0.9 % Sodium Chloride Flush 3 ML SYRINGE IVFLUSH ×2 (08:01→21:08)
--- NOTE | 2024-09-07 08:38 | HO.POSTANES ---
Post Anesthesia Evaluation Post Anesthesia Evaluation Date of Service: 09/07/24 Vital Signs: Vital Signs Temp Pulse Resp BP Pulse Ox O2 Del Method 09/07/24 07:49 98.8 F 92 18 98 Room Air 09/06/24 23:55 98.0 F 91 20 136/81 94 Room Air Anesthesia: General Mental Status: Awake Pain Control: Satisfactory Nausea/Vomiting: None Hydration: Adequate Anesthesia-Related Issues: No Anes. Related Issues
[2024-09-07 08:41] LABS: MANUAL DIFF FLAG NO
[2024-09-07 08:45] LABS: Hematocrit 27.0 % (42.0-52.0); Hemoglobin 9.3 g/dl (14.0-18.0); Imm Gran Abs Auto 0.04 X10*3/uL (0.00-0.03); Imm Gran Pct Auto 0.5 % (0.0-0.4); Lymphocytes Absolute Auto 1.2 X10*3/uL (1.2-4.9); Mean Corpuscular HGB Conc 34.4 g/dl (31.0-36.0); Mean Corpuscular Hemoglobin 32.0 pg (27.0-33.0); Mean Corpuscular Volume 92.8 fL (80.0-98.0); NRBC Abs Auto 0.000 X10*3/uL (0.0-0.012); NRBC Pct Auto 0.0 /100WBC (0.0-0.2); Platelet Count 106 X10*3/uL (160-400); Red Blood Count 2.91 X10*6/uL (4.60-5.80); White Blood Count 8.2 X10*3/uL (4.8-10.8)
[2024-09-07 09:04] LABS: Alanine Aminotransferase 7 U/L (0-40); Albumin Level 3.1 g/dL (3.5-5.0); Alkaline Phosphatase 62 U/L (39-117); Anion Gap 10 (12-20); Aspartate Amino Transferase 42 U/L (5-37); Blood Urea Nitrogen 18 mg/dL (9-16); Calcium 7.8 mg/dL (8.4-10.2); Carbon Dioxide 20 mmol/L (22-29); Chloride 114 mmol/L (96-108); Creatinine Clr Calc Pharmacy 44.4; Estimated Glomerular Filt Rate > 60; Potassium 3.9 mmol/L (3.3-5.1); Sodium 140 mmol/L (135-145); Total Protein 5.9 g/dL (6.5-8.0)
--- NOTE | 2024-09-07 12:50 | MHC.SL.SWA ---
Speech Pathologist Impression: Risk of Aspiration, Oropharyngeal Dysphagia Risk of Aspiration Due to: Reduced Cognition Dysphasia Diet Status: Start on NDD2/THIN Liquid Consistency and Strategies for Safe Swallow: Liquid Intake Recommendation: Thin Solid Food Consistency: Dietary Recommendations: Grnd/Mech Altered (NDD2) Additional Modifications to Solid Foods: Patient presents with moderate oropharyngeal dysphagia in the setting of advanced dementia, admitted w/ PNA, concern for aspiration. Patient w/ slow, maladaptive oral phase characterized by prolonged chewing/munching pattern on all solids, including purees, delayed AP transport, and pocketing in cheeks and anterior mouth. Patient is able to clear residue with liquid wash. No overt s/s of aspiration on trials of solids and liquids. Recommend start on GROUND/MECH ALTERED (NDD2) solids and THIN liquids, per daughter, patient takes all his pills CRUSHED in PUREE. Patient will need 1:1 feeding- slow pacing, check oral cavity for any pocketing, moisten foods w/ sauces/gravies, alternate bites of food with sips of liquid for clearance. Oral Medication Intake: Crushed with Puree Please contact the pharmacy regarding appropriate crushable or liquid drug formulations that are available whenever modified delivery is recommended. Supervision While Eating and Drinking for Safe Swallow: Total Assistance (1:1) Recommendation for Speech: Inpatient Speech Therapy Speech Therapy through [facility] Comment: BANK GUARD to follow during inpatient stay to monitor tolerance of PO and re-assess feeding needs. Patient is recommended continued speech therapy for dysphagia through the [facility] post-discharge. Frequency/Duration: Date Range for Service Req: Timeline to reassess: Jet Handler Clinican/Clinical Fellow: No Supervisory Statement: I have reviewed and agree with the student/clinical fellow's documentation: N/A Speech Language Pathologist: Zuly Brothers M.A., CCC-BANK GUARD
--- NOTE | 2024-09-07 14:39 | HO.PM.IMPN ---
Subjective Subjective Date of Service: 09/07/24 Interval History: Back to baseline per daughter. No acute issues overnight related to surgery or otherwise. Wylie draining clear yellow urine Review of Systems Unable to obtain secondary to dementia Constitutional Constitutional: Reports as per HPI Physical Exam Vital Signs: Vital Signs: Last Vital Signs Temp 99.0 F 09/07/24 13:53 Pulse 95 09/07/24 13:53 Resp 16 09/07/24 13:53 BP 110/70 09/07/24 13:53 Pulse Ox 98 09/07/24 13:53 O2 Del Method Room Air 09/07/24 13:53 O2 Flow Rate 2 09/06/24 16:45 BMI result Body Mass Index 24.7 Const: Other: Awake confused. Interacting with daughters Resp: Other: Clear to auscultation bilaterally no rales rhonchi or wheezes Cardio: Other: No S4; positive S1-S2; no S3 murmurs rubs or gallops GI: Other: Soft nontender nondistended normoactive bowel sounds Extrem: Other: No edema bilaterally Objective Data Active Medications Acetaminophen (Acetaminophen 325 Mg Tablet) 650 mg PO Q6H PRN PRN Reason: Pain, Mild 1-3,fever,headache Albuterol/Ipratropium (Albuterol/Iprat 2.5/0.5mg 3 Ml Ampul.Neb) 3 ml INHALE Q4H PRN PRN Reason: Shortness of Breath/Wheezing Calcium Carbonate (Calcium Carbonate 750 Mg Tab.Chew) 750 mg PO Q4H PRN PRN Reason: Heartburn Ceftriaxone Sodium (Ceftriaxone Sodium 2 Gm Vial) 2 gm IVPUSH Q24H [facility] Last Admin: 09/06/24 20:17 Dose: 2 gm Documented By: FER Doxycycline Hyclate 100 mg/ (Sodium Chloride) 250 mls @ 166.67 mls/hr IV Q12H [facility] Last Admin: 09/07/24 13:19 Dose: 166.67 mls/hr Documented By: JOSEPH Magnesium Hydroxide (Milk Of Magnesia 30 Ml Oral.Susp) 30 ml PO DAILY PRN PRN Reason: Constipation Melatonin (Melatonin 3 Mg Tablet) 6 mg PO BEDTIME PRN PRN Reason: Insomnia Morphine Sulfate (Morphine Sulfate 2 Mg/Ml Cartridge) 2 mg IVPUSH Q3H PRN; Protocol PRN Reason: Pain, Moderate(Pain Scale 4-6) Last Admin: 09/06/24 20:11 Dose: 2 mg Documented By: FER Ondansetron HCl (Ondansetron Hcl 4 Mg/2 Ml Vial) 4 mg IVPUSH Q8H PRN PRN Reason: Nausea and Vomiting Pantoprazole Sodium (Pantoprazole Sodium 40 Mg/10 Ml Vial) 40 mg IVPUSH DAILY@0630 [facility] Last Admin: 09/07/24 05:56 Dose: 40 mg Documented By: FER Polyethylene Glycol (Polyethylene Glycol 3350 17 Gm Powd.Pack) 17 gm PO DAILY PRN PRN Reason: Constipation Senna (Sennosides 8.6 Mg Tablet) 17.2 mg PO BEDTIME [facility] Last Admin: 09/06/24 20:23 Dose: 17.2 mg Documented By: FER Sodium Chloride (0.9 % Sodium Chloride Flush 3 Ml Syringe) 3 ml IVFLUSH QSHIFT [facility] Last Admin: 09/07/24 08:01 Dose: 3 ml Documented By: JOSEPH Labs 09/07/24 08:29 09/07/24 08:29 Labs: Laboratory Results - last 24 hr 09/07/24 08:29 MCV 92.8 MCH 32.0 MCHC 34.4 RDW 13.9 Plt Count 106 L MPV 10.6 Immature Gran % (Auto) 0.5 H Neut % (Auto) 76.5 H Lymph % (Auto) 15.0 L [place] % (Auto) 6.9 Eos % (Auto) 0.7 Baso % (Auto) 0.4 Lymph # (Auto) 1.2 [place] # (Auto) 0.6 Eos # (Auto) 0.1 Baso # (Auto) 0.0 Abs Immat Gran (auto) 0.04 H Absolute Neuts (auto) 6.3 Absolute Nucleated RBC 0.000 Nucleated RBC % (auto) 0.0 Anion Gap 10 L Estim Creat Clear Calc 44.4 Estimated GFR > 60 Fasting Glucose 77 Calcium 7.8 L D Total Bilirubin 0.6 AST 42 H ALT 7 Alkaline Phosphatase 62 Total Protein 5.9 L Albumin 3.1 L Microbiology Microbiology Results: Microbiology 09/05/24 21:20 Blood Culture - Preliminary Blood - Venous No growth after 24 hours. 09/05/24 21:15 Blood Culture - Preliminary Blood - Venous No growth after 24 hours. Assessment and Plan (1) Aspiration pneumonia: Status: Acute (2) Gross hematuria: Status: Acute Plan 89-year-old male with known history of advancing dementia requiring direct care for all ADLs and IADLs, GERD, seizures, HFrEF, HLD, HTN presents with fever and decreased responsiveness diagnosed with aspiration PNA and incidentally derrick hematuria after straight catheterization for urine sample. Pt is on ASA 325 daily. 1. Aspiration pneumonia -CT scan chest... Mild right lower lobe peribronchovascular opacities suggestive of pneumonia plus-minus aspiration -Ceftriaxone/doxycycline (2) -DUO NEBS prn -titrate O2 to maintain sats greater than or equal to 92% -speech eval noted 2. Hematuria S/P ureteral dilatation -CTA abdomen pelvis without acute abnormalities -OR notes. . . Urethral stricture noted.. No hematuria noted -continue ceftriaxone/doxycycline as above -UA with culture pending -no anticoagulation at this time 3. Seizure disorder -family notes compliance with therapies -follow clinically 4. HFpEF -stable and well compensated at this time - 5. Advanced dementia -continue outpatient therapies -full code at this time; patient family to discuss code status and questionable hospice Full code Patient requires ongoing hospitalization for IV antibiotics to treat aspiration pneumonia. Also requiring specialty consultation Quality Stroke Does the patient have a stroke diagnosis?: No Reason for No Anti-thrombotic by Day Two: Contraindicated (derrick hematuria ) VTE Prior VTE?: No VTE Risk Level:: Medical - moderate - high VTE Device Contraindication: N/A - Device Ordered VTE Drug Contraindication: N/A - Med Ordered
[2024-09-08 04:00] VITALS: BP 142/79; PULSE 70; RESP 20; TEMP 36.7; O2SAT 96
[2024-09-08 05:50] LABS: MANUAL DIFF FLAG NO
[2024-09-08 05:59] LABS: Hematocrit 25.7 % (42.0-52.0); Hemoglobin 8.7 g/dl (14.0-18.0); Imm Gran Abs Auto 0.02 X10*3/uL (0.00-0.03); Imm Gran Pct Auto 0.4 % (0.0-0.4); Lymphocytes Absolute Auto 1.2 X10*3/uL (1.2-4.9); Mean Corpuscular HGB Conc 33.9 g/dl (31.0-36.0); Mean Corpuscular Hemoglobin 31.5 pg (27.0-33.0); Mean Corpuscular Volume 93.1 fL (80.0-98.0); NRBC Abs Auto 0.000 X10*3/uL (0.0-0.012); NRBC Pct Auto 0.0 /100WBC (0.0-0.2); Platelet Count 102 X10*3/uL (160-400); Red Blood Count 2.76 X10*6/uL (4.60-5.80); White Blood Count 5.7 X10*3/uL (4.8-10.8)
[2024-09-08 07:23] VITALS: BP 144/86; PULSE 67; RESP 12; TEMP 36.2; O2SAT 94
--- NOTE | 2024-09-08 07:24 | HE.PHANOTE ---
IV TO PO Doxycycline converted from IV to PO per P&T
[2024-09-08] MEDS: Omeprazole/Na Bicarb Oral Susp 20 MG/10 ML UD Cup PO (09:52)
[2024-09-08] MEDS: levETIRAcetam Oral Soln 500 MG/5 ML 250 MG PO (09:52)
--- NOTE | 2024-09-08 10:50 | MHC.CM.PN ---
[pt to be dcd today home w/hvns by amb at 12 family aware
--- NOTE | 2024-09-08 11:07 | MHC.CM.PN ---
auth from [facility] is [id number]
[2024-09-08 11:39] VITALS: BP 139/73; PULSE 69; RESP 16; TEMP 37.1; O2SAT 92
--- NOTE | 2024-09-08 12:01 | PM.DS ---
DS: Providers Provider Date of Service: 09/08/24 Date of admission: 09/05/24 22:55 Date of discharge: 09/08/24 Primary care physician: Douglas Nguyễn MD Consults: 09/05/24 23:38 Consult to Urology Routine Consulting Provider: [facility] Reason for consultation: severe hematuria Has provider been notified: Yes 09/05/24 23:53 Consult to Hospice Routine Comment: prev in hospice, showing signs of overall decline 09/06/24 01:13 Consult to Case Management Routine Comment: pt is declining overall, family struggling DS: Diagnosis Discharge Diagnosis (1) Aspiration pneumonia: Status: Acute (2) Gross hematuria: Status: Acute DS: Summary Hospital Course Hospital Course: 89-year-old black male with known history of advancing dementia requiring direct care for all ADLs and IADLs, GERD, seizures, HFrEF, HLD, HTN presents to ED with report of fever that started today with diminished response to family. Pt's daughter present and helped with HPI as pt is not able to provide. Patient has Alzheimer worsened for years prior and then later patient developed seizure activity that led to his current status of being bed-bound independent for all aspects of care. Daughter states that they have been trying to feed patient his food and meds by crushing and adjusting food consistency orally.. Patient had been in hospice prior but hospice released him from the program because patient was not progressing further. This was some time ago. Pt does not use oxygen at home currently. CXR done in ED notes opacity of right lung base due to PNA vs aterlectasis. Attempted ER 2 catheterization patient for urine unsuccessful and patient developed hematuria. Ultimately urology was consulted. After urology failed attempt at catheterization, patient was taken to the OR. 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 See Urology notes for detail. Ultimately dilated and Wylie placed. Patient returned to floor with catheter and had no further hematuria. At the time of discharge blood cultures times 48 hours were negative. At this point in time he is medically acceptable to be discharged back home with his family and VNA and we will keep his Wylie in until seen by Urology as outpatient. Time Attestation Discharge Coordination Time (in mins): 35 Quality: Safe Use of Opioids Does Pt have an Active Cancer Diagnosis on the Problem List?: No Quality: Stroke Does the patient have a stroke diagnosis?: No Physical Exam Vital Signs: Vital Signs: Last Vital Signs Temp 98.7 F 09/08/24 11:39 Pulse 69 09/08/24 11:39 Resp 16 09/08/24 11:39 BP 139/73 09/08/24 11:39 Pulse Ox 92 09/08/24 11:39 O2 Del Method Room Air 09/08/24 11:39 O2 Flow Rate 2 09/06/24 16:45 BMI result Body Mass Index 24.7 Const: Other: Awake confused. Interacting with daughters Resp: Other: Clear to auscultation bilaterally no rales rhonchi or wheezes Cardio: Other: No S4; positive S1-S2; no S3 murmurs rubs or gallops GI: Other: Soft nontender nondistended normoactive bowel sounds Extrem: Other: No edema bilaterally DS: Data Data Completed and Pending Labs on day of discharge: Laboratory Results - last 24 hr 09/08/24 05:25 WBC 5.7 RBC 2.76 L Hgb 8.7 L Hct 25.7 L MCV 93.1 MCH 31.5 MCHC 33.9 RDW 13.8 Plt Count 102 L MPV 10.5 Immature Gran % (Auto) 0.4 Neut % (Auto) 66.3 Lymph % (Auto) 21.6 [place] % (Auto) 9.4 Eos % (Auto) 1.8 Baso % (Auto) 0.5 Lymph # (Auto) 1.2 [place] # (Auto) 0.5 Eos # (Auto) 0.1 Baso # (Auto) 0.0 Abs Immat Gran (auto) 0.02 Absolute Neuts (auto) 3.8 Absolute Nucleated RBC 0.000 Nucleated RBC % (auto) 0.0 Preliminary micro results at discharge 09/05/24 21:20 Blood Culture - Preliminary Blood - Venous No growth after 48 hours. 09/05/24 21:15 Blood Culture - Preliminary Blood - Venous No growth after 48 hours. Discharge Plan Discharge Anticipated Discharge Date/Time: 09/08/24 11:56 Patient Disposition: Home Health Service Discharge Diagnosis: Aspiration pneumonia Referrals: [facility] [Other] - 1 Week Douglas Nguyễn MD [Primary Care Provider, Medical] - 1 Week Discharge Medications: New doxycycline monohydrate 100 mg Capsule 100 mg PO Q12H Qty: 14 0RF cefuroxime axetil 250 mg tablet 250 mg PO BID 7 Days Qty: 14 0RF Continued aspirin 325 mg tablet,delayed release (DR/EC) 325 mg PO DAILY ropinirole 0.5 mg tablet 0.5 mg PO BEDTIME cholecalciferol (vitamin D3) 25 mcg (1,000 unit) tablet 1 tab PO DAILY carvedilol 3.125 mg Tablet 3.125 mg PO BID Qty: 60 0RF Protocol: Hold for SBP/HR < HOLD for SBP < : 90 HOLD for HR < : 60 Rx Instructions: TAKE WITH FOOD quetiapine 25 mg tablet 25 mg PO BID levetiracetam [Keppra] 250 mg tablet 250 mg PO BID Qty: 60 0RF docusate sodium 50 mg/5 mL liquid 5 ml PO BEDTIME PRN (Reason: Constipation) trazodone 50 mg tablet 50 mg PO BEDTIME PRN (Reason: Insomnia) sennosides [senna] 8.6 mg tablet 8.6 mg PO DAILY melatonin 5 mg tablet 5 mg PO BEDTIME omeprazole 20 mg tablet,delayed release (DR/EC) 20 mg PO DAILY@0630 Discharge Orders: Discharge Order (Routine); Ordered 09/08/24 Ordered By: Michael Thayer Diet: Advance to usual diet Activity on Discharge: As tolerated Stand Alone Forms: Patient Portal Discharge page Print Language: Polish Care Plan Goals: Resume all meds as taken prior to hospitalization Health Concerns: Complete course of doxycycline and Ceftin as ordered Plan of Treatment: Continue to leave Wylie in until seen by Urology as an outpatient Assessment: See discharge summary
--- NOTE | 2024-09-08 12:04 | P.F2F_ITS ---
Service Date Service Date: 09/08/24 Encounter Date of encounter: 09/08/24 Encounter: Acute hospitalization Reasons for Services Signs and symptoms assessed: Acute Wylie care and assessment of respiratory status Reason for jail: postoperative assessment and/or care, medication management and teach disease management Homebound: Leaving the home is medically contraindicated at this time without the asist of a device and/or another person due th the listed conditions above and below. Reason homebound: bedbound/chairbound, cognitively impaired / unsafe and unable to drive Certification: Based on the above findings, I certify that this patient is confined to the home and needs intermittent jail care, physical therapy and/or speech therapy, or continues to need occupational therapy. The patient is under my care, and I have initiated the establishment of the plan of care. The patient will be followed by a physician who will periodically review the plan of care. Time Spent With Patient Time: Total time managing care of this patient today ____ minutes.
--- NOTE | 2024-09-08 17:55 | P.CDIM_ITS ---
PROVIDER RESPONSE TEXT: To clarify, the appropriate diagnosis supported by the clinical indicators: Acute blood loss anemia with baseline chronic anemia: anemia of chronic disease QUERY TEXT: PHYSICIAN'S DOCUMENTATION REQUEST Date of Query: 09/07/2024 01:54 PM EDT Patient Name: Mayur Gonzalez Admit Date: 09/06/2024 Dear Michael Thayer DO, A review of the medical record indicates additional documentation may be needed. Please review below and update the documentation accordingly. Clinical Indicators: H&H on 09/05/24: 14.2/42.8 H&H on 09/07/24: 9.3/27.0 patient with gross hematuria, traumatic catheterization, enlarged prostate s/p OR 09/06/24 for cystoscopy, urethral dilation Based on the above, could you clarify which of the following is the most likely type of anemia you are evaluating, treating, and/or monitoring? Acute blood loss anemia Acute blood loss anemia with baseline chronic anemia (specify type) Other (explain) Clinically unable to determine (explain) Thank you, Zeynep Malin RN Use of terms such as suspected, likely, concern for, or probable (associated with a specific diagnosis that is being evaluated, monitored, or treated as if it exists) are acceptable and can be coded in the inpatient setting, when documented at the time of discharge. Please use your independent medical judgment in providing your response. THIS QUERY IS PART OF THE PERMANENT MEDICAL RECORD
[2024-09-09 01:28] LABS: Levetiracetam Keppra 10.0 mcg/mL (6.0-46.0)
== END 2024-09-08 12:46 | disposition home health service (06) | DRG 697 ==
LOC: HO.ED 21:13 → HO.EDOVER 23:01 → HO.S3 09-06 16:39
PROVIDERS: Urology; Admitting Provider Nurse Practitioner Family; Emergency Provider Emergency Medicine; PCP Internal Medicine; Visit Provider Hospitalist
PROC: 0T7D8ZZ Dilation of Urethra, Via Natural or Artificial Opening Endoscopic (ICD-10-PCS; principal; 2024-09-06 12:40)
DX: N35.919 Unspecified urethral stricture, male, unspecified site (principal); J69.0 Pneumonitis due to inhalation of food and vomit; D62 Acute posthemorrhagic anemia; J98.11 Atelectasis; T83.83XA Hemorrhage due to genitourinary prosthetic devices, implants and grafts, initial encounter; R31.0 Gross hematuria; G30.9 Alzheimer's disease, unspecified; F02.80 Dementia in other diseases classified elsewhere, unspecified severity, without behavioral disturbance, psychotic disturbance, mood disturbance, and anxiety; D69.6 Thrombocytopenia, unspecified; G40.909 Epilepsy, unspecified, not intractable, without status epilepticus; I11.0 Hypertensive heart disease with heart failure; Y74.8 Miscellaneous general hospital and personal-use devices associated with adverse incidents, not elsewhere classified; D63.8 Anemia in other chronic diseases classified elsewhere; N40.0 Benign prostatic hyperplasia without lower urinary tract symptoms; Z20.822 Contact with and (suspected) exposure to COVID-19; Z74.01 Bed confinement status; Z87.891 Personal history of nicotine dependence; Z79.82 Long term (current) use of aspirin; Z79.899 Other long term (current) drug therapy
CPT/HCPCS: 36415; 71045; 71260; 74177; 80048; 80053; 80177; 82947; 83605; 83735; 83880; 84132; 84484; 85007; 85025; 85027; 85610; 85730; 86704; 86706; 86709; 86803; 86850; 86900; 86901; 87040; 87340; 87637; 92610; 93005; 94640; 99285; C1758; C1769; J0131; J0696; J1271; J1956; J2003; J2270; J2470; J2543; J2704; J3010; J3360; J3430; Q9967

== ENCOUNTER → 2024-09-05 21:01 | Outpatient (BNV) | payer OTHER, SELFPAY | PROVIDERS: Admitting Provider Nurse Practitioner Family; Emergency Provider Emergency Medicine; Visit Provider Internal Medicine Cardiovascular Disease | DX: I44.0 Atrioventricular block, first degree (principal); I44.4 Left anterior fascicular block | CPT/HCPCS: 93010 ==

== ENCOUNTER → 2024-09-05 21:15 | Outpatient (BNV) | payer OTHER, SELFPAY | PROVIDERS: Emergency Provider Emergency Medicine; Visit Provider Family Medicine | DX: R06.00 Dyspnea, unspecified (principal) | CPT/HCPCS: 71045 ==

== ENCOUNTER 2024-09-05 22:55 | Outpatient (BNV) | payer OTHER, SELFPAY | END 2024-09-06 | PROVIDERS: Admitting Provider Nurse Practitioner Family; Emergency Provider Emergency Medicine; Visit Provider Radiology Diagnostic Radiology | DX: R31.0 Gross hematuria (principal); R91.1 Solitary pulmonary nodule | CPT/HCPCS: 71260; 74177 ==

== ENCOUNTER → 2024-09-05 22:55 | Outpatient (BNV) | payer OTHER, SELFPAY | PROVIDERS: Admitting Provider Nurse Practitioner Family; Emergency Provider Emergency Medicine; Visit Provider Hospitalist | DX: J69.0 Pneumonitis due to inhalation of food and vomit (principal); R31.0 Gross hematuria | CPT/HCPCS: 99223; 99232; 99239; G0180 ==

== ENCOUNTER → 2024-09-05 22:55 | Outpatient (BNV) | payer OTHER, SELFPAY | PROVIDERS: Admitting Provider Nurse Practitioner Family; Emergency Provider Emergency Medicine; Visit Provider Urology | DX: R31.0 Gross hematuria (principal); N40.0 Benign prostatic hyperplasia without lower urinary tract symptoms | CPT/HCPCS: 52281; 74420; 99222 ==